=== PATIENT | male | born 1965 | race Caucasian/White ===

== ENCOUNTER 2019-10-25 08:00 | Observation (INO) ==
--- NOTE | 2019-10-25 10:29 | History & Physical Bridge Note ---
Date of Service October 25, 2019 History & Physical Bridge Note I have examined the patient, reviewed the History & Physical and in the interval since the performance of the History & Physical I have noted the following changes of clinical significance: no changes noted I have explained the risk benefit and intent of the procedure to Mr. callaway. He is willing to proceed.
[2019-10-25] MEDS ORDERED: MIDAZOLAM HCL 1 MG/ML 2ML VIAL ONE ×2 (11:22→12:19)
[2019-10-25] MEDS ORDERED: HEPARIN (PORCINE) 1000 UNIT/ML 10 ML (CATH LAB USE ONLY) ONE (12:18)
--- NOTE | 2019-10-25 12:25 | Cardiac Catheterization ---
Date of Service October 25, 2019 Cardiac Cath Report Cardiac Cath Report Procedure: 1. Coronary angiography 2. Left heart catheterization 3. Left ventriculogram History: This is a 54-year-old male patient who stopped smoking approximately 6 months ago. He has had previous cardiac catheterizations in [place] and found to have moderate disease with FFR done on the left circumflex as well as a diagonal branch from the LAD with recommendations of medical management. He presented with ongoing activity related shortness of breath and has been referred for cardiac catheterization. Procedure summary: After informed consent was obtained, the patient was brought to the cardiac cat heterization lab where he is prepped and draped in the usual manner. An attempt was made at a right transradial approach but we were not able to advance the guidewire after accessing the artery and therefore this approach was abandoned. A right transfemoral artery approach was utilized with a retrograde cylinder technique. Preformed 5 Tajik diagnostic catheters utilized for the coronary angiograms. A 5 Tajik pigtail catheter was utilized for the left heart pressures and left ventriculogram. Following the procedure the patient was evaluated by interventional cardiology. ACC data: Start time 10:43 AM End time 11:57 AM Opening aortic pressure 130/81 Closing aortic pressure 148/92 LV pressure 144/21 Sedation 2 mg intravenous Versed IV fluids 74 cc normal saline Contrast 100 cc Optiray Fluoroscopy time 2.6 minutes Radiation 1065 mGy Dap 8581 mGy/m Right dominant system AUC score 6 Coronary angiography: Selective injections of the right coronary artery revealed to be dominant. The right coronary artery is smooth in appearance widely patent and within normal limits. Selective injections of the left coronary artery revealed the left main trunk to be patent. There is a medium to large size ramus branch from the left main trunk. The left circumflex artery consists of a small to medium sized first marginal, a second small marginal and a third large marginal supplying most of the posterior myocardium. After the takeoff of the second marginal branch there is a long area of 70 to 80% stenoses in the left circumflex artery. The LAD extends all the way around the apex of the heart. The LAD gives off 2 small to medium sized marginal branches before the takeoff of the first septal branch. The LAD system appears to be widely patent. Left ventriculogram: The left ventricle was of normal size with normal systolic function. The mitral valve is competent. The aortic root and ascending aorta have normal morphology and diameter. Summary: The patient essentially has single-vessel coronary artery disease with a long segment of a large marginal branch from the circumflex being severely diseased. Recommendations: Recommendations are for the patient to be evaluated by a interventional cardiology for possible stent placement in the left circumflex artery.
[2019-10-25] MEDS ORDERED: CLOPIDOGREL BISULFATE 300 MG TAB ONE (12:27)
--- NOTE | 2019-10-25 12:45 | Post Anesthesia Assessment ---
Date of Service October 25, 2019 Post Sedation Assessment Vital Signs Temp Pulse Resp BP Pulse Ox 10/25/19 08:26 97.9 F 72 20 136/95 98 Recovery Score Activity: Moves 4 extremities Respiration: Deep Breath/Cough Circulation: +/-20% PreAnes Value Consciousness: Fully Awake Oxygen Saturation: O2 needed for >90% Discharge Sedation Level of Care: Fast Track Phase II Post Sedation Plan On clinical assessment, the patient appears to have tolerated the sedation without complications. Patient is recovering as anticipated. Patient will continue to be monitored by nursing and may be discharged when sedation discharge criteria are met per below protocol. Upon Completions of procedure up to 15 minutes continue every 5 minute vital signs and the P.A.R. score; then discharge to a Phase I or Fast Track to Phase II per the following guidelines: * Discharge Patient to appropriate Phase II area if PAR is 8 or greater or return to pre- procedure baseline. The post - procedure orders will be as directed. * If PAR score is less than 8 or not return to pre-procedure baseline then patient will follow Phase I monitoring till PAR is reached for Phase II. The Phase I may be done in procedure room or may call to secure a Phase I area. * If naloxone or flumazenil are used for reversal, hold in Phase I for continued monitoring from when last reversal dose was given for a minimum of 60 minutes or longer pending the nurse and/or physician discretion of patient condition before discharge to Phase II. Please call the Sedation Physician to re-evaluate and complete post-note for discharge to Phase II area. Do NOT discharge from procedure sedation or Phase 1 until post- sedation evaluation note is complete by procedure /sedation MD Sedation Discharge Instructions to be given to the patient at discharge to home.
[2019-10-25] MEDS ORDERED: ONDANSETRON INJ 2 MG/ML 2 ML VIAL IV PRN (12:49)
[2019-10-25] MEDS ORDERED: ACETAMINOPHEN 325 MG TAB PO PRN (12:49)
[2019-10-25] MEDS ORDERED: NITROGLYCERIN SL 0.4 MG/TAB TAB SL PRN (12:49)
--- NOTE | 2019-10-25 12:49 | Cardiac Catheterization ---
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 Cardiac Status Clinical evaluation leading to the procedure CAD Presenation: Stable angina Anginal Classification: CCS III Heart Failure: No Cardiogenic Shock within 24 Hours: No Cardiac Arrest within 24 Hours: No Imaging Studies Past 6 Months: No Stress Studies Past 6 Months: No Diagnostic Physicians Name: Terry Fink MD Status: Elective Closure Device Percutaneous Entry Location: Femoral Closure Device: Angio-Seal Recommendations: PCI without planned CABG PCI Indication: Angina despite med therapy and Stable Angina Lesion Segment Name: Mid to distal circumflex Culprit Artery: Yes Stenosis Prior to Rx (%): 70 Chronic Total Occlusion: No IVUS: No FFR: No Pre-Procedure RAYRAY Flow: 3 Previously Treated Lesion: No Lesion Complexity: Non-High/Non-C Lesion Length (mm): 28 Thrombus Present: No Bifurcation Lesion: No Guidewire Across Lesion: Stenosis Post-Procedure (%): 0 Post-Procedure RAYRAY Flow: 3 Devices(s) Deployed: No Yes Intraprocedure Events Significant Disection: No Perforation: No Cardiac Cath Procedure Full Procedure Date October 25, 2019 Pre-Procedure Diagnosis Pre-Procedure Diagnosis: Angina and CAD AUC Score AUC Score: 7 Post-Procedure Diagnosis Post-Procedure Diagnosis: Severe CAD and Successful PCI Procedure(s) Performed Procedure(s) Performed: Coronary Angiography and Drug Eluting Stent Travel Nurse Terry Fink MD Electrical Electronics Engineers(s) Jb Estimated Blood Loss Estimated Blood Loss: 10 Medication(s) Medication(s): Clopidogrel, Fentanyl, Heparin, Nicardipine, Nitroglycerin and Versed Summary of Findings Indication: Refractory angina Access: 6 Fr right common femoral artery Catheters: EBU 3.75 guide Findings: For full details of patient's coronary angiography please cath report dictated by Dr. Vazquez. Briefly, patient found to have severe single vessel disease involving his mid to distal circumflex. Decision to proceed with PCI. -- PCI -- Antithrombotic therapy: Heparin, clopidogrel Procedure: Left main cannulated with EBU 3.75 guide BMW wire passed across lesion into distal vessel Mid to distal circumflex lesion predilated with 2.0 compliant balloon Dilated lesion stented with 2.25 x 30 mm Prateek drug-eluting stent Stent post-dilated with 2.5 noncompliant balloon IC vasodilators administered for spasm Post procedure RAYRAY 3 flow, stent well expanded with minimal residual stenosis and no apparent cardiac complications. Arterial Closure: Angio-Seal Summary: 1. Successful PCI of mid to distal circumflex with single drug-eluting stent (2.25 x 30 mm Prateek; postdilated with 2.5 NC). Recommendations: To PCU for continued monitoring Loaded with clopidogrel 600 mg in laboratory sampler Continue dual-antiplatelet therapy for at least 6 months Continue statin, and ASCVD risk factor modification Consult cardiac Rehab Hemodynamics Rest Ao:: 144/94/115 Final Ao: 140/92/112 LV: -- Recommendations Recommendations: PCI without planned CABG Specimens Specimens: None Radiation Exposure (mGy) 2982 Contrast (mls) 180 Fluids (cc crystalloids) Fluids (cc crystalloids): 200 Drains Drains: None Anesthesia Moderate Procedural Complication(s) None Disposition PCU I attest to the content of the Intraoperative Record and any orders documented therein. Any exceptions are noted below.
[2019-10-25] MEDS ORDERED: DEXTROSE 50% 50 ML SYRINGE IV PRN (12:54)
[2019-10-25] MEDS ORDERED: GLUCOSE 10 TABS/TUBE PO PRN (12:54)
[2019-10-25] MEDS ORDERED: GLUCOSE 40% GEL 15 GM TUBE PO PRN (12:54)
[2019-10-25] MEDS ORDERED: CARBOHYDRATES FOR HYPOGLYCEMIA PO PRN (12:54)
[2019-10-25] MEDS ORDERED: GLUCAGON FOR INJ 1 MG VIAL SQ PRN (12:54)
[2019-10-25] MEDS ORDERED: SODIUM CHLORIDE 0.9% 1000ML 1,000 ML IV SCH (13:00)
--- NOTE | 2019-10-25 13:38 | Hospitalist Consultation ---
Date of Consultation October 25, 2019 Assessment & Plan (1) CAD (coronary artery disease): (2) S/P coronary artery stent placement: This is a 54yo M with a PMH of CAD, HTN, HLD, PSVT, mood disorder and other medical problems listed below who is s/p ROCAEL to mid-distal circumflex by Dr. Fink. -Feeling well s/p cardiac catheterization. Will be observed in PCU overnight -Loaded with clopidogrel 600 mg in cathead operator. -Continue dual-antiplatelet therapy for at least 6 months, statin and ASCVD risk factor modification -Consult cardiac rehab (3) HTN (hypertension): Normotensive. Continue carvedilol and lisinopril (4) Prediabetes: A1c of 6.2 in June 2019. Repeat ordered -Hold home agents -SSI while in-patient -BSG AC HS (5) Mood disorder: Continue Wellbutrin, Doxepin and Risperdal DVT Ppx: SQ Lovenox Code status: FULL PCP: Pilgram Dispo: Per primary service Patient seen in collaboration with Dr. Steele. Please see addendum. Thank you for this consultation. We will follow the patient with you during their hospital stay. You can reach a member of the [facility] Hospitalist Team 22/06 via pager @ [phone]. Supervising Physician Co-Signing Physician Notes ROS-No Headache, No Visual Changes, No Nausea, No Vomiting, No Fever, No Chills, No Neck Pain or Stiffness, No Chest Pain, No Palpitations, No SOB, No MENCHACA, No Cough, No Sputum, No Wheezing, No Abdominal Pain, No Diarrhea, No Hematemesis, No Hemoptysis, No Unexpected Weight Loss, No Flank pain, No Melena, No Hematochezia, No Frequency, No Urgency, No Burning, No Hematuria, No Rashes, No Diaphoresis. Appetite is Normal, c/o back Pain Physical Exam Gen-AAO x 3, NAD, Afebrile Head-NCAT, EOMI, PERRLA, Anicteric Sclera, No Posterior Pharyngeal Erythema Neck-Supple, No JVD, No Thyromegaly, No Masses, No LAD, No Bruits Lungs-Clear to Auscultation Bilaterally, No Rales, No Rhonchi, No Wheezing, No Crepitus Chest-No S4, +S1, +S2, No S3, No Murmurs, No Rubs, No Gallops, No Ectopy Abdomen-Soft, Bowel Sounds Present, Non Tender, Non Distended, No Hepatomegaly, No Splenomegaly, No Palpable Masses, No Rebound, No Rigidity, No Guarding Musculoskeletal-Full Range of Motion Bilaterally, No CVAT Extremities-No Cyanosis, No Clubbing, No Edema Nuero-Cranial Nerves II-XII grossly intact, Motor WNL, DTRs WNL, Strength WNL, Non Focal Psych-Normal Mood History of Present Illness Reason for Consultation: post PCI medical mgmt Attending Physician: Catrachito Vazquez, DO History of Present Illness This is a 54yo M with a PMH of CAD, HTN, HLD, PSVT, mood disorder and other medical problems listed below who is s/p ROCAEL to mid-distal circumflex by Dr. Fink. Patient has recently seen PCP for ongoing activity related shortness of breath and has been referred for cardiac catheterization today at [facility]. Has history of previous cardiac catheterizations in [place] and was found to have moderate disease with FFR done on the left circumflex as well as a diagonal branch from the LAD with recommendations of medical management. Quit smoking approximately 6 months ago. During diagnostic cardiac catheterization by Dr. Vazquez today, patient was found to have single-vessel coronary artery disease with a long segment of a large marginal branch from the circumflex being severely diseased. Was evaluated by Dr. Fink and underwent successful PCI of mid-distal circumflex artery. Post procedure, patient is feeling well except for lower back pain due to former back injury. Denies any lightheadedness, visual changes, chest pain, palpitations, shortness of breath, nausea, vomiting, abdominal pain, dysuria, diarrhea or constipation. Allergies Allergy/AdvReac Type Severity Reaction Status Date / Time celecoxib Allergy Mild OTHER Verified 10/24/10 14:02 Cephalosporins Allergy Mild OTHER Verified 10/24/10 14:02 hydromorphone Allergy Mild OTHER Verified 10/24/10 14:02 tramadol Allergy Mild OTHER Verified 11/05/10 04:16 Penicillins Allergy Unknown UNKNOWN Verified 11/28/10 09:20 propoxyphene Allergy Unknown 0 Verified 11/05/10 04:16 cephalexin AdvReac Intermediate VOMITING Verified 12/13/10 11:15 naproxen AdvReac Intermediate N/V Verified 12/13/10 11:15 chlorpromazine AdvReac Mild FLUSHED Verified 12/13/10 11:15 hydrocodone AdvReac Mild NAUSEA/CP Verified 11/05/10 06:20 morphine AdvReac Unknown NAUSEA Verified 09/01/14 09:53 Home Medications Home Medications Medication Instructions Recorded Confirmed Type aspirin 81 mg PO QAM 12/06/18 10/25/19 History carvedilol 25 mg PO BIDM 12/06/18 10/25/19 History doxepin 150 mg PO HS 12/06/18 10/25/19 History fenofibrate 160 mg PO QAM 12/06/18 10/25/19 History lisinopril 20 mg PO QAM 12/06/18 10/25/19 History metformin 500 mg PO BIDM 12/06/18 10/25/19 History vortioxetine [Trintellix] 20 mg PO QAM 12/06/18 10/25/19 History albuterol sulfate 2 puff INHALATION QID 10/24/19 10/25/19 History bupropion HCl [Wellbutrin SR] 100 mg PO DAILY 10/24/19 10/25/19 History risperidone 1 mg PO BID 10/24/19 10/25/19 History rosuvastatin 40 mg PO DAILY 10/25/19 10/25/19 History Patient History Medical History (Updated 10/25/19 @ 14:07 by Yovana Aleman PA-C) CAD (coronary artery disease) History of tobacco use HTN (hypertension) Mood disorder Prediabetes PSVT (paroxysmal supraventricular tachycardia) Ureteral stone (Resolved 08/29/14) Surgical History H/O inguinal hernia repair History of cardiac catheterization History of cholecystectomy S/P bilateral hip replacements Family History Other Diabetes Heart disease Social History (Updated 10/25/19 @ 14:02 by Yovana Aleman PA-C) Preferred Language: Yoruba Communication Ability: Effective Watch Mechanic Required: No Beliefs That Will Affect Care: None Current Living Situation: Alone Other Information That Helps Us Care for You: No Feels Safe at Home: Yes Safety Concerns: Feels Safe At This Time Smoking Status: Former smoker Smoking End Date: 04/30/2019 ; Hx Alcohol Use: Yes Alcohol type: beer Hx Substance Use: No Review of Systems Review of Systems: At least ten systems reviewed and negative except as noted in the HPI. Physical Exam Physical Exam: General Appearance: WD/WN, vitals as above, NAD, lying in bed, pleasant, conversing easily Head: normocephalic, atraumatic Eyes: normal inspection, PERRL, conjunctivae normal, anicteric sclerae ENT: external ear and nose normal, oropharynx normal Neck: trachea midline, no thyromegaly normal visual inspection Respiratory: normal respiratory effort, lungs clear to auscultation, no wheeze, rales, rhonchi. Normal insp/exp effort, no accessory muscle use Cardiovascular: regular rate, rhythm, no murmur, normal peripheral pulses. Vessels: no JVD or carotid bruit Chest: normal inspection of chest Abdomen/GI: normal bowel sounds, soft, nontender, no hepatosplenomegaly Extremities/Musculoskelatal: no cyanosis or clubbing, extremities motor streng th 5/5. Right groin with banage in place. Clean, dry, intact Neurologic: PERRL, EOMI, accommodation nl, no face palsy, no dysarthria CN's II-XI intact bilaterally and moves all extremities Psychiatric: A+Ox3, euthymic affect Skin: no rashes, normal color, warm/dry Results & Data Vital Signs (Past 12 Hours) Vital Signs Temp Pulse Resp BP Pulse Ox 10/25/19 13:30 66 20 130/89 96 10/25/19 13:15 66 20 138/90 96 10/25/19 13:00 66 20 145/91 H 96 10/25/19 12:55 66 20 135/96 98 10/25/19 12:50 66 20 153/101 H 98 10/25/19 12:45 70 20 136/95 98 10/25/19 08:26 36.6 C 72 20 136/95 98
[2019-10-25] MEDS: SODIUM CHLORIDE 0.9% 1000ML 1,000 ML IV SCH (14:58)
[2019-10-25] MEDS: OXYCODONE HCL IR 5 MG TAB (IMMEDIATE RELEASE) PO PRN ×2 (15:18→20:24)
[2019-10-25] MEDS: ACETAMINOPHEN SOLN 500 MG/15.62 ML UDP PO SCH ×2 (15:18→20:19)
[2019-10-25] MEDS ORDERED: PNEUMOCOCCAL ADMINISTRATION CHARGE ONE (16:00)
[2019-10-25] MEDS ORDERED: PNEUMOCOCCAL POLYSACCHARIDES 25 MCG/0.5 ML VIAL/SYR IM ONE (16:00)
[2019-10-25] MEDS: ALBUTEROL HFA 8 GM INHALER INH SCH ×2 (17:00→20:25)
[2019-10-25] MEDS: carvediloL 25 MG TAB PO SCH (17:01)
[2019-10-25] MEDS: INSULIN ASPART 100 UNITS/ML 3 ML PEN SC SCH ×2 (17:02→20:28)
[2019-10-25] MEDS: risperiDONE 1 MG TABLET PO SCH (20:26)
[2019-10-25] MEDS ORDERED: DOXEPIN HCL 75 MG CAPSULE PO SCH (21:00)
[2019-10-26] MEDS: ACETAMINOPHEN SOLN 500 MG/15.62 ML UDP PO SCH ×5 (01:03→12:03)
[2019-10-26] MEDS: OXYCODONE HCL IR 5 MG TAB (IMMEDIATE RELEASE) PO PRN ×3 (01:34→10:31)
[2019-10-26] MEDS: SODIUM CHLORIDE 0.9% 1000ML 1,000 ML IV SCH ×2 (01:45→13:32)
[2019-10-26 07:19] LABS: Basophils # (auto) 0.02 K/uL (0-0.2); Basophils % (auto) 0.3 %; Eosinophils # (auto) 0.47 K/uL (0-0.5); Eosinophils % (auto) 7.7 %; Hematocrit (blood only) 33.7 % (42-52); Hemoglobin 11.5 g/dL (14.0-18.0); Immature Granulocytes # (auto) 0.02 K/uL (0.00-0.02); Immature Granulocytes % (auto) 0.3 %; Lymphocytes # (auto) 1.78 K/uL (1.2-3.4); Lymphocytes % (auto) 29.1 %; Mean Corpuscular Hemoglobin 31.7 pg (25-34); Mean Corpuscular Hgb Conc 34.1 g/dL (32-36); Mean Corpuscular Volume 92.8 fL (80-100); Mean Platelet Volume 9.3 fL (7.4-10.4); Monocytes # (auto) 0.55 K/uL (0.11-0.59); Neutrophils # (auto) 3.28 K/uL (1.4-6.5); Neutrophils % (auto) 53.6 %; Platelet Count 194 K/uL (130-400); RDW Standard Deviation 44.1 fL (36.4-46.3); Red Blood Count 3.63 M/uL (4.7-6.1); White Blood Count 6.12 K/uL (4.8-10.8)
[2019-10-26 07:51] LABS: BUN Creatinine Ratio 13.6 (10-20); Calcium 8.6 mg/dl (8.5-10.1); Creatinine Clr Calc Pharmacy 81.1 ml/min; Est GFR (African American) 75.6; Est GFR (Non-African American) 65.2; Potassium 4.1 mmol/L (3.5-5.1)
[2019-10-26] MEDS: INSULIN ASPART 100 UNITS/ML 3 ML PEN SC SCH ×2 (07:52→11:53)
[2019-10-26 07:53] LABS: Estimated Average Glucose 174 mg/dl; Hemoglobin A1C 7.7 % (4.5-5.6)
[2019-10-26] MEDS: risperiDONE 1 MG TABLET PO SCH (07:53)
[2019-10-26] MEDS: carvediloL 25 MG TAB PO SCH (07:53)
[2019-10-26] MEDS: ALBUTEROL HFA 8 GM INHALER INH SCH ×2 (08:00→12:03)
[2019-10-26] MEDS ORDERED: ROSUVASTATIN CALCIUM 20 MG TAB PO SCH (09:00)
[2019-10-26] MEDS ORDERED: ASPIRIN 81 MG ECTAB PO SCH (09:00)
[2019-10-26] MEDS ORDERED: BuPROPion SR 100 MG TABCR PO SCH (09:00)
[2019-10-26] MEDS ORDERED: LISINOPRIL 20 MG TAB PO SCH (09:00)
[2019-10-26] MEDS ORDERED: CLOPIDOGREL BISULFATE 75 MG TAB PO SCH (09:00)
--- NOTE | 2019-10-26 09:47 | Hospitalist Progress Note ---
Date of Service October 26, 2019 Assessment & Plan (1) CAD (coronary artery disease): (2) S/P coronary artery stent placement: 54yo M with a PMH of CAD, HTN, HLD, PSVT, mood disorder and other medical problems listed below who is s/p ROCAEL to mid-distal circumflex by Dr. Fink. Feeling well after cardiac cath and ROCAEL Continue aspirin and clopidogrel for 6 months Ok for discharge to follow up with PCP and Cardiology Continue rosuvastatin Continue metformin for DM Discussed other lifestyle modifications (3) HTN (hypertension): Normotensive. Continue carvedilol and lisinopril (4) Diabetes mellitus: A1c of 6.2 in June 2019. Repeat is 7.7. POC glucose was >150 yesterday., 124 this AM Has been on insulin sliding scale while in the hospital Provided diabetic education Patient reports he has quit alcohol after recent evaluation showed mild hepatomegaly on USS and mild elevation in AST/ALT. Quit smoking 6 months ago Educated on need for exercise, diet and medication adherence Continue metformin on discharge and follow up PCP for continued management (5) Mood disorder: Continue Wellbutrin, Doxepin and Risperdal DVT Ppx: SQ Lovenox Code status: FULL PCP: Pilgram Dispo: Per primary service. Can be discharged today Subjective Patient seen and examined Has no complaints today Reports he has been walking around since after PCI without shortness of breath. Review of Systems Constitutional: no fever and no chills Eyes: no problem reported Respiratory: no cough, no dyspnea, no dyspnea on exertion and no wheezing Cardiovascular: no chest pain, no dyspnea at rest, no dyspnea on exertion and no orthopnea Gastrointestinal: no problem reported Genitourinary: no problem reported Physical Exam Physical Exam: General: Well nourished, well hydrated ,average body habitus, no acute distress and not ill appearing Eyes: PERRL, conjunctivae normal, not pale, anicteric sclerae, EOM intact bilaterally ENMT: External ear and nose normal, oropharynx normal Neck: Normal visual inspection, no tracheal deviation, no swelling noted Respiratory: Normal respiratory effort, no respiratory distress, lungs clear to auscultation, no crackles and no wheezes Cardiovascular: Pulse is RRR. Heart Sounds: normal S1 and normal S2; no murmurs. Vessels: normal peripheral pulses Extremities: no pedal edema Chest (Breasts): Chest: normal inspection of chest Gastrointestinal (Abdomen): Abdomen is not distended, soft, non-tender to palpation, no guarding, no palpable hepatosplenomegaly, normal bowel sounds Musculoskeletal: No cyanosis or clubbing, all extremities motor strength 5/5 Skin: No rash noted on gross inspection, No ulcers noted Neurologic: Alert and oriented x 3, No focal weakness, sensation grossly intact Psychiatric: Alert and oriented x 3, euthymic affect, no depressed affect Results & Data Vital Signs (Past 12 Hours) Vital Signs Temp Pulse Pulse Resp BP Pulse Ox 10/26/19 08:00 74 10/26/19 07:00 36.5 C 77 20 129/79 96 10/26/19 03:58 36.5 C 84 137/85 96 10/25/19 23:34 36.4 C L 81 19 144/78 H 96 Laboratory Results Laboratory Results - last 24 hr 10/25/19 10/25/19 10/25/19 14:50 16:37 20:11 WBC RBC Hgb Hct MCV MCH MCHC RDW Std Deviation RDW Coeff of Rory Plt Count MPV Immature Gran % (Auto) Neut % (Auto) Lymph % (Auto) [place] % (Auto) Eos % (Auto) Baso % (Auto) Immature Gran # (Auto) Neut # (Auto) Lymph # (Auto) [place] # (Auto) Eos # (Auto) Baso # (Auto) Sodium Potassium Chloride Carbon Dioxide Anion Gap BUN Creatinine Est Cr Clr Drug Dosing Est GFR ( Amer) Est GFR (Non-Af Amer) BUN/Creatinine Ratio Glucose POC Glucose 173 H 152 H 193 H Estimat Average Glucose Hemoglobin A1c Calcium 10/26/19 10/26/19 10/26/19 07:06 07:06 07:06 WBC 6.12 RBC 3.63 L Hgb 11.5 L Hct 33.7 L MCV 92.8 MCH 31.7 MCHC 34.1 RDW Std Deviation 44.1 RDW Coeff of Rory 13.0 Plt Count 194 MPV 9.3 Immature Gran % (Auto) 0.3 Neut % (Auto) 53.6 Lymph % (Auto) 29.1 [place] % (Auto) 9.0 Eos % (Auto) 7.7 Baso % (Auto) 0.3 Immature Gran # (Auto) 0.02 Neut # (Auto) 3.28 Lymph # (Auto) 1.78 [place] # (Auto) 0.55 Eos # (Auto) 0.47 Baso # (Auto) 0.02 Sodium 137 Potassium 4.1 Chloride 106 Carbon Dioxide 24 Anion Gap 7.0 BUN 17 Creatinine 1.23 Est Cr Clr Drug Dosing 81.1 Est GFR ( Amer) 75.6 Est GFR (Non-Af Amer) 65.2 BUN/Creatinine Ratio 13.6 Glucose 118 H POC Glucose Estimat Average Glucose 174 Hemoglobin A1c 7.7 H Calcium 8.6 10/26/19 07:14 WBC RBC Hgb Hct MCV MCH MCHC RDW Std Deviation RDW Coeff of Rory Plt Count MPV Immature Gran % (Auto) Neut % (Auto) Lymph % (Auto) [place] % (Auto) Eos % (Auto) Baso % (Auto) Immature Gran # (Auto) Neut # (Auto) Lymph # (Auto) [place] # (Auto) Eos # (Auto) Baso # (Auto) Sodium Potassium Chloride Carbon Dioxide Anion Gap BUN Creatinine Est Cr Clr Drug Dosing Est GFR ( Amer) Est GFR (Non-Af Amer) BUN/Creatinine Ratio Glucose POC Glucose 124 H Estimat Average Glucose Hemoglobin A1c Calcium
[2019-10-26] MEDS ORDERED: ENOXAPARIN INJ 40 MG/0.4 ML SYR SQ SCH (11:00)
--- NOTE | 2019-10-26 13:27 | Cardiology Progress Note ---
Date of Service October 26, 2019 Assessment & Plan (1) CAD (coronary artery disease): (2) S/P coronary artery stent placement: (3) Diabetes mellitus: (4) Mood disorder: (5) HTN (hypertension): The patient is ready for discharge today. I will arrange follow-up with our group in 2 to 3 weeks. Subjective The patient had an uneventful night. He has no new cardiac complaints. He has been walking in the [place] without difficulty. Review of Systems Review of Systems: All systems reviewed & are unremarkable except as noted in HPI & below Nothing additional to add. Physical Exam Physical Exam: General: no acute distress and stated age Head: normocephalic, no masses, lesions, tenderness or abnormalities Eyes: conjunctiva are pink and non-injected, sclera clear Neck: supple, no adenopathy, no bruits, normal jugular venous pulse, no hepatojugular reflux Chest: normal shape and normal respiratory effort Lungs: clear to auscultation and percussion Cardiac Exam: - regular rate & rhythm, no murmurs gallops or rubs - normal S1, normal S2 Pulses: 2(+) throughout Abdomen: abdomen soft, non-tender, no abnormal masses and no hepatosplenomegaly Musculoskeletal: no gait disturbance, no joint inflammation, no deforming arthritis Extremities: no edema and no cyanosis Neuro: grossly normal exam Results & Data Vital Signs (Past 12 Hours) Vital Signs Temp Pulse Pulse Resp BP Pulse Ox 10/26/19 12:57 36.2 C L 80 20 106/71 96 10/26/19 11:17 36.2 C L 80 20 106/71 96 10/26/19 08:00 74 10/26/19 07:00 36.5 C 77 20 129/79 96 10/26/19 03:58 36.5 C 84 137/85 96 Laboratory Results Laboratory Results - last 24 hr 10/25/19 10/25/19 10/25/19 14:50 16:37 20:11 WBC RBC Hgb Hct MCV MCH MCHC RDW Std Deviation RDW Coeff of Rory Plt Count MPV Immature Gran % (Auto) Neut % (Auto) Lymph % (Auto) [place] % (Auto) Eos % (Auto) Baso % (Auto) Immature Gran # (Auto) Neut # (Auto) Lymph # (Auto) [place] # (Auto) Eos # (Auto) Baso # (Auto) Sodium Potassium Chloride Carbon Dioxide Anion Gap BUN Creatinine Est Cr Clr Drug Dosing Est GFR ( Amer) Est GFR (Non-Af Amer) BUN/Creatinine Ratio Glucose POC Glucose 173 H 152 H 193 H Estimat Average Glucose Hemoglobin A1c Calcium 10/26/19 10/26/19 10/26/19 07:06 07:06 07:06 WBC 6.12 RBC 3.63 L Hgb 11.5 L Hct 33.7 L MCV 92.8 MCH 31.7 MCHC 34.1 RDW Std Deviation 44.1 RDW Coeff of Rory 13.0 Plt Count 194 MPV 9.3 Immature Gran % (Auto) 0.3 Neut % (Auto) 53.6 Lymph % (Auto) 29.1 [place] % (Auto) 9.0 Eos % (Auto) 7.7 Baso % (Auto) 0.3 Immature Gran # (Auto) 0.02 Neut # (Auto) 3.28 Lymph # (Auto) 1.78 [place] # (Auto) 0.55 Eos # (Auto) 0.47 Baso # (Auto) 0.02 Sodium 137 Potassium 4.1 Chloride 106 Carbon Dioxide 24 Anion Gap 7.0 BUN 17 Creatinine 1.23 Est Cr Clr Drug Dosing 81.1 Est GFR ( Amer) 75.6 Est GFR (Non-Af Amer) 65.2 BUN/Creatinine Ratio 13.6 Glucose 118 H POC Glucose Estimat Average Glucose 174 Hemoglobin A1c 7.7 H Calcium 8.6 10/26/19 10/26/19 07:14 11:15 WBC RBC Hgb Hct MCV MCH MCHC RDW Std Deviation RDW Coeff of Rory Plt Count MPV Immature Gran % (Auto) Neut % (Auto) Lymph % (Auto) [place] % (Auto) Eos % (Auto) Baso % (Auto) Immature Gran # (Auto) Neut # (Auto) Lymph # (Auto) [place] # (Auto) Eos # (Auto) Baso # (Auto) Sodium Potassium Chloride Carbon Dioxide Anion Gap BUN Creatinine Est Cr Clr Drug Dosing Est GFR ( Amer) Est GFR (Non-Af Amer) BUN/Creatinine Ratio Glucose POC Glucose 124 H 130 H Estimat Average Glucose Hemoglobin A1c Calcium Medications Administered Current Inpatient Medications Acetaminophen (Tylenol) 650 mg PO Q4H PRN PRN Reason: Mild Pain (scale 1-3) Stop: 11/24/19 12:48 Acetaminophen (Tylenol) 500 mg PO Q4H [facility] Stop: 11/24/19 15:59 Last Admin: 10/26/19 12:03 Dose: Not Given Documented by: Albuterol (Ventolin Hfa) 2 puffs INH QID [facility] Stop: 11/24/19 16:59 Last Admin: 10/26/19 12:03 Dose: Not Given Documented by: Aspirin (Ecotrin Ectab) 81 mg PO QAM [facility] Stop: 11/25/19 08:59 Last Admin: 10/26/19 07:53 Dose: 81 mg Documented by: Bupropion HCl (Wellbutrin-Sr) 100 mg PO DAILY [facility] Stop: 11/25/19 08:59 Last Admin: 10/26/19 07:55 Dose: 100 mg Documented by: Carvedilol (Coreg) 25 mg PO BIDM [facility] Stop: 11/24/19 16:59 Last Admin: 10/26/19 07:53 Dose: 25 mg Documented by: Clopidogrel Bisulfate (Plavix) 75 mg PO QAM [facility] Stop: 11/25/19 08:59 Last Admin: 10/26/19 07:53 Dose: 75 mg Documented by: Dextrose (Dextrose 50%) 25 - 50 ml IV UD PRN; Protocol PRN Reason: Hypoglycemia Protocol Stop: 11/24/19 12:53 Doxepin HCl (Sinequan) 150 mg PO HS [facility] Stop: 11/24/19 20:59 Last Admin: 10/25/19 20:26 Dose: 150 mg Documented by: Enoxaparin Sodium (Lovenox) 40 mg SQ Q24H [facility] Stop: 11/25/19 10:59 Last Admin: 10/26/19 11:57 Dose: 40 mg Documented by: Glucagon (Glucagen) 1 mg SQ UD PRN; Protocol PRN Reason: Hypoglycemia Protocol Stop: 11/24/19 12:53 Glucose (Dex4 Glucose) 4 - 8 tabs PO UD PRN; Protocol PRN Reason: Hypoglycemia Protocol Stop: 11/24/19 12:53 Glucose (Glucose 40%) 15 - 30 gm PO UD PRN; Protocol PRN Reason: Hypoglycemia Protocol Stop: 11/24/19 12:53 Sodium Chloride (Nss 1000ml) 1,000 mls @ 100 mls/hr IV .Q10H [facility] Stop: 11/24/19 10:29 Last Admin: 10/26/19 01:45 Dose: 100 mls/hr Documented by: Insulin Aspart (Novolog Flexpen) 0 units SC ACHS [facility] Stop: 11/24/19 16:29 Last Admin: 10/26/19 11:53 Dose: 3 units Documented by: Lisinopril (Zestril) 20 mg PO QAM [facility] Stop: 11/25/19 08:59 Last Admin: 10/26/19 07:53 Dose: 20 mg Documented by: Miscellaneous (Order Awaiting Action) 1 ea N/A QS [facility] Stop: 11/24/19 15:59 Last Admin: 10/26/19 08:00 Dose: Not Given Documented by: Miscellaneous (Order Awaiting Action) 1 ea N/A QS [facility] Stop: 11/24/19 15:59 Last Admin: 10/26/19 07:59 Dose: Not Given Documented by: Miscellaneous (Carbohydrates For Hypoglycemia) 15 - 30 gm PO UD PRN PRN Reason: Hypoglycemia Protocol Stop: 11/24/19 12:53 Nitroglycerin (Nitrostat) 0.4 mg SL PRN PRN PRN Reason: Chest Pain Stop: 11/24/19 12:48 Ondansetron HCl (Zofran) 4 mg IV Q6H PRN PRN Reason: Nausea And Vomiting Stop: 11/24/19 12:48 Oxycodone HCl (Roxicodone Immediate Rel) 5 mg PO Q4H PRN PRN Reason: Pain Stop: 11/08/19 15:02 Last Admin: 10/26/19 10:31 Dose: 5 mg Documented by: Risperidone (Risperdal) 1 mg PO BID [facility] Stop: 11/24/19 20:59 Last Admin: 10/26/19 07:53 Dose: 1 mg Documented by: Rosuvastatin Calcium (Crestor) 40 mg PO DAILY [facility] Stop: 11/25/19 08:59 Last Admin: 10/26/19 07:53 Dose: 40 mg Documented by:
== END 2019-10-26 13:42 | disposition home or self-care (01) ==
LOC: CC 08:00 → 2S 08:00

== ENCOUNTER 2024-06-12 11:56 | Inpatient (IN) ==
--- NOTE | 2024-06-12 11:57 | Emergency Department Note ---
Impression & Plan Chest pain, CAD (coronary artery disease), S/P coronary artery stent placement, Abdominal distension, Abdominal pain ED Provider Note NAME: BIANCA ORANTES AGE: 58 SEX: M : 1965 ARRIVES VIA: Ambulance INFORMANT: Patient, significant other, EMS report/nursing report ED PROVIDER(S): Tab Azar MD CHIEF COMPLAINT: Abdominal distention, chest burning MEDICAL DECISION MAKING: Patient presented due to concern for chest burning as well as abdominal distention and pain. IV was established and blood work was obtained along with an EKG troponin CT of the abdomen pelvis and chest x-ray. Patient is currently chest pain-free. Patient blood work shows a normal white count hemoglobin of 12.9 the patient has been anemic in the past. Platelet count is normal. Kidney function with a creat of 1.52. Slightly higher than normal. Calcium 10.4. Troponin negative. EKG with no signs of obvious acute ischemia with the patient is chest pain-free at the time of the EKG being taken. Glucose noted in the urine. Patient CT of the abdomen pelvis shows moderate fecal retention and no evidence of hydronephrosis with a normal appendix. Given the patient's chest pain and history of CAD patient is high risk. Do believe the patient would benefit from monitoring and further cardiac testing. I did speak with the patient informed of the findings and recommendations and he is comfortable with plan of care as is the patient's significant other at bedside. I did speak with the on-call hospitalist Dr. Carter and the patient was admitted to the medicine service. Discussion w/ other healthcare providers: Dr. Carter medicine service Prior /Outside records reviewed: None Differential diagnosis: Cardiac ischemia, aortic dissection, pulmonary embolism, pneumothorax, pneumonia, pericarditis, myocarditis, GERD, cholecystitis, pancreatitis, musculoskeletal, as well as other pathologies were considered. Diagnostics, as interpreted by me: ECG: Normal sinus rhythm, rate of 74, normal intervals, normal axis no ST elevations, T wave version V2 not in V3. Cardiac monitoring: An order was placed for continuous cardiac monitoring. The monitor shows a rate of 75 with sinus rhythm. Patient was placed on pulse oximetry Medical decision rules: Heart score Imaging studies: I informally interpreted the patient's CT of the abdomen pelvis does not show obvious obstruction with formal report to follow. HPI: Patient presents due to concern for abdominal distention and chest burning. The patient states that he woke up around 4 AM this morning and noticed that his abdomen was distended. He later went for a walk and developed the need to have a bowel movement. This occurred about 30 minutes afterwards and did have associated left-sided chest burning and arm numbness. Patient states that this did feel similar to when he had his prior MIs he does have a history of CAD and stents. Patient did take nitro. Patient also took aspirin and called EMS. Patient's chest burning was 7 out of 10 at the time that it occurred currently 0. Patient denies any falls or trauma. The patient does complain of some lower abdominal discomfort. No prior history of abdominal surgeries. Patient denies any alcohol use. He does chew tobacco. Patient states that he was following with a Dr. Mccracken with cardiology at [place]. Patient does follow at [facility] and is unsure as to his current PCPs as he used to have Dr. Long. Patient denies any leg swelling or calf pain. PAST MEDICAL HISTORY: See Below PAST SURGICAL HISTORY: See Below SOCIAL HISTORY: See Below HOME MEDICATIONS: See Below ALLERGIES: See Below VITALS: See Below PHYSICAL EXAMINATION: GENERAL: NAD, non-toxic. Wearing glasses. EYE EXAM: Normal conjunctiva. PERRL, no anisocoria and EOM's grossly intact w/o pain. OROPHARYNX: Moist mucus membranes, grossly normal dentition. NECK: Trachea midline, no stridor. LUNGS: Clear to auscultation. Normal chest wall mechanics. HEART: NSR, no MRG. ABDOMEN: Abdomen soft, abdominal distention, no obvious fluid wave, lower abdominal discomfort without upper abdominal pain. No masses, no rebound or guarding. BACK: No CVA TTP. SKIN: No rashes and no bruising. UPPER EXTREMITIES: Upper extremities are grossly normal. LOWER EXTREMITIES: Grossly normal, no edema. NEURO EXAM: A&O x3, cranial nerves II-XII grossly intact, normal speech, moves all 4 extremities. Past Med/Surg History Problem List (Updated 06/12/24 @ 16:18 by Tab Azar MD) Abdominal pain (Acute) Abdominal distension (Acute) Acute kidney injury History of CAD (coronary artery disease) Constipation Chest pain (Acute) Diabetes mellitus Prediabetes S/P coronary artery stent placement (Acute) CAD (coronary artery disease) (Acute) Mood disorder HTN (hypertension) Medical History History of tobacco use PSVT (paroxysmal supraventricular tachycardia) Surgical History History of cardiac catheterization S/P bilateral hip replacements H/O inguinal hernia repair History of cholecystectomy Family History Other Diabetes Heart disease Social History Smoking Status: Former smoker Hx Alcohol Use: No Hx Substance Use: No Preferred Language: Syriac Communication Ability: Effective Eyeletter Required: No Beliefs That Will Affect Care: None Current Living Situation: Significant Other Other Information That Helps Us Care for You: No Feels Safe at Home: Yes Assistive Devices: Glasses Allergies Allergies Allergy/AdvReac Type Severity Reaction Status Date / Time celecoxib Allergy Mild OTHER Verified 10/24/10 14:02 Cephalosporins Allergy Mild OTHER Verified 10/24/10 14:02 hydromorphone Allergy Mild OTHER Verified 10/24/10 14:02 tramadol Allergy Mild OTHER Verified 11/05/10 04:16 Penicillins Allergy Unknown UNKNOWN Verified 11/28/10 09:20 propoxyphene Allergy Unknown 0 Verified 11/05/10 04:16 cephalexin AdvReac Intermediate VOMITING Verified 12/13/10 11:15 naproxen AdvReac Intermediate N/V Verified 12/13/10 11:15 chlorpromazine AdvReac Mild FLUSHED Verified 12/13/10 11:15 hydrocodone AdvReac Mild NAUSEA/CP Verified 11/05/10 06:20 morphine AdvReac Unknown NAUSEA Verified 09/01/14 09:53 Home Meds Home Medications Medication Instructions Recorded Confirmed aspirin 81 mg tablet,delayed 81 mg PO QAM 12/06/18 06/12/24 release doxepin 75 mg capsule 150 mg PO HS 12/06/18 06/12/24 fenofibrate 160 mg tablet 160 mg PO QAM 12/06/18 06/12/24 lisinopril 20 mg tablet 20 mg PO QAM 12/06/18 06/12/24 metformin 500 mg tablet 1,000 mg PO QAM 12/06/18 06/12/24 vortioxetine 20 mg tablet 20 mg PO QAM 12/06/18 06/12/24 bupropion HCl 100 mg tablet,12 hr 100 mg PO QAM 10/24/19 06/12/24 sustained-release (Wellbutrin SR) rosuvastatin 40 mg tablet 40 mg PO HS 10/25/19 06/12/24 amlodipine 5 mg tablet 5 mg PO QAM 06/12/24 06/12/24 dulaglutide 1.5 mg/0.5 mL 1.5 mg subcut WK 06/12/24 06/12/24 subcutaneous pen injector (Trulicity) empagliflozin 10 mg tablet 10 mg PO QAM 06/12/24 06/12/24 (Jardiance) isosorbide mononitrate 60 mg 60 mg PO DAILY 06/12/24 06/12/24 tablet,extended release 24 hr metoprolol succinate 100 mg 50 mg PO QAM 06/12/24 06/12/24 tablet,extended release 24 hr nitroglycerin 0.4 mg sublingual 0.4 mg sublingual UD PRN Chest Pain 06/12/24 06/12/24 tablet omeprazole 40 mg capsule,delayed 40 mg PO QAM 06/12/24 06/12/24 release quetiapine 200 mg tablet See Rx Instructions .Route .COMPLEX 06/12/24 06/12/24 quetiapine 400 mg tablet See Rx Instructions .Route .COMPLEX 06/12/24 06/12/24 Previous Rx's Medication Instructions Recorded clopidogrel 75 mg tablet 75 mg PO QA #30 tabs 10/26/19 Results & Data (ED) Vital Signs Vital Signs - 24 hr 06/12/24 12:05 06/12/24 12:07 06/12/24 12:14 Temperature 37.1 C Temperature Source Oral Pulse Rate 77 77 77 Pulse Rate [Apical] Pulse Rhythm Regular Respiratory Rate 22 22 22 Respiratory Effort / Characteristics Non-Labored Spontaneous Respiratory Depth Normal Blood Pressure 145/93 H Blood Pressure [Left Arm] Blood Pressure Mean 110 Blood Pressure Mean [Left Arm] Pulse Oximetry 98 98 98 Oxygen Delivery Method Room Air Room Air Room Air Sepsis Recent Fever Within 48 Hours No Sepsis New/Unexplained Change in Mental Status N/A Sepsis Action Taken by Nursing No Action Required 06/12/24 12:27 06/12/24 13:58 Temperature Temperature Source Pulse Rate 74 Pulse Rate [Apical] 72 Pulse Rhythm Respiratory Rate 14 Respiratory Effort / Characteristics Respiratory Depth Blood Pressure Blood Pressure [Left Arm] 114/81 Blood Pressure Mean Blood Pressure Mean [Left Arm] 92 Pulse Oximetry 99 Oxygen Delivery Method Room Air Sepsis Recent Fever Within 48 Hours Sepsis New/Unexplained Change in Mental Status Sepsis Action Taken by [facility] Medications Current Medication List: was personally reviewed by me Laboratory Data Attestation: I reviewed the patient's lab results. 06/12/24 12:00 06/12/24 12:00 Lab Results 06/12/24 06/12/24 Range/Units 12:00 12:20 WBC 6.31 (4.8-10.8) K/ul RBC 4.28 L (4.70-6.10) M/uL Hgb 12.9 L (14.0-18.0) g/dl Hct 38.8 L (42.0-52.0) % MCV 90.7 (80.0-100.0) fL MCH 30.1 (25.0-34.0) pg MCHC 33.2 (32.0-36.0) g/dL RDW Std Deviation 46.6 H (36.4-46.3) fL RDW Coeff of Rory 13.9 (11.5-14.5) % Plt Count 230 (130-400) K/uL MPV 9.6 (9.4-12.4) fL Immature Gran % (Auto) 0.3 % Neut % (Auto) 59.3 % Lymph % (Auto) 22.3 % [place] % (Auto) 11.4 % Eos % (Auto) 5.9 % Baso % (Auto) 0.8 % Neut # (Auto) 3.74 (1.40-6.50) K/uL Lymph # (Auto) 1.41 (1.20-3.40) K/uL [place] # (Auto) 0.72 H (0.11-0.59) K/uL Eos # (Auto) 0.37 (0.00-0.50) K/uL Baso # (Auto) 0.05 (0.00-0.20) K/uL Immature Gran # (Auto) 0.02 (0.01-0.20) K/uL Sodium 138 (136-145) mmol/L Potassium 4.5 (3.5-5.1) mmol/L Chloride 104 (98-107) mmol/L Carbon Dioxide 26 (21-32) mmol/L Anion Gap 8 (3-11) BUN 22 (6-23) mg/dl Creatinine 1.52 H (0.6-1.4) mg/dl Est Cr Clr Drug Dosing 53.4 ml/min Est GFR ( Amer) 56.9 ml/min Est GFR (Non-Af Amer) 49.1 ml/min BUN/Creatinine Ratio 14.5 (10-20) Glucose 83 (70-99(Fasting)) mg/dl Calcium 10.4 H (8.6-10.3) mg/dl Total Bilirubin 0.5 (0.2-1.0) mg/dl AST 22 (13-39) U/L ALT 19 (7-52) U/L Alkaline Phosphatase 33 L (34-104) U/L Troponin I High Sens < 2.3 (0-20) pg/ml Total Protein 7.9 (6.0-8.3) gm/dl Albumin 4.8 (3.4-5.0) gm/dl Globulin 3.1 (2.5-4.0) gm/dl Albumin/Globulin Ratio 1.5 (0.9-2) Lipase 36 (11-82) U/L Urine Color Yellow Urine Appearance Clear (Clear) Urine pH 6.5 (4.5-7.5) Ur Specific [place] 1.010 (1.000-1.030) Urine Protein Negative (Negative) Urine Glucose (UA) 3+ H (Negative) Urine Ketones Negative (Negative) Urine Blood Negative (Negative) Urine Nitrite Negative (Negative) Urine Bilirubin Negative (Negative) Urine Urobilinogen Negative (Negative) Ur Leukocyte Esterase Negative (Negative) Administered Medications Sodium Chloride (Nss) 1,000 mls @ 125 mls/hr IV .Q8H [facility] Stop: 07/12/24 15:32 Last Admin: 06/12/24 15:46 Dose: 125 mls/hr Documented By: DUSTIN Discontinued Medications Sodium Chloride (Nss) 500 mls @ 999 mls/hr IV .Q31M [facility] Stop: 06/12/24 12:41 Last Infusion: 06/12/24 13:57 Dose: Infused Documented By: Admin: 06/12/24 12:20 Dose: 999 mls/hr Documented By: SAUL Ioversol (Optiray 320 100ml) 94 ml IV ONCE ONE Stop: 06/12/24 13:29 Last Admin: 06/12/24 13:28 Dose: 94 ml Documented By: MEGHANN Lactulose (Lactulose Syrup 20 Gm/30 Ml Udc) 20 gm PO NOW ONE Stop: 06/12/24 14:38 Last Admin: 06/12/24 15:02 Dose: 20 gm Documented By: SAUL Imaging Data Radiologist's Impression: Abdomen/Pelvis CT 06/12/24 12:[address] WITH IV CONTRAST CT DOSE: 1118.82 mGy.cm HISTORY: ab distension, RLQ pain TECHNIQUE: Multiaxial CT images of the abdomen and pelvis were performed following the use of intravenous contrast. A dose lowering technique was utilized adhering to the principles of ALARA. COMPARISON STUDY: Abdomen and pelvis CT 11/17/2014. FINDINGS: The lung bases are clear. No pneumoperitoneum. No pneumatosis. 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 Proximal femoral screws are in place. No acute fractures. Prior cholecystectomy. The main portal vein is patent. The liver, pancreas, spleen, and adrenal glands unremarkable. Mild calcified plaque within the normal caliber abdominal aorta. No retroperitoneal or pelvic lymphadenopathy. No pelvic free fluid. There are few subcentimeter bilateral renal hypodense lesions. These are technically too small to characterize but favor cysts. No hydronephrosis. The bladder is unremarkable. Colonic diverticulosis. No evidence for acute diverticulitis. No bowel wall thickening or obstruction. Normal appendix. Moderate fecal retention. IMPRESSION: 1. No bowel wall thickening or obstruction. 2. Colonic diverticulosis. No evidence for acute diverticulitis. 3. Moderate fecal retention. 4. Normal appendix. 5. No hydronephrosis. 6. Additional findings as described above. ACT 112: Negative or not required by law. Electronically signed by: Aleksey Arenas M.D. 06/12/2024 1:49 PM Discharge Plan Visit Data Chief Complaint: GI Assessment Stated Complaint: AB DISTENTION ED Provider: Tab Azar Discharge Problem: Chest pain, CAD (coronary artery disease), S/P coronary artery stent placement, Abdominal distension, Abdominal pain Patient Disposition: Admitted As Inpatient Discharge Instructions Interventions: ED Discharge Assessment Last Done: 06/12/24 15:16 Discharge Problem: Chest pain Qualifiers: Chest pain type: unspecified Qualified Code(s): R07.9 - Chest pain, unspecified CAD (coronary artery disease) Qualifiers: Coronary Disease-Associated Artery/Lesion type: unspecified vessel or lesion type [place] vs. transplanted heart: [place] heart Associated angina: unspecified whether angina present Qualified Code(s): I25.10 - Atherosclerotic heart disease of [place] coronary artery without angina pectoris Abdominal pain Qualifiers: Abdominal location: lower abdomen, unspecified Qualified Code(s): R10.30 - Lower abdominal pain, unspecified
--- OUTSIDE RECORDS SUMMARY | 2024-06-12 12:01 | External Medical Summary | Summary of Care ---
Author Name Unknown Organization [facility] Address [address] [facility] [place] [address] Phone [phone] Care Team Providers Care Software Support Representative Name Role Phone Lydia Perdomo MD Primary Care Provide r Reason for Visit * Reason Onset Date Comments Advice 05/17/2024 Encounter Details Date Type Department Care Team (Late st Contact Info) Description 05/17/2024 Telephone Family Medicine [address] [phone] Lydia Perdomo MD [address] [place] [address] [place] [phone] Advice Allergies Active Allergy Reactions Criticality Noted Date Comments Acetaminophen 09/13/2008 As a child? Cat Dander 12/30/2022 RAST +++ve for Cat Dander, Dog Dander, Mites on 10/2020 Nsaids 09/13/2008 Celecoxib 03/27/2015 Cephalexin 09/13/2008 Hydromorphone Hcl 12/19/2009 Dog Dander 12/30/2022 RAST +++ve for Cat Dander, Dog Dander, Mites on 10/2020 Ketorolac Tromethamine 09/13/2008 Dust 12/30/2022 RAST +++ve for Cat Dander, Dog Dander, Mites on 10/2020 Penicillins 09/13/2008 Chlorpromazine Hcl 09/13/2008 Tramadol Hcl 09/13/2008 Severe gi distress documented as of this encounter (statuses as of 05/17/2024) Medications Medication Sig Dispensed Refills Start Date End Date Status aspirin enteric coated 81 MG TBECIndications:Matthew ry artery disease involving [place] coronary artery of [place] heart with other form of angina pectoris (HCC) Take 1 Tab by mouth daily. 100 Tab 3 07/17/2016 Active TRINTELLIX 20 MG TABS TAKE ONE TABLET EVERY DAY IN THE MORNING 0 09/15/2017 Active doxepin (SINEQUAN) 75 MG Capsule 2 Capsules at bedtime. 0 11/26/2017 Active buPROPion extended release, SR, (WELLBUTRIN SR) 100 MG TB12 09/26/2019 Active Cyanocobalamin (B-12) 1000 MCG Capsule Take 1 Capsule by mouth in the morning. Active Embrace Talk Glucose Test In Vitro Strip (Glucose Blood)Indications:Type 2 diabetes mellitus with hemoglobin A1c goal of less than 7.0% ([facility]) Use to test blood sugar four times a day. DX e11.9 400 Strip 3 10/28/2021 Active Embrace Lancets Ultra Thin 30GIndications:Type 2 diabetes mellitus with hemoglobin A1c goal of less than 7.0% ([facility]) Use to test blood sugar 4 times a day DXe11.9 400 Each 3 10/28/2021 Active Mirtazapine 15 MG Oral Tablet (Remeron) Take 1 Tablet by mouth at bedtime. Active QUEtiapine Fumarate ER 150 MG Oral Tablet Extended Release 24 Hour Take 1 Tablet by mouth at bedtime. Total of 500 mg a day Active FreeStyle Crow 2 SensorIndications:Type 2 diabetes mellitus with hemoglobin A1c goal of less than 7.0% ([facility]) Use as directed. Use to monitor glucose levels 4 times a day DXe11.9 2 Each 11 01/07/2023 Active Additional Information Patient not taking.Reported on 02/26/2024 Omeprazole 40 MG Oral Capsule Delayed Release (PriLOSEC)Indications: Gastroesophageal reflux disease without esophagitis,Type 2 diabetes mellitus with hemoglobin A1c goal of less than 7.0% (HCC) Take 1 Capsule by mouth daily in the morning. 90 Capsule 3 06/24/2023 Active Lisinopril 20 MG Oral Tablet (Prinivil)Indications: Coronary artery disease involving [place] coronary artery of [place] heart without angina pectoris Take 1 TABLET BY MOUTH in the morning. 90 Tablet 3 08/23/2023 Active amLODIPine Besylate 5 MG Oral Tablet (Norvasc)Indications:P rimary hypertension TAKE 1 TABLET BY MOUTH DAILY 90 Tablet 3 08/23/2023 Active Fexofenadine HCl 60 MG Oral Tablet (Leonarda)Indications:C hronic rhinitis Take 1 TABLET BY MOUTH in the morning. 90 Tablet 3 08/23/2023 Active Clopidogrel Bisulfate 75 MG Oral Tablet (pLAVix)Indications:Co ronary artery disease involving [place] coronary artery of [place] heart without angina pectoris Take 1 TABLET BY MOUTH in the morning. 90 Tablet 3 08/23/2023 Active Rosuvastatin Calcium 40 MG Oral Tablet (Crestor)Indications:H yperlipidemia LDL goal <100 take 1 TABLET by mouth at bedtime 90 Tablet 2 10/30/2023 Active Metoprolol Succinate ER 100 MG Oral Tablet Extended Release 24 Hour (toPROL XL)Indications:PSVT (paroxysmal supraventricular tachycardia) (HCC),Coronary artery disease involving [place] coronary artery of [place] heart without angina pectoris,Primary hypertension Take 1 Tablet by mouth in the morning. 90 Tablet 1 11/16/2023 Active Additional Information Patient taking differently: 50 mgOral Daily(AM), Reported on 02/26/2024 Nitroglycerin 0.4 MG Sublingual Tablet Sublingual (Nitrostat) Place 1 Tablet under the tongue as needed for Pain, Chest. May repeat 3 times. If chest pain continues, call 911. 25 Tablet 11 11/27/2023 Active Trulicity 1.5 MG/0.5ML Subcutaneous Solution Pen-injector (Dulaglutide)Indicatio ns:Type 2 diabetes mellitus with hemoglobin A1c goal of less than 7.0% (HCC) Inject 1.5 mg under the skin once a week. 2 mL 3 02/12/2024 Active Isosorbide Mononitrate ER 60 MG Oral Tablet Extended Release 24 Hour (Imdur) Take 1 Tablet by mouth in the morning. 01/09/2024 Active Prazosin HCl 5 MG Oral Capsule (Minipress) Take 1 Capsule by mouth at bedtime. 02/04/2024 Active metFORMIN HCl 1000 MG Oral Tablet (Glucophage)Indication s:Type 2 diabetes mellitus with hemoglobin A1c goal of less than 7.0% (HCC) Take 1 Tablet by mouth every evening. 90 Tablet 2 02/25/2024 Active Additional Information Patient taking differently:1,000 mg OralDaily(AM), Reported on 02/26/2024 Empagliflozin 10 MG Oral Tablet (Jardiance)Indications :Type 2 diabetes mellitus with hemoglobin A1c goal of less than 7.0% (HCC) Take 1 Tablet by mouth in the morning. 90 Tablet 2 02/25/2024 Active Fenofibrate 160 MG Oral Tablet (Lofibra)Indications:H ypertriglyceridemia Take 1 Tablet by mouth daily. with a meal 90 Tablet 2 02/25/2024 Active Hospital, Clinic, or Other Facility Administered Medication Ordered Dose Route Frequency Start Date End Date Status Dupilumab (Dupixent) prefilled syringe 100 mgIndications: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 100 mg SC [id number] 12/30/2022 Acti ve documented as of this encounter (statuses as of 05/17/2024) Active Problems Problem Noted Date Diagnosed Date Carotid stenosis, left 02/17/2024 History of TIA (transient ischemic attack) 02/16 Gastroesophageal reflux disease without esophagi tis 01/29/2024 Type 2 diabetes mellitus without complication Allergic asthma, moderate persistent, uncomplica spenser 12/30/2022 Last Assessment & Plan: Dupixent Therapy Restrictive lung disease 12/08/2022 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 Overview: latanoprost Type 2 diabetes mellitus wit h hemoglobin A1c goal of less than 7.0% 09/11/2021 COPD, group B, by GOLD 2017 classification 11/14 Elevated IgE level 11/14/2020 Cat allergies 11/14/2020 House dust mite allergy 11/14/2020 Hepatic steatosis 10/20/2019 Schizophrenia 03/27/2018 Overview: [place] PSVT (paroxysmal supraventricular tachycardia) 0 01/21/2018 Hx of nonmelanoma skin cancer 05/20/2017 Overview: basal cell carcinoma (R infraorbital region) Plaque psoriasis 02/18/2017 Coronary artery disease invo [place]ving [place] coronary artery of [place] heart without angina pectoris 07/11/2016 Overview: 60% LDA, 60% left circ Adjustment disorder with anxious mood Diverticulosis of colon Primary hypertension Hyperlipidemia LDL goal <100 documented as of this encounter (statuses as of 05/17/2024) Resolved Problems Problem Noted Date Diagnosed Date Resolved Date Avascular necrosis of bones of both hips 09/11/2021 09/11/2021 Restrictive lung disease 11/14/202008/2023 Type 2 diabetes mellitus with hyperglycemia 11/14/2020 02/10/2022 Prediabetes 08/08/2019 12/13/2020 Overview: Per Prediabetes protocol Syncope 01/21/2018 09/01/2022 Hyperglycemia 01/08/2017 09/23/2021 Calculus of ureter 11/12/2014 5 Avascular necrosis of bone of hip 09/26/2014 05/30/2015 Ureteral calculus 09/26/2014 12/15/2014 Pulmonary embolism and infarction 09/26/2014 07/17/2016 HTN, goal to be determined 1 12/17/2008 Overview: Modified per HTN protocol #16. Peptic ulcer 10/09/2014 HTN, goal to be determined 12/09/2013 Anxiety states 10/05/2015 Overview: ICD-10 update of inactive term Diarrhea 10/09/2014 Migraine 10/08/2017 Abdominal pain, right upper quadrant 10/09/2014 Nausea with vomiting 014 Calculus of kidney 7 HTN, goal below 140/90 07/17 Tobacco abuse 07/12/2019 BMI 27.0-27.9,adult 05/14/20 23 Overview: 196 documented as of this encounter (statuses as of 05/17/2024) Immunizations Name Administration Dates Next Due COVID-19 mRNA, LNP-s, No Pre serve, 2-Dose Series (Moderna) 06/13/2021,04/30/2021 Pneumococcal Conjugate Vacci ne, 20-valent ([id number]) 12/09/2022 Pneumococcal Polysaccharide PPV23 (Pneumovax) 09/12/2014 Seasonal Influenza, PF, 6 M & above, IM , (FluLaval or Fluzone) 11/16/2023,09/01/2022,09/03/2021,10/06,11/11/2018,10/08/2017 Seasonal Influenza, Quadriva lent, No Preserve, IM 08/19/2016 Seasonal Influenza, Split, I IV3, With Preserve, Inj 08/16/2015,09/12/2014 TDAP (age 10 and older)(Boostrix) 09/18/2016 Zoster Vaccine Recombinant (Shingrix) 09/01/2022 ,02/10/2022 documented as of this encounter Social History Tobacco Use Types Packs/Day Years Used Date Smoking Tobacco: Former Cigarettes 1.5 8 0 08/14/2011 - 08/14/2019 Smokeless Tobacco: Current Snuff Alcohol Use Standard Drinks/Week Comments No 0 (1 standard drink = 0.6 oz pure alcohol) Quit drinking when liver enzymes were elevated 09/2019 PHQ-2 Answer Date Recorded PHQ-2 Score 0 10/20/2019 Hunger Vital Sign Answer Date Recorded Worried About Running Out of Food in the Last Ye ar Never true 09/11/2021 Ran Out of Food in the Last Year Never true 09/11/2021 Sex and Gender Information Value Date Recorded Sex Assigned at Not on file Gender Identity Not on file Sexual Orientation Not on file Job Start Date Occupation Industry Not on file Not on file Not on file documented as of this encounter Miscellaneous Notes * Telephone Encounter - Lydia Perdomo MD - 05/17/2024 10:19 AM EDT Spoke to the pt - he stasted that he wont be able to come to the appt today and would like to cancel the appt Appt cancelled documented in this encounter Plan of Treatment Upcoming Encounters Date Type Department Care Team (Late st Contact Info) Description 05/17/2024 2:20 PM EDT Office Visit Family Medicine [address] [place] [phone] Lydia Perdomo MD [address] [place] [address] [place] [phone] 05/30/2024 1:00 PM EDT Office Visit Neurology Frankie Rice [place] [address] [place] [address] [place] [phone] Polina Galvan MD [address] [place] [address] Health Maintenance Due Date Last Done Comments Colonoscopy 2008 Fecal Occult Blood Test 2008 Sigmoidoscopy 2008 Depression Screening 10/20/2020 10/20/2019 COVID-19 Vaccine ( season) 2023 06/13/2021, 04/30/2021 Diabetic Foot Exam 09/01/2023 09/01/2022 Diabetic Eye Exam 02/10/2024 02/09/2023, , 01/30/2021, Additional history exists HbA1c 05/17/2024 11/16/2023, 04/2 11/2022, 02/09/2023, Additional history exists Albumin/Creatinine Ratio 11/16/2024 023, 02/09/2023, 02/10/2022, Additional history exists GFR 01/27/2025 01/28/2024, 12/31, 11/16/2023, Additional history exists O2 ASSESSMENT COMPLETED IN PAST YEAR FOR COPD 02/25/2025 02/26/2024 Cologuard 06/05/2025 06/05/2022, 05/02, 05/29/2022, Additional history exists Colorectal Cancer Screening 06/05/2025 DTaP,Tdap,and Td Vaccines (2 - Td or Tdap) 09/18/2026 09/18/2016 Alpha-1 Antitrypsin Completed 11/08/2020, 9 Zoster Vaccines Completed 09/01/2022, 02/10/2022 Pneumococcal Vaccine: Pediatrics (0 to 5 Years) and At-Risk Patients (6 to 64 Years) Completed 12/09/2022, 09/12/2014 Influenza Vaccine (FLU shot) Completed , 09/01/2022, 09/03/2021, Additional history exists GARDASIL-HPV IMMUNIZATION SERIES Aged Out No longer eligible based on patient's age to complete this topic Hepatitis B Aged Out No longer eligi ble based on patient's age to complete this topic MENINGOCOCCAL (MENACTRA/MENVEO) Aged Out No longer eligible based on patient's age to complete this topic documented as of this encounter Medical Devices Not on filedocumented as of this encounter Care Teams Software Support Representative Relationship Specialty Start Date End Date Lydia Perdomo MD [address] [place] [address] [place] [id number] PCP - General Family Medicine 11/16/23 documented as of this encounter
--- OUTSIDE RECORDS SUMMARY | 2024-06-12 12:01 | External Medical Summary | Summary of Care ---
Author Name Unknown Organization [facility] Address [address] [address] Phone [phone] Care Team Providers Care Visual Specialist Name Role Phone Lydia Perdomo MD Primary Care Provide r Reason for Referral * Precert (Within 10 days (routine)) - Pending Review Specialty Diagnoses / Procedures Referred By Karmen oconnor Referred To Contact Radiology Diagnoses History of TIA (transient ischemic attack) Procedures MRI BRAIN W WO CONTRAST Polina Galvan MD [address] [facility] [place] [address] Referral ID Status Reason Start Date Expiration Date V isits Requested Visits Authorized [id number] Pending Review 02/26/[phone] Reason for Visit * Reason Comments NEW PATIENT Saw at [facility] for ? TIA * Evaluate & Treat - Unlimited Visits (Within 10 days (routine)) - Authorized Specialty Diagnoses / Procedures Referred By Karmen oconnor Referred To Contact Neurology Diagnoses History of TIA (transient ischemic attack) Symptomatic stenosis of left carotid artery without infarction Monica Martinez, [address] [place] [address] Referral ID Status Reason Start Date Expiration Date Visits Requested Visits Authorized [id number] Authorized Specialty Services Required 01/29/[phone] Encounter Details Date Type Department Care Team (Late st Contact Info) Description 02/26/2024 9:20 AM EDT Office Visit Neurology [facility] [address] [place] [address] Polina Galvan MD [address] [facility] [place] [place] [id number] History of TIA (transient ischemic attack)* Allergies Active Allergy Reactions Criticality Noted Date [...] as of this encounter (statuses as of 04/08/2024) Medications Medication Sig Dispensed Refills Start Date End Date Status aspirin enteric coated 81 MG TBECIndications:Matthew ry artery disease involving alturas coronary artery of alturas heart with other form of angina pectoris (HCC) Take 1 Tab by mouth daily. 100 Tab 3 07/17/2016 Active TRINTELLIX 20 MG TABS TAKE ONE TABLET EVERY DAY IN THE MORNING 0 09/15/2017 Active doxepin (SINEQUAN) 75 MG Capsule 2 Capsules at bedtime. 0 11/26/2017 Active buPROPion extended release, SR, (WELLBUTRIN SR) 100 MG TB12 0 09/26/2019 Active Cyanocobalamin (B-12) 1000 MCG Capsule Take 1 Capsule by mouth in the morning. 0 Active Embrace Talk Glucose Test In Vitro Strip (Glucose Blood)Indications:Type 2 diabetes mellitus with hemoglobin A1c goal of less than 7.0% ([facility]) Use to test blood sugar four times a day. DX e11.9 400 Strip 3 10/28/2021 Active Embrace Lancets Ultra Thin 30GIndications:Type 2 diabetes mellitus with hemoglobin A1c goal of less than 7.0% ([facility]) Use to test blood sugar 4 times a day DXe11.9 400 Each 3 10/28/2021 Active Mirtazapine 15 MG Oral Tablet (Remeron) Take 1 Tablet by mouth at bedtime. 0 Active QUEtiapine Fumarate ER 150 MG Oral Tablet Extended Release 24 Hour Take 1 Tablet by mouth at bedtime. Total of 500 mg a day 0 Active FreeStyle Crow 2 SensorIndications:Type 2 diabetes mellitus with hemoglobin A1c goal of less than 7.0% ([facility]) Use as directed. Use to monitor glucose levels 4 times a day DXe11.9 2 Each 11 01/07/2023 Active Additional Information Patient not taking.Reported on 02/26/2024 Omeprazole 40 MG Oral Capsule Delayed Release (PriLOSEC)Indications: Gastroesophageal reflux disease without esophagitis,Type 2 diabetes mellitus with hemoglobin A1c goal of less than 7.0% ([facility]) Take 1 Capsule by mouth daily in the morning. 90 Capsule 3 06/24/2023 Active Lisinopril 20 MG Oral Tablet (Prinivil)Indications: Coronary artery disease involving alturas coronary artery of alturas heart without angina pectoris Take 1 TABLET [...] Oral Tablet (pLAVix)Indications:Co ronary artery disease involving alturas coronary artery of alturas heart without angina pectoris Take 1 TABLET BY MOUTH in the morning. 90 Tablet 3 08/23/2023 Active Rosuvastatin Calcium 40 MG Oral Tablet (Crestor)Indications:H yperlipidemia LDL goal <100 take 1 TABLET by mouth at bedtime 90 Tablet 2 10/30/2023 Active Metoprolol Succinate ER 100 MG Oral Tablet Extended Release 24 Hour (toPROL XL)Indications:PSVT (paroxysmal supraventricular tachycardia) ([facility]),Coronary artery disease involving alturas coronary artery of alturas heart without angina pectoris,Primary hypertension Take 1 [...] 1 Tablet by mouth in the morning. 0 01/09/2024 Active Prazosin HCl 5 MG Oral Capsule (Minipress) Take 1 Capsule by mouth at bedtime. 0 02/04/2024 Active metFORMIN HCl 1000 MG Oral [...] extrinsic asthma without complication 100 mg SC [id number] 12/30/2022 Acti ve documented as of this encounter (statuses as of 04/08/2024) Active Problems Problem Noted Date Diagnosed Date [...] 11/14/2020 Hepatic steatosis 10/20/2019 Schizophrenia 03/27/2018 Overview: [place] PSVT (paroxysmal supraventricular tachycardia) 0 01/21/2018 Hx of nonmelanoma skin cancer 05/20/2017 Overview: basal cell carcinoma (R infraorbital region) Plaque psoriasis 02/18/2017 Coronary artery disease invo lving alturas coronary artery of alturas heart without angina pectoris 07/11/2016 Overview: 60% LDA, 60% left circ Adjustment disorder with anxious mood Diverticulosis of colon Primary hypertension Hyperlipidemia LDL goal <100 documented as of this encounter (statuses as of 04/08/2024) Resolved Problems Problem Noted Date Diagnosed Date [...] 09/26/2014 07/17/2016 HTN, goal to be determined 12/17/2008 Overview: Modified per HTN protocol #16. Peptic ulcer 10/09/2014 HTN, goal to be determined 1 12/09/2013 Anxiety states 10/05/2015 Overview: ICD-10 update of inactive term Diarrhea 10/09/2014 Migraine 10/08/2017 Abdominal pain, right upper quadrant 10/09/2014 Nausea with vomiting 014 Calculus of kidney 7 HTN, goal below 140/90 07/17 Tobacco abuse 07/12/2019 BMI 27.0-27.9,adult 05/14/20 23 Overview: 196 documented as of this encounter (statuses as of 04/08/2024) Immunizations Name Administration Dates Next Due COVID-19 mRNA, LNP-s, No Pre serve, 2-Dose Series (Moderna) 06/13/2021,04/30/2021 Pneumococcal Conjugate Vacci ne, 20-valent ([id number]) 12/09/2022 Pneumococcal Polysaccharide PPV23 (Pneumovax) 09/12/2014 Seasonal [...] 08/14/2011 - 08/14/2019 Smokeless Tobacco: Current Snuff Tobacco Cessation:Ready to Q uit: Not Asked; Counseling Given: Not Answered Alcohol Use Standard Drinks/Week Comments No 0 [...] on file documented as of this encounter Last Filed Vital Signs Vital Sign Reading Time Taken Comments Blood Pressure 93/57 02/26/2024 9:03 AM EDT Pulse 100 02/26/2024 9:03 AM EDT Temperature 37 C (98.6 F) 02/26/2024 9:03 AM EDT Respiratory Rate 18 02/26/2024 9:03 AM EDT Oxygen Saturation 98% 02/26/2024 9:03 AM EDT Inhaled Oxygen Concentration - - Weight 80.3 kg (177 lb 1.6 oz) 02/26/2024 9:03 A M EDT Height 177.8 cm (5' 10") 02/26/2024 9:03 AM EDT Body Mass Index 25.41 02/26/2024 9:03 AM EDT documented in this encounter Progress Notes * Polina Galvan MD - 02/26/2024 10:23 AM EDT CLINIC NOTES Neurology [facility] [place] [address] [facility] [address] Artie Santiago : 1965 NEUROLOGY OUTPATIENT NOTE 02/26/2024 HISTORY: The patient is referred for consultation by Dr. Perdomo and Michelle, who will be receiving a copy of this note. Reason for consultation possible transient ischemic attack. The patient is a 58-year-old right-handed male with hypertension diabetes hyperlipidemia and paroxysmal supraventricular tachycardia. On this background in November of 2023 he was in his usual state of health and noted dysarthria left facial numbness left facial droop and left hand tingling. He may have developed a minor headache and had some blurred vision symptoms lasted several hours and resolved. He had recurrent similar symptoms in December but none since then he is uncertain as to whether not he had a headache which she with each of them. New line he does have a history of migraines but they have been doing generally well and he denies ever having any focal neurologic deficits with hisheadaches. There may have been some minor confusion as well. By report a CTA of the head was unremarkable and a CTA of the neck showed 75% stenosis of the left internal carotid. Patient has been seenby Vascular Surgery who is monitoring. He has no other history of sudden visual loss right-sided weakness numbness or facial droop. He has no known history of stroke he has a strong family history of stroke having had a grandfatherand father have stroke. Remotely he had a DVT The patient was on aspirin and Plavix prior to this event as well as a statin his blood pressure cholesterol and blood sugar have been well controlled. He was otherwise well around this time his weight is been stable he has chronic shortness of breaththere was no chest pain or palpitations. 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 latanoprost BMI 31.0-31.9,adult CAD (coronary artery disease), alturas coronary artery 07/11/2016 60% LDA, 60% left circ Calculus of kidney 08/2014 [facility] Depressive disorder, not elsewhere classified Diarrhea Diverticulosis of colon Essential hypertension with goal blood pressure less than 140/90 Hematuria 11/17/2014 Admitted [facility] with hematuria, INR 11 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/2019 Hyperglycemia 01/07/2017 Glucose 168 Hyperlipidemia LDL goal <100 Migraine Nausea with vomiting Need for hepatitis C screening test 01/07/2017 negative Other anxiety states PE (pulmonary embolism) 08/2014 Peptic ulcer Restrictive lung disease 12/08/2022 Schizophrenia ([facility]) 03/27/2018 [place] Screening for HIV without presence of risk factors 01/07/2017 negative Syncope 01/27/2018 Tobacco abuse Patient Active Problem List Diagnosis Code Adjustment disorder with anxious mood F43.22 Diverticulosis of colon K57.30 Primary hypertension I10 Coronary artery disease involving alturas coronary artery of alturas heart without angina pectoris I25.10 Hyperlipidemia LDL goal <100 E78.5 Plaque psoriasis L40.0 Hx of nonmelanoma skin cancer Z85.828 PSVT (paroxysmal supraventricular tachycardia) I47.10 Schizophrenia ([facility]) F20.9 Hepatic steatosis K76.0 COPD, group B, by GOLD 2017 classification ([facility]) J44.9 Elevated IgE level R76.8 Cat allergies J30.81 House dust mite allergy Z91.09 Type 2 diabetes mellitus with hemoglobin A1c goal of less than 7.0% ([facility]) E11.9 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 Restrictive lung disease J98.4 Allergic asthma, moderate persistent, uncomplicated J45.40 Gastroesophageal reflux disease without esophagitis K21.9 Type 2 diabetes mellitus without complication ([facility]) E11.9 Carotid stenosis, left I65.22 History of TIA (transient ischemic attack) Z86.73 Past Surgical History: Procedure Laterality Date ABD/PELVIS CT W/ IV AND W/ PO CONTRAST 12/17/2009 post surgical changes of cholecystectomy, right renal calculus, [facility] BIMALLEOLAR ANKLE FX W/ FIXATION Right 05/12/2017 repair fracture dislocation CAD IMAGING REFERRAL OP 01/23/2017 reversible inferior wall ischemia, EF 53% CARDIAC CATH SCANNED RESULT 07/11/2016 NL LV size and function, EF 55%, 50-60% proximal diagonal off LAD, left distal circ 60%, RCA normal CARDIAC CATH-CARDIOLOGY ONLY 10/25/2019 70% circ, drug eluting stent COLOGUARD 05/29/2022 negative CORONARY ANGIOGRAPHY W/RIGHT+LEFT CATH 04/13/[address] ABD/PELVIS W WO IV CONTRAST AND W ORAL CONT 09/25/2014 3 mm calculus right proximal ureter, right ureteral stent, avascular necrosis of bilateral femoral heads, cholecystectomy, diverticulosis CT HEAD/BRAIN WO CONTRAST 01/22/2017 no acute abnormality CTA CHEST NON-CORONARY W CONTRAST 09/18/2017 no PE, cholecystectomy ECHO, COMPLETE (2D), TRANS-THORACIC 10/13/2017 normal LV function, EF 55-59%, no wall motion abnormalities, grade I diastolic dysfunction LAPAROSCOPY; CHOLECYSTECTOMY LAPAROSCOPY; REPAIR INITIAL INGUINAL HERNIA bilat MISCELLANEOUS ORDER (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 TOTAL HIP REPLACEMENT & PROSTHESIS Left 05/11/2015 Dr Fraser TOTAL HIP REPLACEMENT & PROSTHESIS Right 07/04/2015 Dr Fraser VASC DUPLEX CAROTID BILAT Bilateral 10/13/2017 <50% ICA stenosis, and antegrade vertebral flow. 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 Employer: [employer] Tobacco Use Smoking status: Former Current packs/day: 0.00 Average packs/day: 1.5 packs/day for 8.0 years (12.0 ttl pk-yrs) Types: Cigarettes Start date: 08/14/2011 Quit date: 08/14/2019 Years since quittin.5 Smokeless tobacco: Current Types: Snuff Vaping Use Vaping Use: Never used Substance and Sexual Activity Alcohol use: No Comment: Quit drinking when liver enzymes were elevated 09/2019 Drug use: Yes Frequency: 3.0 times per week Types: Methamphetamines, Benzodiazepines, Marijuana Comment: tested positive 03/27/18 Sexual activity: Yes Partners: Female Other Topics Concern Service Not Asked Blood Transfusions Not Asked Caffeine Concern Not Asked Occupational Exposure Not Asked Hobby Hazards Not Asked Sleep Concern Not Asked Stress Concern Not Asked Weight Concern Not Asked Special Diet Yes Comment: bland, low salt Back Care Not Asked Exercise Not Asked Bike Helmet Not Asked Seat Belt Yes Self-Exams Not Asked Social History Narrative Not on file Social Determinants of Health Financial Resource Strain: Not on file Food Insecurity: No Food Insecurity (09/11/2021) Hunger Vital Sign Worried About Running Out of Food in the Last Year: Never true Ran Out of Food in the Last Year: Never true Transportation Needs: Not on file Physical Activity: Not on file Stress: Not on file Social Connections: Not on file Intimate Partner Violence: Not on file Housing Stability: Not on file Family History Problem Relation Age of Onset Heart Disorder Father Stroke Father Neurological Disorder Mother headaches Hypertension Sister Musculo-skeletal Disorder Sister back problems Neurological Disorder Sister headache Hypertension Brother Allergies Mother Current Outpatient Medications Medication Sig Dispense Refill aspirin enteric coated 81 MG TBEC Take 1 Tab by mouth daily. 100 Tab 3 TRINTELLIX 20 MG TABS TAKE ONE TABLET EVERY DAY IN THE MORNING 0 doxepin (SINEQUAN) 75 MG Capsule 2 Capsules at bedtime. 0 Cyanocobalamin (B-12) 1000 MCG Capsule Take 1 Capsule by mouth in the morning. Embrace Talk Glucose Test In Vitro Strip (Glucose Blood) Use to test blood sugar four times a day. DX e11.9 400 Strip 3 Embrace Lancets Ultra Thin 30G Use to test blood sugar 4 times a day DXe11.9 400 Each 3 QUEtiapine Fumarate ER 150 MG Oral Tablet Extended Release 24 Hour Take 1 Tablet by mouth at bedtime. Total of 500 mg a day Omeprazole 40 MG Oral Capsule Delayed Release (PriLOSEC) Take 1 Capsule by mouth daily in the morning. 90 Capsule 3 Lisinopril 20 MG Oral Tablet (Prinivil) Take 1 TABLET BY MOUTH in the morning. 90 Tablet 3 amLODIPine Besylate 5 MG Oral Tablet (Norvasc) TAKE 1 TABLET BY MOUTH DAILY 90 Tablet 3 Fexofenadine HCl 60 MG Oral Tablet (Leonarda) Take 1 TABLET BY MOUTH in the morning. 90 Tablet 3 Clopidogrel Bisulfate 75 MG Oral Tablet (pLAVix) Take 1 TABLET BY MOUTH in the morning. 90 Tablet 3 Rosuvastatin Calcium 40 MG Oral Tablet (Crestor) take 1 TABLET by mouth at bedtime 90 Tablet 2 Metoprolol Succinate ER 100 MG Oral Tablet Extended Release 24 Hour (toPROL XL) Take 1 Tablet by mouth in the morning. (Patient taking differently: Take 0.5 Tablets by mouth in the morning.) 90 Tablet 1 Nitroglycerin 0.4 MG Sublingual Tablet Sublingual (Nitrostat) Place 1 Tablet under the tongue as needed for Pain, Chest. May repeat 3 times. If chest pain continues, call 911. 25 Tablet 11 Trulicity 1.5 MG/0.5ML Subcutaneous Solution Pen-injector (Dulaglutide) Inject 1.5 mg under the skin once a week. 2 mL 3 Isosorbide Mononitrate ER 60 MG Oral Tablet Extended Release 24 Hour (Imdur) Take 1 Tablet by mouthin the morning. Prazosin HCl 5 MG Oral Capsule (Minipress) Take 1 Capsule by mouth at bedtime. metFORMIN HCl 1000 MG Oral Tablet (Glucophage) Take 1 Tablet by mouth every evening. (Patient taking differently: Take 1 Tablet by mouth in the morning.) 90 Tablet 2 Empagliflozin 10 MG Oral Tablet (Jardiance) Take 1 Tablet by mouth in the morning. 90 Tablet 2 Fenofibrate 160 MG Oral Tablet (Lofibra) Take 1 Tablet by mouth daily. with a meal 90 Tablet 2 buPROPion extended release, SR, (WELLBUTRIN SR) 100 MG TB12 (Patient not taking: Reported on 02/17/2024) Mirtazapine 15 MG Oral Tablet (Remeron) Take 1 Tablet by mouth at bedtime. (Patient not taking: Reported on 02/17/2024) FreeStyle Crow 2 Sensor Use as directed. Use to monitor glucose levels 4 times a day DXe11.9 (Patient not taking: Reported on 02/26/2024) 2 Each 11 Current Facility-Administered Medications Medication Dose Route Frequency Provider Last Rate Last Admin Dupilumab (Dupixent) prefilled syringe 100 mg 100 mg Subcutaneous Q2 Weeks Alexis Mock MD Review of patient's allergies indicates: Allergen Reactions Acetaminophen As a child? Cat Dander RAST +++ve for Cat Dander, Dog Dander, Mites on 10/2020 Celebrex [Nsaids] Celecoxib Cephalexin Dilaudid [Hydromorphone Hcl] Dog Dander RAST +++ve for Cat Dander, Dog Dander, Mites on 10/2020 Ketorolac Tromethamine Mites [Dust] RAST +++ve for Cat Dander, Dog Dander, Mites on 10/2020 Penicillin [Penicillins] Thorazine [Chlorpromazine Hcl] Ultram [Tramadol Hcl] Severe gi distress Results for orders placed or performed in visit on 11/16/23 CBC Result Value Ref Range WBC 8.22 4.00 - 10.80 K/uL RBC 3.78 4.50 - 5.25 M/uL HGB 10.7 (L) 14.0 - 16.8 g/dL HCT 34.3 (L) 40.0 - 48.4 % MCV 90.7 82.0 - 99.5 fL MCH 28.3 27.0 - 34.0 pg MCHC 31.2 32.0 - 36.0 g/dL RDW 14.7 11.5 - 15.5 % PLT 335 140 - 400 K/uL MPV 8.9 6.6 - 11.1 fL nRBCs 0 <=0 /100 WBCs Results for orders placed or performed in visit on 04/10/23 BASIC METABOLIC PANEL Result Value Ref Range BUN 18 6 - 20 mg/dL Creatinine 1.0 0.6 - 1.2 mg/dL Estimated Glomerular Filtration Rate 87 >=60 mL/min Sodium 141 135 - 146 mmol/L Potassium 4.1 3.5 - 5.1 mmol/L Chloride 106 98 - 107 mmol/L CO2 23 22 - 32 mmol/L Anion Gap 12 7 - 15 mmol/L Glucose 176 (H) 70 - 120 mg/dL Calcium 9.4 8.4 - 10.2 mg/dL Results for orders placed or performed in visit on 05/26/16 LIPID PANEL Result Value Ref Range HOURS FASTING 12 hours Triglycerides 308 (H) <200 mg/dL Cholesterol 266 (H) <200 mg/dL HDL Cholesterol 39 (L) >39 mg/dL Cholesterol-HDL Ratio 6.8 LDL Cholesterol 165 (H) 0 - 129 mg/dL Results for orders placed or performed in visit on 11/16/23 LIPID PANEL WITH DIRECT LDL IF TG IS HIGH Result Value Ref Range Triglycerides 98 <=174 mg/dL Cholesterol 87 <200 mg/dL HDL Cholesterol 35 (L) >39 mg/dL Non-HDL Cholesterol 52 <=159 mg/dL LDL Cholesterol 32 <=129 mg/dL Lab Results Component Value Date/Time HEMOGLOBIN A1C - [facility] 6.3 (H) 11/16/2023 12:14 PM HEMOGLOBIN A1C - [facility] 6.7 (H) 03/20/2023 10:56 AM HEMOGLOBIN A1C - [facility] 7.1 (H) 02/09/2023 08:40 AM HEMOGLOBIN A1C - [facility] 6.2 (H) 07/19/2019 10:56 AM HEMOGLOBIN A1C - [facility] 6.2 (H) 11/11/2018 10:42 AM HEMOGLOBIN A1C - [facility] 5.9 10/08/2017 01:49 PM Lab Results Component Value Date/Time TSH - [facility] 1.98 10/18/2019 09:27 AM TSH - [facility] 1.55 11/11/2018 10:42 AM TSH - [facility] 1.07 10/08/2017 01:49 PM TSH - OUTSIDE LAB 0.889 03/27/2018 12:00 AM RADHA MIYA SCREEN Date Value Ref Range Status 10/28/2019 NEGATIVE Final Results for orders placed or performed in visit on 11/16/23 VITAMIN B12 Result Value Ref Range Vitamin B12 704 232 - 1,245 pg/mL Results for orders placed or performed in visit on 10/21/19 FOLIC ACID Result Value Ref Range Folic Acid 12.9 >4.5 ng/mL No results found for: "[id number]" No results found for: "IQHB04QIP6" No results found for: "[id number]" No results found for: "25OHVITAMIND" Vitamin D Level Interpretation deficient: <20 ng/ml insufficient: 20-30 ng/ml normal: 31-100 ng/ml REVIEW OF SYSTEMS: As above PHYSICAL EXAM: BP 93/57 (BP Site: Right Arm, BP Position: Sitting, BP Cuff Size: Regular) | Pulse 100 | Temp 37 C (98.6 F) (Tympanic) | Resp 18 | Ht 1.778 m (5' 10") | Wt 80.3 kg (177 lb 1.6 oz) | SpO2 98% | BMI 25.41 kg/m | BSA 1.99 m The patient is awake and alert speech and language are normal and affect is appropriate there are no carotid bruits no heart murmurs heart is regular rate and rhythm pupils are equal round reactive to light optic nerves unremarkable normal mcdonald no visual extinction normal motility normal facial symmetry and facial sensation motor 5/5 no drift normal rapid alternating movements symmetric reflexes plus-minus mildly increased on the left downgoing toes [id number] and [id number] are normal sensation intact to light touch temperature and vibration no double simultaneous extinction IMPRESSION: Transient ischemic attack versus stroke versus migraine versus seizure. Patient reportsmetal injury in his face will obtain plain films of the orbit and determine if he can have an MRI the brain with and without contrast. Zio patch placed today EEG ordered If symptoms persist or are recurrent and associated with headache and no evidence of stroke on scancould consider headache prophylaxis. Good control of vascular risk factors is recommended. Ongoing anti-platelet therapy good control ofblood pressure cholesterol and blood sugar. Return in 8 weeks Polina Galvan MD 02/26/2024 10:23 AM documented in this encounter Nursing Notes * Juliet Gonzalez LPN - 02/26/2024 10:37 AM EDT 02/26/24 10:37 AM Date to Remove: 03/11/2024 Time to Remove: 10:15 am Serial Number: [id number] Ordering Provider: Polina Galvan MD CC Results: DO Juliet Zapata LPN Zio patch applied in clinic, as per provider orders. * Marianela Cordova LPN - 02/26/2024 9:01 AM EDT New patient referral from Dr Monica Hammonds for TIA Saw in [facility] ED records to chart documented in this encounter Plan of Treatment Upcoming Encounters Date Type Department Care Team (Late st Contact Info) Description 05/13/2024 4:20 PM EDT Office Visit Neurology [address] [place] [address] [facility] [address] 05/17/2024 2:20 PM EDT Office Visit Family Medicine [address] [place] [id number] Lydia Perdomo MD [address] [place] [address] [place] [id number] Scheduled Orders Name Type Priority Associated Diagnoses Orde r Schedule EXTERNAL EKG 8 TO 15 DAYS Holter Routine History of TIA (transient ischemic attack) Expected: 02/27/2024 (Approximate), Expires: 02/25/2025 EEG ROUTINE Procedures Routine History of TIA (transient ischemic attack) Ordered: 02/26/2024 Health Maintenance Due Date Last Done Comments [...] Not on filedocumented as of this encounter Procedures Procedure Name Priority Date/Time Associated Diagnosis Comments MRI BRAIN W WO CONTRAST Routine 03/21/2024 3:09 PM EDT History of TIA (transient ischemic attack) XR EYE FOREIGN BODY PRE MRI STAT 03/21/2024 2:14 PM EDT History of TIA (transient ischemic attack) documented in this encounter Results * MRI BRAIN W WO CONTRAST (03/21/2024 3:09 PM EDT) Anatomical Region Laterality Modality Neuro, Head Magnetic Resonan ce 03/23/2024 11:0 2 PM EDT Impressions 03/23/2024 10:59 PM EDT IMPRESSION 1. No acute intracranial abnormality detected by MRI. No definite MRI findings to explain the patient's symptoms. 2. Likely chronic lacunar infarcts in bilateral basal ganglia. 3. Mild global cerebral volume loss and scattered nonspecific punctate T2/FLAIR hyperintensities in cerebral white matter, likely representing chronic small vessel disease. Narrative 03/23/2024 10:59 PM EDT EXAM MRI BRAIN W WO CONTRAST - 03/21/2024 3:09 pm HISTORY recurrent left facial droop left facial numbness left arm numbness and confusion. TECHNIQUE Procedure: Multi-planar multi-sequential imaging obtained through the brain before and after administration of IV contrast. FINDINGS The evaluation is limited due to susceptibility artifacts in the region of the right skull base. Likely chronic lacunar infarcts are seen in bilateral basal ganglia. A prominent perivascular space is seen in the left temporal white matter. There is mild global cerebral volume loss. Scattered nonspecific punctate T2/FLAIR hyperintensities are seen in cerebral white matter, likely representing chronic small vessel disease. The visualized scalp and calvarium otherwise appears unremarkable. The superior sagittal sinus demonstrates normal venous flow. The corpus callosum is normal in shape and signal intensity. The posterior fossa is unremarkable. The pituitary and sella are normal. The brainstem and craniocervical junction are unremarkable. Diffusion weighted images reveal no hyperintensities to suggest acute cerebral infarction. The susceptibility weighted sequences reveal no evidence of acute or chronic hemorrhage. The ventricles are normal in size and position without evidence of hydrocephalus. There are no areas of abnormal contrast enhancement. The paranasal sinuses are normal. The visualized portions of the mastoids are unremarkable. The orbits appear normal. Normal flow voids are demonstrated in the carotid arteries and basilar artery. Procedure Note Marcelo Ly MD - 03/23/2024 EXAM MRI BRAIN W WO CONTRAST - 03/21/2024 3:09 pm HISTORY recurrent left facial droop left facial numbness left arm numbness andconfusion. TECHNIQUE Procedure: Multi-planar multi-sequential imaging obtained through thebrain before and after administration of IV contrast. FINDINGS The evaluation is limited due to susceptibility artifacts in the region ofthe right skull base. Likely chronic lacunar infarcts are seen in bilateral basal ganglia. A prominent perivascular space is seen in the left temporal whitematter. There is mild global cerebral volume loss. Scattered nonspecific punctateT2/FLAIR hyperintensities are seen in cerebral white matter, likelyrepresenting chronic small vessel disease. The visualized scalp and calvarium otherwise appears unremarkable. Thesuperior sagittal sinus demonstrates normal venous flow. The corpuscallosum is normal in shape and signal intensity. The posterior fossa isunremarkable. The pituitary and sella are normal. The brainstem andcraniocervical junction are unremarkable. Diffusion weighted images reveal no hyperintensities to suggest acutecerebral infarction. The susceptibility weighted sequences reveal noevidence of acute or chronic hemorrhage. The ventricles are normal in sizeand position without evidence of hydrocephalus. There are no areas of abnormal contrast enhancement. The paranasal sinuses are normal. The visualized portions of the mastoidsare unremarkable. The orbits appear normal. Normal flow voids aredemonstrated in the carotid arteries and basilar artery. IMPRESSION IMPRESSION 1. No acute intracranial abnormality detected by MRI. No definite MRIfindings to explain the patient's symptoms. 2. Likely chronic lacunar infarcts in bilateral basal ganglia. 3. Mild global cerebral volume loss and scattered nonspecific punctateT2/FLAIR hyperintensities in cerebral white matter, likely representingchronic small vessel disease. Polina Galvan MD RAD MRI-MRA * XR EYE FOREIGN BODY PRE MRI (03/21/2024 2:14 PM EDT) Anatomical Region Laterality Modality Head Computed Radiogr aphy 03/21/2024 2:20 PM EDT Narrative 03/21/2024 2:18 PM EDT EXAM: XR EYE FOREIGN BODY PRE MRI HISTORY: query metal in face, premri COMPARISON: None TECHNIQUE: Martínez and lateral views of the orbit were obtained. FINDINGS: There is no radiopaque foreign body within the orbits bilaterally. Linear metallic density overlies the right maxillary sinus floor/maxillary gumline, of uncertain etiology. The sinuses are clear. IMPRESSION: No evidence of intraorbital radiopaque foreign body. Procedure Note Kartik Simons MD - 03/21/2024 EXAM: XR EYE FOREIGN BODY PRE MRI HISTORY: query metal in face, premri COMPARISON: None TECHNIQUE: Martínez and lateral views of the orbit were obtained. FINDINGS: There is no radiopaque foreign body within the orbits bilaterally. Linearmetallic density overlies the right maxillary sinus floor/maxillarygumline, of uncertain etiology. The sinuses are clear. IMPRESSION: No evidence of intraorbital radiopaque foreign body. Polina Galvan MD RADIOLOGY ([facility]) documented in this encounter Visit Diagnoses Diagnosis History of TIA (transient ischemic attack)- Primary Transient ischemic attack (TIA), and cerebral infarction without residual deficits documented in this encounter Care Teams Visual Specialist Relationship Specialty Start Date End Date Lydia Perdomo MD [address] [place] [address] [place] [id number] PCP - General Family Medicine 11/16/23 documented as of this encounter
--- OUTSIDE RECORDS SUMMARY | 2024-06-12 12:01 | External Medical Summary | Summary of Care ---
Author Name Unknown Organization [facility] Address [address] [facility] [place] [address] Phone [phone] Care Team Providers Care Assistant Manager Pt Name Role Phone Lydia Perdomo MD Primary Care Provide r Reason for Visit * Reason Comments eRx-Medication Refill Encounter Details Date Type Department Care Team (Late st Contact Info) Description 05/30/2024 Refill Pharmacy, [address] [place] [id number] Lydia Perdomo MD [address] [place] [address] [place] [id number] Type 2 diabetes mellitus with hemoglobin A1c goal of less than 7.0% ([facility]) Allergies Active Allergy Reactions Criticality Noted Date [...] as of this encounter (statuses as of 05/31/2024) Medications Medication Sig Dispensed Refills Start Date End Date Status aspirin enteric coated 81 MG TBECIndications:Gigi nary artery disease involving [place] coronary artery of [place] heart with other form of angina pectoris (HCC) Take 1 Tab by mouth daily. 100 Tab 3 6 Active TRINTELLIX 20 MG TABS TAKE ONE TABLET EVERY DAY IN THE MORNING 0 7 Active doxepin (SINEQUAN) 75 MG Capsule 2 Capsules at bedtime. 0 7 Active buPROPion extended release, SR, (WELLBUTRIN SR) 100 MG TB12 9 Active Cyanocobalamin (B-12) 1000 MCG Capsule Take 1 Capsule by mouth in the morning. Active Embrace Talk Glucose Test In Vitro Strip (Glucose Blood)Indications:Ty pe 2 diabetes mellitus with hemoglobin A1c goal of less than 7.0% (HCC) Use to test blood sugar four times a day. DX e11.9 400 Strip 3 1 Active Embrace Lancets Ultra Thin 30GIndications:Type 2 diabetes mellitus with hemoglobin A1c goal of less than 7.0% (HCC) Use to test blood sugar 4 times a day DXe11.9 400 Each 3 1 Active FreeStyle Crow 2 SensorIndications:Ty pe 2 diabetes mellitus with hemoglobin A1c goal of less than 7.0% (HCC) Use as directed. Use to monitor glucose levels 4 times a day DXe11.9 2 Each 11 3 Active Omeprazole 40 MG Oral Capsule Delayed Release (PriLOSEC)Indication s:Gastroesophageal reflux disease without esophagitis,Type 2 diabetes mellitus with hemoglobin A1c goal of less than 7.0% (HCC) Take 1 Capsule by mouth daily in the morning. 90 Capsule 3 3 Active Lisinopril 20 MG Oral Tablet (Prinivil)Indication s:Coronary artery disease involving [place] coronary artery of [place] heart without angina pectoris Take 1 TABLET BY MOUTH in the morning. 90 Tablet 3 3 Active amLODIPine Besylate 5 MG Oral Tablet (Norvasc)Indications :Primary hypertension TAKE 1 TABLET BY MOUTH DAILY 90 Tablet 3 3 Active Fexofenadine HCl 60 MG Oral Tablet (Leonarda)Indications :Chronic rhinitis Take 1 TABLET BY MOUTH in the morning. 90 Tablet 3 3 Active Clopidogrel Bisulfate 75 MG Oral Tablet (pLAVix)Indications: Coronary artery disease involving [place] coronary artery of [place] heart without angina pectoris Take 1 TABLET BY MOUTH in the morning. 90 Tablet 3 3 Active Rosuvastatin Calcium 40 MG Oral Tablet (Crestor)Indications :Hyperlipidemia LDL goal <100 take 1 TABLET by mouth at bedtime 90 Tablet 2 3 Active Metoprolol Succinate ER 100 MG Oral Tablet Extended Release 24 Hour (toPROL XL)Indications:PSVT (paroxysmal supraventricular tachycardia) (HCC),Coronary artery disease involving [place] coronary artery of [place] heart without angina pectoris,Primary hypertension Take 1 Tablet by mouth in the morning. 90 Tablet 1 3 Active Additional Information Patient taking differently: 50 mgOral Daily(AM), Reported on 02/26/2024 Nitroglycerin 0.4 MG Sublingual Tablet Sublingual (Nitrostat) Place 1 Tablet under the tongue as needed for Pain, Chest. May repeat 3 times. If chest pain continues, call 911. 25 Tablet 11 3 Active Isosorbide Mononitrate ER 60 MG Oral Tablet Extended Release 24 Hour (Imdur) Take 1 Tablet by mouth in the morning. 4 Active Prazosin HCl 5 MG Oral Capsule (Minipress) Take 1 Capsule by mouth at bedtime. 4 Active metFORMIN HCl 1000 MG Oral Tablet (Glucophage)Indicati ons:Type 2 diabetes mellitus with hemoglobin A1c goal of less than 7.0% (HCC) Take 1 Tablet by mouth every evening. 90 Tablet 2 4 Active Additional Information Patient taking differently:1,000 mg OralDaily(AM), Reported on 02/26/2024 Empagliflozin 10 MG Oral Tablet (Jardiance)Indicatio ns:Type 2 diabetes mellitus with hemoglobin A1c goal of less than 7.0% (HCC) Take 1 Tablet by mouth in the morning. 90 Tablet 2 4 Active Fenofibrate 160 MG Oral Tablet (Lofibra)Indications :Hypertriglyceridemi a Take 1 Tablet by mouth daily. with a meal 90 Tablet 2 4 Active Trulicity 1.5 MG/0.5ML Subcutaneous Solution Pen-injector (Dulaglutide)Indicat ions:Type 2 diabetes mellitus with hemoglobin A1c goal of less than 7.0% (HCC) Inject 1.5 mg under the skin once a week. 6 mL 1 4 Active QUEtiapine Fumarate 200 MG Oral Tablet (SEROquel) Take 1 tablet by mouth at bedtime in addition to the 400mg tablet (600mg total) 4 Active QUEtiapine Fumarate 400 MG Oral Tablet (SEROquel) Take 1 Tablet by mouth at bedtime. 4 Active Trulicity 1.5 MG/0.5ML Subcutaneous Solution Pen-injector (Dulaglutide)Indicat ions:Type 2 diabetes mellitus with hemoglobin A1c goal of less than 7.0% ([facility]) Inject 1.5 mg under the skin once a week. 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 100 mg SC [id number] 12/30/2022 Acti ve documented as of this encounter (statuses as of 05/31/2024) Active Problems Problem Noted Date Diagnosed Date [...] 11/14/2020 Hepatic steatosis 10/20/2019 Schizophrenia 03/27/2018 Overview: [place] PSVT (paroxysmal supraventricular tachycardia) 0 01/21/2018 Hx of nonmelanoma skin cancer 05/20/2017 Overview: basal cell carcinoma (R infraorbital region) Plaque psoriasis 02/18/2017 Coronary artery disease invo lving [place] coronary artery of [place] heart without angina pectoris 07/11/2016 Overview: 60% LDA, 60% left circ Adjustment disorder with anxious mood Diverticulosis of colon Primary hypertension Hyperlipidemia LDL goal <100 documented as of this encounter (statuses as of 05/31/2024) Resolved Problems Problem Noted Date Diagnosed Date [...] as of this encounter (statuses as of 05/31/2024) Immunizations Name Administration Dates Next Due COVID-19 mRNA, LNP-s, No Pre serve, 2-Dose Series (Moderna) 06/13/2021,04/30/2021 Pneumococcal Conjugate Vacci ne, 20-valent ([id number]) 12/09/2022 Pneumococcal Polysaccharide PPV23 (Pneumovax) 09/12/2014 Seasonal [...] encounter Miscellaneous Notes * Telephone Encounter - Nahed Ureña [facility] - 05/31/2024 11:00 AM EDTSigned Prescriptions: Disp Refills Trulicity 1.5 MG/0.5ML Subcutaneous Soluti*6 mL 1 Sig: Inject 1.5 mg under the skin once a week. Authorizing Provider: LYDIA PERDOMO Ordering User: NAHED UREÑA * Telephone Encounter - Hannah Contreras [facility] - 05/30/2024 12:30 PM EDT Pending Prescriptions: Disp Refills Trulicity 1.5 MG/0.5ML Subcutaneous Soluti*2 mL 3 Sig: Inject 1.5 mg under the skin once a week. documented in this encounter Plan of Treatment Upcoming Encounters Date Type Department Care Team (Late st Contact Info) Description 06/24/2024 12:30 PM EDT NeuroDiagnostic Study Neurophysiology [facility] [place] [address] [address] [place], [place] [address] Sp, Neurophys Tech [facility] [address] [place], [place] [address] 06/27/2024 9:00 AM EDT NeuroDiagnostic Study Neurophysiology [facility] [address] [place], [place] [address] Sp, Neurophys Tech [address] [place], [place] [address] 08/29/2024 1:00 PM EDT Office Visit Neurology [facility] [address] [place], [place] [address] Polina Galvan MD [address] [place] [address] Health Maintenance Due Date Last Done Comments Colonoscopy 2008 Fecal Occult Blood Test 2008 Sigmoidoscopy 2008 Depression Screening 10/20/2020 10/20/2019 COVID-19 Vaccine ( season) 2023 06/13/2021, 04/30/2021 Diabetic Foot Exam 09/01/2023 09/01/2022 Diabetic Eye Exam 02/10/2024 02/09/2023, , 01/30/2021, Additional history exists HbA1c 05/17/2024 11/16/2023, 04/2 11/2022, 02/09/2023, Additional history exists Influenza Vaccine (FLU shot) (#1) 2024 11/16/2023, 09/01/2022, 09/03/2021, Additional history exists Albumin/Creatinine Ratio 11/16/2024 023, 02/09/2023, 02/10/2022, Additional history exists GFR 01/27/2025 01/28/2024, 12/31, 11/16/2023, Additional history exists O2 ASSESSMENT COMPLETED IN PAST YEAR FOR COPD 05/30/2025 05/30/2024 Cologuard 06/05/2025 06/05/2022, 05/02, 05/29/2022, Additional history exists Colorectal Cancer Screening 06/05/2025 DTaP,Tdap,and Td Vaccines (2 - Td or Tdap) 09/18/2026 09/18/2016 Alpha-1 Antitrypsin Completed 11/08/2020, 9 Zoster Vaccines Completed 09/01/2022, 02/10/2022 Pneumococcal Vaccine: Pediatrics (0 to 5 Years) and At-Risk Patients (6 to 64 Years) Completed 12/09/2022, 09/12/2014 GARDASIL-HPV IMMUNIZATION SERIES Aged Out No longer eligible based on patient's age to complete this topic Hepatitis B Aged Out No longer eligi ble based on patient's age to complete this topic MENINGOCOCCAL (MENACTRA/MENVEO) Aged Out No longer eligible based on patient's age to complete this topic documented as of this encounter Medical Devices Not on filedocumented as of this encounter Visit Diagnoses Diagnosis Type 2 diabetes mellitus with hemoglobin A1c goal of less than 7.0% (HCC) documented in this encounter Care Teams Assistant Manager Pt Relationship Specialty Start Date End Date Lydia Perdomo MD [address] [place] [address] [place] [id number] PCP - General Family Medicine 11/16/23 documented as of this encounter
--- OUTSIDE RECORDS SUMMARY | 2024-06-12 12:01 | External Medical Summary | Summary of Care ---
Author Name Unknown Organization [facility] Address [address] [facility] [facility] [address] Phone [phone] Care Team Providers Care Corrosion Control Engineer Name Role Phone Lydia Perdomo MD Primary Care Provide r Reason for Visit * Reason Comments Follow Up Encounter Details Date Type Department Care Team (Late st Contact Info) Description 05/30/2024 1:00 PM EDT Office Visit Neurology [facility] [address] [place] [address] Polina Galvan MD [address] [address] Asymptomatic stenosis of left carotid artery*; Facial droop Allergies Active Allergy Reactions Criticality Noted Date [...] as of this encounter (statuses as of 05/30/2024) Medications Medication Sig Dispensed Refills Start Date End Date Status aspirin enteric coated 81 MG TBECIndications:Coron d[place] artery disease involving [place] coronary artery of [place] heart with other form of angina pectoris [...] Talk Glucose Test In Vitro Strip (Glucose Blood)Indications:Typ e 2 diabetes mellitus with hemoglobin A1c goal of less than 7.0% (HCC) Use to test blood sugar four times a day. DX e11.9 400 Strip 3 1 Active Embrace Lancets Ultra Thin 30GIndications:Type 2 diabetes mellitus with hemoglobin A1c goal of less than 7.0% (HCC) Use to test blood sugar 4 times a day DXe11.9 400 Each 3 1 Active FreeStyle Crow 2 SensorIndications:Typ e 2 diabetes mellitus with hemoglobin A1c goal of less than 7.0% (HCC) Use as directed. Use to monitor glucose levels 4 times a day DXe11.9 2 Each 11 3 Active Omeprazole 40 MG Oral Capsule Delayed Release (PriLOSEC)Indications :Gastroesophageal reflux disease without esophagitis,Type 2 diabetes mellitus with hemoglobin A1c goal of less than 7.0% (HCC) Take 1 Capsule by mouth daily in the morning. 90 Capsule 3 3 Active Lisinopril 20 MG Oral Tablet (Prinivil)Indications :Coronary artery disease involving [place] coronary artery of [place] heart without angina pectoris Take 1 TABLET BY MOUTH in the morning. 90 Tablet 3 3 Active amLODIPine Besylate 5 MG Oral Tablet (Norvasc)Indications: Primary hypertension TAKE 1 TABLET BY MOUTH DAILY 90 Tablet 3 3 Active Fexofenadine HCl 60 MG Oral Tablet (Leonarda)Indications: Chronic rhinitis Take 1 TABLET BY MOUTH in the morning. 90 Tablet 3 3 Active Clopidogrel Bisulfate 75 MG Oral Tablet (pLAVix)Indications:C oronary artery disease involving [place] coronary artery of [place] heart without angina pectoris Take 1 TABLET BY MOUTH in the morning. 90 Tablet 3 3 Active Rosuvastatin Calcium 40 MG Oral Tablet (Crestor)Indications: Hyperlipidemia LDL goal <100 take 1 TABLET by mouth at bedtime 90 Tablet 2 3 Active Metoprolol Succinate ER 100 MG Oral Tablet Extended Release 24 Hour (toPROL XL)Indications:PSVT (paroxysmal supraventricular tachycardia) (HCC),Coronary artery disease involving [place] coronary artery of [place] heart without angina pectoris,Primary hypertension Take 1 Tablet by mouth in the morning. 90 Tablet 1 3 Active Additional Information Patient taking differently: 50 mgOral Daily(AM), Reported on 02/26/2024 Nitroglycerin 0.4 MG Sublingual Tablet Sublingual (Nitrostat) Place 1 Tablet under the tongue as needed for Pain, Chest. May repeat 3 times. If chest pain continues, call 911. 25 Tablet 11 3 Active Trulicity 1.5 MG/0.5ML Subcutaneous Solution Pen-injector (Dulaglutide)Indicati ons:Type 2 diabetes mellitus with hemoglobin A1c goal of less than 7.0% (HCC) Inject 1.5 mg under the skin once a week. 2 mL 3 4 Active Isosorbide Mononitrate ER 60 MG Oral Tablet Extended Release 24 Hour (Imdur) Take 1 Tablet by mouth in the morning. 4 Active Prazosin HCl 5 MG Oral Capsule (Minipress) Take 1 Capsule by mouth at bedtime. 4 Active metFORMIN HCl 1000 MG Oral Tablet (Glucophage)Indicatio ns:Type 2 diabetes mellitus with hemoglobin A1c goal of less than 7.0% (HCC) Take 1 Tablet by mouth every evening. 90 Tablet 2 4 Active Additional Information Patient taking differently:1,000 mg OralDaily(AM), Reported on 02/26/2024 Empagliflozin 10 MG Oral Tablet (Jardiance)Indication s:Type 2 diabetes mellitus with hemoglobin A1c goal of less than 7.0% (HCC) Take 1 Tablet by mouth in the morning. 90 Tablet 2 4 Active Fenofibrate 160 MG Oral Tablet (Lofibra)Indications: Hypertriglyceridemia Take 1 Tablet by mouth daily. with a meal 90 Tablet 2 4 Active QUEtiapine Fumarate 200 MG Oral Tablet (SEROquel) Take 1 tablet by mouth at bedtime in addition to the 400mg tablet (600mg total) 4 Active QUEtiapine Fumarate 400 MG Oral Tablet (SEROquel) Take 1 Tablet by mouth at bedtime. 4 Active Mirtazapine 15 MG Oral Tablet (Remeron) Take 1 Tablet by mouth at bedtime. 05/30/20 24 Discontinu ed(Medicat ion List Clean Up) QUEtiapine Fumarate ER 150 MG Oral Tablet Extended Release 24 Hour Take 1 Tablet by mouth at bedtime. Total of 500 mg a day 05/30/20 24 Discontinu ed(Medicat ion List Clean Up) Hospital, Clinic, or Other Facility Administered Medication Ordered Dose Route Frequency Start Date End Date Status Dupilumab (Dupixent) prefilled syringe 100 mgIndications: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 100 mg SC [id number] 12/30/2022 Acti ve documented as of this encounter (statuses as of 05/30/2024) Active Problems Problem Noted Date Diagnosed Date [...] 11/14/2020 Hepatic steatosis 10/20/2019 Schizophrenia 03/27/2018 Overview: [place] PSVT (paroxysmal supraventricular tachycardia) 0 01/21/2018 Hx of nonmelanoma skin cancer 05/20/2017 Overview: basal cell carcinoma (R infraorbital region) Plaque psoriasis 02/18/2017 Coronary artery disease invo lving [place] coronary artery of [place] heart without angina pectoris 07/11/2016 Overview: 60% LDA, 60% left circ Adjustment disorder with anxious mood Diverticulosis of colon Primary hypertension Hyperlipidemia LDL goal <100 documented as of this encounter (statuses as of 05/30/2024) Resolved Problems Problem Noted Date Diagnosed Date [...] as of this encounter (statuses as of 05/30/2024) Immunizations Name Administration Dates Next Due COVID-19 mRNA, LNP-s, No Pre serve, 2-Dose Series (Moderna) 06/13/2021,04/30/2021 Pneumococcal Conjugate Vacci ne, 20-valent (Fglrgoc22) 12/09/2022 Pneumococcal Polysaccharide PPV23 (Pneumovax) 09/12/2014 Seasonal [...] Sign Reading Time Taken Comments Blood Pressure 92/58 05/30/2024 12:53 PM EDT Pulse 70 05/30/2024 12:53 PM EDT Temperature 35.9 C (96.6 F) 05/30/2024 12:53 PM E DT Respiratory Rate 18 05/30/2024 12:53 PM EDT Oxygen Saturation 97% 05/30/2024 12:53 PM EDT Inhaled Oxygen Concentration - - Weight 79.5 kg (175 lb 3.2 oz) 05/30/2024 12:53 PM EDT Height - - Body Mass Index 25.14 02/26/2024 9:03 AM EDT documented in this encounter Progress Notes * Polina Galvan MD - 05/30/2024 1:31 PM EDT Images from the original note were not included. .CLINIC NOTES Neurology [facility] [place] [address] [place] [address] Artie Santiago : 1965 NEUROLOGY OUTPATIENT NOTE 05/30/2024 HISTORY: The patient is referred for consultation by Dr. Perdomo, who will be receiving a copy of this note. Patient comes today recurrent body differential transient ischemic attack migraine seizure. MRI thebrain which I have reviewed images and report shows probable bilateral basal ganglia lacunar which are old PACS Images - Remote and MAC Users Show Images PACS Images Show images for MRI BRAIN W WO CONTRAST Results MRI BRAIN W WO CONTRAST [MRBR-B] (Spec. #[id number]) (Order [id number]) Exam End Date Exam End Time 03/21/2024 3:09 PM MRI BRAIN W WO CONTRAST Order: [id number] Status: Final result Visible to patient: No (inaccessible in MyChart) Next appt: 06/24/2024 at 12:30 PM in *Neuro* (Neurophysiology Tech) Dx: History of TIA (transient ischemic at... 0 Result Notes 1 Follow-up Encounter Details Reading Physician Reading Date Result Priority Marcelo Ly MD [phone] 03/23/2024 Narrative & Impression EXAM MRI BRAIN W WO CONTRAST - [...] cerebral volume loss. Scattered nonspecific punctate T2/FLAIR hyperintensitiesare seen in cerebral white matter, likely representing [...] loss and scattered nonspecific punctate T2/FLAIR hyperintensities incerebral white matter, likely representing chronic small vessel disease. 04/26/2024 3:11 PM - Interface, Rock Climbing Instructor Narrative & Impression REASON FOR STUDY: Stroke/TIA CONCLUSIONS: Duration: 13 days, 21 hours Patient had a min HR of 53 bpm, max HR of 128 bpm, and avg HR of 76 bpm. Predominant underlying rhythm was Sinus Rhythm. Isolated SVEs were rare (<1.0%), SVE Couplets were rare (<1.0%), and SVE Triplets were rare (<1.0%). Isolated VEs were rare (<1.0%), and no VE Couplets or VE Triplets were present. Occasional symptoms reported including 11 trigger events and 7 diary entries correlating with normal sinus rhythm, and sinus tachycardia. ROUTINE EEG REPORT Name: Artie Santiago CLINICAL INFORMATION: A 58 year old male with recurrent left facial and arm numbness. EEG performedfor evaluation of epileptiform activity. MEDICATIONS: REPORT: At the onset of the EEG, the patient is awake. The background activity consist of 7.5-8 Hz,persistent, posteriorly dominant, moderate amplitude, symmetric and rhythmic activity that is reactive to eye opening. Anteriorly, it consist of a mixture of low voltage indeterminate activity and 15-25 Hz, persistent, low amplitude, symmetric and rhythmic activity. Stepwise intermittent photic stimulation (1-21 Hz) does not induce any abnormalities. Drowsiness is characterized by low amplitude mixed frequency activity, roving eye movements, and decreased eye blinking and muscle artifact. IMPRESSION: This is an abnormal awake and drowsy routine EEG due to mild background slowing suggestive of a mild non specific encephaloapthy. There is no evidence of focal slowing or epileptiform activity. George Riso, The patient has had at least 2 additional episodes facial droop and dysarthria lasting an hour not accompanied by headache visual symptoms numbness or tingling Past Medical History: Diagnosis Date Abdominal pain, right upper quadrant Avascular necrosis of bones of both hips (HCC) 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 latanoprost BMI 31.0-31.9,adult CAD (coronary artery disease), [place] coronary artery 07/11/2016 60% LDA, 60% left circ Calculus of kidney 08/2014 [facility] Depressive disorder, not elsewhere classified Diarrhea Diverticulosis of colon Essential hypertension with goal blood pressure less than 140/90 Hematuria 11/17/2014 Admitted [facility] with hematuria, INR 11 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/2019 Hyperglycemia 01/07/2017 Glucose 168 Hyperlipidemia LDL goal <100 Migraine Nausea with vomiting Need for hepatitis C screening test 01/07/2017 negative Other anxiety states PE (pulmonary embolism) 08/2014 Peptic ulcer Restrictive lung disease 12/08/2022 Schizophrenia (HCC) 03/27/2018 [place] Screening for HIV without presence of risk factors 01/07/2017 negative Syncope 01/27/2018 Tobacco abuse Patient Active Problem List Diagnosis Adjustment disorder with anxious mood Diverticulosis of colon Primary hypertension Coronary artery disease involving [place] coronary artery of [place] heart without angina pectoris Hyperlipidemia LDL goal <100 Plaque psoriasis Hx of nonmelanoma skin cancer PSVT (paroxysmal supraventricular tachycardia) (HCC) Schizophrenia (HCC) Hepatic steatosis COPD, group B, by GOLD 2017 classification ([facility]) Elevated IgE level Cat allergies House dust mite allergy Type 2 diabetes mellitus with hemoglobin A1c goal of less than 7.0% (HCC) Bilateral ocular hypertension Restrictive lung disease Allergic asthma, moderate persistent, uncomplicated Gastroesophageal reflux disease without esophagitis Type 2 diabetes mellitus without complication ([facility]) Carotid stenosis, left History of TIA (transient ischemic attack) Past Surgical History: Procedure Laterality Date ABD/PELVIS CT W/ IV AND W/ PO CONTRAST 12/17/2009 post surgical changes of cholecystectomy, right renal calculus, [facility] BIMALLEOLAR ANKLE FX W/ FIXATION Right 05/12/2017 [...] REPAIR INITIAL INGUINAL HERNIA bilat MISCELLANEOUS ORDER ([facility] ONLY) Right 03/24/2017 [place]-Moh's repair eye MRI L SPINE WO CONTRAST 06/26/2016 no disc herniation; mild degenerative disc changes L3-4 and L4-5 NM MYOCARDIAL PERFUSION IMAGING SPECT MULTIPLE STUDIES WITH PHARMACOLOGIC INTERVENTION 01/21/2019 no stress induced ischemia, normal wall motion EF 58% OTHER 2007 cardiac cath OTHER 2006 buldging disc OTHER (INFORMATION) 1988 laceration lt arm 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 TOTAL HIP REPLACEMENT & PROSTHESIS Left 05/11/2015 Dr Fraser TOTAL HIP REPLACEMENT & PROSTHESIS Right 07/04/2015 Dr Fraser VAS DUPLEX CAROTID BILAT Bilateral 10/13/2017 <50% ICA stenosis, and antegrade vertebral flow. 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 (Adult - for ages 18 years and over): Not on file Housing Stability: Not on file Family History Problem Relation Name Age of Onset Heart Disorder Father Stroke [...] MG Capsule 2 Capsules at bedtime. 0 buPROPion extended release, SR, (WELLBUTRIN SR) 100 MG TB12 Cyanocobalamin (B-12) 1000 MCG Capsule Take 1 Capsule by mouth in the morning. Embrace Talk Glucose Test In Vitro Strip (Glucose Blood) Use to test blood sugar four times a day. DX e11.9 400 Strip 3 Embrace Lancets Ultra Thin 30G Use to test blood sugar 4 times a day DXe11.9 400 Each 3 FreeStyle Crow 2 Sensor Use as directed. Use to monitor glucose levels 4 times a day DXe11.9 2 Each 11 Omeprazole 40 MG Oral Capsule Delayed Release [...] daily. with a meal 90 Tablet 2 QUEtiapine Fumarate 200 MG Oral Tablet (SEROquel) Take 1 tablet by mouth at bedtime in addition to the 400mg tablet (600mg total) QUEtiapine Fumarate 400 MG Oral Tablet (SEROquel) Take 1 Tablet by mouth at bedtime. Current Facility-Administered Medications Medication Dose Route Frequency [...] 12.9 >4.5 ng/mL No results found for: "JBUL27AYQ6" No results found for: "MDDT11LFY6" No results found for: "[id number]" No results found for: "25OHVITAMIND" Vitamin D Level Interpretation deficient: <20 ng/ml insufficient: 20-30 ng/ml normal: 31-100 ng/ml REVIEW OF SYSTEMS: As above PHYSICAL EXAM: BP 92/58 (BP Site: Left Arm, BP Position: Sitting, BP Cuff Size: Regular) | Pulse 70| Temp 35.9 C (96.6 F) (Tympanic) | Resp 18 | Wt 79.5 kg (175 lb 3.2 oz) | SpO2 97% | BMI 25.14kg/m | BSA 1.98 m The patient is awake and alert speech and language are normal and his affect is appropriate IMPRESSION: Recurrent left body symptoms most recent episodes included facial droop and dysarthria lasting 1 hour not followed by headache. Differential remains broad includes transient ischemia seizure migraine will perform an ambulatory EEG. Risk factor modifications are in place as is anti-platelet therapy. If the ambulatory is unrevealing and patient continues to have episodes consideration for prophylaxis with migraine. Return in 8 weeks Polina Galvan MD 05/30/2024 1:31 PM documented in this encounter Nursing Notes * Juliet Gonzalez LPN - 05/30/2024 12:51 PM EDT Patient verified identity by spelling of last name and date. Chief Complaint Patient presents with Follow Up documented in this encounter Plan of Treatment Upcoming Encounters Date Type Department Care Team (Late st Contact Info) Description 06/24/2024 12:30 PM EDT NeuroDiagnostic Study Neurophysiology [facility] [address] [facility] [address] [place] [address] Sp, Neurophys Tech [facility] Ziy[address] [facility] [place] [address] 06/27/2024 9:00 AM EDT NeuroDiagnostic Study Neurophysiology [facility] [place] [address] [facility] [address] [place] [id number] Sp, Neurophys Tech [address] [place] [address] 08/29/2024 1:00 PM EDT Office Visit Neurology [facility] [place] [address] [facility] [address] [place] [address] Polina Galvan MD [address] [place] [address] Scheduled Orders Name Type Priority Associated Diagnoses Orde r Schedule EEG AMBULATORY Procedures Routine Facial droop Ordered: 05/30/2024 Health Maintenance Due Date Last Done Comments Colonoscopy 2008 Fecal Occult Blood Test 2008 Sigmoidoscopy 2008 Depression Screening 10/20/2020 10/20/2019 COVID-19 Vaccine ( season) 2023 06/13/2021, 04/30/2021 Diabetic Foot Exam 09/01/2023 09/01/2022 Diabetic Eye Exam 02/10/2024 02/09/2023, , 01/30/2021, Additional history exists HbA1c 05/17/2024 11/16/2023, 04/11/2022, 02/09/2023, Additional history exists Influenza Vaccine (FLU [...] as of this encounter Visit Diagnoses Diagnosis Asymptomatic stenosis of left carotid artery- Primary Facial droop Facial weakness documented in this encounter Care Teams Corrosion Control Engineer Relationship Specialty Start Date End Date Lydia Perdomo MD [address] [place] [address] [place] [phone] PCP - General Family Medicine 11/16/23 documented as of this encounter
--- OUTSIDE RECORDS SUMMARY | 2024-06-12 12:01 | External Medical Summary | Summary of Care ---
Author Name Unknown Organization [facility] Address [address] [facility] [address] Phone [phone] Care Team Providers Care Glaze Maker Name Role Phone Lydia Perdomo MD Primary Care Provide r Reason for Visit * Reason Comments EEG Encounter Details Date Type Department Care Team (Late st Contact Info) Description 04/04/2024 10:30 AM EDT NeuroDiagnostic Study Neurophysiology [facility] [address] [place] [address] Sp, Neurophys Tech [address] [place] [address] Allergies Active Allergy Reactions Criticality Noted Date [...] as of this encounter (statuses as of 04/11/2024) Medications Medication Sig Dispensed Refills Start Date End Date Status aspirin enteric coated 81 MG TBECIndications:Matthew ry artery disease involving [place] coronary artery of sioux heart with other form of angina pectoris [...] hemoglobin A1c goal of less than 7.0% ([facility]) Use to test blood sugar four times a day. DX e11.9 400 Strip 3 10/28/2021 Active Embrace Lancets Ultra Thin 30GIndications:Type 2 diabetes mellitus with hemoglobin A1c goal of less than 7.0% ([facility]) Use to test blood sugar [...] hemoglobin A1c goal of less than 7.0% ([facility]) Use as directed. Use to [...] Oral Tablet (Prinivil)Indications: Coronary artery disease involving [place] coronary artery of sioux heart without angina pectoris Take 1 TABLET [...] Oral Tablet (pLAVix)Indications:Co ronary artery disease involving [place] coronary artery of sioux heart without angina pectoris Take 1 TABLET BY MOUTH in the morning. 90 Tablet 3 08/23/2023 Active Rosuvastatin Calcium 40 MG Oral Tablet (Crestor)Indications:H yperlipidemia LDL goal <100 take 1 TABLET by mouth at bedtime 90 Tablet 2 10/30/2023 Active Metoprolol Succinate ER 100 MG Oral Tablet Extended Release 24 Hour (toPROL XL)Indications:PSVT (paroxysmal supraventricular tachycardia) ([facility]),Coronary artery disease involving [place] coronary artery of sioux heart without angina pectoris,Primary hypertension Take 1 [...] hemoglobin A1c goal of less than 7.0% ([facility]) Inject 1.5 mg under the skin once [...] extrinsic asthma without complication 100 mg SC [id number] 12/30/2022 Acti ve documented as of this encounter (statuses as of 04/11/2024) Active Problems Problem Noted Date Diagnosed Date [...] 11/14/2020 Hepatic steatosis 10/20/2019 Schizophrenia 03/27/2018 Overview: [place] PSVT (paroxysmal supraventricular tachycardia) 0 01/21/2018 Hx of nonmelanoma skin cancer 05/20/2017 Overview: basal cell carcinoma (R infraorbital region) Plaque psoriasis 02/18/2017 Coronary artery disease invo lving [place] coronary artery of [place] heart without angina pectoris 07/11/2016 Overview: 60% LDA, 60% left circ Adjustment disorder with anxious mood Diverticulosis of colon Primary hypertension Hyperlipidemia LDL goal <100 documented as of this encounter (statuses as of 04/11/2024) Resolved Problems Problem Noted Date Diagnosed Date [...] as of this encounter (statuses as of 04/11/2024) Immunizations Name Administration Dates Next Due COVID-19 mRNA, LNP-s, No Pre serve, 2-Dose Series (Moderna) 06/13/2021,04/30/2021 Pneumococcal Conjugate Vacci ne, 20-valent ([id number]) 12/09/2022 Pneumococcal Polysaccharide PPV23 (Pneumovax) 09/12/2014 Seasonal [...] on file documented as of this encounter Progress Notes * George Rios, DO - 04/11/2024 5:53 AM EDT ROUTINE EEG REPORT Name: Artie Santiago Date of study: 04/04/2024, 10:21-10:47 Age: [age] year old Outpatient Referring Physician: Polina Galvan MD TECHNICAL REMARKS: This is a technically satisfactory eighteen channel record employing 21 disc electrodes applied according to a measured international 10-20 electrode placement system. There were no significant technical difficulties. CLINICAL INFORMATION: A 58 year old male with recurrent left facial and arm numbness. EEG performedfor evaluation of epileptiform activity. MEDICATIONS: Current Outpatient Medications Medication Sig Dispense Refill aspirin enteric coated 81 MG TBEC Take 1 Tab by mouth daily. 100 Tab 3 TRINTELLIX 20 MG TABS TAKE ONE TABLET EVERY DAY IN THE MORNING 0 doxepin (SINEQUAN) 75 MG Capsule 2 Capsules at bedtime. 0 buPROPion extended release, SR, (WELLBUTRIN SR) 100 MG TB12 (Patient not taking: Reported on 02/17/2024) Cyanocobalamin (B-12) 1000 MCG Capsule Take 1 Capsule by mouth in the morning. Embrace Talk Glucose Test In Vitro Strip (Glucose Blood) Use to test blood sugar four times a day. DX e11.9 400 Strip 3 Embrace Lancets Ultra Thin 30G Use to test blood sugar 4 times a day DXe11.9 400 Each 3 Mirtazapine 15 MG Oral Tablet (Remeron) Take 1 Tablet by mouth at bedtime. (Patient not taking: Reported on 02/17/2024) QUEtiapine Fumarate ER 150 MG Oral Tablet Extended Release 24 Hour Take 1 Tablet by mouth at bedtime. Total of 500 mg a day FreeStyle Crow 2 Sensor Use as directed. Use to monitor glucose levels 4 times a day DXe11.9 (Patient not taking: Reported on 02/26/2024) 2 Each 11 Omeprazole 40 MG Oral [...] daily. with a meal 90 Tablet 2 Current Facility-Administered Medications Medication Dose Route Frequency Provider Last Rate Last Admin Dupilumab (Dupixent) prefilled syringe 100 mg 100 mg Subcutaneous Q2 Weeks Alexis Mock MD REPORT: At the onset of the EEG, [...] of focal slowing or epileptiform activity. George Rios DO documented in this encounter Plan of Treatment Upcoming Encounters Date Type Department Care Team (Late st Contact Info) Description 05/13/2024 4:20 PM EDT Office Visit Neurology [facility] [place] [address] [facility] [place] [address] Polina Galvan MD 200 [facility] [place] [address] 05/17/2024 2:20 PM EDT Office Visit Family Medicine [address] [place] [phone] Lydia Perdomo MD [address] [place] [address] [place] [address] Health Maintenance Due Date Last Done Comments [...] as of this encounter Visit Diagnoses Diagnosis History of TIA (transient ischemic attack) [Z86.73]- Primary Transient ischemic attack (TIA), and cerebral infarction without residual deficits documented in this encounter Care Teams Glaze Maker Relationship Specialty Start Date End Date Lydia Perdomo MD [address] [place] [address] [place] [address] PCP - General Family Medicine 11/16/23 documented as of this encounter
--- OUTSIDE RECORDS SUMMARY | 2024-06-12 12:01 | External Medical Summary | Summary of Care ---
Author Name Unknown Organization [facility] Address [address] [facility] [place] [address] Phone [phone] Care Team Providers Care Technical Support Consultant Name Role Phone Lydia Perdomo MD Primary Care Provide r Encounter Details Date Type Department Care Team (Late st Contact Info) Description 04/26/2024 Orders Only Neurology [facility] [place] [address] [place] [address] Polina Galvan MD [address] [place] [address] History of TIA (transient ischemic attack) Allergies Active Allergy Reactions Criticality Noted Date [...] as of this encounter (statuses as of 04/27/2024) Medications Medication Sig Dispensed Refills Start Date End Date Status aspirin enteric coated 81 MG TBECIndications:Matthew ry artery disease involving [place] coronary artery of [place] heart with other form of angina pectoris [...] Oral Tablet (Prinivil)Indications: Coronary artery disease involving [place] coronary artery of [place] heart without angina pectoris Take 1 TABLET [...] Oral Tablet (pLAVix)Indications:Co ronary artery disease involving [place] coronary artery of [place] heart without angina pectoris Take 1 TABLET BY MOUTH in the morning. 90 Tablet 3 08/23/2023 Active Rosuvastatin Calcium 40 MG Oral Tablet (Crestor)Indications:H yperlipidemia LDL goal <100 take 1 TABLET by mouth at bedtime 90 Tablet 2 10/30/2023 Active Metoprolol Succinate ER 100 MG Oral Tablet Extended Release 24 Hour (toPROL XL)Indications:PSVT (paroxysmal supraventricular tachycardia) ([facility]),Coronary artery disease involving [place] coronary artery of [place] heart without angina pectoris,Primary hypertension Take 1 [...] extrinsic asthma without complication 100 mg SC [id number] 12/30/2022 Acti ve documented as of this encounter (statuses as of 04/27/2024) Active Problems Problem Noted Date Diagnosed Date [...] 11/14/2020 Hepatic steatosis 10/20/2019 Schizophrenia 03/27/2018 Overview: [place] PSVT (paroxysmal supraventricular tachycardia) 0 01/21/2018 Hx of nonmelanoma skin cancer 05/20/2017 Overview: basal cell carcinoma (R infraorbital region) Plaque psoriasis 02/18/2017 Coronary artery disease invo lving [place] coronary artery of [place] heart without angina pectoris 07/11/2016 Overview: 60% LDA, 60% left circ Adjustment disorder with anxious mood Diverticulosis of colon Primary hypertension Hyperlipidemia LDL goal <100 documented as of this encounter (statuses as of 04/27/2024) Resolved Problems Problem Noted Date Diagnosed Date [...] as of this encounter (statuses as of 04/27/2024) Immunizations Name Administration Dates Next Due COVID-19 mRNA, LNP-s, No Pre serve, 2-Dose Series (Moderna) 06/13/2021,04/30/2021 Pneumococcal Conjugate Vacci ne, 20-valent ([id number]) 12/09/2022 Pneumococcal Polysaccharide PPV23 (Pneumovax) 09/12/2014 Seasonal [...] on file documented as of this encounter Procedure Notes * Sina Reyes DO - 04/04/2024 12:00 AM EDTAssociated Order(s): EXTERNAL EKG 8 TO 15 DAYS REASON FOR STUDY: Stroke/TIA CONCLUSIONS: Duration: 13 [...] with normal sinus rhythm, and sinus tachycardia. documented in this encounter Miscellaneous Notes * Result Encounter Note - Polina Galvan MD - 04/27/2024 1:56 PM EDT ... documented in this encounter Plan of Treatment Upcoming Encounters Date Type Department Care Team (Late st Contact Info) Description 05/13/2024 4:20 PM EDT Office Visit Neurology [facility] [address] [facility] [place] [address] Polina Galvan MD 200 [facility] [place] [address] 05/17/2024 2:20 PM EDT Office Visit Family Medicine [address] [phone] Lydia Perdomo MD [address] [place] [address] [place] [address] Health Maintenance Due Date Last Done Comments [...] Procedure Name Priority Date/Time Associated Diagnosis Comments [place] EXTERNAL ECG RECGREATER THAN 7DLESS THAN 15D REVIEW & INTERPRETATION Routine 04/04/2024 12:00 AM EDT History of TIA (transient ischemic attack) documented in this encounter Results * EXTERNAL EKG 8 TO 15 DAYS (04/04/2024 12:00 AM EDT) 04/04/2024 Narrative Procedure Note Sina Reyes DO - 04/04/2024 12:00 AM EDT REASON FOR STUDY: Stroke/TIA CONCLUSIONS: Duration: 13 days, 21 hours Patient had a min HR of 53 bpm, max HR of 128 bpm, and avg HR of 76 bpm. Predominant underlying rhythm was Sinus Rhythm. Isolated SVEs were rare (<1.0%), SVE Couplets were rare (<1.0%), and SVE Triplets were rare (<1.0%). Isolated VEs were rare (<1.0%), and no VE Couplets or VETriplets were present. Occasional symptoms reported including 11 trigger events and 7 diaryentries correlating with normal sinus rhythm, and sinus tachycardia. Polina Galvan MD [facility] documented in this encounter Visit Diagnoses Diagnosis History of TIA (transient ischemic attack) Transient ischemic attack (TIA), and cerebral infarction without residual deficits documented in this encounter Care Teams Technical Support Consultant Relationship Specialty Start Date End Date Lydia Perdomo MD [address] [place] [address] [place] [address] PCP - General Family Medicine 11/16/23 documented as of this encounter
--- OUTSIDE RECORDS SUMMARY | 2024-06-12 12:01 | External Medical Summary | Summary of Care ---
Author Name Unknown Organization [facility] Address [address] [facility] [place] [address] Phone [phone] Care Team Providers Care Consumer Studies Professor Name Role Phone Lydia Perdomo MD Primary Care Provide r Encounter Details Date Type Department Care Team (Late st Contact Info) Description 04/28/2024 Telephone Family Medicine [address] [phone] Lydia Perdomo MD [address] [place] [address] [place] [address] Allergies Active Allergy Reactions Criticality Noted Date [...] as of this encounter (statuses as of 04/28/2024) Medications Medication Sig Dispensed Refills Start Date End Date Status aspirin enteric coated 81 MG TBECIndications:Matthew ry artery disease involving [place] coronary artery of [place] heart with other form of angina pectoris [...] hemoglobin A1c goal of less than 7.0% ([facility]) Use to test blood sugar four times a day. DX e11.9 400 Strip 3 10/28/2021 Active Embrace Lancets Ultra Thin 30GIndications:Type 2 diabetes mellitus with hemoglobin A1c goal of less than 7.0% ([facility]) Use to test blood sugar [...] hemoglobin A1c goal of less than 7.0% ([facility]) Use as directed. Use to [...] Oral Tablet (Prinivil)Indications: Coronary artery disease involving [place] coronary artery of [place] heart without angina pectoris Take 1 TABLET [...] Oral Tablet (pLAVix)Indications:Co ronary artery disease involving [place] coronary artery of [place] heart without angina pectoris Take 1 TABLET BY MOUTH in the morning. 90 Tablet 3 08/23/2023 Active Rosuvastatin Calcium 40 MG Oral Tablet (Crestor)Indications:H yperlipidemia LDL goal <100 take 1 TABLET by mouth at bedtime 90 Tablet 2 10/30/2023 Active Metoprolol Succinate ER 100 MG Oral Tablet Extended Release 24 Hour (toPROL XL)Indications:PSVT (paroxysmal supraventricular tachycardia) (HCC),Coronary artery disease involving [place] coronary artery of [place] heart without angina pectoris,Primary hypertension Take 1 [...] extrinsic asthma without complication 100 mg SC [id number] 12/30/2022 Acti ve documented as of this encounter (statuses as of 04/28/2024) Active Problems Problem Noted Date Diagnosed Date [...] 11/14/2020 Hepatic steatosis 10/20/2019 Schizophrenia 03/27/2018 Overview: [place] PSVT (paroxysmal supraventricular tachycardia) 0 01/21/2018 Hx of nonmelanoma skin cancer 05/20/2017 Overview: basal cell carcinoma (R infraorbital region) Plaque psoriasis 02/18/2017 Coronary artery disease invo lving [place] coronary artery of [place] heart without angina pectoris 07/11/2016 Overview: 60% LDA, 60% left circ Adjustment disorder with anxious mood Diverticulosis of colon Primary hypertension Hyperlipidemia LDL goal <100 documented as of this encounter (statuses as of 04/28/2024) Resolved Problems Problem Noted Date Diagnosed Date [...] as of this encounter (statuses as of 04/28/2024) Immunizations Name Administration Dates Next Due COVID-19 mRNA, LNP-s, No Pre serve, 2-Dose Series (Moderna) 06/13/2021,04/30/2021 Pneumococcal Conjugate Vacci ne, 20-valent ([id number]) 12/09/2022 Pneumococcal Polysaccharide PPV23 (Pneumovax) 09/12/2014 Seasonal [...] Telephone Encounter - Lydia Perdomo MD - 04/28/2024 11:04 AM EDT monitor worker result is overall good. Will discuss further during clinic visit on 05/17 * Telephone Encounter - Lydia Perdomo MD - 04/28/2024 11:04 AM EDT ----- Message from Polina Galvan MD sent at 04/27/2024 1:56 PM EDT ----- ... documented in this encounter Plan of Treatment Upcoming Encounters Date Type Department Care Team (Late st Contact Info) Description 05/13/2024 4:20 PM EDT Office Visit Neurology [facility] [place] [address] [place] [address] Polina Galvan MD [address] [place] [address] [place] [address] 05/17/2024 2:20 PM EDT Office Visit Family Medicine [address] [place] [phone] Lydia Perdomo MD [address] [place] [address] [place] [address] Health Maintenance Due Date Last Done Comments Colonoscopy 2008 Fecal Occult Blood Test 2008 Sigmoidoscopy 2008 Depression Screening 10/20/2020 10/20/2019 COVID-19 Vaccine ( season) 2023 06/13/2021, 04/30/2021 Diabetic Foot Exam 09/01/2023 09/01/2022 Diabetic Eye Exam 02/10/2024 02/09/2023, , 01/30/2021, Additional history exists HbA1c 05/17/2024 11/16/2023, 04/11/2022, 02/09/2023, Additional history exists Albumin/Creatinine Ratio 11/16/2024 [...] filedocumented as of this encounter Care Teams Consumer Studies Professor Relationship Specialty Start Date End Date Lydia Perdomo MD [address] [place] [address] [place] [address] PCP - General Family Medicine 11/16/23 documented as of this encounter
--- OUTSIDE RECORDS SUMMARY | 2024-06-12 12:02 | External Medical Summary | Summary of Care ---
Author Name Unknown Organization [facility] Address [address] [place] [address] Phone [phone] Care Team Providers Care Wire Tester Name Role Phone Lydia Perdomo MD Primary Care Provide r Reason for Visit * Reason Onset Date Comments Advice 02/24/2024 Encounter Details Date Type Department Care Team (Late st Contact Info) Description 02/24/2024 Telephone Neurology [facility] [address] [place] [address] Services, Scheduling [address] [place] [address] Advice Allergies Active Allergy Reactions Criticality Noted [...] as of this encounter (statuses as of 02/24/2024) Medications Medication Sig Dispensed Refills Start Date End Date Status aspirin enteric coated 81 MG TBECIndications:Coronar y artery disease involving [place] coronary artery of [place] heart with other form of angina pectoris (HCC) Take 1 Tab by mouth daily. 100 Tab 3 07/17/2016 Active TRINTELLIX 20 MG TABS TAKE ONE TABLET EVERY DAY IN THE MORNING 0 09/15/2017 Active doxepin (SINEQUAN) 75 MG Capsule TAKE TWO CAPSULES BY MOUTH DAILY 0 11/26/2017 Active buPROPion extended release, SR, [...] day DXe11.9 2 Each 11 01/07/2023 Active Omeprazole 40 MG Oral Capsule Delayed Release (PriLOSEC)Indications:G astroesophageal reflux disease without esophagitis,Type 2 diabetes mellitus with hemoglobin A1c goal of less than 7.0% (HCC) Take 1 Capsule by mouth daily in the morning. 90 Capsule 3 06/24/2023 Active Lisinopril 20 MG Oral Tablet (Prinivil)Indications:C oronary artery disease involving [place] coronary artery of [place] heart without angina pectoris Take 1 TABLET BY MOUTH in the morning. 90 Tablet 3 08/23/2023 Active amLODIPine Besylate 5 MG Oral Tablet (Norvasc)Indications:Pr imary hypertension TAKE 1 TABLET BY MOUTH DAILY 90 Tablet 3 08/23/2023 Active Fexofenadine HCl 60 MG Oral Tablet (Leonarda)Indications:Ch ronic rhinitis Take 1 TABLET BY MOUTH in the morning. 90 Tablet 3 08/23/2023 Active Clopidogrel Bisulfate 75 MG Oral Tablet (pLAVix)Indications:Cor onary artery disease involving [place] coronary artery of [place] heart without angina pectoris Take 1 TABLET BY MOUTH in the morning. 90 Tablet 3 08/23/2023 Active Rosuvastatin Calcium 40 MG Oral Tablet (Crestor)Indications:Hy perlipidemia LDL goal <100 take 1 TABLET by mouth at bedtime 90 Tablet 2 10/30/2023 Active Fenofibrate 160 MG Oral Tablet (Lofibra)Indications:Hy pertriglyceridemia Take 1 Tablet by mouth daily. with a meal 90 Tablet 1 11/16/2023 Active metFORMIN HCl 1000 MG Oral Tablet (Glucophage)Indications :Type 2 diabetes mellitus with hemoglobin A1c goal of less than 7.0% (HCC) Take 1 Tablet by mouth every evening. 90 Tablet 1 11/16/2023 Active Metoprolol Succinate ER 100 MG Oral Tablet Extended Release 24 Hour (toPROL XL)Indications:PSVT (paroxysmal supraventricular tachycardia) (HCC),Coronary artery disease involving [place] coronary artery of [place] heart without angina pectoris,Primary hypertension Take 1 Tablet by mouth in the morning. 90 Tablet 1 11/16/2023 Active Empagliflozin 10 MG Oral Tablet (Jardiance)Indications: Type 2 diabetes mellitus with hemoglobin A1c goal of less than 7.0% (HCC) Take 1 Tablet by mouth in the morning. 90 Tablet 1 11/16/2023 Active Nitroglycerin 0.4 MG Sublingual Tablet Sublingual (Nitrostat) Place 1 Tablet under the tongue as needed for Pain, Chest. May repeat 3 times. If chest pain continues, call 911. 25 Tablet 11 11/27/2023 Active Trulicity 1.5 MG/0.5ML Subcutaneous Solution Pen-injector (Dulaglutide)Indication s:Type 2 diabetes mellitus with hemoglobin A1c [...] by mouth at bedtime. 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 100 mg SC [id number] 12/30/2022 Acti ve documented as of this encounter (statuses as of 02/24/2024) Active Problems Problem Noted Date Diagnosed Date [...] 11/14/2020 Hepatic steatosis 10/20/2019 Schizophrenia 03/27/2018 Overview: [place] PSVT (paroxysmal supraventricular tachycardia) 0 01/21/2018 Hx of nonmelanoma skin cancer 05/20/2017 Overview: basal cell carcinoma (R infraorbital region) Plaque psoriasis 02/18/2017 Coronary artery disease invo lving [place] coronary artery of [place] heart without angina pectoris 07/11/2016 Overview: 60% LDA, 60% left circ Adjustment disorder with anxious mood Diverticulosis of colon Primary hypertension Hyperlipidemia LDL goal <100 documented as of this encounter (statuses as of 02/24/2024) Resolved Problems Problem Noted Date Diagnosed Date [...] as of this encounter (statuses as of 02/24/2024) Immunizations Name Administration Dates Next Due COVID-19 mRNA, LNP-s, No Pre serve, 2-Dose Series (Moderna) 06/13/2021,04/30/2021 Pneumococcal Conjugate Vacci ne, 20-valent ([id number]) 12/09/2022 Pneumococcal Polysaccharide PPV23 (Pneumovax) 09/12/2014 Seasonal [...] 8 0 08/14/2011 - 08/14/2019 Smokeless Tobacco: Former Snuff Alcohol Use Standard Drinks/Week Comments No [...] encounter Miscellaneous Notes * Telephone Encounter - Angie Hall MED ASSIST - 02/24/2024 11:06 AM EDT Spoke to pt. Gave directions to the best of my ability. Pt is aware to call the 800 number is he islost or going to be late. * Telephone Encounter - Marion Hennessy OSA - 02/24/2024 9:18 AM EDT Who is calling: Artie Santiago Pt is established with: 3.[address] Galvan Reason for call: Pt requesting return call with directions to clinic. [facility] does not have computeror gps. Quality Control Projectionist not familiar with area or clinic. How long issue has been going on: Additional details: Call back number: [phone] Pharmacy (if applicable): documented in this encounter Plan of Treatment Upcoming Encounters Date Type Department Care Team (Late st Contact Info) Description 02/26/2024 9:20 AM EDT Office Visit Neurology [facility] [place] [address] [place], [place] [address] Polina Galvan MD 200 [facility] [place], [place] [address] 05/17/2024 2:20 PM EDT Office Visit Family Medicine [address] [place] [phone] Lydia Perdomo MD [address] [place] [address] [place] [address] Health Maintenance Due Date Last Done Comments [...] ASSESSMENT COMPLETED IN PAST YEAR FOR COPD 02/07/2025 02/08/2024 Cologuard 06/05/2025 06/05/2022, 06/, 05/29/2022, Additional history exists Colorectal Cancer Screening [...] filedocumented as of this encounter Care Teams Wire Tester Relationship Specialty Start Date End Date Lydia Perdomo MD [address] [place] [address] [place] [address] PCP - General Family Medicine 11/16/23 documented as of this encounter
--- OUTSIDE RECORDS SUMMARY | 2024-06-12 12:02 | External Medical Summary | Summary of Care ---
Author Name Unknown Organization [facility] Address [address] [facility] [place] [address] Phone [phone] Care Team Providers Care Graphic Design Manager Name Role Phone Lydia Perdomo MD Primary Care Provide r Reason for Visit * Reason Comments Other Zio placement Encounter Details Date Type Department Care Team (Late st Contact Info) Description 04/04/2024 12:15 PM EDT Nurse Only Neurology [facility] [address] [place] [address] Krystal Nurse Neurology [facility] [address] [place] [address] Other (Zio placement) Allergies Active Allergy Reactions Criticality Noted Date [...] as of this encounter (statuses as of 04/04/2024) Medications Medication Sig Dispensed Refills Start Date End Date Status aspirin enteric coated 81 MG TBECIndications:Matthew ry artery disease involving [place] coronary artery of [place] heart with other form of angina pectoris [...] of less than 7.0% ([facility]) Use to test blood sugar four times a day. DX e11.9 400 Strip 3 10/28/2021 Active Embrace Lancets Ultra Thin 30GIndications:Type 2 diabetes mellitus with hemoglobin A1c goal of less than 7.0% ([facility]) Use to test blood sugar 4 times [...] of less than 7.0% ([facility]) Use as directed. Use to monitor glucose [...] Oral Tablet (Prinivil)Indications: Coronary artery disease involving [place] coronary artery of [place] heart without angina pectoris Take 1 TABLET [...] Oral Tablet (pLAVix)Indications:Co ronary artery disease involving [place] coronary artery of [place] heart without angina pectoris Take 1 TABLET BY MOUTH in the morning. 90 Tablet 3 08/23/2023 Active Rosuvastatin Calcium 40 MG Oral Tablet (Crestor)Indications:H yperlipidemia LDL goal <100 take 1 TABLET by mouth at bedtime 90 Tablet 2 10/30/2023 Active Metoprolol Succinate ER 100 MG Oral Tablet Extended Release 24 Hour (toPROL XL)Indications:PSVT (paroxysmal supraventricular tachycardia) (HCC),Coronary artery disease involving [place] coronary artery of [place] heart without angina pectoris,Primary hypertension Take 1 [...] of less than 7.0% ([facility]) Inject 1.5 mg under the skin [...] extrinsic asthma without complication 100 mg SC [id number] 12/30/2022 Acti ve documented as of this encounter (statuses as of 04/04/2024) Active Problems Problem Noted Date Diagnosed Date [...] 11/14/2020 Hepatic steatosis 10/20/2019 Schizophrenia 03/27/2018 Overview: [place] PSVT (paroxysmal supraventricular tachycardia) 0 01/21/2018 Hx of nonmelanoma skin cancer 05/20/2017 Overview: basal cell carcinoma (R infraorbital region) Plaque psoriasis 02/18/2017 Coronary artery disease invo lving [place] coronary artery of [place] heart without angina pectoris 07/11/2016 Overview: 60% LDA, 60% left circ Adjustment disorder with anxious mood Diverticulosis of colon Primary hypertension Hyperlipidemia LDL goal <100 documented as of this encounter (statuses as of 04/04/2024) Resolved Problems Problem Noted Date Diagnosed Date [...] as of this encounter (statuses as of 04/04/2024) Immunizations Name Administration Dates Next Due COVID-19 mRNA, LNP-s, No Pre serve, 2-Dose Series (Moderna) 06/13/2021,04/30/2021 Pneumococcal Conjugate Vacci ne, 20-valent ([id number]) 12/09/2022 Pneumococcal Polysaccharide PPV23 (Pneumovax) 09/12/2014 Seasonal [...] on file documented as of this encounter Nursing Notes * Naty Heck LPN - 04/04/2024 11:00 AM EDT 04/04/24 11:00 AM Date to Remove: 04/18/2024 Time to Remove: 1100 Serial Number: [id number] Ordering Provider: Polina Galvan MD CC Results: Polina Galvan MD; MD Naty Weston LPN Zio patch applied in clinic, as per provider orders. documented in this encounter Plan of Treatment Upcoming Encounters Date Type Department Care Team (Late st Contact Info) Description 05/13/2024 4:20 PM EDT Office Visit Neurology [facility] [place] [address] [place] [address] Polina Galvan MD [address] [place] [address] 05/17/2024 2:20 PM EDT Office Visit Family Medicine [address] [place] [phone] Lydia Perdomo MD [address] [place] [address] [place] [address] Health Maintenance Due Date Last Done Comments [...] filedocumented as of this encounter Care Teams Graphic Design Manager Relationship Specialty Start Date End Date Lydia Perdomo MD [address] [place] [address] [place] [phone] PCP - General Family Medicine 11/16/23 documented as of this encounter
--- OUTSIDE RECORDS SUMMARY | 2024-06-12 12:02 | External Medical Summary | Summary of Care ---
Author Name Unknown Organization [facility] Address [address] [facility] [address] Phone [phone] Care Team Providers Care Brewing Director Name Role Phone Lydia Perdomo MD Primary Care Provide r Reason for Referral * Precert (Within 10 days (routine)) - Pending Review Specialty Diagnoses / Procedures Referred By Karmen oconnor Referred To Contact Radiology Diagnoses History of TIA (transient ischemic attack) Procedures MRI BRAIN W WO CONTRAST Polina Galvan MD [address] [facility] [place] [address] Referral ID Status Reason Start Date Expiration Date V isits Requested Visits Authorized [id number] Pending Review 02/26/2024 999 999 Reason for Visit * Reason Comments NEW PATIENT Saw at [facility] for ? TIA * Evaluate & Treat - Unlimited Visits (Within 10 days (routine)) - Authorized Specialty Diagnoses / Procedures Referred By Karmen oconnor Referred To Contact Neurology Diagnoses History of TIA (transient ischemic attack) Symptomatic stenosis of left carotid artery without infarction Monica Martinez, [address] [place] [address] Referral ID Status Reason Start Date Expiration Date Visits Requested Visits Authorized [id number] Authorized Specialty Services Required 01/29/2024 999 [id number] Encounter Details Date Type Department Care Team (Late st Contact Info) Description 02/26/2024 9:20 AM EDT Office Visit Neurology [facility] [address] [place] [address] Polina Galvan MD [address] [facility] [place] [address] History of TIA (transient ischemic attack)* Allergies [...] as of this encounter (statuses as of 02/26/2024) Medications Medication Sig Dispensed Refills Start Date End Date Status aspirin enteric coated 81 MG TBECIndications:Matthew ry artery disease involving [place] coronary artery of [place] heart with other form of angina pectoris [...] hemoglobin A1c goal of less than 7.0% ([facility]) Use to test blood sugar four times a day. DX e11.9 400 Strip 3 10/28/2021 Active Embrace Lancets Ultra Thin 30GIndications:Type 2 diabetes mellitus with hemoglobin A1c goal of less than 7.0% ([facility]) Use to test blood sugar [...] hemoglobin A1c goal of less than 7.0% ([facility]) Use as directed. Use to monitor glucose levels 4 times a day DXe11.9 2 Each 11 01/07/2023 Active Additional Information Patient not taking.Reported on 02/26/2024 Omeprazole 40 MG Oral Capsule Delayed Release (PriLOSEC)Indications: Gastroesophageal reflux disease without esophagitis,Type 2 diabetes mellitus with hemoglobin A1c goal of less than 7.0% ([facility]) Take 1 Capsule by mouth daily in the morning. 90 Capsule 3 06/24/2023 Active Lisinopril 20 MG Oral Tablet (Prinivil)Indications: Coronary artery disease involving [place] coronary artery of [place] heart without angina pectoris Take 1 TABLET [...] Oral Tablet (pLAVix)Indications:Co ronary artery disease involving [place] coronary artery of [place] heart without angina pectoris Take 1 TABLET BY MOUTH in the morning. 90 Tablet 3 08/23/2023 Active Rosuvastatin Calcium 40 MG Oral Tablet (Crestor)Indications:H yperlipidemia LDL goal <100 take 1 TABLET by mouth at bedtime 90 Tablet 2 10/30/2023 Active Metoprolol Succinate ER 100 MG Oral Tablet Extended Release 24 Hour (toPROL XL)Indications:PSVT (paroxysmal supraventricular tachycardia) ([facility]),Coronary artery disease involving [place] coronary artery of [place] heart without angina pectoris,Primary hypertension Take 1 [...] extrinsic asthma without complication 100 mg SC [id number] 12/30/2022 Acti ve documented as of this encounter (statuses as of 02/26/2024) Active Problems Problem Noted Date Diagnosed Date [...] 11/14/2020 Hepatic steatosis 10/20/2019 Schizophrenia 03/27/2018 Overview: [place] PSVT (paroxysmal supraventricular tachycardia) 0 01/21/2018 Hx of nonmelanoma skin cancer 05/20/2017 Overview: basal cell carcinoma (R infraorbital region) Plaque psoriasis 02/18/2017 Coronary artery disease invo lving [place] coronary artery of [place] heart without angina pectoris 07/11/2016 Overview: 60% LDA, 60% left circ Adjustment disorder with anxious mood Diverticulosis of colon Primary hypertension Hyperlipidemia LDL goal <100 documented as of this encounter (statuses as of 02/26/2024) Resolved Problems Problem Noted Date Diagnosed Date [...] as of this encounter (statuses as of 02/26/2024) Immunizations Name Administration Dates Next Due COVID-19 mRNA, LNP-s, No Pre serve, 2-Dose Series (Moderna) 06/13/2021,04/30/2021 Pneumococcal Conjugate Vacci ne, 20-valent ([id number]) 12/09/2022 Pneumococcal Polysaccharide PPV23 (Pneumovax) 09/12/2014 Seasonal [...] 02/26/2024 10:23 AM EDT CLINIC NOTES Neurology [facility] [address] [facility] [address] Artie Santiago : 1965 NEUROLOGY OUTPATIENT NOTE [...] latanoprost BMI 31.0-31.9,adult CAD (coronary artery disease), [place] coronary artery 07/11/2016 60% LDA, 60% left circ Calculus of kidney 08/2014 [facility] Depressive disorder, not elsewhere classified Diarrhea Diverticulosis of colon Essential hypertension with goal blood pressure less than 140/90 Hematuria 11/17/2014 Admitted [facility] with hematuria, INR 11 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/2019 Hyperglycemia 01/07/2017 Glucose 168 Hyperlipidemia LDL goal <100 Migraine Nausea with vomiting Need for hepatitis C screening test 01/07/2017 negative Other anxiety states PE (pulmonary embolism) 08/2014 Peptic ulcer Restrictive lung disease 12/08/2022 Schizophrenia ([facility]) 03/27/2018 [place] Screening for HIV without presence of risk factors 01/07/2017 negative Syncope 01/27/2018 Tobacco abuse Patient Active Problem List Diagnosis Code Adjustment disorder with anxious mood F43.22 Diverticulosis of colon K57.30 Primary hypertension I10 Coronary artery disease involving [place] coronary artery of [place] heart without angina pectoris I25.10 Hyperlipidemia LDL goal <100 E78.5 Plaque psoriasis L40.0 Hx of nonmelanoma skin cancer Z85.828 PSVT (paroxysmal supraventricular tachycardia) I47.10 Schizophrenia ([facility]) F20.9 Hepatic steatosis K76.0 COPD, group B, by GOLD 2017 classification ([facility]) J44.9 Elevated IgE level R76.8 Cat allergies J30.81 House dust mite allergy Z91.09 Type 2 diabetes mellitus with hemoglobin A1c goal of less than 7.0% ([facility]) E11.9 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 Restrictive lung disease J98.4 Allergic asthma, moderate persistent, uncomplicated J45.40 Gastroesophageal reflux disease without esophagitis K21.9 Type 2 diabetes mellitus without complication ([facility]) E11.9 Carotid stenosis, left I65.22 History of TIA (transient ischemic attack) Z86.73 Past Surgical History: Procedure Laterality Date ABD/PELVIS CT W/ IV AND W/ PO CONTRAST 12/17/2009 post surgical changes of cholecystectomy, right renal calculus, [facility] BIMALLEOLAR ANKLE FX W/ FIXATION Right [...] REPAIR INITIAL INGUINAL HERNIA bilat MISCELLANEOUS ORDER ([facility] ONLY) Right 03/24/2017 [facility] eye MRI L SPINE WO CONTRAST [...] level: Not on file 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 * Marianela Cordova LPN - 02/26/2024 9:01 AM EDT New patient referral from Dr Monica Hammonds for TIA Saw in [facility] ED records to chart documented in this encounter Plan of Treatment Upcoming Encounters Date Type Department Care Team (Late st Contact Info) Description 03/21/2024 2:30 PM EDT Imaging Radiology [address] [place] [address] 03/28/2024 2:00 PM EDT NeuroDiagnostic Study Neurophysiology [facility] [address] [place] [address] Sp, Neurophys Tech [address] [facility] [place] [address] 05/13/2024 4:20 PM EDT Office Visit Neurology [facility] [address] [facility] [place] [address] Polina Galvan MD [address] [facility] [place] [address] 05/17/2024 2:20 PM EDT Office Visit Family Medicine [address] [place] [phone] Lydia Perdomo MD [address] [place] [address] [place] [address] Scheduled Orders Name Type Priority Associated Diagnoses Orde r Schedule EXTERNAL EKG 8 TO 15 DAYS Holter Routine History of TIA (transient ischemic attack) Expected: 02/27/2024 (Approximate), Expires: 02/25/2025 MRI BRAIN W WO CONTRAST Medical Imaging Routine History of TIA (transient ischemic attack) Ordered: 02/26/2024 EEG ROUTINE Procedures Routine History of TIA (transient ischemic attack) Ordered: 02/26/2024 XR EYE FOREIGN BODY PRE MRI Medical Imaging STAT History of TIA (transient ischemic attack) Ordered: [...] FOR COPD 02/25/2025 02/26/2024 Cologuard 06/05/2025 06/05/2022, 06/, 05/29/2022, Additional history [...] deficits documented in this encounter Care Teams Brewing Director Relationship Specialty Start Date End Date Lydia Perdomo MD [address] [place] [address] [place] [address] PCP - General Family Medicine 11/16/23 documented as of this encounter
--- OUTSIDE RECORDS SUMMARY | 2024-06-12 12:02 | External Medical Summary | Summary of Care ---
Author Name Unknown Organization [facility] Address [address] [place] [address] Phone [phone] Care Team Providers Care Hemotherapist Name Role Phone Lydia Perdomo MD Primary Care Provide r Reason for Visit * Reason Onset Date Comments Other 03/16/2024 Encounter Details Date Type Department Care Team (Late st Contact Info) Description 03/16/2024 Telephone Access Center, [address] *DO NOT REMOVE THIS DEPARTMENT* [place] [phone] Brendon Perez No Resource [address] [place] [address] Other Allergies Active Allergy Reactions Criticality Noted Date [...] as of this encounter (statuses as of 03/23/2024) Medications Medication Sig Dispensed Refills Start Date End Date Status aspirin enteric coated 81 MG TBECIndications:Matthew ry artery disease involving [place] coronary artery of [place] heart with other form of angina pectoris [...] hemoglobin A1c goal of less than 7.0% ([facility]) Use to test blood sugar four times a day. DX e11.9 400 Strip 3 10/28/2021 Active Embrace Lancets Ultra Thin 30GIndications:Type 2 diabetes mellitus with hemoglobin A1c goal of less than 7.0% ([facility]) Use to test blood sugar [...] hemoglobin A1c goal of less than 7.0% ([facility]) Use as directed. Use to [...] Oral Tablet (Prinivil)Indications: Coronary artery disease involving [place] coronary artery of [place] heart without angina pectoris Take 1 TABLET [...] Oral Tablet (pLAVix)Indications:Co ronary artery disease involving [place] coronary artery of [place] heart without angina pectoris Take 1 TABLET BY MOUTH in the morning. 90 Tablet 3 08/23/2023 Active Rosuvastatin Calcium 40 MG Oral Tablet (Crestor)Indications:H yperlipidemia LDL goal <100 take 1 TABLET by mouth at bedtime 90 Tablet 2 10/30/2023 Active Metoprolol Succinate ER 100 MG Oral Tablet Extended Release 24 Hour (toPROL XL)Indications:PSVT (paroxysmal supraventricular tachycardia) ([facility]),Coronary artery disease involving [place] coronary artery of [place] heart without angina pectoris,Primary hypertension Take 1 [...] hemoglobin A1c goal of less than 7.0% ([facility]) Inject 1.5 mg under the [...] extrinsic asthma without complication 100 mg SC [id number] 12/30/2022 Acti ve documented as of this encounter (statuses as of 03/23/2024) Active Problems Problem Noted Date Diagnosed Date [...] 11/14/2020 Hepatic steatosis 10/20/2019 Schizophrenia 03/27/2018 Overview: [place] PSVT (paroxysmal supraventricular tachycardia) 0 01/21/2018 Hx of nonmelanoma skin cancer 05/20/2017 Overview: basal cell carcinoma (R infraorbital region) Plaque psoriasis 02/18/2017 Coronary artery disease invo lving [place] coronary artery of [place] heart without angina pectoris 07/11/2016 Overview: 60% LDA, 60% left circ Adjustment disorder with anxious mood Diverticulosis of colon Primary hypertension Hyperlipidemia LDL goal <100 documented as of this encounter (statuses as of 03/23/2024) Resolved Problems Problem Noted Date Diagnosed Date [...] as of this encounter (statuses as of 03/23/2024) Immunizations Name Administration Dates Next Due COVID-19 mRNA, LNP-s, No Pre serve, 2-Dose Series (Moderna) 06/13/2021,04/30/2021 Pneumococcal Conjugate Vacci ne, 20-valent ([id number]) 12/09/2022 Pneumococcal Polysaccharide PPV23 (Pneumovax) 09/12/2014 Seasonal [...] encounter Miscellaneous Notes * Telephone Encounter - Ntay Heck LPN - 03/23/2024 11:12 AM EDT Patient is scheduled to get the zio placed the same day he is getting EEG * Telephone Encounter - Floyd Galvan MD - 03/21/2024 11:50 AM EDT Reordered * Addendum Note - Floyd Galvan MD - 03/21/2024 11:49 AM EDTAddended by: FLOYD GALVAN on: 03/21/2024 11:49 AM Modules accepted: Orders * Telephone Encounter - Naty Heck LPN - 03/18/2024 4:07 PM EDT Received an email from [employer] stating they received the box back but not the patch. I called and talked to the patient and he stated he mailed the patch back in the box. [facility] asking patient be re-patched. Please advise. * Telephone Encounter - Naty Heck LPN - 03/16/2024 12:06 PM EDT Faxed the last OV notes to number provided. [facility] is not back yet. * Telephone Encounter - Lalita Guidry OSA - 03/16/2024 11:36 AM EDT Requested Information from caller: Who is calling facility name: [facility] Provider patient is established with: Nereida Galvan What is the concern or issue they are having: How long has the issue been going on: Ov notes from last visit and results from event monitor. Any additional details to add: Pts phone number for nurse to call back: If forms need to be faxed- Please provide fax number: [phone] Please make sure you verify pharmacy for anything medication related. Form to be used for established patients only (not new patients) documented in this encounter Plan of Treatment Upcoming Encounters Date Type Department Care Team (Late st Contact Info) Description 03/28/2024 1:55 PM EDT Nurse Only Neurology [facility] [address] [place] [address] Krystal Nurse Neurology [place] [address] [place] [address] 03/28/2024 2:00 PM EDT NeuroDiagnostic Study Neurophysiology [facility] [address] [place] [address] Sp, Neurophys Tech [address] [place] [address] 05/13/2024 4:20 PM EDT Office Visit Neurology [facility] [place] [address] [place] [address] Floyd Galvan MD [address] [place] [address] 05/17/2024 2:20 PM EDT Office Visit [address] [place] [phone] Lydia Perdomo MD [address] [place] [address] [place] [address] Scheduled Orders Name Type Priority Associated Diagnoses Orde r Schedule EXTERNAL EKG 8 TO 15 DAYS Holter Routine History of TIA (transient ischemic attack) Expected: 03/22/2024 (Approximate), Expires: 03/21/2025 Health Maintenance Due Date Last Done Comments [...] deficits documented in this encounter Care Teams Hemotherapist Relationship Specialty Start Date End Date Lydia Perdomo MD [address] [place] [address] [place] [address] PCP - General Family Medicine 11/16/23 documented as of this encounter
--- OUTSIDE RECORDS SUMMARY | 2024-06-12 12:02 | External Medical Summary | Summary of Care ---
Author Name Unknown Organization [facility] Address [address] [place] [address] Phone [phone] Care Team Providers Care Flight Control Tower Operator Name Role Phone Lydia Perdomo MD Primary Care Provide r Reason for Visit * Reason Onset Date Comments Other 03/16/2024 Encounter Details Date Type Department Care Team (Late st Contact Info) Description 03/16/2024 Telephone Access Center, [address] *DO NOT REMOVE THIS DEPARTMENT* [place] [id number] Brendon Perez No Resource [address] [place] [address] Other Allergies Active Allergy Reactions [...] as of this encounter (statuses as of 03/16/2024) Medications Medication Sig Dispensed Refills Start Date End Date Status aspirin enteric coated 81 MG TBECIndications:Matthew ry artery disease involving [place] coronary artery of [place] heart with other form of angina pectoris [...] hemoglobin A1c goal of less than 7.0% ([facility]) Use to test blood sugar four times a day. DX e11.9 400 Strip 3 10/28/2021 Active Embrace Lancets Ultra Thin 30GIndications:Type 2 diabetes mellitus with hemoglobin A1c goal of less than 7.0% ([facility]) Use to test blood sugar 4 [...] hemoglobin A1c goal of less than 7.0% ([facility]) Use as directed. Use to monitor [...] Oral Tablet (Prinivil)Indications: Coronary artery disease involving [place] coronary artery of [place] heart without angina pectoris Take 1 TABLET [...] Oral Tablet (pLAVix)Indications:Co ronary artery disease involving [place] coronary artery of [place] heart without angina pectoris Take 1 TABLET BY MOUTH in the morning. 90 Tablet 3 08/23/2023 Active Rosuvastatin Calcium 40 MG Oral Tablet (Crestor)Indications:H yperlipidemia LDL goal <100 take 1 TABLET by mouth at bedtime 90 Tablet 2 10/30/2023 Active Metoprolol Succinate ER 100 MG Oral Tablet Extended Release 24 Hour (toPROL XL)Indications:PSVT (paroxysmal supraventricular tachycardia) ([facility]),Coronary artery disease involving [place] coronary artery of [place] heart without angina pectoris,Primary hypertension Take 1 [...] hemoglobin A1c goal of less than 7.0% ([facility]) Inject 1.5 mg under the skin [...] extrinsic asthma without complication 100 mg SC [id number] 12/30/2022 Acti ve documented as of this encounter (statuses as of 03/16/2024) Active Problems Problem Noted Date Diagnosed Date [...] 11/14/2020 Hepatic steatosis 10/20/2019 Schizophrenia 03/27/2018 Overview: [facility] PSVT (paroxysmal supraventricular tachycardia) 0 01/21/2018 Hx of nonmelanoma skin cancer 05/20/2017 Overview: basal cell carcinoma (R infraorbital region) Plaque psoriasis 02/18/2017 Coronary artery disease invo lving [place] coronary artery of [place] heart without angina pectoris 07/11/2016 Overview: 60% LDA, 60% left circ Adjustment disorder with anxious mood Diverticulosis of colon Primary hypertension Hyperlipidemia LDL goal <100 documented as of this encounter (statuses as of 03/16/2024) Resolved Problems Problem Noted Date Diagnosed Date [...] as of this encounter (statuses as of 03/16/2024) Immunizations Name Administration Dates Next Due COVID-19 mRNA, LNP-s, No Pre serve, 2-Dose Series (Moderna) 06/13/2021,04/30/2021 Pneumococcal Conjugate Vacci ne, 20-valent ([id number]) 12/09/2022 Pneumococcal Polysaccharide PPV23 (Pneumovax) 09/12/2014 Seasonal [...] encounter Miscellaneous Notes * Telephone Encounter - Naty Heck LPN - 03/16/2024 12:06 PM EDT Faxed the last OV notes to number provided. Zio interpretation is not back yet. * Telephone [...] to be faxed- Please provide fax number: [phone] Please make sure you verify pharmacy for anything medication related. Form to be used for established patients only (not new patients) documented in this encounter Plan of Treatment Upcoming Encounters Date Type Department Care Team (Late st Contact Info) Description 03/21/2024 2:30 PM EDT Imaging Radiology [address] [place] [address] 03/28/2024 2:00 PM EDT NeuroDiagnostic Study Neurophysiology [facility] [place] [address] [facility] [place] [address] Sp, Neurophys Tech [address] [facility] [place] [address] 05/13/2024 4:20 PM EDT Office Visit Neurology [facility] [place] [address] [facility] [place] [address] Polina Galvan MD [address] [facility] [place] [address] 05/17/2024 2:20 PM EDT Office Visit Family Medicine [address] [place] [phone] Lydia Perdomo MD [address] [place] [address] [place] [address] Health Maintenance Due Date Last Done Comments Colonoscopy 2008 Fecal Occult Blood Test 2008 Sigmoidoscopy 2008 Depression Screening 10/20/2020 10/20/2019 COVID-19 Vaccine ( season) 2023 06/13/2021, 04/30/2021 Diabetic Foot Exam 09/01/2023 09/01/2022 Diabetic Eye Exam 02/10/2024 02/09/2023, , 01/30/2021, Additional history exists HbA1c 05/17/2024 11/16/2023, 0411/2022, 02/09/2023, Additional history exists Albumin/Creatinine Ratio 11/16/2024 [...] filedocumented as of this encounter Care Teams Flight Control Tower Operator Relationship Specialty Start Date End Date Lydia Perdomo MD [address] [place] [address] [place] [address] PCP - General Family Medicine 11/16/23 documented as of this encounter
--- OUTSIDE RECORDS SUMMARY | 2024-06-12 12:02 | External Medical Summary | Summary of Care ---
Author Name Unknown Organization [facility] [address] [facility] [address] Phone [phone] Care Team Providers Care Syrup Shed Supervisor Name Role Phone Lydia Perdomo MD Primary Care Provide r Reason for Referral * Precert (Within 10 days (routine)) - Pending Review Specialty Diagnoses / Procedures Referred By Karmen oconnor Referred To Contact Radiology Diagnoses History of TIA (transient ischemic attack) Procedures MRI BRAIN W WO CONTRAST Polina Galvan MD [address] [facility] [place] [address] Referral ID Status Reason Start Date Expiration Date V isits Requested Visits Authorized [id number] Pending Review 02/26/2024 999 999 Reason for Visit * Reason Comments NEW PATIENT Saw at [facility] for ? TIA * Evaluate & Treat - Unlimited Visits (Within 10 days (routine)) - Authorized Specialty Diagnoses / Procedures Referred By Karmen oconnor Referred To Contact Neurology Diagnoses History of TIA (transient ischemic attack) Symptomatic stenosis of left carotid artery without infarction Monica Martinez, [address] [place] [address] Referral ID Status Reason Start Date Expiration Date Visits Requested Visits Authorized [id number] Authorized Specialty Services Required 01/29/2024 999 [id number] Encounter Details Date Type Department Care Team (Late st Contact Info) Description 02/26/2024 9:20 AM EDT Office Visit Neurology [facility] [place] [address] [place] [address] Polina Galvan MD [address] [facility] [place] [address] History of TIA (transient ischemic attack)* Allergies [...] 81 MG TBECIndications:Matthew ry artery disease involving [place] coronary artery of [place] heart with other form of angina pectoris [...] hemoglobin A1c goal of less than 7.0% ([facility]) Use to test blood sugar four times a day. DX e11.9 400 Strip 3 10/28/2021 Active Embrace Lancets Ultra Thin 30GIndications:Type 2 diabetes mellitus with hemoglobin A1c goal of less than 7.0% ([facility]) Use to test blood sugar [...] hemoglobin A1c goal of less than 7.0% ([facility]) Use as directed. Use to monitor glucose levels 4 times a day DXe11.9 2 Each 11 01/07/2023 Active Additional Information Patient not taking.Reported on 02/26/2024 Omeprazole 40 MG Oral Capsule Delayed Release (PriLOSEC)Indications: Gastroesophageal reflux disease without esophagitis,Type 2 diabetes mellitus with hemoglobin A1c goal of less than 7.0% ([facility]) Take 1 Capsule by mouth daily in the morning. 90 Capsule 3 06/24/2023 Active Lisinopril 20 MG Oral Tablet (Prinivil)Indications: Coronary artery disease involving [place] coronary artery of [place] heart without angina pectoris Take 1 TABLET [...] Oral Tablet (pLAVix)Indications:Co ronary artery disease involving [place] coronary artery of [place] heart without angina pectoris Take 1 TABLET BY MOUTH in the morning. 90 Tablet 3 08/23/2023 Active Rosuvastatin Calcium 40 MG Oral Tablet (Crestor)Indications:H yperlipidemia LDL goal <100 take 1 TABLET by mouth at bedtime 90 Tablet 2 10/30/2023 Active Metoprolol Succinate ER 100 MG Oral Tablet Extended Release 24 Hour (toPROL XL)Indications:PSVT (paroxysmal supraventricular tachycardia) ([facility]),Coronary artery disease involving [place] coronary artery of [place] heart without angina pectoris,Primary hypertension Take 1 [...] extrinsic asthma without complication 100 mg SC [id number] 12/30/2022 Acti ve documented as of this [...] 11/14/2020 Hepatic steatosis 10/20/2019 Schizophrenia 03/27/2018 Overview: [facility] PSVT (paroxysmal supraventricular tachycardia) 0 01/21/2018 Hx of nonmelanoma skin cancer 05/20/2017 Overview: basal cell carcinoma (R infraorbital region) Plaque psoriasis 02/18/2017 Coronary artery disease invo lving [place] coronary artery of [place] heart without angina pectoris 07/11/2016 Overview: 60% [...] (Moderna) 06/13/2021,04/30/2021 Pneumococcal Conjugate Vacci ne, 20-valent ([id number]) 12/09/2022 Pneumococcal Polysaccharide PPV23 (Pneumovax) 09/12/2014 Seasonal [...] 02/26/2024 10:23 AM EDT CLINIC NOTES Neurology [facility] [address] [facility] [address] Artie Santiago : 1965 NEUROLOGY OUTPATIENT NOTE [...] latanoprost BMI 31.0-31.9,adult CAD (coronary artery disease), [place] coronary artery 07/11/2016 60% LDA, 60% left circ Calculus of kidney 08/2014 [facility] Depressive disorder, not elsewhere classified Diarrhea Diverticulosis of colon Essential hypertension with goal blood pressure less than 140/90 Hematuria 11/17/2014 Admitted [facility] with hematuria, INR 11 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/2019 Hyperglycemia 01/07/2017 Glucose 168 Hyperlipidemia LDL goal <100 Migraine Nausea with vomiting Need for hepatitis C screening test 01/07/2017 negative Other anxiety states PE (pulmonary embolism) 08/2014 Peptic ulcer Restrictive lung disease 12/08/2022 Schizophrenia ([facility]) 03/27/2018 [place] Screening for HIV without presence of risk factors 01/07/2017 negative Syncope 01/27/2018 Tobacco abuse Patient Active Problem List Diagnosis Code Adjustment disorder with anxious mood F43.22 Diverticulosis of colon K57.30 Primary hypertension I10 Coronary artery disease involving [place] coronary artery of [place] heart without angina pectoris I25.10 Hyperlipidemia LDL goal <100 E78.5 Plaque psoriasis L40.0 Hx of nonmelanoma skin cancer Z85.828 PSVT (paroxysmal supraventricular tachycardia) I47.10 Schizophrenia ([facility]) F20.9 Hepatic steatosis K76.0 COPD, group B, by GOLD 2017 classification ([facility]) J44.9 Elevated IgE level R76.8 Cat allergies J30.81 House dust mite allergy Z91.09 Type 2 diabetes mellitus with hemoglobin A1c goal of less than 7.0% ([facility]) E11.9 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 Restrictive lung disease J98.4 Allergic asthma, moderate persistent, uncomplicated J45.40 Gastroesophageal reflux disease without esophagitis K21.9 Type 2 diabetes mellitus without complication ([facility]) E11.9 Carotid stenosis, left I65.22 History of TIA (transient ischemic attack) Z86.73 Past Surgical History: Procedure Laterality Date ABD/PELVIS CT W/ IV AND W/ PO CONTRAST 12/17/2009 post surgical changes of cholecystectomy, right renal calculus, [facility] BIMALLEOLAR ANKLE FX W/ FIXATION Right 05/12/2017 [...] REPAIR INITIAL INGUINAL HERNIA bilat MISCELLANEOUS ORDER ([facility]) Right 03/24/2017 [facility] eye MRI L SPINE WO CONTRAST [...] level: Not on file Occupational History 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 * Marianela Cordova LPN - 02/26/2024 9:01 AM EDT New patient referral from Dr Monica Hammonds for TIA Saw in [facility] ED records to chart documented in this encounter Plan of Treatment Upcoming Encounters Date Type Department Care Team (Late st Contact Info) Description 03/21/2024 2:30 PM EDT Imaging Radiology [address] [place] [address] 03/28/2024 2:00 PM EDT NeuroDiagnostic Study Neurophysiology [facility] [address] [place] [address] Sp, Neurophys Tech [address] [facility] [place] [address] 05/13/2024 4:20 PM EDT Office Visit Neurology [facility] [address] [facility] [place] [address] Polina Galvan MD [address] [facility] [place] [address] 05/17/2024 2:20 PM EDT Office Visit Family Medicine [address] [place] [phone] Lydia Perdomo MD [address] [place] [address] [place] [address] Scheduled Orders Name Type Priority Associated Diagnoses [...] deficits documented in this encounter Care Teams Syrup Shed Supervisor Relationship Specialty Start Date End Date Lydia Perdomo MD [address] [place] [address] [place] [address] PCP - General Family Medicine 11/16/23 documented as of this encounter
--- OUTSIDE RECORDS SUMMARY | 2024-06-12 12:02 | External Medical Summary | Summary of Care ---
Author Name Unknown Organization [facility] Address [address] [place] [address] Phone [phone] Care Team Providers Care Credit Collections Clerk Name Role Phone Lydia Perdomo MD Primary Care Provide r Reason for Visit * Reason Onset Date Comments Other 03/16/2024 Encounter Details Date Type Department Care Team (Late st Contact Info) Description 03/16/2024 Telephone Access Center, [address] *DO NOT REMOVE THIS DEPARTMENT* [place] [id number] Brendon Perez No Resource [address] [place] [address] Other Allergies Active Allergy Reactions [...] as of this encounter (statuses as of 03/21/2024) Medications Medication Sig Dispensed Refills Start Date End Date Status aspirin enteric coated 81 MG TBECIndications:Matthew ry artery disease involving [place] coronary artery of [place] heart with other form of angina pectoris [...] hemoglobin A1c goal of less than 7.0% ([facility]) Use to test blood sugar four times a day. DX e11.9 400 Strip 3 10/28/2021 Active Embrace Lancets Ultra Thin 30GIndications:Type 2 diabetes mellitus with hemoglobin A1c goal of less than 7.0% ([facility]) Use to test blood sugar 4 [...] hemoglobin A1c goal of less than 7.0% ([facility]) Use as directed. Use to monitor [...] Oral Tablet (Prinivil)Indications: Coronary artery disease involving [place] coronary artery of [place] heart without angina pectoris Take 1 TABLET [...] Oral Tablet (pLAVix)Indications:Co ronary artery disease involving [place] coronary artery of [place] heart without angina pectoris Take 1 TABLET BY MOUTH in the morning. 90 Tablet 3 08/23/2023 Active Rosuvastatin Calcium 40 MG Oral Tablet (Crestor)Indications:H yperlipidemia LDL goal <100 take 1 TABLET by mouth at bedtime 90 Tablet 2 10/30/2023 Active Metoprolol Succinate ER 100 MG Oral Tablet Extended Release 24 Hour (toPROL XL)Indications:PSVT (paroxysmal supraventricular tachycardia) ([facility]),Coronary artery disease involving [place] coronary artery of [place] heart without angina pectoris,Primary hypertension Take 1 [...] hemoglobin A1c goal of less than 7.0% ([facility]) Inject 1.5 mg under the skin [...] extrinsic asthma without complication 100 mg SC [id number] 12/30/2022 Acti ve documented as of this encounter (statuses as of 03/21/2024) Active Problems Problem Noted Date Diagnosed Date [...] 11/14/2020 Hepatic steatosis 10/20/2019 Schizophrenia 03/27/2018 Overview: [facility] PSVT (paroxysmal supraventricular tachycardia) 0 01/21/2018 Hx of nonmelanoma skin cancer 05/20/2017 Overview: basal cell carcinoma (R infraorbital region) Plaque psoriasis 02/18/2017 Coronary artery disease invo lving [place] coronary artery of [place] heart without angina pectoris 07/11/2016 Overview: 60% LDA, 60% left circ Adjustment disorder with anxious mood Diverticulosis of colon Primary hypertension Hyperlipidemia LDL goal <100 documented as of this encounter (statuses as of 03/21/2024) Resolved Problems Problem Noted Date Diagnosed Date [...] as of this encounter (statuses as of 03/21/2024) Immunizations Name Administration Dates Next Due COVID-19 mRNA, LNP-s, No Pre serve, 2-Dose Series (Moderna) 06/13/2021,04/30/2021 Pneumococcal Conjugate Vacci ne, 20-valent ([id number]) 12/09/2022 Pneumococcal Polysaccharide PPV23 (Pneumovax) 09/12/2014 Seasonal [...] encounter Miscellaneous Notes * Telephone Encounter - Floyd Galvan MD - 03/21/2024 11:50 AM EDT Reordered * Addendum Note - Floyd Galvan MD - 03/21/2024 11:49 AM EDTAddended by: FLOYD GALVAN on: 03/21/2024 11:49 AM Modules accepted: Orders * Telephone Encounter - Naty Heck LPN - 03/18/2024 4:07 PM EDT Received an email from [employer] stating they received the box back but not the patch. I called and talked to the patient and he stated he mailed the patch back in the box. Weso asking patient be re-patched. Please advise. * [...] to be faxed- Please provide fax number: [phone] Please make sure you verify pharmacy for anything medication related. Form to be used for established patients only (not new patients) documented in this encounter Plan of Treatment Upcoming Encounters Date Type Department Care Team (Late st Contact Info) Description 03/21/2024 2:30 PM EDT Imaging Radiology [address] [place] [address] 03/28/2024 2:00 PM EDT NeuroDiagnostic Study Neurophysiology [facility] [place] [place] [address] [place] [address] Sp, Neurophys Tech [address] [place] [address] 05/13/2024 4:20 PM EDT Office Visit Neurology [facility] [place] [address] [place] [address] Floyd Galvan MD 200 [facility] [place] [address] 05/17/2024 2:20 PM EDT Office Visit Family Medicine [address] [place] [phone] Lydia Perdomo MD [address] [place] [address] [place] [address] Scheduled Orders Name Type Priority Associated Diagnoses [...] FOR COPD 02/25/2025 02/26/2024 Cologuard 06/05/2025 06/05/2022, 06, 05/29/2022, Additional history exists Colorectal Cancer Screening [...] deficits documented in this encounter Care Teams Credit Collections Clerk Relationship Specialty Start Date End Date Lydia Perdomo MD [address] [place] [address] [place] [address] PCP - General Family Medicine 11/16/23 documented as of this encounter
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
--- OUTSIDE RECORDS SUMMARY | 2024-06-12 12:02 | External Medical Summary | Summary of Care ---
Author Name Unknown Organization [facility] Address [address] [place] [address] Phone [phone] Care Team Providers Care Senior Sales Engineer Name Role Phone Lydia Perdomo MD Primary Care Provide r Reason for Visit * Reason Onset Date Comments Other 03/16/2024 Encounter Details Date Type Department Care Team (Late st Contact Info) Description 03/16/2024 Telephone Access Center, [address] *DO NOT REMOVE THIS DEPARTMENT* [place] [phone] Brendon Perez No Resource [address] [place] [address] Other Allergies Active Allergy Reactions [...] 81 MG TBECIndications:Matthew ry artery disease involving [place] coronary artery of [place] heart with other form of angina pectoris [...] A1c goal of less than 7.0% ([facility]) Use to test blood sugar four times a day. DX e11.9 400 Strip 3 10/28/2021 Active Embrace Lancets Ultra Thin 30GIndications:Type 2 diabetes mellitus with hemoglobin A1c goal of less than 7.0% ([facility]) Use to test blood sugar 4 [...] A1c goal of less than 7.0% ([facility]) Use as directed. Use to monitor [...] Oral Tablet (Prinivil)Indications: Coronary artery disease involving [place] coronary artery of [place] heart without angina pectoris Take 1 TABLET [...] Oral Tablet (pLAVix)Indications:Co ronary artery disease involving [place] coronary artery of [place] heart without angina pectoris Take 1 TABLET BY MOUTH in the morning. 90 Tablet 3 08/23/2023 Active Rosuvastatin Calcium 40 MG Oral Tablet (Crestor)Indications:H yperlipidemia LDL goal <100 take 1 TABLET by mouth at bedtime 90 Tablet 2 10/30/2023 Active Metoprolol Succinate ER 100 MG Oral Tablet Extended Release 24 Hour (toPROL XL)Indications:PSVT (paroxysmal supraventricular tachycardia) ([facility]),Coronary artery disease involving [place] coronary artery of [place] heart without angina pectoris,Primary hypertension Take 1 [...] A1c goal of less than 7.0% ([facility]) Inject 1.5 mg under the skin [...] extrinsic asthma without complication 100 mg SC [id number] 12/30/2022 Acti ve documented as of this [...] 11/14/2020 Hepatic steatosis 10/20/2019 Schizophrenia 03/27/2018 Overview: [place] PSVT (paroxysmal supraventricular tachycardia) 0 01/21/2018 Hx of nonmelanoma skin cancer 05/20/2017 Overview: basal cell carcinoma (R infraorbital region) Plaque psoriasis 02/18/2017 Coronary artery disease invo lving [place] coronary artery of [place] heart without angina pectoris 07/11/2016 Overview: 60% [...] (Moderna) 06/13/2021,04/30/2021 Pneumococcal Conjugate Vacci ne, 20-valent ([id number]) 12/09/2022 Pneumococcal Polysaccharide PPV23 (Pneumovax) 09/12/2014 Seasonal [...] as of this encounter Miscellaneous Notes * Addendum Note - [place] Galvan MD - 03/21/2024 11:49 AM EDTAddended by: FLOYD GALVAN on: 03/21/2024 11:49 AM Modules accepted: Orders * Telephone Encounter - Naty Heck LPN - 03/18/2024 4:07 PM EDT Received an email from [employer] stating they received the box back [...] to be faxed- Please provide fax number: [phone] Please make sure you verify pharmacy for anything medication related. Form to be used for established patients only (not new patients) documented in this encounter Plan of Treatment Upcoming Encounters Date Type Department Care Team (Late st Contact Info) Description 03/21/2024 2:30 PM EDT Imaging Radiology [address] [place] [address] 03/28/2024 2:00 PM EDT NeuroDiagnostic Study Neurophysiology [facility] [place] 200 [facility] [place] [address] Sp, Neurophys Tech 200 [facility] [place] [address] 05/13/2024 4:20 PM EDT Office Visit Neurology [facility] [place] 200 [facility] [place] [address] [place] Galvan MD 200 [facility] [place] [address] 05/17/2024 2:20 PM EDT Office Visit Family Medicine [address] [place] [phone] Lydia Perdomo MD [address] [place] [address] [place] [address] Scheduled Orders Name Type Priority Associated Diagnoses [...] deficits documented in this encounter Care Teams Senior Sales Engineer Relationship Specialty Start Date End Date Lydia Perdomo MD [address] [place] [address] [place] [address] PCP - General Family Medicine 11/16/23 documented as of this encounter
--- OUTSIDE RECORDS SUMMARY | 2024-06-12 12:02 | External Medical Summary | Summary of Care ---
Author Name Unknown Organization [facility] Address [address] [place] [address] Phone [phone] Care Team Providers Care Wood Room Supervisor Name Role Phone Lyida Perdomo MD Primary Care Provide r Reason for Visit * Reason Onset Date Comments Other 03/16/2024 Encounter Details Date Type Department Care Team (Late st Contact Info) Description 03/16/2024 Telephone Access Center, [address] *DO NOT REMOVE THIS DEPARTMENT* [place] [phone] Brendon Perez No Resource [address] [place] [address] Other Allergies Active Allergy Reactions [...] as of this encounter (statuses as of 03/18/2024) Medications Medication Sig Dispensed Refills Start Date End Date Status aspirin enteric coated 81 MG TBECIndications:Matthew ry artery disease involving [place] coronary artery of [place] heart with other form of angina pectoris [...] hemoglobin A1c goal of less than 7.0% ([facility]) Use to test blood sugar four times a day. DX e11.9 400 Strip 3 10/28/2021 Active Embrace Lancets Ultra Thin 30GIndications:Type 2 diabetes mellitus with hemoglobin A1c goal of less than 7.0% ([facility]) Use to test blood sugar [...] hemoglobin A1c goal of less than 7.0% ([facility]) Use as directed. Use to [...] Oral Tablet (Prinivil)Indications: Coronary artery disease involving [place] coronary artery of [place] heart without angina pectoris Take 1 TABLET [...] Oral Tablet (pLAVix)Indications:Co ronary artery disease involving [place] coronary artery of [place] heart without angina pectoris Take 1 TABLET BY MOUTH in the morning. 90 Tablet 3 08/23/2023 Active Rosuvastatin Calcium 40 MG Oral Tablet (Crestor)Indications:H yperlipidemia LDL goal <100 take 1 TABLET by mouth at bedtime 90 Tablet 2 10/30/2023 Active Metoprolol Succinate ER 100 MG Oral Tablet Extended Release 24 Hour (toPROL XL)Indications:PSVT (paroxysmal supraventricular tachycardia) ([facility]),Coronary artery disease involving [place] coronary artery of [place] heart without angina pectoris,Primary hypertension Take 1 [...] hemoglobin A1c goal of less than 7.0% ([facility]) Inject 1.5 mg under the [...] extrinsic asthma without complication 100 mg SC [id number] 12/30/2022 Acti ve documented as of this encounter (statuses as of 03/18/2024) Active Problems Problem Noted Date Diagnosed Date [...] 11/14/2020 Hepatic steatosis 10/20/2019 Schizophrenia 03/27/2018 Overview: [place] PSVT (paroxysmal supraventricular tachycardia) 0 01/21/2018 Hx of nonmelanoma skin cancer 05/20/2017 Overview: basal cell carcinoma (R infraorbital region) Plaque psoriasis 02/18/2017 Coronary artery disease invo lving [place] coronary artery of [place] heart without angina pectoris 07/11/2016 Overview: 60% LDA, 60% left circ Adjustment disorder with anxious mood Diverticulosis of colon Primary hypertension Hyperlipidemia LDL goal <100 documented as of this encounter (statuses as of 03/18/2024) Resolved Problems Problem Noted Date Diagnosed Date [...] as of this encounter (statuses as of 03/18/2024) Immunizations Name Administration Dates Next Due COVID-19 mRNA, LNP-s, No Pre serve, 2-Dose Series (Moderna) 06/13/2021,04/30/2021 Pneumococcal Conjugate Vacci ne, 20-valent ([id number]) 12/09/2022 Pneumococcal Polysaccharide PPV23 (Pneumovax) 09/12/2014 Seasonal [...] 4:07 PM EDT Received an email from [employer] stating they received the box back [...] to be faxed- Please provide fax number: [phone] Please make sure you verify pharmacy for anything medication related. Form to be used for established patients only (not new patients) documented in this encounter Plan of Treatment Upcoming Encounters Date Type Department Care Team (Late st Contact Info) Description 03/21/2024 2:30 PM EDT Imaging Radiology [address] [place] [address] 03/28/2024 2:00 PM EDT NeuroDiagnostic Study Neurophysiology [address] [place] [address] Sp, Neurophys Tech [address] [place] [address] [facility] [place] [address] 05/13/2024 4:20 PM EDT Office Visit Neurology [address] [place] [address] Polina Galvan MD [address] [place] [address] [place] [address] 05/17/2024 2:20 PM EDT Office Visit Family Medicine [address] [place] [phone] Lydia Perdomo MD [address] [place] [address] [place] [address] Health Maintenance Due Date Last Done Comments [...] filedocumented as of this encounter Care Teams Wood Room Supervisor Relationship Specialty Start Date End Date Lyida Perdomo MD [address] [place] [address] [place] [address] PCP - General Family Medicine 11/16/23 documented as of this encounter
--- OUTSIDE RECORDS SUMMARY | 2024-06-12 12:02 | External Medical Summary | Summary of Care ---
Author Name Unknown Organization [facility] Address [address] [facility] [place] [address] Phone [phone] Care Team Providers Care Data Typist Name Role Phone Lydia Perdomo MD Primary Care Provide r Reason for Visit * Reason Comments eRx-Medication Refill Encounter Details Date Type Department Care Team (Late st Contact Info) Description 02/25/2024 Refill Family Medicine [address] [place] [phone] Guy Castanon MD [address] [place] [address] [place] [address] Type 2 diabetes mellitus with hemoglobin A1c goal of less than 7.0% ([facility]); Hypertriglyceridemia Allergies Active Allergy Reactions Criticality Noted Date [...] as of this encounter (statuses as of 02/25/2024) Medications Medication Sig Dispensed Refills Start Date End Date Status aspirin enteric coated 81 MG TBECIndications:Coron diana artery disease involving [place] coronary artery of [place] heart with other form of angina pectoris (HCC) Take 1 Tab by mouth daily. 100 Tab 3 6 Active TRINTELLIX 20 MG TABS TAKE ONE TABLET EVERY DAY IN THE MORNING 0 7 Active doxepin (SINEQUAN) 75 MG Capsule TAKE TWO CAPSULES BY MOUTH DAILY 0 7 Active buPROPion extended release, SR, (WELLBUTRIN SR) 100 MG TB12 0 9 Active Cyanocobalamin (B-12) 1000 MCG Capsule [...] day DXe11.9 400 Each 3 1 Active Mirtazapine 15 MG Oral Tablet (Remeron) Take 1 Tablet by mouth at bedtime. 0 Active QUEtiapine Fumarate ER 150 MG Oral Tablet Extended Release 24 Hour Take 1 Tablet by mouth at bedtime. Total of 500 mg a day 0 Active FreeStyle Crow 2 SensorIndications:Typ e 2 [...] Oral Tablet (Prinivil)Indications :Coronary artery disease involving [place] coronary artery of [place] heart without angina pectoris Take 1 TABLET [...] Oral Tablet (pLAVix)Indications:C oronary artery disease involving [place] coronary artery of [place] heart without angina pectoris Take 1 TABLET BY MOUTH in the morning. 90 Tablet 3 3 Active Rosuvastatin Calcium 40 MG Oral Tablet (Crestor)Indications: Hyperlipidemia LDL goal <100 take 1 TABLET by mouth at bedtime 90 Tablet 2 3 Active Metoprolol Succinate ER 100 MG Oral Tablet Extended Release 24 Hour (toPROL XL)Indications:PSVT (paroxysmal supraventricular tachycardia) ([facility]),Coronary artery disease involving [place] coronary artery of [place] heart without angina pectoris,Primary hypertension Take 1 Tablet by mouth in the morning. 90 Tablet 1 3 Active Nitroglycerin 0.4 MG Sublingual Tablet Sublingual [...] Tablet by mouth in the morning. 0 4 Active Prazosin HCl 5 MG Oral Capsule (Minipress) Take 1 Capsule by mouth at bedtime. 0 4 Active metFORMIN HCl 1000 MG Oral Tablet (Glucophage)Indicatio ns:Type 2 diabetes mellitus with hemoglobin A1c goal of less than 7.0% (HCC) Take 1 Tablet by mouth every evening. 90 Tablet 2 4 Active Empagliflozin 10 MG Oral Tablet (Jardiance)Indication s:Type 2 diabetes mellitus with hemoglobin A1c goal of less than 7.0% (HCC) Take 1 Tablet by mouth in the morning. 90 Tablet 2 4 Active Fenofibrate 160 MG Oral Tablet (Lofibra)Indications: Hypertriglyceridemia Take 1 Tablet by mouth daily. with a meal 90 Tablet 2 4 Active Fenofibrate 160 MG Oral Tablet (Lofibra)Indications: Hypertriglyceridemia Take 1 Tablet by mouth daily. with a meal 90 Tablet 1 3 02/25/20 24 Discontinued metFORMIN HCl 1000 MG Oral Tablet (Glucophage)Indicatio ns:Type 2 diabetes mellitus with hemoglobin A1c goal of less than 7.0% (HCC) Take 1 Tablet by mouth every evening. 90 Tablet 1 3 02/25/20 24 Discontinued Empagliflozin 10 MG Oral Tablet (Jardiance)Indication s:Type 2 diabetes mellitus with hemoglobin A1c goal of less than 7.0% (HCC) Take 1 Tablet by mouth in the morning. 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 100 mg SC [id number] 12/30/2022 Acti ve documented as of this encounter (statuses as of 02/25/2024) Active Problems Problem Noted Date Diagnosed Date [...] 11/14/2020 Hepatic steatosis 10/20/2019 Schizophrenia 03/27/2018 Overview: [place] PSVT (paroxysmal supraventricular tachycardia) 0 01/21/2018 Hx of nonmelanoma skin cancer 05/20/2017 Overview: basal cell carcinoma (R infraorbital region) Plaque psoriasis 02/18/2017 Coronary artery disease invo lving [place] coronary artery of [place] heart without angina pectoris 07/11/2016 Overview: 60% LDA, 60% left circ Adjustment disorder with anxious mood Diverticulosis of colon Primary hypertension Hyperlipidemia LDL goal <100 documented as of this encounter (statuses as of 02/25/2024) Resolved Problems Problem Noted Date Diagnosed Date [...] as of this encounter (statuses as of 02/25/2024) Immunizations Name Administration Dates Next Due COVID-19 mRNA, LNP-s, No Pre serve, 2-Dose Series (Moderna) 06/13/2021,04/30/2021 Pneumococcal Conjugate Vacci ne, 20-valent ([id number]) 12/09/2022 Pneumococcal Polysaccharide PPV23 (Pneumovax) 09/12/2014 Seasonal [...] encounter Miscellaneous Notes * Telephone Encounter - Mami Chambers, [facility] - 02/25/2024 3:49 PM EDTSigned Prescriptions: Disp Refills metFORMIN HCl 1000 MG Oral Tablet (Glucoph*90 Tab*2 Sig: Take 1Tablet by mouth every evening.Authorizing Provider: Jignesh PERDOMO User: MAMI CHAMBERS Empagliflozin 10 MG Oral Tablet (Jardiance)90 Tab*2 Sig: Take 1 Tablet by mouth in the morning.A uthorizing Provider: Jignesh PERDOMO User: MAMI CHAMBERS Fenofibrate 160 MG Oral Tablet(Lofibra) 90 Tab*2 Sig: Take 1 Tablet by mouth daily. with a mealAuthorizing Provider: Jignesh PERDOMO User: MAMI CHAMBERS ----- documented in this encounter Plan of Treatment Upcoming Encounters Date Type Department Care Team (Late st Contact Info) Description 02/26/2024 9:20 AM EDT Office Visit Neurology [facility] [place] 200 [facility] [place] [address] Polina Galvan MD 200 [facility] [place] [address] 05/17/2024 2:20 PM EDT Office Visit Family Medicine [address] [phone] Lydia Perdomo MD [address] [place] [address] [place] [address] Health Maintenance Due Date Last Done Comments [...] FOR COPD 02/07/2025 02/08/2024 Cologuard 06/05/2025 06/05/2022, 05/02, 05/29/2022, Additional history [...] A1c goal of less than 7.0% (HCC) Hypertriglyceridemia Pure hyperglyceridemia documented in this encounter Care Teams Data Typist Relationship Specialty Start Date End Date Lydia Perdomo MD [address] [place] [address] [place] [address] PCP - General Family Medicine 11/16/23 documented as of this encounter
--- OUTSIDE RECORDS SUMMARY | 2024-06-12 12:03 | External Medical Summary | Summary of Care ---
Author Name Unknown Organization [facility] Address [address] [place] [address] Phone [phone] Care Team Providers Care Entry Rep Name Role Phone Lydia Perdomo MD Primary Care Provide r Reason for Visit * Reason Onset Date Comments Vascular Study 02/14/2024 Encounter Details Date Type Department Care Team (Late st Contact Info) Description 02/14/2024 Telephone Vascular Surgery, [facility] [address] [facility] [place] [address] Catrachito Guerrero PA-C [address] [place] [address] Vascular Study Allergies Active Allergy Reactions Criticality Noted Date [...] as of this encounter (statuses as of 02/15/2024) Medications Medication Sig Dispensed Refills Start Date End Date Status aspirin enteric coated 81 MG TBECIndications:Coronar y artery disease involving [place] coronary artery of [place] heart with other form of angina pectoris [...] Oral Tablet (Prinivil)Indications:C oronary artery disease involving [place] coronary artery of [place] heart without angina pectoris Take 1 TABLET [...] Oral Tablet (pLAVix)Indications:Cor onary artery disease involving [place] coronary artery of [place] heart without angina pectoris Take 1 TABLET [...] Release 24 Hour (toPROL XL)Indications:PSVT (paroxysmal supraventricular tachycardia),Coronary artery disease involving [place] coronary artery of [place] heart without angina pectoris,Primary hypertension Take 1 [...] a week. 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 100 mg SC [id number] 12/30/2022 Acti ve documented as of this encounter (statuses as of 02/15/2024) Active Problems Problem Noted Date Diagnosed Date Gastroesophageal reflux disease without esophagi tis 01/29/2024 [...] 11/14/2020 Hepatic steatosis 10/20/2019 Schizophrenia 03/27/2018 Overview: [place] PSVT (paroxysmal supraventricular tachycardia) 0 01/21/2018 Hx of nonmelanoma skin cancer 05/20/2017 Overview: basal cell carcinoma (R infraorbital region) Plaque psoriasis 02/18/2017 Coronary artery disease invo lving [place] coronary artery of [place] heart without angina pectoris 07/11/2016 Overview: 60% LDA, 60% left circ Adjustment disorder with anxious mood Diverticulosis of colon Primary hypertension Hyperlipidemia LDL goal <100 documented as of this encounter (statuses as of 02/15/2024) Resolved Problems Problem Noted Date Diagnosed Date [...] as of this encounter (statuses as of 02/15/2024) Immunizations Name Administration Dates Next Due COVID-19 mRNA, LNP-s, No Pre serve, 2-Dose Series (Moderna) 06/13/2021,04/30/2021 Pneumococcal Conjugate Vacci ne, 20-valent ([id number]) 12/09/2022 Pneumococcal Polysaccharide PPV23 (Pneumovax) 09/12/2014 Seasonal [...] encounter Miscellaneous Notes * Telephone Encounter - Kia Velasquez OSA - 02/15/2024 1:58 PM EDT I can schedule the patient AFTER the clinic appt, but nothing prior to on 02/16 is available. * Telephone Encounter - Catrachito Guerrero PA-C - 02/14/2024 9:55 AM EDT Kia- Pt had recent CTA neck, showing ~ 75% LICA stenosis, heavily calcified Pt scheduled for GWs on 02/16 I realize that this is a late request, but can we get [id number] carotid duplex? Appointment is scheduled for 1:10 PM Thank you KIERRA documented in this encounter Plan of Treatment Upcoming Encounters Date Type Department Care Team (Late st Contact Info) Description 02/17/2024 1:10 PM EDT Office Visit Vascular Surgery, [facility] [address] [facility] [place] [address] Shahzad Gonzalez MD [address] [facility] [place] [address] 02/26/2024 9:20 AM EDT Office Visit Neurology [facility] [place] [address] [place] [address] Polina Galvan MD [address] [facility] [place] [address] 05/17/2024 2:20 PM EDT Office Visit Family Medicine [address] [place] [phone] Lydia Perdomo MD [address] [place] [address] [place] [address] Scheduled Orders Name Type Priority Associated Diagnoses Orde r Schedule VASC DUPLEX CAROTID BILAT Medical Imaging Routine Carotid stenosis, left Ordered: 02/14/2024 Health Maintenance Due Date Last Done Comments [...] as of this encounter Visit Diagnoses Diagnosis Carotid stenosis, left- Primary Occlusion and stenosis of carotid artery without mention of cerebral infarction documented in this encounter Care Teams Entry Rep Relationship Specialty Start Date End Date Lydia Perdomo MD [address] [place] [address] [place] [address] PCP - General Family Medicine 11/16/23 documented as of this encounter
--- OUTSIDE RECORDS SUMMARY | 2024-06-12 12:03 | External Medical Summary | Summary of Care ---
Author Name Unknown Organization [facility] Address [address] [place] [address] Phone [phone] Care Team Providers Care Hose Finisher Name Role Phone Lydia Perdomo MD Primary Care Provide r Reason for Visit * Reason Comments NEW PATIENT * Evaluate & Treat - Unlimited Visits (Within 10 days (routine)) - Authorized Specialty Diagnoses / Procedures Referred By Contact Referred To Contact Vascular Surgery / Cardiovascular Surgery Diagnoses History of TIA (transient ischemic attack) Symptomatic stenosis of left carotid artery without infarction Monica [place], [address] [place] [address] Referral ID Status Reason Start Date Expiration Date Visits Requested Visits Authorized [id number] Authorized Specialty Services Required 01/29/2024 [id number] Encounter Details Date Type Department Care Team (Late st Contact Info) Description 02/17/2024 1:10 PM EDT Office Visit Vascular Surgery, [facility] [address] [facility] [place], [place] [address] Shahzad Gonzalez MD [address] [place] [address] Carotid stenosis, left*; History of TIA (transient ischemic attack) Allergies [...] as of this encounter (statuses as of 02/17/2024) Medications Medication Sig Dispensed Refills Start Date End Date Status aspirin enteric coated 81 MG TBECIndications:Coronar y artery disease involving [facility] ir[place] coronary artery of [place] heart with other form of angina pectoris [...] hemoglobin A1c goal of less than 7.0% ([facility]) Use to test blood sugar four times a day. DX e11.9 400 Strip 3 10/28/2021 Active Embrace Lancets Ultra Thin 30GIndications:Type 2 diabetes mellitus with hemoglobin A1c goal of less than 7.0% ([facility]) Use to test blood sugar 4 [...] hemoglobin A1c goal of less than 7.0% ([facility]) Use as directed. Use to monitor [...] Oral Tablet (Prinivil)Indications:C oronary artery disease involving [facility]ichael ira coronary artery of [facility] ir[place] heart without angina pectoris Take 1 TABLET [...] Oral Tablet (pLAVix)Indications:Cor onary artery disease involving [facility] michael ira coronary artery of [facility]ichael ir[place] heart without angina pectoris Take 1 TABLET [...] XL)Indications:PSVT (paroxysmal supraventricular tachycardia),Coronary artery disease involving [facility] michael ira coronary artery of [place] ir[place] heart without angina pectoris,Primary hypertension Take 1 [...] extrinsic asthma without complication 100 mg SC [id number] 12/30/2022 Acti ve documented as of this encounter (statuses as of 02/17/2024) Active Problems Problem Noted Date Diagnosed Date [...] 11/14/2020 Hepatic steatosis 10/20/2019 Schizophrenia 03/27/2018 Overview: [place] PSVT (paroxysmal supraventricular tachycardia) 0 01/21/2018 Hx of nonmelanoma skin cancer 05/20/2017 Overview: basal cell carcinoma (R infraorbital region) Plaque psoriasis 02/18/2017 Coronary artery disease invo lving [facility] michael ira coronary artery of [facility]ichael ira heart without angina pectoris 07/11/2016 Overview: 60% LDA, 60% left circ Adjustment disorder with anxious mood Diverticulosis of colon Primary hypertension Hyperlipidemia LDL goal <100 documented as of this encounter (statuses as of 02/17/2024) Resolved Problems Problem Noted Date Diagnosed Date [...] as of this encounter (statuses as of 02/17/2024) Immunizations Name Administration Dates Next Due COVID-19 mRNA, LNP-s, No Pre serve, 2-Dose Series (Moderna) 06/13/2021,04/30/2021 Pneumococcal Conjugate Vacci ne, 20-valent ([id number]) 12/09/2022 Pneumococcal Polysaccharide PPV23 (Pneumovax) 09/12/2014 Seasonal [...] 08/14/2011 - 08/14/2019 Smokeless Tobacco: Former Snuff Tobacco Cessation:Counseling Given: No Alcohol Use Standard Drinks/Week Comments No 0 [...] Sign Reading Time Taken Comments Blood Pressure 112/72 02/17/2024 1:37 PM EDT Pulse 96 02/17/2024 1:36 PM EDT Temperature 36.2 C (97.2 F) 02/17/2024 1:36 PM ED T Respiratory Rate - - Oxygen Saturation - - Inhaled Oxygen Concentration - - Weight 81.2 kg (179 lb 1.6 oz) 02/17/2024 1:36 P M EDT Height 177.8 cm (5' 10") 02/17/2024 1:36 PM EDT Body Mass Index 25.7 02/17/2024 1:36 PM EDT documented in this encounter Progress Notes * Catrachito Guerrero PA-C - 02/17/2024 1:10 PM EDT Date of Service: 02/17/2024 1:32 PM Artie Santiago is a 58 year old male. 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 Here with lady friend of 9 years TIA symptoms: slurred speech and drooping of left side of face and weak left arm. CTA @ [facility] revealed 75% stenosis of LICA, less than 20% stenosis of DANYA FAMILY HISTORY: Family history is noncontributory. Current Outpatient Medications Medication Sig Dispense Refill aspirin enteric coated 81 MG TBEC Take 1 Tab by mouth daily. 100 Tab 3 TRINTELLIX 20 MG TABS TAKE ONE TABLET EVERY DAY IN THE MORNING 0 doxepin (SINEQUAN) 75 MG Capsule TAKE TWO CAPSULES BY MOUTH DAILY 0 buPROPion extended release, SR, (WELLBUTRIN SR) [...] Take 1 Tablet by mouth at bedtime. QUEtiapine Fumarate ER 150 MG Oral Tablet [...] by mouth at bedtime 90 Tablet 2 Fenofibrate 160 MG Oral Tablet (Lofibra) Take 1 Tablet by mouth daily. with a meal 90 Tablet 1 metFORMIN HCl 1000 MG Oral Tablet (Glucophage) Take 1 Tablet by mouth every evening. 90 Tablet 1 Metoprolol Succinate ER 100 MG Oral Tablet Extended Release 24 Hour (toPROL XL) Take 1 Tablet by mouth in the morning. 90 Tablet 1 Empagliflozin 10 MG Oral Tablet (Jardiance) Take 1 Tablet by mouth in the morning. 90 Tablet 1 Nitroglycerin 0.4 MG Sublingual Tablet Sublingual (Nitrostat) Place 1 Tablet under the tongue as needed for Pain, Chest. May repeat 3 times. If chest pain continues, call 911. 25 Tablet 11 Trulicity 1.5 MG/0.5ML Subcutaneous Solution Pen-injector (Dulaglutide) Inject 1.5 mg under the skin once a week. 2 mL 3 Current Facility-Administered Medications Medication Dose Route Frequency [...] Hcl] Ultram [Tramadol Hcl] Severe gi distress Patient Active Problem List Diagnosis Code Adjustment disorder with anxious mood F43.22 Diverticulosis of colon K57.30 Primary hypertension I10 Coronary artery disease involving [facility]. michael ira coronary artery of 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 coronary artery 07/11/2016 60% LDA, 60% left circ Calculus of kidney 08/2014 [facility] Depressive disorder, not elsewhere classified Diarrhea Diverticulosis of colon Essential hypertension with goal blood pressure less than 140/90 Hematuria 11/17/2014 Admitted [facility] with hematuria, INR 11 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/2019 Hyperglycemia 01/07/2017 Glucose 168 Hyperlipidemia LDL goal <100 Migraine Nausea with vomiting Need for hepatitis C screening test 01/07/2017 negative Other anxiety states PE (pulmonary embolism) 08/2014 Peptic ulcer Restrictive lung disease 12/08/2022 Schizophrenia ([facility]) 03/27/2018 [place] Screening for HIV without presence of risk factors 01/07/2017 negative Syncope 01/27/2018 Tobacco abuse Past Surgical History: Procedure Laterality Date ABD/PELVIS CT W/ IV AND W/ PO CONTRAST 12/17/2009 post surgical changes of cholecystectomy, right renal calculus, [facility] BIMALLEOLAR ANKLE FX W/ FIXATION [...] ischemia, normal wall motion EF 58% OTHER 2006 cardiac cath OTHER 2006 buldging disc OTHER (INFORMATION) 1988 laceration lt arm 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 TOTAL HIP REPLACEMENT & PROSTHESIS Left 05/11/2015 Dr Fraser TOTAL HIP REPLACEMENT & PROSTHESIS Right 07/04/2015 Dr Fraser VASC DUPLEX CAROTID BILAT Bilateral 10/13/2017 <50% ICA stenosis, and antegrade vertebral flow. 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 Employer: [employer] Tobacco Use Smoking status: Former Current packs/day: 0.00 Average packs/day: 1.5 packs/day for 8.0 years (12.0 ttl pk-yrs) Types: Cigarettes Start date: 08/14/2011 Quit date: 08/14/2019 Years since quittin.5 Smokeless tobacco: Former Types: Snuff Substance and Sexual Activity Alcohol use: No Comment: Quit drinking when liver enzymes were elevated 09/2019 Drug use: Not Currently Types: Methamphetamines, Benzodiazepines Comment: tested positive 03/27/18 Sexual activity: Yes [...] on file Housing Stability: Not on file COMPLETE REVIEW OF SYSTEMS: Cardiovascular: Negative for chest pain, shortness of breath, palpitations, angina or SC Neurological: Positive for TIA (see HPI). Negative for stroke, amaurosis fugax All other systems negative except for those noted above and in the history of present illness (HPI). GENERAL MULTI-SYSTEM PHYSICAL EXAM: VITAL SIGNS: BP 112/72 (BP Site: Right Arm, BP Position: Sitting, BP Cuff Size: Regular) | Pulse 96 | Temp 36.2 C (97.2 F) (Tympanic) | Ht 1.778 m (5' 10") | Wt 81.2 kg (179 lb 1.6 oz) | BMI 25.70 kg/m | BSA 2 m GENERAL MULTI-SYSTEM PHYSICAL EXAM:ADDITIONAL VS: pulse regular. GENERAL: Normal grooming habits, no acute distress, and appears stated age. NECK: No masses and Normal Thyroid. RESPIRATORY: respiratory effort normal and breath sounds normal. CARDIOVASCULAR: no heart murmurs, no edema, and no varicosities. GASTROINTESTINAL: no tenderness, protuberant, and abdominal aorta not palpable. LYMPHATIC: cervical lymph nodes normal and inguinial lymph nodes normal. SKIN: no ulcers, no rash, no induration, capillary refill normal, and no dependent rubor. PSYCHIATRIC: orientation to time, place and person normal and recent and remote memory normal. EYES: conjunctivae normal, eye lids normal, pupils normal, and irises normal. NEUROLOGIC: Cranial nerves intact, Motor function intact, and Sensory exam intact PULSE SCALE: Carotid Right:----Bruit: No Left:----Bruit: No Radial Right: 3 Left: 3 Femoral Right: 2 Left: 2 Popliteal Right: 0 Left: 0 Dorsalis Pedis Right: 2 Left: 2 Posterior Tibial Right: 2 Left: 2 PULSE SCALE: 4=Aneurysmal; 3=Normal; 2=Diminished; 1=Barely Palpable; 0=Absent DIAGNOSTIC STUDIES: 01/28/24 CTA Neck: ~75% LICA stenosis (heavily calcified, flow limiting), >20% DANYA stenosis 10/16/17 Carotid Duplex: DANYA 64/32, LICA 79/34 The above vascular lab and CT scan images were directly visualized and independently interpreted byme on 02/17/2024 with results as above. LABS: Lab Results Component Value Date/Time CREATININE - [facility] 0.8 11/16/2023 12:14 PM CREATININE - [facility] 1.0 04/10/2023 08:22 AM CREATININE - [facility] 1.1 03/20/2023 10:56 AM CREATININE - [facility] 1.2 10/18/2019 09:27 AM CREATININE - [facility] 1.2 10/06/2019 01:48 PM CREATININE - [facility] 1.1 07/12/2019 01:45 PM CREATININE ISTAT 1.5 (H) 12/02/2019 01:33 PM CREATININE, RANDOM URINE - [facility] 78 11/16/2023 12:14 PM CREATININE, RANDOM URINE - [facility] 17 02/09/2023 08:40 AM CREATININE, RANDOM URINE - [facility] 59 02/10/2022 08:22 AM CREATININE, RANDOM URINE - [facility] 121 02/14/2019 09:43 AM CREATININE-OUTSIDE LAB 1.39 (A) 01/28/2024 12:00 AM CREATININE-OUTSIDE LAB 1.39 (A) 01/11/2024 12:00 AM CREATININE-OUTSIDE LAB 1.17 04/06/2023 12:00 AM CREATININE-OUTSIDE LAB 1.03 11/11/2022 06:31 AM Lab Results Component Value Date/Time LDL (DIRECT MEASURE)-OUTSIDE LAB 91 09/04/2021 12:00 AM LDL CHOLESTEROL (CALCULATED) - [facility] 32 11/16/2023 12:14 PM LDL CHOLESTEROL (CALCULATED) - [facility] UNINTERPRETABLE RESULT 07/12/2019 01:45 PM LDL CHOLESTEROL (DIRECT MEASURE) - [facility] 81 02/10/2022 08:22 AM LDL CHOLESTEROL (DIRECT MEASURE) - [facility] 56 10/06/2019 01:48 PM Lab Results Component Value Date/Time HEMOGLOBIN A1C - [facility] 6.3 (H) 11/16/2023 12:14 PM HEMOGLOBIN A1C - [facility] 6.2 (H) 07/19/2019 10:56 AM The above clinical labs were reviewed by me on 02/17/2024. IMPRESSIONS: Recent TIAs right hemispheric, CTA Neck revealing ~75% stenosis of LICA, less than 20% stenosis of DANYA Former smoker RLD/COPD Schizophrenia in family (not personal hx) PUD Pulm Emboli HLD HTN Hepatitis A CAD (s/p stent placements, ROCAEL LAD 04/13/23) CKD IIIa DM B/L AVN both hips (s/p B/L THAs) PLAN: Medical management of asymptomatic left carotid 75% stenosis Will need referral to a neurologist to try to figure out why he has right hemispheric symptoms without right carotid stenosis. The patient was counseled regarding the pathophysiology and natural history of carotid disease, as well as the symptoms of CVA/TIA/amaurosis fugax. Continue ASA 81 mg & Plavix 75 mg, both daily, for platelet inhibition, atherosclerosis, CAD, stent patency Continue Crestor 40 mg for dyslipidemia/hyperlipidemia & pleiotropic benefits of statins The patient was seen and examined with Shahzad Gonzalez MD. Catrachito Guerrero PA-C Section of Vascular [place] [address] [phone] I have reviewed the advanced practitioner's documentation on the date of service referenced in note, and I agree with, and take responsibility for the plan of care. 75% left carotid stenosis but without right carotid stenosis Right hemispheric symptoms with left arm weakness, left facial droop and slurring of speech prompting admission to [place] Left carotid stenosis is asymptomatic Right carotid has no stenosis Needs neurology referral, patient knows to contact his PCP Shahzad Gonzalez MD Section of Vascular [place] [address] [phone] documented in this encounter Nursing Notes * Bibi Brandon citrus picker - 02/17/2024 1:42 PM EDT Reviewed the option of transferring scripts to [facility] pharmacy with patient and / or family. MARCIO Silverman documented in this encounter Plan of Treatment Upcoming Encounters Date Type Department Care Team (Late st Contact Info) Description 02/26/2024 9:20 AM EDT Office Visit Neurology [facility] [place] [facility] [place] [address] Polina Galvan MD 200 [facility] [place] [address] 05/17/2024 2:20 PM EDT Office Visit Family Medicine [address] [place] [phone] Lydia Perdomo MD [address] [place] [address] [place] [id number] Scheduled Orders Name Type Priority Associated Diagnoses Orde r Schedule VASC DUPLEX CAROTID BILAT Medical Imaging Routine Carotid stenosis, left History of TIA (transient ischemic attack) Ordered: 02/17/2024 Health Maintenance Due Date Last Done Comments [...] carotid artery without mention of cerebral infarction History of TIA (transient ischemic attack) Transient ischemic attack (TIA), and cerebral infarction without residual deficits documented in this encounter Care Teams Hose Finisher Relationship Specialty Start Date End Date Lydia Perdomo MD [address] [place] [address] [place] [id number] PCP - General Family Medicine 11/16/23 documented as of this encounter
--- OUTSIDE RECORDS SUMMARY | 2024-06-12 12:03 | External Medical Summary | Summary of Care ---
Author Name Unknown Organization [facility] Address [address] [facility] [place] [address] Phone [phone] Care Team Providers Care Terrazzo Worker Helper Name Role Phone Lydia Perdomo MD Primary Care Provide r Reason for Referral * Evaluate & Treat - Unlimited Visits (Within 10 days (routine)) - Authorized Specialty Diagnoses / Procedures Referred By Karmen oconnor Referred To Contact Podiatry Diagnoses Ingrown right big toenail Nodule of skin of left foot Carlitos Chandra CRNP [address] [place] [address] [place] [address] Referral ID Status Reason Start Date Expiration Date Visits Requested Visits Authorized [id number] Authorized Specialty Services Required 02/08/[phone] Question Answer Referral Priority Within 10 days (routine) Where should this appointment be scheduled? Julia Which condition are you referring this patient for? In-grown nails Comments Callous on bottom of foot Reason for Visit * Reason Comments Acute Encounter Details Date Type Department Care Team (Late st Contact Info) Description 02/08/2024 3:20 PM EDT Office Visit Family Medicine [address] [place] [phone] Carlitos Chandra CRNP [address] [place] [address] [place] [address] Ingrown right big toenail*; Nodule of skin of left foot Allergies Active Allergy Reactions Criticality Noted Date [...] as of this encounter (statuses as of 02/08/2024) Medications Medication Sig Dispensed Refills Start Date End Date Status aspirin enteric coated 81 MG TBECIndications:Coronar y artery disease involving [place] coronary artery of [place] heart with other form of angina pectoris [...] hemoglobin A1c goal of less than 7.0% ([facility]) Use to test blood sugar four times a day. DX e11.9 400 Strip 3 10/28/2021 Active Embrace Lancets Ultra Thin 30GIndications:Type 2 diabetes mellitus with hemoglobin A1c goal of less than 7.0% ([facility]) Use to test blood sugar 4 [...] Oral Tablet (Prinivil)Indications:C oronary artery disease involving [place] coronary artery of [place] heart without angina pectoris Take 1 TABLET [...] Oral Tablet (pLAVix)Indications:Cor onary artery disease involving [place] coronary artery of [place] heart without angina pectoris Take 1 TABLET BY MOUTH in the morning. 90 Tablet 3 08/23/2023 Active Trulicity 1.5 MG/0.5ML Subcutaneous Solution Pen-injector (Dulaglutide)Indication s:Type 2 diabetes mellitus with hemoglobin A1c goal of less than 7.0% (HCC) Inject 1.5 mg under the skin once a week. 2 mL 3 10/16/2023 Active Rosuvastatin Calcium 40 MG Oral Tablet [...] XL)Indications:PSVT (paroxysmal supraventricular tachycardia),Coronary artery disease involving [place] coronary artery of [place] heart without angina pectoris,Primary hypertension Take 1 [...] call 911. 25 Tablet 11 11/27/2023 Active Hospital, Clinic, or Other Facility Administered Medication Ordered Dose Route Frequency Start Date End Date Status Dupilumab (Dupixent) prefilled syringe 100 mgIndications: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 100 mg SC [id number] 12/30/2022 Acti ve documented as of this encounter (statuses as of 02/08/2024) Active Problems Problem Noted Date Diagnosed Date [...] 11/14/2020 Hepatic steatosis 10/20/2019 Schizophrenia 03/27/2018 Overview: [place] PSVT (paroxysmal supraventricular tachycardia) 0 01/21/2018 Hx of nonmelanoma skin cancer 05/20/2017 Overview: basal cell carcinoma (R infraorbital region) Plaque psoriasis 02/18/2017 Coronary artery disease invo lving [place] coronary artery of [place] heart without angina pectoris 07/11/2016 Overview: 60% LDA, 60% left circ Adjustment disorder with anxious mood Diverticulosis of colon Primary hypertension Hyperlipidemia LDL goal <100 documented as of this encounter (statuses as of 02/08/2024) Resolved Problems Problem Noted Date Diagnosed Date [...] as of this encounter (statuses as of 02/08/2024) Immunizations Name Administration Dates Next Due COVID-19 mRNA, LNP-s, No Pre serve, 2-Dose Series (Moderna) 06/13/2021,04/30/2021 Pneumococcal Conjugate Vacci ne, 20-valent ([id number]) 12/09/2022 Pneumococcal Polysaccharide PPV23 (Pneumovax) 09/12/2014 Seasonal [...] Smokeless Tobacco: Former Snuff Tobacco Cessation:Counseling Given: Not Answered Alcohol Use Standard Drinks/Week [...] Sign Reading Time Taken Comments Blood Pressure 112/66 02/08/2024 3:17 PM EDT Pulse 90 02/08/2024 3:17 PM EDT Temperature 36.2 C (97.2 F) 02/08/2024 3:17 PM ED T Respiratory Rate 16 02/08/2024 3:17 PM EDT Oxygen Saturation 98% 02/08/2024 3:17 PM EDT Inhaled Oxygen Concentration - - Weight 82.3 kg (181 lb 8 oz) 02/08/2024 3:17 PM EDT Height 179 cm (5' 10.47") 02/08/2024 3:17 PM EDT Body Mass Index 25.7 02/08/2024 3:17 PM EDT documented in this encounter Nursing Notes * Becka Valdez LPN - 02/08/2024 3:14 PM EDT Painful sore on bottom of left foot. Started out a month ago small, has gotten bigger. Painful. documented in this encounter Plan of Treatment Upcoming Encounters Date Type Department Care Team (Late st Contact Info) Description 02/17/2024 1:10 PM EDT Office Visit Vascular Surgery, [facility] [address] [facility] [place] [address] Shahzad Gonzalez MD [address] [place] [address] 02/26/2024 9:20 AM EDT Office Visit Neurology [facility] [address] [facility] [address] Polina Galvan MD [address] [facility] [address] 05/17/2024 2:20 PM EDT Office Visit Family Medicine [address] [phone] Lydia Perdomo MD [address] [place] [address] [place] [address] Scheduled Referrals Name Type Priority Associated Diagnoses Orde r Schedule PODIATRY REFERRAL OP Referral Within 10 days (routine) Ingrown right big toenail Nodule of skin of left foot Ordered: 02/08/2024 Health Maintenance Due Date Last Done Comments [...] as of this encounter Visit Diagnoses Diagnosis Ingrown right big toenail- Primary Ingrowing nail Nodule of skin of left foot documented in this encounter Care Teams Terrazzo Worker Helper Relationship Specialty Start Date End Date Lydia Perdomo MD [address] [place] [address] [place] [phone] PCP - General Family Medicine 11/16/23 documented as of this encounter
--- OUTSIDE RECORDS SUMMARY | 2024-06-12 12:03 | External Medical Summary | Summary of Care ---
Author Name Unknown Organization [facility] Address [address] [place] [address] Phone [phone] Care Team Providers Care Software Tools Build Engineer Name Role Phone Lydia Perdomo MD Primary Care Provide r Reason for Visit * Reason Onset Date Comments TRIAGE 02/05/2024 Encounter Details Date Type Department Care Team (Late st Contact Info) Description 02/05/2024 Telephone Vascular Surg [facility] [address] [place] [address] Shahzad Gonzalez MD [address] [place] [address] TRIAGE Allergies Active Allergy Reactions Criticality Noted Date [...] as of this encounter (statuses as of 02/05/2024) Medications Medication Sig Dispensed Refills Start Date End Date Status aspirin enteric coated 81 MG TBECIndications:Coronar y artery disease involving [place] coronary artery of [place] heart with other form of angina pectoris [...] Oral Tablet (Prinivil)Indications:C oronary artery disease involving [place] coronary artery of [place] heart without angina pectoris Take 1 TABLET [...] Oral Tablet (pLAVix)Indications:Cor onary artery disease involving [place] coronary artery of [place] heart without angina pectoris Take 1 TABLET [...] XL)Indications:PSVT (paroxysmal supraventricular tachycardia),Coronary artery disease involving [place] coronary artery of [place] heart without angina pectoris,Primary hypertension Take 1 [...] Frequency Start Date End Date Status Dupilumab ([place]) prefilled syringe 100 mgIndications: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 100 mg SC [id number] 12/30/2022 Acti ve documented as of this encounter (statuses as of 02/05/2024) Active Problems Problem Noted Date Diagnosed Date [...] 11/14/2020 Hepatic steatosis 10/20/2019 Schizophrenia 03/27/2018 Overview: [place] PSVT (paroxysmal supraventricular tachycardia) 0 01/21/2018 Hx of nonmelanoma skin cancer 05/20/2017 Overview: basal cell carcinoma (R infraorbital region) Plaque psoriasis 02/18/2017 Coronary artery disease invo lving [place] coronary artery of [place] heart without angina pectoris 07/11/2016 Overview: 60% LDA, 60% left circ Adjustment disorder with anxious mood Diverticulosis of colon Primary hypertension Hyperlipidemia LDL goal <100 documented as of this encounter (statuses as of 02/05/2024) Resolved Problems Problem Noted Date Diagnosed Date [...] as of this encounter (statuses as of 02/05/2024) Immunizations Name Administration Dates Next Due COVID-19 mRNA, LNP-s, No Pre serve, 2-Dose Series (Moderna) 06/13/2021,04/30/2021 Pneumococcal Conjugate Vacci ne, 20-valent ([id number]) 12/09/2022 Pneumococcal Polysaccharide PPV23 (Pneumovax) 09/12/2014 Seasonal [...] encounter Miscellaneous Notes * Telephone Encounter - Julian Daniels OSA - 02/05/2024 9:33 AM EST Images requested Sending through [employer] * Telephone Encounter - Porter Kirk CRNP - 02/05/2024 9:25 AM EST Associated Diagnoses History of TIA (transient ischemic attack) [Z86.73] Symptomatic stenosis of left carotid artery without infarction [I65.22] Secretaries, Please STAT request CTA images from 01/28/24 from [facility] * Telephone Encounter - Kia Velasquez OSA - 02/05/2024 9:23 AM EST 02/16 valerie cuellar pt documented in this encounter Plan of Treatment Upcoming Encounters Date Type Department Care Team (Late st Contact Info) Description 02/08/2024 3:20 PM EDT Office Visit Family Medicine [address] [place] [phone] Carlitos Chandra CRNP [address] [place] [address] [place] [address] 02/17/2024 1:10 PM EDT Office Visit Vascular Surgery, [facility] [address] [place] [address] Shahzad Gonzalez MD [address] [place] [address] 02/26/2024 9:20 AM EDT Office Visit Neurology [facility] [address] [facility] [place] [address] Polina Galvan MD [address] [place] [address] 05/17/2024 2:20 PM EDT Office Visit Family Medicine [address] [place] [phone] Lydia Perdomo MD [address] [place] [address] [place] [address] Health Maintenance Due Date Last Done Comments Colonoscopy 2008 Fecal Occult Blood Test 2008 Sigmoidoscopy 2008 Depression Screening 10/20/2020 10/20/2019 COVID-19 Vaccine ( season) 2023 06/13/2021, 04/30/2021 Diabetic Foot Exam 09/01/2023 09/01/2022 Diabetic Eye Exam 02/10/2024 02/09/2023, , 01/30/2021, Additional history exists HbA1c 05/17/2024 11/16/2023, 042 11/2022, 02/09/2023, Additional history exists Albumin/Creatinine Ratio 11/16/2024 023, 02/09/2023, 02/10/2022, Additional history exists GFR 01/27/2025 01/28/2024, 12/31, 11/16/2023, Additional history exists O2 ASSESSMENT COMPLETED IN PAST YEAR FOR COPD 01/28/2025 01/29/2024 Cologuard 06/05/2025 06/05/2022, 05/02, 05/29/2022, Additional history [...] as of this encounter Care Teams Software Tools Build Engineer Relationship Specialty Start Date End Date Lydia Perdomo MD [address] [place] [address] [place] [phone] PCP - General Family Medicine 11/16/23 documented as of this encounter
--- OUTSIDE RECORDS SUMMARY | 2024-06-12 12:03 | External Medical Summary | Summary of Care ---
Author Name Unknown Organization [facility] Address [address] [place] [address] Phone [phone] Care Team Providers Care Clinical Data Associate Name Role Phone Lydia Perdomo MD Primary Care Provide r Reason for Visit * Reason Onset Date Comments TRIAGE 02/05/2024 Encounter Details Date Type Department Care Team (Late st Contact Info) Description 02/05/2024 Telephone Vascular Surg [facility] [address] [place] [address] Shahzad Gonzalez MD [address] [place] [address] TRIAGE Allergies Active Allergy Reactions [...] 81 MG TBECIndications:Coronar y artery disease involving [place] coronary artery of [place] heart with other form of angina pectoris [...] A1c goal of less than 7.0% ([facility]) Use to test blood sugar 4 times [...] A1c goal of less than 7.0% ([facility]) Use as directed. Use to monitor glucose [...] Oral Tablet (Prinivil)Indications:C oronary artery disease involving [place] coronary artery of [place] heart without angina pectoris Take 1 TABLET BY MOUTH in the morning. 90 Tablet 3 08/23/2023 Active amLODIPine Besylate 5 MG Oral Tablet (Norvasc)Indications:Pr imary hypertension TAKE 1 TABLET BY MOUTH DAILY 90 Tablet 3 08/23/2023 Active Fexofenadine HCl 60 MG Oral Tablet (Loenarda)Indications:Ch ronic rhinitis Take 1 TABLET BY MOUTH in the morning. 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 100 mg SC [id number] 12/30/2022 Acti ve documented as of this [...] 11/14/2020 Hepatic steatosis 10/20/2019 Schizophrenia 03/27/2018 Overview: [place] PSVT (paroxysmal supraventricular tachycardia) 0 01/21/2018 Hx of nonmelanoma skin cancer 05/20/2017 Overview: basal cell carcinoma (R infraorbital region) Plaque psoriasis 02/18/2017 Coronary artery disease invo lving [place] coronary artery of [place] heart without angina pectoris 07/11/2016 Overview: 60% [...] (Moderna) 06/13/2021,04/30/2021 Pneumococcal Conjugate Vacci ne, 20-valent ([id number]) 12/09/2022 Pneumococcal Polysaccharide PPV23 (Pneumovax) 09/12/2014 Seasonal [...] 9:33 AM EST Images requested Sending through [email or web address] * Telephone Encounter - Porter Kirk CRNP - 02/05/2024 9:25 AM EST Associated Diagnoses History of TIA (transient ischemic attack) [Z86.73] Symptomatic stenosis of left carotid artery without infarction [I65.22] Secretaries, Please STAT request CTA images from 01/28/24 from [facility] * Telephone Encounter - Kia Velasquez OSA - 02/05/2024 9:23 AM EST 02/16 valerie cuellar pt documented in this encounter Plan of Treatment Upcoming Encounters Date Type Department Care Team (Late st Contact Info) Description 02/08/2024 3:20 PM EDT Office Visit Family Medicine [address] [place] [phone] Carlitos Chandra CRNP [address] [place] [address] [place] [address] 02/17/2024 1:10 PM EDT Office Visit Vascular Surgery, [facility] [address] [place] [address] Shahzad Gonzalez MD [address] [place] [address] 02/26/2024 9:20 AM EDT Office Visit Neurology [facility] [address] [facility] [place] [address] Polina Galvan MD [address] [place] [address] 05/17/2024 2:20 PM EDT Office Visit Family Medicine [address] [place] [phone] Lydia Perdomo MD [address] [place] [address] [place] [address] Health Maintenance Due Date Last Done Comments [...] filedocumented as of this encounter Care Teams Clinical Data Associate Relationship Specialty Start Date End Date Lydia Perdomo MD [address] [place] [address] [place] [address] PCP - General Family Medicine 11/16/23 documented as of this encounter
--- OUTSIDE RECORDS SUMMARY | 2024-06-12 12:03 | External Medical Summary | Summary of Care ---
Author Name Unknown Organization [facility] Address [address] [place] [address] Phone [phone] Care Team Providers Care Hotel Front Desk Clerk Name Role Phone Lydia Perdomo MD Primary Care Provide r Reason for Visit * Reason Onset Date Comments TRIAGE 02/05/2024 Encounter Details Date Type Department Care Team (Late st Contact Info) Description 02/05/2024 Telephone Vascular Surg [facility] [address] [place] [address] Shahzad Gonzalez MD [address] [place] [address] TRIAGE Allergies Active Allergy Reactions [...] 81 MG TBECIndications:Coronar y artery disease involving [place] coronary artery of [place] heart with other form of angina [...] Oral Tablet (Prinivil)Indications:C oronary artery disease involving [place] coronary artery of [place] heart without angina pectoris Take 1 [...] Oral Tablet (pLAVix)Indications:Cor onary artery disease involving [place] coronary artery of [place] heart without angina pectoris Take 1 [...] XL)Indications:PSVT (paroxysmal supraventricular tachycardia),Coronary artery disease involving [place] coronary artery of [place] heart without angina pectoris,Primary hypertension Take [...] Frequency Start Date End Date Status Dupilumab (Vungle) prefilled syringe 100 mgIndications: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 100 mg SC [id number] 12/30/2022 Acti ve documented as of this [...] 11/14/2020 Hepatic steatosis 10/20/2019 Schizophrenia 03/27/2018 Overview: [place] PSVT (paroxysmal supraventricular tachycardia) 0 01/21/2018 Hx of nonmelanoma skin cancer 05/20/2017 Overview: basal cell carcinoma (R infraorbital region) Plaque psoriasis 02/18/2017 Coronary artery disease invo lving [place] coronary artery of [place] heart without angina pectoris 07/11/2016 Overview: [...] (Moderna) 06/13/2021,04/30/2021 Pneumococcal Conjugate Vacci ne, 20-valent ([id number]) 12/09/2022 Pneumococcal Polysaccharide PPV23 (Pneumovax) 09/12/2014 Seasonal [...] Encounter - Julian Daniels OSA - 02/05/2024 10:15 AM EST Nominated images to PACS * Telephone Encounter - Julian Daniels OSA - 02/05/2024 9:33 AM EST Images requested Sending through [employer] [facility] * Telephone Encounter - Porter Kirk CRNP - 02/05/2024 9:25 AM EST Associated Diagnoses History of TIA (transient ischemic attack) [Z86.73] Symptomatic stenosis of left carotid artery without infarction [I65.22] Secretaries, Please STAT request CTA images from 01/28/24 from [facility] * Telephone Encounter - Kia Velasquez OSA - 02/05/2024 9:23 AM EST 02/16 valerie cuellar pt documented in this encounter Plan of Treatment Upcoming Encounters Date Type Department Care Team (Late st Contact Info) Description 02/08/2024 3:20 PM EDT Office Visit Family Medicine [address] [place] [phone] Carlitos Chandra CRNP [address] [place] [address] [place] [address] 02/17/2024 1:10 PM EDT Office Visit Vascular Surgery, [facility] [address] [place] [address] Shahzad Gonzalez MD [address] [place] [facility] [place] [address] 02/26/2024 9:20 AM EDT Office Visit Neurology [facility] [place] [address] Polina Galvan MD [address] [place] [address] 05/17/2024 2:20 PM EDT Office Visit Family Medicine [address] [place] [phone] Lydia Perdomo MD [address] [place] [address] [place] [address] Health Maintenance Due Date Last Done Comments [...] filedocumented as of this encounter Care Teams Hotel Front Desk Clerk Relationship Specialty Start Date End Date Lydia Perdomo MD [address] [place] [address] [place] [phone] PCP - General Family Medicine 11/16/23 documented as of this encounter
--- OUTSIDE RECORDS SUMMARY | 2024-06-12 12:03 | External Medical Summary | Summary of Care ---
Author Name Unknown Organization [facility] Address [address] [place] [address] Phone [phone] Care Team Providers Care Implementation Coordinator Name Role Phone Lydia Perdomo MD Primary Care Provide r Encounter Details Date Type Department Care Team (Latest Contact Info) Description 01/28/2024 9:40 AM EST - 01/28/2024 11:59 PM EST Hospital Encounter Radiology Film File [address] [place] [address] Discharge Disposition: Home - Self Care Allergies Active Allergy Reactions Criticality Noted Date [...] as of this encounter (statuses as of 02/09/2024) Medications Medication Sig Dispensed Refills Start Date End Date Status aspirin enteric coated 81 MG TBECIndications:Coronar y artery disease involving [place] coronary artery of [place] heart with other form of angina pectoris [...] Oral Tablet (Prinivil)Indications:C oronary artery disease involving [place] coronary artery of [place] heart without angina pectoris Take 1 TABLET [...] Oral Tablet (pLAVix)Indications:Cor onary artery disease involving [place] coronary artery of [place] heart without angina pectoris Take 1 TABLET [...] XL)Indications:PSVT (paroxysmal supraventricular tachycardia),Coronary artery disease involving [place] coronary artery of [place] heart without angina pectoris,Primary hypertension Take 1 [...] extrinsic asthma without complication 100 mg SC [id number] 12/30/2022 Acti ve documented as of this encounter (statuses as of 02/09/2024) Active Problems Problem Noted Date Diagnosed Date [...] 11/14/2020 Hepatic steatosis 10/20/2019 Schizophrenia 03/27/2018 Overview: [place] PSVT (paroxysmal supraventricular tachycardia) 0 01/21/2018 Hx of nonmelanoma skin cancer 05/20/2017 Overview: basal cell carcinoma (R infraorbital region) Plaque psoriasis 02/18/2017 Coronary artery disease invo lving [place] coronary artery of [place] heart without angina pectoris 07/11/2016 Overview: 60% LDA, 60% left circ Adjustment disorder with anxious mood Diverticulosis of colon Primary hypertension Hyperlipidemia LDL goal <100 documented as of this encounter (statuses as of 02/09/2024) Resolved Problems Problem Noted Date Diagnosed Date [...] as of this encounter (statuses as of 02/09/2024) Immunizations Name Administration Dates Next Due COVID-19 mRNA, LNP-s, No Pre serve, 2-Dose Series (Moderna) 06/13/2021,04/30/2021 Pneumococcal Conjugate Vacci ne, 20-valent ([id number]) 12/09/2022 Pneumococcal Polysaccharide PPV23 (Pneumovax) 09/12/2014 Seasonal [...] on file documented as of this encounter Plan of Treatment Upcoming Encounters Date Type Department Care Team (Late st Contact Info) Description 02/17/2024 1:10 PM EDT Office Visit Vascular Surgery, [facility] [address] [place] [address] Shahzad Gonzalez MD [address] [place] [address] 02/26/2024 9:20 AM EDT Office Visit Neurology [facility] 200 [facility] [place] [address] Polina Galvan MD [address] [facility] [place] [address] 05/17/2024 2:20 PM EDT Office Visit Family Medicine [address] [phone] Lydia Perdomo MD [address] [place] [address] [place] [address] Health Maintenance Due Date Last Done Comments [...] FOR COPD 02/07/2025 02/08/2024 Cologuard 06/05/2025 06/05/2022, /, 05/29/2022, Additional history exists Colorectal Cancer Screening [...] Procedure Name Priority Date/Time Associated Diagnosis Comments RADIOLOGY EXAM - CT (IMAGES ONLY, NO REPORT) Routine 01/28/2024 9:40 AM EST documented in this encounter Results * RADIOLOGY EXAM - CT (IMAGES ONLY, NO REPORT) (01/28/2024 9:40 AM EST) 01/28/2024 9:38 AM EST Narrative Scheduling, Silent - 02/08/2024 3:36 PM EDT This is an imaging study not interpreted or resulted by a [facility] or [facility] contracted radiologist. Shahzad Gonzalez MD RAD CT documented in this encounter Care Teams Implementation Coordinator Relationship Specialty Start Date End Date Lydia Perdomo MD [address] [place] [address] [place] [address] PCP - General Family Medicine 11/16/23 documented as of this encounter
--- OUTSIDE RECORDS SUMMARY | 2024-06-12 12:03 | External Medical Summary | Summary of Care ---
Author Name Unknown Organization [facility] Address [address] [place] [address] Phone [phone] Care Team Providers Care Environmental Field Office Manager Name Role Phone Lydia Perdomo MD Primary Care Provide r Encounter Details Date Type Department Care Team (Late st Contact Info) Description 01/28/2024 Orders Only Vascular Surg [facility] [place] [address] [place] [address] Shahzad Gonzalez MD [address] [place] [address] Allergies Active Allergy Reactions Criticality Noted Date [...] 81 MG TBECIndications:Coronar y artery disease involving [place] coronary artery of [place] heart with other form of angina pectoris [...] goal of less than 7.0% ([facility]) Use to test blood sugar four times a day. DX e11.9 400 Strip 3 10/28/2021 Active Embrace Lancets Ultra Thin 30GIndications:Type 2 diabetes mellitus with hemoglobin A1c goal of less than 7.0% ([facility]) Use to test blood sugar 4 times [...] goal of less than 7.0% ([facility]) Use as directed. Use to monitor glucose levels 4 times a day DXe11.9 2 Each 11 01/07/2023 Active Omeprazole 40 MG Oral Capsule Delayed Release (PriLOSEC)Indications:G astroesophageal reflux disease without esophagitis,Type 2 diabetes mellitus with hemoglobin A1c goal of less than 7.0% ([facility]) Take 1 Capsule by mouth daily in the morning. 90 Capsule 3 06/24/2023 Active Lisinopril 20 MG Oral Tablet (Prinivil)Indications:C oronary artery disease involving [place] coronary artery of [place] heart without angina pectoris Take 1 TABLET [...] Oral Tablet (pLAVix)Indications:Cor onary artery disease involving [place] coronary artery of [place] heart without angina pectoris Take 1 TABLET [...] XL)Indications:PSVT (paroxysmal supraventricular tachycardia),Coronary artery disease involving [place] coronary artery of [place] heart without angina pectoris,Primary hypertension Take 1 [...] extrinsic asthma without complication 100 mg SC [id number] 12/30/2022 Acti ve documented as of this [...] 11/14/2020 Hepatic steatosis 10/20/2019 Schizophrenia 03/27/2018 Overview: [place] PSVT (paroxysmal supraventricular tachycardia) 0 01/21/2018 Hx of nonmelanoma skin cancer 05/20/2017 Overview: basal cell carcinoma (R infraorbital region) Plaque psoriasis 02/18/2017 Coronary artery disease invo lving [place] coronary artery of [place] heart without angina pectoris 07/11/2016 Overview: 60% [...] (Moderna) 06/13/2021,04/30/2021 Pneumococcal Conjugate Vacci ne, 20-valent ([id number]) 12/09/2022 Pneumococcal Polysaccharide PPV23 (Pneumovax) 09/12/2014 Seasonal [...] 1:10 PM EDT Office [facility] [address] [place] [address] Shahzad Gonzalez MD [address] [facility] [place] [address] 02/26/2024 9:20 AM EDT Office Visit Neurology [facility] [address] [facility] [place] [address] Polina Galvan MD [address] [facility] [place] [address] 05/17/2024 2:20 PM EDT Office Visit Family Medicine [address] [phone] Lydia Perdomo MD [address] [place] [address] [place] [address] Health Maintenance Due Date Last Done Comments [...] interpreted or resulted by a [facility] or [facility] contracted radiologist. Shahzad Gonzalez MD RAD CT documented in this encounter Care Teams Environmental Field Office Manager Relationship Specialty Start Date End Date Lydia Perdomo MD [address] [place] [address] [place] [id number] PCP - General Family Medicine 11/16/23 documented as of this encounter
--- OUTSIDE RECORDS SUMMARY | 2024-06-12 12:03 | External Medical Summary | Summary of Care ---
Author Name Unknown Organization [facility] Address [address] [facility] [place] [address] Phone [phone] Care Team Providers Care Specialty Foods Cook Name Role Phone Lydia Perdomo MD Primary Care Provide r Reason for Visit * Reason Comments eRx-Medication Refill Encounter Details Date Type Department Care Team (Late st Contact Info) Description 02/12/2024 Refill Pharmacy, [address] [place] [phone] Guy Castanon MD [address] [place] [address] [place] [phone] Type 2 diabetes mellitus with hemoglobin A1c goal of less than 7.0% ([facility]) Allergies Active Allergy Reactions Criticality Noted [...] as of this encounter (statuses as of 02/12/2024) Medications Medication Sig Dispensed Refills Start Date End Date Status aspirin enteric coated 81 MG TBECIndications:Coron [place] artery disease involving [place] coronary artery of [place] heart with other form of angina pectoris [...] Oral Tablet (Prinivil)Indications :Coronary artery disease involving [place] coronary artery of [place] heart without angina pectoris Take 1 TABLET [...] Oral Tablet (pLAVix)Indications:C oronary artery disease involving [place] coronary artery of [place] heart without angina pectoris Take 1 TABLET BY MOUTH in the morning. 90 Tablet 3 3 Active Rosuvastatin Calcium 40 MG Oral Tablet (Crestor)Indications: Hyperlipidemia LDL goal <100 take 1 TABLET by mouth at bedtime 90 Tablet 2 3 Active Fenofibrate 160 MG Oral Tablet (Lofibra)Indications: Hypertriglyceridemia Take 1 Tablet by mouth daily. with a meal 90 Tablet 1 3 Active metFORMIN HCl 1000 MG Oral Tablet (Glucophage)Indicatio ns:Type 2 diabetes mellitus with hemoglobin A1c goal of less than 7.0% (HCC) Take 1 Tablet by mouth every evening. 90 Tablet 1 3 Active Metoprolol Succinate ER 100 MG Oral Tablet Extended Release 24 Hour (toPROL XL)Indications:PSVT (paroxysmal supraventricular tachycardia),Coronary artery disease involving [place] coronary artery of [place] heart without angina pectoris,Primary hypertension Take 1 Tablet by mouth in the morning. 90 Tablet 1 3 Active Empagliflozin 10 MG Oral Tablet (Jardiance)Indication [...] a week. 2 mL 3 4 Active Trulicity 1.5 MG/0.5ML Subcutaneous Solution Pen-injector (Dulaglutide)Indicati ons:Type 2 diabetes mellitus with hemoglobin A1c goal of less than 7.0% (HCC) Inject 1.5 mg under the skin once a week. 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 100 mg SC [id number] 12/30/2022 Acti ve documented as of this encounter (statuses as of 02/12/2024) Active Problems Problem Noted Date Diagnosed Date [...] 11/14/2020 Hepatic steatosis 10/20/2019 Schizophrenia 03/27/2018 Overview: [place] PSVT (paroxysmal supraventricular tachycardia) 0 01/21/2018 Hx of nonmelanoma skin cancer 05/20/2017 Overview: basal cell carcinoma (R infraorbital region) Plaque psoriasis 02/18/2017 Coronary artery disease invo lving [place] coronary artery of [place] heart without angina pectoris 07/11/2016 Overview: 60% LDA, 60% left circ Adjustment disorder with anxious mood Diverticulosis of colon Primary hypertension Hyperlipidemia LDL goal <100 documented as of this encounter (statuses as of 02/12/2024) Resolved Problems Problem Noted Date Diagnosed Date [...] as of this encounter (statuses as of 02/12/2024) Immunizations Name Administration Dates Next Due COVID-19 mRNA, LNP-s, No Pre serve, 2-Dose Series (Moderna) 06/13/2021,04/30/2021 Pneumococcal Conjugate Vacci ne, 20-valent ([id number]) 12/09/2022 Pneumococcal Polysaccharide PPV23 (Pneumovax) 09/12/2014 Seasonal [...] encounter Miscellaneous Notes * Telephone Encounter - Marlena Conroy RPh - 02/12/2024 3:58 PM EDT Signed Prescriptions: Disp Refills Trulicity 1.5 MG/0.5ML Subcutaneous Soluti*2 mL 3 Sig: Inject 1.5 mg under the skin once a week.Authorizing Provider: Jignesh PERDOMO User: MARLENA CONROY documented in this encounter Plan of Treatment Upcoming Encounters Date Type Department Care Team (Late st Contact Info) Description 02/17/2024 1:10 PM EDT Office Visit Vascular Surgery, [facility] 132 [facility] [place] [address] Shahzad Gonzalez [facility] [address] 02/26/2024 9:20 AM EDT Office Visit [facility] [address] Polina Galvan MD 200 [facility] [place] [place] [address] 05/17/2024 2:20 PM EDT Office Visit Family Medicine [address] [place] [phone] Lydia Perdomo MD [address] [place] [address] [place] [address] Health Maintenance Due Date Last Done Comments [...] FOR COPD 02/07/2025 02/08/2024 Cologuard 06/05/2025 06/05/2022, 06, 05/29/2022, Additional history [...] (HCC) documented in this encounter Care Teams Specialty Foods Cook Relationship Specialty Start Date End Date Lydia Perdomo MD [address] [place] [address] [place] [phone] PCP - General Family Medicine 11/16/23 documented as of this encounter
--- OUTSIDE RECORDS SUMMARY | 2024-06-12 12:03 | External Medical Summary | Summary of Care ---
Author Name Unknown Organization [facility] Address [address] [place] [address] Phone [phone] Care Team Providers Care Grant Specialist Name Role Phone Lydia Perdomo MD Primary Care Provide r Reason for Visit * Reason Onset Date Comments Vascular Study 02/14/2024 Encounter Details Date Type Department Care Team (Late st Contact Info) Description 02/14/2024 Telephone Vascular Surgery, [facility] 132 [facility] [place] [address] Catrachito Guerrero PA-C [address] [place] [address] Vascular Study Allergies Active Allergy [...] as of this encounter (statuses as of 02/14/2024) Medications Medication Sig Dispensed Refills Start Date End Date Status aspirin enteric coated 81 MG TBECIndications:Coronar y artery disease involving [place] coronary artery of [place] heart with other form of angina pectoris [...] Oral Tablet (Prinivil)Indications:C oronary artery disease involving [place] coronary artery of [place] heart without angina pectoris Take 1 TABLET [...] Oral Tablet (pLAVix)Indications:Cor onary artery disease involving [place] coronary artery of [place] heart without angina pectoris Take 1 TABLET [...] XL)Indications:PSVT (paroxysmal supraventricular tachycardia),Coronary artery disease involving [place] coronary artery of [place] heart without angina pectoris,Primary hypertension Take 1 [...] Frequency Start Date End Date Status Dupilumab (DupixForward Health Group) prefilled syringe 100 mgIndications: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 100 mg SC [id number] 12/30/2022 Acti ve documented as of this encounter (statuses as of 02/14/2024) Active Problems Problem Noted Date Diagnosed Date [...] 11/14/2020 Hepatic steatosis 10/20/2019 Schizophrenia 03/27/2018 Overview: [place] PSVT (paroxysmal supraventricular tachycardia) 0 01/21/2018 Hx of nonmelanoma skin cancer 05/20/2017 Overview: basal cell carcinoma (R infraorbital region) Plaque psoriasis 02/18/2017 Coronary artery disease invo lving [place] coronary artery of [place] heart without angina pectoris 07/11/2016 Overview: 60% LDA, 60% left circ Adjustment disorder with anxious mood Diverticulosis of colon Primary hypertension Hyperlipidemia LDL goal <100 documented as of this encounter (statuses as of 02/14/2024) Resolved Problems Problem Noted Date Diagnosed Date [...] as of this encounter (statuses as of 02/14/2024) Immunizations Name Administration Dates Next Due COVID-19 mRNA, LNP-s, No Pre serve, 2-Dose Series (Moderna) 06/13/2021,04/30/2021 Pneumococcal Conjugate Vacci ne, 20-valent ([id number]) 12/09/2022 Pneumococcal Polysaccharide PPV23 (Pneumovax) 09/12/2014 Seasonal [...] encounter Miscellaneous Notes * Telephone Encounter - Catrachito Guerrero PA-C - 02/14/2024 9:55 AM EDT Kia- Pt had recent CTA neck, showing ~ 75% LICA stenosis, heavily calcified Pt scheduled for GWs on 02/16 I realize that this is a late request, but can we get adq-nb-ohbrvd carotid duplex? Appointment is scheduled for 1:10 PM Thank you KIERRA documented in this encounter Plan of Treatment Upcoming Encounters Date Type Department Care Team (Late st Contact Info) Description 02/17/2024 1:10 PM EDT Office Visit Vascular Surgery, [facility] [address] [facility] [place] [address] Shahzad Gonzalez MD [address] [place] [address] 02/26/2024 9:20 AM EDT Office Visit Neurology [facility] 200 [facility] [place] [address] Polina Galvan MD 200 [facility] [place] [address] 05/17/2024 2:20 PM EDT Office Visit Family Medicine [address] [place] [phone] Lydia Perdomo MD [address] [place] [address] [place] [phone] Scheduled Orders Name Type Priority Associated Diagnoses [...] infarction documented in this encounter Care Teams Grant Specialist Relationship Specialty Start Date End Date Lydia Perdomo MD [address] [place] [address] [place] [phone] PCP - General Family Medicine 11/16/23 documented as of this encounter
--- OUTSIDE RECORDS SUMMARY | 2024-06-12 12:03 | External Medical Summary | Summary of Care ---
Author Name Unknown Organization [facility] Address [address] [place] [address] Phone [phone] Care Team Providers Care Riveting Machine Operator Automatic Name Role Phone Lydia Perdomo MD Primary Care Provide r Reason for Visit * Reason Onset Date Comments Vascular Study 02/14/2024 Encounter Details Date Type Department Care Team (Late st Contact Info) Description 02/14/2024 Telephone Vascular Surgery, [facility] 132 [facility] [place] [address] Catrachito Guerrero PA-C [address] [place] [address] Vascular Study Allergies Active Allergy [...] as of this encounter (statuses as of 02/16/2024) Medications Medication Sig Dispensed Refills Start Date End Date Status aspirin enteric coated 81 MG TBECIndications:Coronar y artery disease involving [place] coronary artery of [place] heart with other form of angina pectoris [...] Oral Tablet (Prinivil)Indications:C oronary artery disease involving [place] coronary artery of [place] heart without angina pectoris Take 1 TABLET [...] Oral Tablet (pLAVix)Indications:Cor onary artery disease involving [place] coronary artery of [place] heart without angina pectoris Take 1 TABLET [...] XL)Indications:PSVT (paroxysmal supraventricular tachycardia),Coronary artery disease involving [place] coronary artery of [place] heart without angina pectoris,Primary hypertension Take 1 [...] Frequency Start Date End Date Status Dupilumab (DupixAlgae International Group) prefilled syringe 100 mgIndications: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 100 mg SC [id number] 12/30/2022 Acti ve documented as of this encounter (statuses as of 02/16/2024) Active Problems Problem Noted Date Diagnosed Date [...] psoriasis 02/18/2017 Coronary artery disease invo lving [place] coronary artery of [place] heart without angina pectoris 07/11/2016 Overview: 60% LDA, 60% left circ Adjustment disorder with anxious mood Diverticulosis of colon Primary hypertension Hyperlipidemia LDL goal <100 documented as of this encounter (statuses as of 02/16/2024) Resolved Problems Problem Noted Date Diagnosed Date [...] as of this encounter (statuses as of 02/16/2024) Immunizations Name Administration Dates Next Due COVID-19 mRNA, LNP-s, No Pre serve, 2-Dose Series (Moderna) 06/13/2021,04/30/2021 Pneumococcal Conjugate Vacci ne, 20-valent ([id number]) 12/09/2022 Pneumococcal Polysaccharide PPV23 (Pneumovax) 09/12/2014 Seasonal [...] Telephone Encounter - Catrachito Guerrero PA-C - 02/16/2024 7:58 AM EDT JE- Yes, please schedule duplex, after appointment. Thank you * Telephone Encounter - Kia Velasquez OSA [...] a late request, but can we get gbq-pj-fksniv carotid duplex? Appointment is scheduled for 1:10 PM Thank you KIERRA documented in this encounter Plan of Treatment Upcoming Encounters Date Type Department Care Team (Late st Contact Info) Description 02/17/2024 1:10 PM EDT Office Visit Vascular Surgery, [facility] [address] [facility] [place] [address] Shahzad Gonzalez MD [address] [facility] [place] [phone] 02/26/2024 9:20 AM EDT [facility] [place] [facility] [place] 200 [facility] [place] [address] Polina Galvan MD [address] [place] [address] 05/17/2024 2:20 PM EDT Office Visit Family Medicine [address] [place] [phone] Lydia Perdomo MD [address] [place] [address] [place] [phone] Scheduled Orders Name Type Priority Associated Diagnoses [...] infarction documented in this encounter Care Teams Riveting Machine Operator Automatic Relationship Specialty Start Date End Date Lydia Perdomo MD [address] [place] [address] [place] [phone] PCP - General Family Medicine 11/16/23 documented as of this encounter
--- OUTSIDE RECORDS SUMMARY | 2024-06-12 12:04 | External Medical Summary | Summary of Care ---
Author Name Unknown Organization [facility] Address [address] [facility] [place] [address] Phone [phone] Care Team Providers Care Communication And Outreach Manager Name Role Phone Lydia Perdomo MD Primary Care Provide r Encounter Details Date Type Department Care Team (Late st Contact Info) Description 01/11/2024 Result Scan Unspecified Department <No scans attached> Allergies Active Allergy Reactions Criticality Noted Date [...] as of this encounter (statuses as of 01/12/2024) Medications Medication Sig Dispensed Refills Start Date End Date Status aspirin enteric coated 81 MG TBECIndications:Coronar y artery disease involving [place] coronary artery of [place] heart with other form of angina pectoris [...] Oral Tablet (Prinivil)Indications:C oronary artery disease involving [place] coronary artery of [place] heart without angina pectoris Take 1 TABLET [...] Oral Tablet (pLAVix)Indications:Cor onary artery disease involving [place] coronary artery of [place] heart without angina pectoris Take 1 TABLET [...] XL)Indications:PSVT (paroxysmal supraventricular tachycardia),Coronary artery disease involving [place] coronary artery of [place] heart without angina pectoris,Primary hypertension Take 1 [...] extrinsic asthma without complication 100 mg SC [id number] 12/30/2022 Acti ve documented as of this encounter (statuses as of 01/12/2024) Active Problems Problem Noted Date Diagnosed Date Allergic asthma, moderate persistent, uncomplica spenser 12/30/2022 Last Assessment & Plan: Dupixent Therapy Restrictive lung disease 12/08/2022 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 Overview: latanoprost Type 2 diabetes mellitus wit h hemoglobin A1c goal of less than 7.0% 09/11/2021 COPD, group B, by GOLD 2017 classification 11/14 Elevated IgE level 11/14/2020 Cat allergies 11/14/2020 House dust mite allergy 11/14/2020 Hepatic steatosis 10/20/2019 Schizophrenia 03/27/2018 Overview: [place] PSVT (paroxysmal supraventricular tachycardia) 0 01/21/2018 Hx of nonmelanoma skin cancer 05/20/2017 Overview: basal cell carcinoma (R infraorbital region) Plaque psoriasis 02/18/2017 Coronary artery disease invo lving [place] coronary artery of [place] heart without angina pectoris 07/11/2016 Overview: 60% LDA, 60% left circ Adjustment disorder with anxious mood Diverticulosis of colon Primary hypertension Hyperlipidemia LDL goal <100 documented as of this encounter (statuses as of 01/12/2024) Resolved Problems Problem Noted Date Diagnosed Date [...] as of this encounter (statuses as of 01/12/2024) Immunizations Name Administration Dates Next Due COVID-19 mRNA, LNP-s, No Pre serve, 2-Dose Series (Moderna) 06/13/2021,04/30/2021 Pneumococcal Conjugate Vacci ne, 20-valent ([id number]) 12/09/2022 Pneumococcal Polysaccharide PPV23 (Pneumovax) 09/12/2014 Seasonal [...] Date Smoking Tobacco: Former Cigarettes 1.5 8 Q uit: 08/14/2019 Smokeless Tobacco: Former Snuff Alcohol Use [...] Care Team (Late st Contact Info) Description 01/19/2024 5:00 PM EST Office Visit [address] [place] [phone] Carlitos Chandra CRNP [address] [place] [address] [place] [address] 05/17/2024 2:20 PM EDT Office Visit [address] [place] [phone] Lydia Perdomo MD [address] [place] [address] [place] [address] Health Maintenance Due Date Last Done Comments Colonoscopy 2008 Fecal Occult Blood Test 2008 Sigmoidoscopy 2008 Depression Screening 10/20/2020 10/20/2019 COVID-19 Vaccine ( season) 2023 06/13/2021, 04/30/2021 Diabetic Foot Exam 09/01/2023 09/01/2022 Hepatitis B (1 of 3 - Risk 3-dose series) 2023 Diabetic Eye Exam 02/10/2024 02/09/2023, , 01/30/2021, Additional history exists O2 ASSESSMENT COMPLETED IN PAST YEAR FOR COPD 05/14/2024 05/14/2023 HbA1c 05/17/2024 11/16/2023, 042 11/2022, 02/09/2023, Additional history exists Albumin/Creatinine Ratio 11/16/2024 023, 02/09/2023, 02/10/2022, Additional history exists GFR 01/11/2025 01/11/2024, 10/30, 04/10/2023, Additional history exists Cologuard 06/05/2025 06/05/2022, 05/02, 05/29/2022, Additional history [...] Procedure Name Priority Date/Time Associated Diagnosis Comments OUTSIDE LAB RESULTS 01/11/2024 RADIOLOGY SCANNED RESULT 01/11/2024 RADIOLOGY SCANNED RESULT 01/11/2024 RADIOLOGY SCANNED RESULT 01/11/2024 documented in this encounter Results * RADIOLOGY SCANNED RESULT (01/11/2024) 01/11/2024 No Physician Data Unknown DIAGNOSTIC RAD IOLOGY SERVICES * RADIOLOGY SCANNED RESULT (01/11/2024) 01/11/2024 No Physician Data Unknown DIAGNOSTIC RAD IOLOGY SERVICES * RADIOLOGY SCANNED RESULT (01/11/2024) 01/11/2024 No Physician Data Unknown DIAGNOSTIC RAD IOLOGY SERVICES * OUTSIDE LAB RESULTS (01/11/2024) 01/11/2024 No Physician Data Unknown LABORATORY documented in this encounter Care Teams Communication And Outreach Manager Relationship Specialty Start Date End Date Lydia Perdomo MD [address] [place] [address] [place] [phone] PCP - General Family Medicine 11/16/23 documented as of this encounter
--- OUTSIDE RECORDS SUMMARY | 2024-06-12 12:04 | External Medical Summary | Summary of Care ---
Author Name Unknown Organization [facility] Address [address] [facility] [place] [address] Phone [phone] Care Team Providers Care Licensed Massage Practitioner Name Role Phone Lydia Perdomo MD Primary Care Provide r Encounter Details Date Type Department Care Team (Late st Contact Info) Description 02/01/2024 Orders Only Family Medicine [address] [place] [phone] Lydia Perdomo MD [address] [place] [address] [place] [phone] Allergies Active Allergy Reactions Criticality Noted [...] as of this encounter (statuses as of 02/01/2024) Medications Medication Sig Dispensed Refills Start Date End Date Status aspirin enteric coated 81 MG TBECIndications:Coronar y artery disease involving [place] coronary artery of [place] heart with other form of angina pectoris [...] hemoglobin A1c goal of less than 7.0% ([facility]) Use to test blood sugar four times a day. DX e11.9 400 Strip 3 10/28/2021 Active Embrace Lancets Ultra Thin 30GIndications:Type 2 diabetes mellitus with hemoglobin A1c goal of less than 7.0% ([facility]) Use to test blood sugar 4 times [...] hemoglobin A1c goal of less than 7.0% ([facility]) Use as directed. Use to monitor glucose levels 4 times a day DXe11.9 2 Each 11 01/07/2023 Active Omeprazole 40 MG Oral Capsule Delayed Release (PriLOSEC)Indications:G astroesophageal reflux disease without esophagitis,Type 2 diabetes mellitus with hemoglobin A1c goal of less than 7.0% ([facility]) Take 1 Capsule by mouth daily in the morning. 90 Capsule 3 06/24/2023 Active Lisinopril 20 MG Oral Tablet (Prinivil)Indications:C oronary artery disease involving [place] coronary artery of [place] heart without angina pectoris Take 1 TABLET [...] Oral Tablet (pLAVix)Indications:Cor onary artery disease involving [place] coronary artery of [place] heart without angina pectoris Take 1 TABLET [...] XL)Indications:PSVT (paroxysmal supraventricular tachycardia),Coronary artery disease involving [place] coronary artery of [place] heart without angina pectoris,Primary hypertension Take 1 [...] extrinsic asthma without complication 100 mg SC [id number] 12/30/2022 Acti ve documented as of this encounter (statuses as of 02/01/2024) Active Problems Problem Noted Date Diagnosed Date [...] 11/14/2020 Hepatic steatosis 10/20/2019 Schizophrenia 03/27/2018 Overview: [place] PSVT (paroxysmal supraventricular tachycardia) 0 01/21/2018 Hx of nonmelanoma skin cancer 05/20/2017 Overview: basal cell carcinoma (R infraorbital region) Plaque psoriasis 02/18/2017 Coronary artery disease invo lving [place] coronary artery of [place] heart without angina pectoris 07/11/2016 Overview: 60% LDA, 60% left circ Adjustment disorder with anxious mood Diverticulosis of colon Primary hypertension Hyperlipidemia LDL goal <100 documented as of this encounter (statuses as of 02/01/2024) Resolved Problems Problem Noted Date Diagnosed Date [...] as of this encounter (statuses as of 02/01/2024) Immunizations Name Administration Dates Next Due COVID-19 mRNA, LNP-s, No Pre serve, 2-Dose Series (Moderna) 06/13/2021,04/30/2021 Pneumococcal Conjugate Vacci ne, 20-valent ([id number]) 12/09/2022 Pneumococcal Polysaccharide PPV23 (Pneumovax) 09/12/2014 Seasonal [...] 1:10 PM EDT Office Visit Vascular Surgery, [facility] [address] [facility] [place] [address] Shahzad Gonzalez MD [address] [place] [facility] [place] [address] 02/26/2024 9:20 AM EDT Office Visit Neurology [facility] [address] [facility] [place] [address] Polina Galvan MD [address] [facility] [place] [address] 05/17/2024 2:20 PM EDT Office Visit Family Medicine [address] [phone] Lydia Perdomo MD [address] [place] [address] [place] [address] Health Maintenance Due Date Last Done Comments [...] Procedure Name Priority Date/Time Associated Diagnosis Comments XR CHEST 1 VIEW Routine 01/28/2024 documented in this encounter Results * XR CHEST 1 VIEW (01/28/2024) Anatomical Region Laterality Modality Chest Other 01/28/2024 Daxa Figueroa MD RADIOLOGY (RAD GEN ERAL) documented in this encounter Care Teams Licensed Massage Practitioner Relationship Specialty Start Date End Date Lydia Perdomo MD [address] [place] [address] [place] [id number] PCP - General Family Medicine 11/16/23 documented as of this encounter
--- OUTSIDE RECORDS SUMMARY | 2024-06-12 12:04 | External Medical Summary | Summary of Care ---
Author Name Unknown Organization [facility] Address [address] [facility] [place] [address] Phone [phone] Care Team Providers Care [employer] Operations Specialist Name Role Phone Lydia Perdomo MD Primary Care Provide r Encounter Details Date Type Department Care Team (Late st Contact Info) Description 01/12/2024 Orders Only Family Medicine [address] [place] [phone] Lydia Perdomo MD [address] [place] [address] [place] [phone] Allergies Active Allergy Reactions [...] 81 MG TBECIndications:Coronar y artery disease involving [place] coronary artery of [place] heart with other form of angina pectoris [...] Oral Tablet (Prinivil)Indications:C oronary artery disease involving [place] coronary artery of [place] heart without angina pectoris Take 1 TABLET [...] Oral Tablet (pLAVix)Indications:Cor onary artery disease involving [place] coronary artery of [place] heart without angina pectoris Take 1 TABLET [...] XL)Indications:PSVT (paroxysmal supraventricular tachycardia),Coronary artery disease involving [place] coronary artery of [place] heart without angina pectoris,Primary hypertension Take 1 [...] extrinsic asthma without complication 100 mg SC [id number] 12/30/2022 Acti ve documented as of this [...] 11/14/2020 Hepatic steatosis 10/20/2019 Schizophrenia 03/27/2018 Overview: [place] PSVT (paroxysmal supraventricular tachycardia) 0 01/21/2018 Hx of nonmelanoma skin cancer 05/20/2017 Overview: basal cell carcinoma (R infraorbital region) Plaque psoriasis 02/18/2017 Coronary artery disease invo lving [place] coronary artery of [place] heart without angina pectoris 07/11/2016 Overview: 60% [...] (Moderna) 06/13/2021,04/30/2021 Pneumococcal Conjugate Vacci ne, 20-valent ([id number]) 12/09/2022 Pneumococcal Polysaccharide PPV23 (Pneumovax) 09/12/2014 Seasonal [...] 2:20 PM EDT Office Visit Family Medicine [address] [place] [phone] Lydia Perdomo MD [address] [place] [address] [place] [address] Health Maintenance Due Date Last Done Comments [...] FOR COPD 05/14/2024 05/14/2023 HbA1c 05/17/2024 11/16/2023, 04/2 11/2022, 02/09/2023, Additional history exists Albumin/Creatinine Ratio 11/16/2024 023, 02/09/2023, 02/10/2022, Additional history exists GFR 11/16/2024 11/16/2023, 03/30, 04/06/2023, Additional history exists Cologuard 06/05/2025 06/05/2022, 05/02, [...] Procedure Name Priority Date/Time Associated Diagnosis Comments CHEMISTRY-OUTSIDE Routine 01/11/2024 documented in this encounter Results * (ABNORMAL) CHEMISTRY-OUTSIDE (01/11/2024) Not all results display below - see scan for full detail OUTSIDE LAB (SEE SCANNED REPORT) Comment:SCAN INCLUDES: PH TY [facility] ED LABS - [facility] CREATININE-OUTSID E LAB OUTSIDE LAB (SEE SCANNED REPORT) EGFR-OUTSIDE LAB OUT SIDE LAB (SEE SCANNED REPORT) POTASSIUM-OUTSIDE LAB OUTSIDE LAB (SEE SCANNED REPORT) GLUCOSE-OUTSIDE LAB OUTSIDE LAB (SEE SCANNED REPORT) HOURS FASTING OUTSID E LAB (SEE SCANNED REPORT) TRIGLYCERIDES-OUT SIDE LAB OUTSIDE LAB (SEE SCANNED REPORT) CHOLESTEROL-OUTSI DE LAB OUTSIDE LAB (SEE SCANNED REPORT) HDL-OUTSIDE LAB OUTS LEI LAB (SEE SCANNED REPORT) CHOL/HDL RATIO-OUTSIDE LAB OUTSIDE LA B (SEE SCANNED REPORT) LDL (CALCULATED)-OUTS LEI LAB OUTSIDE LAB (SEE SCANNED REPORT) LDL (DIRECT MEASURE)-OUTSIDE LAB OUTSIDE LAB (SEE SCANNED REPORT) HEMOGLOBIN, [id number] LAB OUTSIDE LAB (SEE SCANNED REPORT) PHOSPHORUS-OUTSID E LAB OUTSIDE LAB (SEE SCANNED REPORT) PTH-OUTSIDE LAB OUTS LEI LAB (SEE SCANNED REPORT) MICROALBUMIN RATIO-OUTSIDE LAB OUTSIDE LA B (SEE SCANNED REPORT) PROTEIN, UA-OUTSIDE LAB OUTSIDE LAB (SEE SCANNED REPORT) HEMOGLOBIN-OUTSID E LAB 12.4(A) 13.5 - 18.0 GM/DL OUTSIDE LAB (SEE SCANNED REPORT) 01/11/2024 Joel Murray MD LABORATORY OUTSIDE LAB (SEE SCANNED REPORT) documented in this encounter Care Teams A[employer] Operations Specialist Relationship Specialty Start Date End Date Lydia Perdomo MD [address] [place] [address] [place] [phone] PCP - General Family Medicine 11/16/23 documented as of this encounter
--- OUTSIDE RECORDS SUMMARY | 2024-06-12 12:04 | External Medical Summary | Summary of Care ---
Author Name Unknown Organization [facility] Address [address] [facility] [place] [address] Phone [phone] Care Team Providers Care Director Of Cath Lab Name Role Phone Lydia Perdomo MD Primary Care Provide r Encounter Details Date Type Department Care Team (Late st Contact Info) Description 01/29/2024 Orders Only Family Medicine [address] [place] [phone] Lydia Perdomo MD [address] [place] [address] [place] [phone] Allergies Active Allergy Reactions [...] as of this encounter (statuses as of 01/29/2024) Medications Medication Sig Dispensed Refills Start Date End Date Status aspirin enteric coated 81 MG TBECIndications:Coronar y artery disease involving [place] coronary artery of [place] heart with other form of angina pectoris [...] goal of less than 7.0% ([facility]) Use to test blood sugar four times a day. DX e11.9 400 Strip 3 10/28/2021 Active Embrace Lancets Ultra Thin 30GIndications:Type 2 diabetes mellitus with hemoglobin A1c goal of less than 7.0% ([facility]) Use to test blood sugar 4 times [...] goal of less than 7.0% ([facility]) Use as directed. Use to monitor glucose levels 4 times a day DXe11.9 2 Each 11 01/07/2023 Active Omeprazole 40 MG Oral Capsule Delayed Release (PriLOSEC)Indications:G astroesophageal reflux disease without esophagitis,Type 2 diabetes mellitus with hemoglobin A1c goal of less than 7.0% ([facility]) Take 1 Capsule by mouth daily in the morning. 90 Capsule 3 06/24/2023 Active Lisinopril 20 MG Oral Tablet (Prinivil)Indications:C oronary artery disease involving [place] coronary artery of [place] heart without angina pectoris Take 1 TABLET [...] Oral Tablet (pLAVix)Indications:Cor onary artery disease involving [place] coronary artery of [place] heart without angina pectoris Take 1 TABLET [...] XL)Indications:PSVT (paroxysmal supraventricular tachycardia),Coronary artery disease involving [place] coronary artery of [place] heart without angina pectoris,Primary hypertension Take 1 [...] extrinsic asthma without complication 100 mg SC [id number] 12/30/2022 Acti ve documented as of this encounter (statuses as of 01/29/2024) Active Problems Problem Noted Date Diagnosed Date [...] 11/14/2020 Hepatic steatosis 10/20/2019 Schizophrenia 03/27/2018 Overview: [place] PSVT (paroxysmal supraventricular tachycardia) 0 01/21/2018 Hx of nonmelanoma skin cancer 05/20/2017 Overview: basal cell carcinoma (R infraorbital region) Plaque psoriasis 02/18/2017 Coronary artery disease invo lving [place] coronary artery of [place] heart without angina pectoris 07/11/2016 Overview: 60% LDA, 60% left circ Adjustment disorder with anxious mood Diverticulosis of colon Primary hypertension Hyperlipidemia LDL goal <100 documented as of this encounter (statuses as of 01/29/2024) Resolved Problems Problem Noted Date Diagnosed Date [...] as of this encounter (statuses as of 01/29/2024) Immunizations Name Administration Dates Next Due COVID-19 mRNA, LNP-s, No Pre serve, 2-Dose Series (Moderna) 06/13/2021,04/30/2021 Pneumococcal Conjugate Vacci ne, 20-valent ([id number]) 12/09/2022 Pneumococcal Polysaccharide PPV23 (Pneumovax) 09/12/2014 Seasonal [...] 1:10 PM EDT Office Visit Vascular Surgery, [facility] [address] [facility] [place] [address] Shahzad Gonzalez MD [address] [facility] [place] [address] 02/26/2024 9:20 AM EDT Office Visit Neurology [facility] [address] [facility] [place] [address] Polina Galvan MD [address] [facility] [place] [address] 05/17/2024 2:20 PM EDT Office Visit Family Medicine [address] [phone] Lydia Perdomo MD [address] [place] [address] [place] [address] Health Maintenance Due Date Last Done Comments Colonoscopy 2008 Fecal Occult Blood Test 2008 Sigmoidoscopy 2008 Depression Screening 10/20/2020 10/20/2019 COVID-19 Vaccine ( season) 2023 06/13/2021, 04/30/2021 Diabetic Foot Exam 09/01/2023 09/01/2022 Diabetic Eye Exam 02/10/2024 02/09/2023, , 01/30/2021, Additional history exists HbA1c 05/17/2024 11/16/2023, 04/2 11/2022, 02/09/2023, Additional history exists Albumin/Creatinine Ratio 11/16/2024 023, 02/09/2023, 02/10/2022, Additional history exists GFR 01/11/2025 01/28/2024, 12/31, 11/16/2023, Additional history exists O2 [...] Name Priority Date/Time Associated Diagnosis Comments OUTSIDE LAB-CORONAVIRUS (COVID-19) Routine 01/28/2024 documented in this encounter Results * OUTSIDE LAB-CORONAVIRUS (COVID-19) (01/28/2024) [id number] DE LAB NOT DETECTED NOT DETECTED OUTSIDE LAB (SEE SCANNED REPORT) 01/28/2024 Daxa Figueroa MD LABORATORY OUTSIDE LAB (SEE SCANNED REPORT) documented in this encounter Care Teams Director Of Cath Lab Relationship Specialty Start Date End Date Lydia Perdomo MD [address] [place] [address] [place] [phone] PCP - General Family Medicine 11/16/23 documented as of this encounter
--- OUTSIDE RECORDS SUMMARY | 2024-06-12 12:04 | External Medical Summary | Summary of Care ---
Author Name Unknown Organization [facility] Address [address] [facility] [place] [address] Phone [phone] Care Team Providers Care Teller Vault Name Role Phone Lydia Perdomo MD Primary Care Provide r Reason for Visit * Reason Onset Date Comments Appointment 12/31/2022 Pulmonary appt Encounter Details Date Type Department Care Team (Late st Contact Info) Description 12/31/2022 Telephone Pulmonary Medicine, [address] [place] [address] Alexis Mock MD [facility] [address] [facility] [place] [phone] Appointment (Pulmonary appt) Allergies Active Allergy Reactions Criticality Noted Date [...] as of this encounter (statuses as of 12/25/2023) Medications Medication Sig Dispensed Refills Start Date End Date Status aspirin enteric coated 81 MG TBECIndications:Co ronary artery disease involving [place] coronary artery of [place] heart with other form of angina pectoris ([facility]) Take 1 Tab by mouth daily. 100 [...] Talk Glucose Test In Vitro Strip (Glucose Blood)Indications: Type 2 diabetes mellitus with hemoglobin A1c goal of less than 7.0% ([facility]) Use to test blood sugar four times a day. DX e11.9 400 Strip 3 1 Active Embrace Lancets Ultra Thin 30GIndications:Typ e 2 diabetes mellitus with hemoglobin A1c goal of less than 7.0% ([facility]) Use to test blood sugar 4 times a day DXe11.9 400 Each 3 1 Active Mirtazapine 15 MG Oral Tablet (Remeron) Take 1 Tablet by mouth at bedtime. 0 Active QUEtiapine Fumarate ER 150 MG Oral Tablet Extended Release 24 Hour Take 1 Tablet by mouth at bedtime. Total of 500 mg a day 0 Active fenofibrate (LOFIBRA) 160 MG TabletIndications: Hypertriglyceridem ia Take 1 Tablet by mouth daily. with a meal 90 Tab 1 0 11/16/20 23 Discontinued(Ref ill) Spiriva HandiHaler 18 MCG Inhalation Capsule (tiotropium bromide)Indication s:COPD, group B, by GOLD 2017 classification ([facility]) Inhale 1 Capsule by mouth daily. For inhaler only, do not swallow. 30 Cap 11 1 11/16/20 23 Discontinued(Med ication List Clean Up) Metoprolol Succinate ER 100 MG Oral Tablet Extended Release 24 Hour (toPROL XL) Take 1 Tablet by mouth in the morning. 0 1 11/16/20 23 Discontinued(Ref ill) Rosuvastatin Calcium 40 MG Oral Tablet (Crestor)Indicatio ns:Hyperlipidemia LDL goal <100 take one pill by mouth at bedtime 90 Tablet 1 2 02/28/20 23 Discontinued Lisinopril 20 MG Oral Tablet (Prinivil)Indicati ons:Coronary artery disease involving [place] coronary artery of [place] heart without angina pectoris Take 1 TABLET BY MOUTH in the morning. 90 Tablet 1 2 01/31/20 23 Discontinued Fexofenadine HCl 60 MG Oral Tablet (Leonarda)Indicatio ns:Chronic rhinitis Take 1 TABLET BY MOUTH in the morning. 90 Tablet 1 2 01/31/20 23 Discontinued Omeprazole 40 MG Oral Capsule Delayed Release (PriLOSEC)Indicati ons:Gastroesophage al reflux disease without esophagitis,Type 2 diabetes mellitus with hemoglobin A1c goal of less than 7.0% ([facility]) Take by mouth 1 Capsule in the morning. 90 Capsule 3 2 06/24/20 23 Discontinued Albuterol Sulfate HFA 108 (90 Base) MCG/ACT Inhalation Aerosol SolutionIndication s:COPD, group B, by GOLD 2017 classification ([facility]) Inhale by mouth 2 Puffs every 4 hours as needed for Cough, Shortness of Breath or Wheezing. 54 g 1 2 11/16/20 23 Discontinued(Med ication List Clean Up) Umeclidinium-Vilan terol 62.5-25 MCG/INH Inhalation Aerosol Powder Breath Activated (ANORO ellipta) Inhale by mouth 1 Puff in the morning. 60 Blister Dosing Unit 5 2 11/16/20 23 Discontinued(Med ication List Clean Up) metFORMIN HCl 1000 MG Oral Tablet (Glucophage) Take by mouth 1 Tablet 2 times a day with morning and evening meals . 180 Tablet 1 2 02/10/20 23 Discontinued(Ref ill) Clopidogrel Bisulfate 75 MG Oral Tablet (pLAVix)Indication s:Coronary artery disease involving [place] coronary artery of [place] heart without angina pectoris Take 1 TABLET BY MOUTH in the morning. 90 Tablet 1 3 08/23/20 23 Discontinued Fluticasone Furoate 100 MCG/ACT Inhalation Aerosol Powder Breath Activated (ARNUITY ellipta) Inhale 1 Puff by mouth in the morning. 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 100 mg SC [id number] 12/30/2022 Active Albuterol Sulfate (Proventil) (2.5 MG/3ML) 0.083% inhalation solution 2.5 mgIndications:Rest rictive lung disease 2.5 mg NEBULIZER PRN 12/08/2022 11/16/2023 Discontinued Albuterol Sulfate (Proventil) (5 MG/ML) 0.5% *conc* inhalation solution 2.5 mgIndications:Rest rictive lung disease 2.5 mg NEBULIZER PRN 12/08/2022 11/16/2023 Discontinued documented as of this encounter (statuses as of 12/25/2023) Active Problems Problem Noted Date Diagnosed Date [...] 11/14/2020 Hepatic steatosis 10/20/2019 Schizophrenia 03/27/2018 Overview: [place] PSVT (paroxysmal supraventricular tachycardia) 0 01/21/2018 Hx of nonmelanoma skin cancer 05/20/2017 Overview: basal cell carcinoma (R infraorbital region) Plaque psoriasis 02/18/2017 Coronary artery disease invo lving [place] coronary artery of [place] heart without angina pectoris 07/11/2016 Overview: 60% LDA, 60% left circ Adjustment disorder with anxious mood Diverticulosis of colon Primary hypertension Hyperlipidemia LDL goal <100 documented as of this encounter (statuses as of 12/25/2023) Resolved Problems Problem Noted Date Diagnosed Date [...] as of this encounter (statuses as of 12/25/2023) Immunizations Name Administration Dates Next Due COVID-19 mRNA, LNP-s, No Pre serve, 2-Dose Series (Moderna) 06/13/2021,04/30/2021 Pneumococcal Conjugate Vacci ne, 20-valent ([id number]) 12/09/2022 Pneumococcal Polysaccharide PPV23 (Pneumovax) 09/12/2014 Seasonal [...] encounter Miscellaneous Notes * Telephone Encounter - Marta Whitlock OSA - 12/25/2023 5:11 PM EST No reply from pt. Letter sent. * Telephone Encounter - Savi Dill OSA - 12/31/2022 9:59 AM EST lmom for pulmonary return in 4 weeks documented in this encounter Plan of Treatment Upcoming Encounters Date Type Department Care Team (Late st Contact Info) Description 05/17/2024 2:20 PM EDT Office Visit Family Medicine [address] [place] [phone] Lydia Perdomo MD [address] [place] [address] [place] [phone] Health Maintenance Due Date Last Done Comments [...] filedocumented as of this encounter Care Teams Teller Vault Relationship Specialty Start Date End Date Lydia Perdomo MD [address] [place] [address] [place] [phone] PCP - General Family Medicine 11/16/23 documented as of this encounter
--- OUTSIDE RECORDS SUMMARY | 2024-06-12 12:04 | External Medical Summary | Summary of Care ---
Author Name Unknown Organization [facility] Address [address] [facility] [place] [address] Phone [phone] Care Team Providers Care Concrete Curer Name Role Phone Lydia Perdomo MD Primary Care Provide r Encounter Details Date Type Department Care Team (Late st Contact Info) Description 01/12/2024 Orders Only Family Medicine [address] [place] [phone] Lydia Perdomo MD [address] [place] [address] [place] [address] Allergies Active Allergy Reactions [...] 81 MG TBECIndications:Coronar y artery disease involving [place] coronary artery of [place] heart with other form of angina pectoris [...] hemoglobin A1c goal of less than 7.0% ([facility]) Use to test blood sugar four times a day. DX e11.9 400 Strip 3 10/28/2021 Active Embrace Lancets Ultra Thin 30GIndications:Type 2 diabetes mellitus with hemoglobin A1c goal of less than 7.0% ([facility]) Use to test blood sugar 4 times [...] hemoglobin A1c goal of less than 7.0% ([facility]) Use as directed. Use to monitor glucose levels 4 times a day DXe11.9 2 Each 11 01/07/2023 Active Omeprazole 40 MG Oral Capsule Delayed Release (PriLOSEC)Indications:G astroesophageal reflux disease without esophagitis,Type 2 diabetes mellitus with hemoglobin A1c goal of less than 7.0% ([facility]) Take 1 Capsule by mouth daily in the morning. 90 Capsule 3 06/24/2023 Active Lisinopril 20 MG Oral Tablet (Prinivil)Indications:C oronary artery disease involving [place] coronary artery of [place] heart without angina pectoris Take 1 TABLET [...] Oral Tablet (pLAVix)Indications:Cor onary artery disease involving [place] coronary artery of [place] heart without angina pectoris Take 1 TABLET [...] XL)Indications:PSVT (paroxysmal supraventricular tachycardia),Coronary artery disease involving [place] coronary artery of [place] heart without angina pectoris,Primary hypertension Take 1 [...] extrinsic asthma without complication 100 mg SC [id number] 12/30/2022 Acti ve documented as of this [...] 11/14/2020 Hepatic steatosis 10/20/2019 Schizophrenia 03/27/2018 Overview: [place] PSVT (paroxysmal supraventricular tachycardia) 0 01/21/2018 Hx of nonmelanoma skin cancer 05/20/2017 Overview: basal cell carcinoma (R infraorbital region) Plaque psoriasis 02/18/2017 Coronary artery disease invo lving [place] coronary artery of [place] heart without angina pectoris 07/11/2016 Overview: 60% [...] (Moderna) 06/13/2021,04/30/2021 Pneumococcal Conjugate Vacci ne, 20-valent ([id number]) 12/09/2022 Pneumococcal Polysaccharide PPV23 (Pneumovax) 09/12/2014 Seasonal [...] Description 01/19/2024 5:00 PM EST Office Visit [address] [place] [phone] Carlitos Chandra CRNP [address] [place] [address] [place] [phone] 05/17/2024 2:20 PM EDT Office Visit [address] [place] [phone] Lydia Perdomo MD [address] [place] [address] [place] [phone] Health Maintenance Due Date Last Done Comments [...] Diagnosis Comments XR CHEST 1 VIEW Routine 01/11/2024 documented in this encounter Results * XR CHEST 1 VIEW (01/11/2024) Anatomical Region Laterality Modality Chest Other 01/11/2024 History Per Patient RADIOLOGY (RAD GENER AL) documented in this encounter Care Teams Concrete Curer Relationship Specialty Start Date End Date Lydia Perdomo MD [address] [place] [address] [place] [phone] PCP - General Family Medicine 11/16/23 documented as of this encounter
--- OUTSIDE RECORDS SUMMARY | 2024-06-12 12:04 | External Medical Summary | Summary of Care ---
Author Name Unknown Organization [facility] Address [address] [facility] [place] [address] Phone [phone] Care Team Providers Care Service Order Dispatcher Name Role Phone Lydia Perdomo MD Primary Care Provide r Reason for Referral * Evaluate & Treat - Unlimited Visits (Within 10 days (routine)) - Authorized Specialty Diagnoses / Procedures Referred By Contac t Referred To Contact Neurology Diagnoses History of TIA (transient ischemic attack) Symptomatic stenosis of left carotid artery without infarction Monica Martinez DO [address] [place] [address] [place] [id number] Referral ID Status Reason Start Date Expiration Date Visits Requested Visits Authorized [id number] Authorized Specialty Services Required 01/29/2024 999 999 Question Answer Referral Priority Within 10 days (routine) Where should this appointment be scheduled? [facility] Is this referral being placed for insurance purposes ONLY No, patient needs appointment [facility] REFERRAL QUESTIONS Stroke * Evaluate & Treat - Unlimited Visits (Within 10 days (routine)) - Authorized Specialty Diagnoses / Procedures Referred By Contact Referred To Contact Vascular Surgery / Cardiovascular Surgery Diagnoses History of TIA (transient ischemic attack) Symptomatic stenosis of left carotid artery without infarction Monica Martinez DO [address] [place] [address] [place] [phone] Referral ID Status Reason Start Date Expiration Date Visits Requested Visits Authorized [id number] Authorized Specialty Services Required 01/29/2024 999 999 Question Answer Referral Priority Within 10 days (routine) Where should this appointment be scheduled? [facility] What condition is the patient being seen for? Carotid stenosis / Bruit / TIA / CVA Reason for Visit * Reason Onset Date Comments Hospital Follow-Up Hospital Follow-Up 01/29/2024 Encounter Details Date Type Department Care Team (Late st Contact Info) Description 01/29/2024 11:50 AM EST Office Visit Family Medicine [address] [place] [phone] Monica Martinez DO [address] [place] [address] [place] [phone] Hospital discharge follow-up*; History of TIA (transient ischemic attack); Symptomatic stenosis of left carotid artery without infarction; Primary hypertension; Gastroesophageal reflux disease without esophagitis; Type 2 diabetes mellitus without complication, unspecified whether 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 (HCC); Coronary artery disease involving [place] coronary artery of [place] heart without angina pectoris Allergies Active Allergy Reactions Criticality Noted Date [...] 81 MG TBECIndications:Coronar y artery disease involving [place] coronary artery of [place] heart with other form of angina pectoris [...] Oral Tablet (Prinivil)Indications:C oronary artery disease involving [place] coronary artery of [place] heart without angina pectoris Take 1 TABLET [...] Oral Tablet (pLAVix)Indications:Cor onary artery disease involving [place] coronary artery of [place] heart without angina pectoris Take 1 TABLET [...] XL)Indications:PSVT (paroxysmal supraventricular tachycardia),Coronary artery disease involving [place] coronary artery of [place] heart without angina pectoris,Primary hypertension Take 1 [...] Frequency Start Date End Date Status Dupilumab ([employer]) prefilled syringe 100 mgIndications: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 100 mg SC [id number] 12/30/2022 Acti ve documented as of this encounter (statuses as of 01/29/2024) Active Problems Problem Noted Date Diagnosed Date Gastroesophageal reflux disease without esophagi tis 01/29/2024 Type 2 diabetes mellitus without complication 03 /11/2023 Allergic asthma, moderate persistent, uncomplica spenser 12/30/2022 Last Assessment & Plan: Dupixent Therapy Restrictive lung disease 12/08/2022 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 Overview: latanoprost Type 2 diabetes mellitus wit h hemoglobin A1c goal of less than 7.0% 09/11/2021 COPD, group B, by GOLD 2017 classification 11/14 Elevated IgE level 11/14/2020 Cat allergies 11/14/2020 House dust mite allergy 11/14/2020 Hepatic steatosis 10/20/2019 Schizophrenia 03/27/2018 Overview: [place] PSVT (paroxysmal supraventricular tachycardia) 0 01/21/2018 Hx of nonmelanoma skin cancer 05/20/2017 Overview: basal cell carcinoma (R infraorbital region) Plaque psoriasis 02/18/2017 Coronary artery disease invo lving [place] coronary artery of [place] heart without angina pectoris 07/11/2016 Overview: 60% [...] (Moderna) 06/13/2021,04/30/2021 Pneumococcal Conjugate Vacci ne, 20-valent ([id number]) 12/09/2022 Pneumococcal Polysaccharide PPV23 (Pneumovax) 09/12/2014 Seasonal [...] Sign Reading Time Taken Comments Blood Pressure 138/66 01/29/2024 11:40 AM EST Pulse 78 01/29/2024 11:40 AM EST Temperature 35.8 C (96.5 F) 01/29/2024 11:[address] Respiratory Rate - - Oxygen Saturation 98% 01/29/2024 11:40 AM EST Inhaled Oxygen Concentration - - Weight 82.3 kg (181 lb 6.4 oz) 01/29/2024 11:40 AM EST Height - - Body Mass Index 25.68 12/30/2022 10:50 AM EST documented in this encounter Progress Notes * Monica Martinez, - 01/29/2024 11:45 AM EST SUBJECTIVE: Artie Santiago is a 58 year old male. Chief Complaint Patient presents with Hospital Follow-Up Hospital Follow-Up Recent Admission: Patient was recently admitted to [facility]. The date of discharge was 01/12/24. Dischargereport received and reviewed. Admitted with TIA symptoms. Unable to have an MRI due to having medical in his cheek but serial CT scans did not show any sign of infarct. Yesterday he again presented to the ER again with similar symptoms. Symptoms resolved spontaneously. Workup in the hospital showed 75% narrowing of the left ICA. HPI: Artie Santiago presents today for HD/ER follow up. He denies any symptoms currently but yesterday he was slurred speech along with some chest pain/left arm numbness. He does follow with cardiology (Dr. Grover) - will see her back in February. He had two stents placed last year in 04/21 - reviewed his card and it does not reveal where they were placed. He has had chest pain/SOB for more than 8 years - the etiology never determined despite multiple tests/stent placement. He does have mental health problems but does not feel that anxiety is causing his symptoms. Diabetes is well controlled. Patient Active Problem List Diagnosis Code Adjustment disorder with anxious mood F43.22 Diverticulosis of colon K57.30 Primary hypertension I10 Coronary artery disease involving [place] coronary artery of [place] heart without angina pectoris I25.10 Hyperlipidemia LDL goal <100 E78.5 Plaque psoriasis L40.0 Hx of nonmelanoma skin cancer Z85.828 PSVT (paroxysmal supraventricular tachycardia) I47.10 Schizophrenia ([facility]) F20.9 Hepatic steatosis K76.0 COPD, group B, by GOLD 2017 classification ([facility]) J44.9 Elevated IgE level R76.8 Cat allergies J30.81 House dust mite allergy Z91.09 Type 2 diabetes mellitus with hemoglobin A1c goal of less than 7.0% ([facility]) E11.9 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 Restrictive lung disease J98.4 Allergic asthma, moderate persistent, uncomplicated J45.40 Current Outpatient Medications Medication Sig Dispense Refill [...] 1 Capsule by mouth in the morning. Oriel Sea [employer] Talk Glucose Test In Vitro Strip (Glucose [...] MOUTH in the morning. 90 Tablet 3 Trulicity 1.5 MG/0.5ML Subcutaneous Solution Pen-injector (Dulaglutide) Inject 1.5 mg under the skin once a week. 2 mL 3 Rosuvastatin Calcium 40 MG Oral Tablet [...] pain continues, call 911. 25 Tablet 11 Current Facility-Administered Medications Medication Dose Route Frequency Provider Last Rate Last Admin Dupilumab (Dupixent) prefilled syringe 100 mg 100 mg Subcutaneous Q2 Weeks Alexis Mock MD Current and discharge medications have been reconciled. Review of patient's allergies indicates: Allergen Reactions [...] Hcl] Ultram [Tramadol Hcl] Severe gi distress OBJECTIVE: BP 138/66 | Pulse 78 | Temp 35.8 C (96.5 F) | Wt 82.3 kg (181 lb 6.4 oz) | SpO2 98% | BMI 25.68kg/m | BSA 2.02 m Review Of Systems: Skin: negative Eyes: negative Ears/Nose/Throat: negative Respiratory: longstanding intermittent shortness of breath Cardiovascular: longstanding intermittent chest pain Gastrointestinal: negative Genitourinary: negative Musculoskeletal: negative Neurologic: see HPI Psychiatric: see HPI Hematologic/Lymphatic/Immunologic: negative Endocrine: negative PHYSICAL EXAM: General: alert, healthy, no distress, well nourished, and well developed Neck: supple, no adenopathy, thyroid normal size, non-tender, without nodularity Heart: regular rate & rhythm and no murmur Lungs: chest symmetric with normal AP diameter, no chest deformities noted, normal respiratory rateand rhythm, lungs clear to auscultation Abdomen: abdomen soft and non-tender Extremities: no joint deformities, effusion, or inflammation, no edema Neuro Exam: alert & oriented x 3 with fluent speech, no focal motor/sensory deficits, gait normal Skin: skin color, texture, turgor are normal, no rashes or significant lesions ASSESSMENT/PLAN: Hospital discharge follow-up (Primary) - DISCH MED RECON CUR MED LIS History of TIA (transient ischemic attack) - VASCULAR SURGERY REFERRAL OP - NEUROLOGY REFERRAL OP Symptomatic stenosis of left carotid artery without infarction - 75% on the left ICA. He has a discwith his imaging; advised to hand carry this to his vascular appointment for review. - VASCULAR SURGERY REFERRAL OP - NEUROLOGY REFERRAL OP Primary hypertension - well controlled. Gastroesophageal reflux disease without esophagitis Type 2 diabetes mellitus without complication, unspecified whether chcf insulin use (HCC) Coronary artery disease involving [place] coronary artery of [place] heart without angina pectoris - s/p stent placement less than 1 year ago. Keep scheduled follow up with cardiology. Follow Up: Return for as scheduled. | For: as scheduled | Check-out note: Vascular surgery as soon as possible at [facility]. I spent a total of 40-54 minutes (exact time 42 mins) minutes on the date of service in preparation, delivery, and documentation of the care provided to Artie Santiago excluding any time spent in performance of separately billed services. Monica Martinez DO documented in this encounter Plan of Treatment Upcoming Encounters Date Type Department Care Team (Late st Contact Info) Description 02/17/2024 1:10 PM EDT Office Visit Vascular Surgery, [address] [place] [address] Shahzad Gonzalez [facility] [address] [facility] [address] 02/26/2024 9:20 AM EDT Office Visit Neurology [employer] [address] [facility] [place] [address] Polina Galvan MD [address] [place] [address] 05/17/2024 2:20 PM EDT Office Visit Family Medicine [address] [phone] Lydia Perdomo MD [address] [place] [address] [place] [address] Scheduled Referrals Name Type Priority Associated Diagnoses Orde r Schedule VASCULAR SURGERY REFERRAL OP Referral Within 10 days (routine) History of TIA (transient ischemic attack) Symptomatic stenosis of left carotid artery without infarction Ordered: 01/29/2024 NEUROLOGY REFERRAL OP Referral Within 10 days (routine) History of TIA (transient ischemic attack) Symptomatic stenosis of left carotid artery without infarction Ordered: 01/29/2024 Health Maintenance Due Date Last Done Comments [...] 01/11/2025 01/11/2024, 10/30, 04/10/2023, Additional history exists O2 ASSESSMENT COMPLETED IN PAST YEAR FOR COPD 01/28/2025 01/29/2024 Cologuard 06/05/2025 06/05/2022, 06, 05/29/2022, Additional history [...] as of this encounter Visit Diagnoses Diagnosis Hospital discharge follow-up- Primary Other follow-up examination History of TIA (transient ischemic attack) Transient ischemic attack (TIA), and cerebral infarction without residual deficits Symptomatic stenosis of left carotid artery without infarction Primary hypertension Unspecified essential hypertension Gastroesophageal reflux disease without esophagitis Esophageal reflux Type 2 diabetes mellitus without complication, unspecified whether 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
--- OUTSIDE RECORDS SUMMARY | 2024-06-12 12:04 | External Medical Summary | Summary of Care ---
Author Name Unknown Organization [facility] Address [address] [facility] [place] [address] Phone [phone] Care Team Providers Care Patient Safety Attendant Name Role Phone Lydia Perdomo MD Primary Care Provide r Encounter Details Date Type Department Care Team (Late st Contact Info) Description 01/12/2024 Orders Only Family Medicine [address] [place] [phone] Lydia Perdomo MD [address] [place] [address] [place] [address] Allergies Active Allergy Reactions [...] 81 MG TBECIndications:Coronar y artery disease involving [place] coronary artery of [place] heart with other form of angina pectoris [...] Oral Tablet (Prinivil)Indications:C oronary artery disease involving [place] coronary artery of [place] heart without angina pectoris Take 1 TABLET [...] Oral Tablet (pLAVix)Indications:Cor onary artery disease involving [place] coronary artery of [place] heart without angina pectoris Take 1 TABLET [...] XL)Indications:PSVT (paroxysmal supraventricular tachycardia),Coronary artery disease involving [place] coronary artery of [place] heart without angina pectoris,Primary hypertension Take 1 [...] extrinsic asthma without complication 100 mg SC [id number] 12/30/2022 Acti ve documented as of this [...] 11/14/2020 Hepatic steatosis 10/20/2019 Schizophrenia 03/27/2018 Overview: [place] PSVT (paroxysmal supraventricular tachycardia) 0 01/21/2018 Hx of nonmelanoma skin cancer 05/20/2017 Overview: basal cell carcinoma (R infraorbital region) Plaque psoriasis 02/18/2017 Coronary artery disease invo lving [place] coronary artery of [place] heart without angina pectoris 07/11/2016 Overview: 60% [...] (Moderna) 06/13/2021,04/30/2021 Pneumococcal Conjugate Vacci ne, 20-valent ([id number]) 12/09/2022 Pneumococcal Polysaccharide PPV23 (Pneumovax) 09/12/2014 Seasonal [...] Description 01/19/2024 5:00 PM EST Office Visit [address] [place] [phone] Carlitos Cahndra CRNP [address] [place] [address] [place] [address] 05/17/2024 2:20 PM EDT Office Visit [address] [place] [phone] Lydia Perodmo MD [address] [place] [address] [place] [address] Health Maintenance Due Date Last Done Comments [...] detail OUTSIDE LAB (SEE SCANNED REPORT) Comment:SCAN INCLUDES; PH TY YECENIA ED LABS - UA, COAG, CMP, TROPONIN I HS CREATININE-OUTSID E LAB 1.39(A) 0.70 - 1.30 MG/DL OUTSIDE LAB (SEE SCANNED REPORT) EGFR-OUTSIDE LAB 58(A) >=60 ML/MIN/1. 73M2 OUTSIDE LAB (SEE SCANNED REPORT) POTASSIUM-OUTSIDE LAB 4.2 3.5 - 5.1 MMOL/L OUTSIDE LAB (SEE SCANNED REPORT) GLUCOSE-OUTSIDE LAB 90 70 - 110 MG/DL OUTSIDE LAB (SEE SCANNED REPORT) HOURS FASTING [...] LAB OUTSIDE LAB (SEE SCANNED REPORT) HEMOGLOBIN, [id number] LAB OUTSIDE LAB (SEE SCANNED REPORT) PHOSPHORUS-OUTSID E LAB OUTSIDE LAB (SEE SCANNED REPORT) PTH-OUTSIDE LAB OUTS LEI LAB (SEE SCANNED REPORT) MICROALBUMIN RATIO-OUTSIDE LAB OUTSIDE LA B (SEE SCANNED REPORT) PROTEIN, UA-OUTSIDE LAB NEGATIVE OUTSIDE LAB (SEE SCANNED REPORT) HEMOGLOBIN-OUTSID E LAB OUTSIDE LAB (SEE SCANNED REPORT) 01/11/2024 History Per Patient LABORATORY OUTSIDE LAB (SEE SCANNED REPORT) documented in this encounter Care Teams Patient Safety Attendant Relationship Specialty Start Date End Date Lydia Perdomo MD [address] [place] [address] [place] [phone] PCP - General Family Medicine 11/16/23 documented as of this encounter
--- OUTSIDE RECORDS SUMMARY | 2024-06-12 12:04 | External Medical Summary | Summary of Care ---
Author Name Unknown Organization [facility] Address [address] [facility] [place] [address] Phone [phone] Care Team Providers Care Broadcast Maintenance Engineer Name Role Phone Lydia Perdomo MD Primary Care Provide r Encounter Details Date Type Department Care Team (Late st Contact Info) Description 01/28/2024 Result Scan Unspecified Department <No scans attached> [...] 81 MG TBECIndications:Coronar y artery disease involving [place] coronary artery of [...] Oral Tablet (Prinivil)Indications:C oronary artery disease involving [place] coronary artery of [...] Oral Tablet (pLAVix)Indications:Cor onary artery disease involving [place] coronary artery of [...] XL)Indications:PSVT (paroxysmal supraventricular tachycardia),Coronary artery disease involving [place] coronary artery of [...] Frequency Start Date End Date Status Dupilumab ([employer] prefilled syringe 100 mgIndications: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 100 mg SC [id number] 12/30/2022 Acti ve documented as of this [...] 11/14/2020 Hepatic steatosis 10/20/2019 Schizophrenia 03/27/2018 Overview: [place] PSVT (paroxysmal supraventricular tachycardia) 0 01/21/2018 Hx [...] (Moderna) 06/13/2021,04/30/2021 Pneumococcal Conjugate Vacci ne, 20-valent ([id number]) 12/09/2022 Pneumococcal Polysaccharide PPV23 (Pneumovax) 09/12/2014 Seasonal [...] 1:10 PM EDT Office Visit Vascular Surgery, Health system [address] [facility] [place] [address] Shahzad Gonzalez MD [facility] [address] [facility] [address] 02/26/2024 9:20 AM EDT Office Visit Neurology [facility] [address] [facility] [place] [address] Polina Galvan MD [address] [facility] [place] [address] 05/17/2024 2:20 PM EDT Office Visit Family Medicine [address] [place] [phone] Lydia Perdomo MD [address] [place], [place] [address] [address] Health Maintenance Due Date Last Done Comments [...] Date/Time Associated Diagnosis Comments OUTSIDE LAB RESULTS 01/28/2024 documented in this encounter Results * OUTSIDE LAB RESULTS (01/28/2024) 01/28/2024 No Physician Data Unknown LABORATORY documented in this encounter Care Teams Broadcast Maintenance Engineer Relationship Specialty Start Date End Date Lydia Perdomo MD [address] [place] [address] [place] [phone] PCP - General Family Medicine 11/16/23 documented as of this encounter
--- OUTSIDE RECORDS SUMMARY | 2024-06-12 12:04 | External Medical Summary | Summary of Care ---
Author Name Unknown Organization [facility] Address [address] [facility] [place] [address] Phone [phone] Care Team Providers Care Wallpaper Printer Name Role Phone Lydia Perdomo MD Primary Care Provide r Encounter Details Date Type Department Care Team (Late st Contact Info) Description 01/29/2024 Orders Only Family Medicine [address] [place] [phone] Lydia Perdomo MD [address] [place] [address] [place] [id number] Allergies Active Allergy Reactions [...] 81 MG TBECIndications:Coronar y artery disease involving ramona coronary artery of ramona heart with other form of angina pectoris [...] Oral Tablet (Prinivil)Indications:C oronary artery disease involving ramona coronary artery of ramona heart without angina pectoris Take 1 TABLET [...] Oral Tablet (pLAVix)Indications:Cor onary artery disease involving ramona coronary artery of ramona heart without angina pectoris Take 1 TABLET [...] XL)Indications:PSVT (paroxysmal supraventricular tachycardia),Coronary artery disease involving ramona coronary artery of ramona heart without angina pectoris,Primary hypertension Take 1 [...] extrinsic asthma without complication 100 mg SC [id number] 12/30/2022 Acti ve documented as of this [...] 11/14/2020 Hepatic steatosis 10/20/2019 Schizophrenia 03/27/2018 Overview: Taylor PSVT (paroxysmal supraventricular tachycardia) 0 01/21/2018 Hx of nonmelanoma skin cancer 05/20/2017 Overview: basal cell carcinoma (R infraorbital region) Plaque psoriasis 02/18/2017 Coronary artery disease invo lving ramona coronary artery of ramona heart without angina pectoris 07/11/2016 Overview: 60% [...] (Moderna) 06/13/2021,04/30/2021 Pneumococcal Conjugate Vacci ne, 20-valent ([id number]) 12/09/2022 Pneumococcal Polysaccharide PPV23 (Pneumovax) 09/12/2014 Seasonal [...] 1:10 PM EDT Office Visit Vascular Surgery, [facility] [address] [facility] [place] [address] Shahzad Gonzalez MD [address] [place] [address] 02/26/2024 9:20 AM EDT Office Visit Neurology [facility] [address] [facility] [place] [address] Polina Galvan MD [address] [facility] [place] [address] 05/17/2024 2:20 PM EDT Office Visit Family Medicine [address] [phone] Lydia Perdomo MD [address] [place] [address] [place] [id number] Pending Results Name Type Priority Associated Diagnoses Date /Time CHEMISTRY-OUTSIDE Lab Routine 024 Health Maintenance Due Date Last Done Comments [...] filedocumented as of this encounter Care Teams Wallpaper Printer Relationship Specialty Start Date End Date Lydia Perdomo MD [address] [place] [address] [place] [id number] PCP - General Family Medicine 11/16/23 documented as of this encounter
[2024-06-12] MEDS: SODIUM CHLORIDE 0.9% 500 ML IV STA (12:20)
[2024-06-12 12:36] LABS: Appearance Urine Clear (Clear); Bilirubin Urine Negative (Negative); Blood Urine Negative (Negative); Color Urine Yellow; Glucose Urine UA 3+ (Negative); Ketones Urine Negative (Negative); Leukocyte Esterase Urine Negative (Negative); Nitrite Urine Negative (Negative); Protein Urine Negative (Negative); Urobilinogen Urine Negative (Negative); pH Urine 6.5 (4.5-7.5)
[2024-06-12 13:01] LABS: Basophils # (auto) 0.05 K/uL (0.00-0.20); Basophils % (auto) 0.8 %; Eosinophils # (auto) 0.37 K/uL (0.00-0.50); Eosinophils % (auto) 5.9 %; Hematocrit (blood only) 38.8 % (42.0-52.0); Hemoglobin 12.9 g/dl (14.0-18.0); Immature Granulocytes # (auto) 0.02 K/uL (0.01-0.20); Immature Granulocytes % (auto) 0.3 %; Lymphocytes # (auto) 1.41 K/uL (1.20-3.40); Lymphocytes % (auto) 22.3 %; Mean Corpuscular Hemoglobin 30.1 pg (25.0-34.0); Mean Corpuscular Hgb Conc 33.2 g/dL (32.0-36.0); Mean Corpuscular Volume 90.7 fL (80.0-100.0); Mean Platelet Volume 9.6 fL (9.4-12.4); Monocytes # (auto) 0.72 K/uL (0.11-0.59); Monocytes % (auto) 11.4 %; Neutrophils # (auto) 3.74 K/uL (1.40-6.50); Neutrophils % (auto) 59.3 %; Platelet Count 230 K/uL (130-400); RDW Coefficient of Variation 13.9 % (11.5-14.5); RDW Standard Deviation 46.6 fL (36.4-46.3); Red Blood Count 4.28 M/uL (4.70-6.10); White Blood Count 6.31 K/ul (4.8-10.8)
[2024-06-12 13:16] LABS: Alanine Aminotransferase 19 U/L (7-52); Albumin Globulin Ratio 1.5 (0.9-2); Albumin Level 4.8 gm/dl (3.4-5.0); Alkaline Phosphatase 33 U/L (34-104); Anion Gap 8 (3-11); Aspartate Aminotransferase 22 U/L (13-39); BUN Creatinine Ratio 14.5 (10-20); Bilirubin,Total 0.5 mg/dl (0.2-1.0); Blood Urea Nitrogen 22 mg/dl (6-23); Calcium 10.4 mg/dl (8.6-10.3); Carbon Dioxide 26 mmol/L (21-32); Chloride 104 mmol/L (98-107); Creatinine Clr Calc Pharmacy 53.4 ml/min; Est GFR (African American) 56.9 ml/min; Est GFR (Non-African American) 49.1 ml/min; Globulin 3.1 gm/dl (2.5-4.0); Glucose 83 mg/dl (70-99(Fasting)); Lipase 36 U/L (11-82); Potassium 4.5 mmol/L (3.5-5.1); Sodium 138 mmol/L (136-145); Total Protein 7.9 gm/dl (6.0-8.3)
[2024-06-12 13:22] LABS: Troponin I High Sensitivity < 2.3 pg/ml (0-20)
[2024-06-12] MEDS: OPTIRAY 320 100ml IV ONE (13:28)
--- NOTE | 2024-06-12 13:51 | CT Scan Report ---
ABDOMEN AND PELVIS CT WITH IV CONTRAST CT DOSE: 1118.82 mGy.cm HISTORY: ab distension, RLQ pain TECHNIQUE: Multiaxial CT images of the abdomen and pelvis were performed following the use of intrave nous contrast. A dose lowering technique was utilized adhering to the principles of ALARA. COMPARISON STUDY: Abdomen and pelvis CT 11/17/2014. FINDINGS: The lung bases are clear. No pneumoperitoneum. No pneumatosis. 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 Proximal femoral screws are in place. No acute fractures. Prior cholecyste ctomy. The main portal vein is patent. The liver, pancreas, spleen, and adrenal glands unremarkable. Mild calcified plaque within the normal caliber abdominal aorta. No retroperitoneal or pelvic lymphad enopathy. No pelvic free fluid. There are few subcentimeter bilateral renal hypodense lesions. These are technically too small to characterize but favor cysts. No hydronephrosis. The bladder is unremark able. Colonic diverticulosis. No evidence for acute diverticulitis. No bowel wall thickening or obstr uction. Normal appendix. Moderate fecal retention. IMPRESSION: 1. No bowel wall thickening or obstruction. 2. Colonic diverticulosis. No evidence for acute diverticulitis. 3. Moderate fecal retention. 4. Normal appendix. 5. No hydronephrosis. 6. Additional findings as described above. ACT 112: Negative or not required by law. Electronically signed by: Aleksey Arenas M.D. 06/12/2024 1:49 PM
[2024-06-12] MEDS: LACTULOSE SYRUP 20 GM/30 ML UDC PO ONE (15:02)
--- NOTE | 2024-06-12 15:22 | CT Scan Report ---
HEAD CT NONCONTRAST CT DOSE: 547.75 mGy.cm HISTORY: left arm numbness, history of L carotid stenosis TECHNIQUE: Multiaxial CT images of the head were performed without the use of intravenous contrast. A utomated exposure control was utilized for this study. A dose lowering technique was utilized adheri ng to the principles of ALARA. Comparison: Head CT 12/16/2018. Findings: The paranasal sinuses and mastoid air cells are clear. The calvarium and skull base are int act. The ventricles and sulci are within normal limits. There is no mass, hematoma, midline shift, or acute infarct. Residual contrast within the brain from the same day abdomen and pelvis CT. Impression: No acute intracranial abnormality. ACT 112: Negative or not required by law. Electronically signed by: Aleksey Arenas M.D. 06/12/2024 3:19 PM
[2024-06-12] MEDS ORDERED: ACETAMINOPHEN 325 MG TAB PO PRN (15:33)
--- NOTE | 2024-06-12 15:35 | History & Physical Report ---
Date of Service June 12, 2024 Assessment & Plan (1) Chest pain: (2) Constipation: (3) History of CAD (coronary artery disease): (4) Acute kidney injury: Plan: 58-year-old male with history of CAD, status post stent placement, paroxysmal SVT, diabetes type 2, hypertension, dyslipidemia, TIA, left carotid stenosis, COPD/asthma, GERD, mood disorder presenting with abdominal distention and left- sided chest pain which started this morning. Left-sided chest pain, with left arm numbness Rule out unstable angina versus acute coronary syndrome History of CAD, stent placement Chest pain resolved with 2 doses of nitro tablets Currently chest pain-free Initial troponin negative, repeat pending EKG no signs of acute ischemia or infarct Echocardiogram pending Patient takes aspirin 81 mg, Plavix 70 mg, metoprolol XL 100 mg, lisinopril 20 mg, rosuvastatin Patient received total of 7 doses of ASA 81mg before arrival at the ER Hold off on aspirin and Plavix for at least 1 day Continue metoprolol XL, rosuvastatin Hold Lisinopril for MARIA LUISA N.p.o. postmidnight, cardiology service consulted Check CT head in light of left upper arm numbness, patient has a history of TIA, left carotid stenosis If negative, will order a brain MRI as well Constipation, Abdominal distention CT abdomen pelvis: No acute process, but positive for moderate fecal retention Lactulose 20 g 1 dose ordered Left chest wall/breast edema Nontender on palpation Patient does not think this is the source of his left-sided chest burning discomfort this morning No history of trauma CT chest without contrast ordered Acute kidney injury Hold lisinopril, gentle IV fluids Monitor BMP Mild hypercalcemia Calcium level 10.4 IV NSS ordered Repeat level in the morning History of paroxysmal SVT Currently in sinus rhythm Monitor telemetry unit Diabetes type 2 Usually on Trulicity, Jardiance, metformin-hold for now Insulin sliding scale, pharmacy glycemic control service consulted Hypertension Blood pressure stable Lisinopril held in light of MARIA LUISA Continue metoprolol, amlodipine, isosorbide mononitrate History of TIA, let carotid stenosis Follows with [facility] neurology clinic CT head ordered in light of left arm numbness Will need brain MRI if negative Takes aspirin, Plavix, rosuvastatin History of GERD, hepatic steatosis Continue omeprazole History of mood disorder, schizophrenia Continue psych meds Full code DVT prophylaxis SCDs for now Disposition Admit to [facility] Lives at home with family plan of care discussed with patient and his at the bedside in detail and at length all questions answered they are understanding, agreeable, comfortable with the plan of care Admission and Anticipated Discharge Date Admission Date: June 12, 2024 History of Present Illness Chief Complaint: Left-sided chest pain which occurred this morning Primary Care Provider: NO PCP 58-year-old male with history of CAD, status post stent placement, paroxysmal SVT, diabetes type 2, hypertension, dyslipidemia, TIA, left carotid stenosis, COPD/asthma, GERD, mood disorder presenting with abdominal distention and left- sided chest pain which started this morning. At around 4 AM this morning, the patient woke up with abdominal distention but no associated pain, nausea/vomiting, fevers or chills. Last bowel movement was yesterday. Patient took a walk, and subsequently had a bowel movement- nonbloody, formed stools. After reviewing notes, while sitting up reading, the patient experienced left- sided chest pain described as burning sensation radiating to the left side of his neck and upper left arm. There was also numbness on the upper left arm. Patient got very concerned as symptoms are very reminiscent of his previous heart attack. He took 3 baby aspirins and 2 nitro tablets which relieved the chest pain. En route to the ER, the patient was given another 4 baby aspirin as per patient. Upon arrival at the ER, vital signs stable overall. Troponin negative EKG no signs of acute ischemia or infarct CT abdomen pelvis no acute process, positive moderate fecal retention On exam, patient seen resting in bed, sitting up, not in distress, comfortable. Denies active chest pain, shortness of breath, palpitations, dizziness. Still reporting abdominal distention, but no pain, no nausea. Allergies Allergy/AdvReac Type Severity Reaction Status Date / Time celecoxib Allergy Mild OTHER Verified 10/24/10 14:02 Cephalosporins Allergy Mild OTHER Verified 10/24/10 14:02 hydromorphone Allergy Mild OTHER Verified 10/24/10 14:02 tramadol Allergy Mild OTHER Verified 11/05/10 04:16 Penicillins Allergy Unknown UNKNOWN Verified 11/28/10 09:20 propoxyphene Allergy Unknown 0 Verified 11/05/10 04:16 cephalexin AdvReac Intermediate VOMITING Verified 12/13/10 11:15 naproxen AdvReac Intermediate N/V Verified 12/13/10 11:15 chlorpromazine AdvReac Mild FLUSHED Verified 12/13/10 11:15 hydrocodone AdvReac Mild NAUSEA/CP Verified 11/05/10 06:20 morphine AdvReac Unknown NAUSEA Verified 09/01/14 09:53 Home Medications Medication Instructions Recorded Confirmed Type aspirin 81 mg tablet,delayed 81 mg PO QAM 12/06/18 06/12/24 History release doxepin 75 mg capsule 150 mg PO HS 12/06/18 06/12/24 History fenofibrate 160 mg tablet 160 mg PO QAM 12/06/18 06/12/24 History lisinopril 20 mg tablet 20 mg PO QAM 12/06/18 06/12/24 History metformin 500 mg tablet 1,000 mg PO QAM 12/06/18 06/12/24 History vortioxetine 20 mg tablet 20 mg PO QAM 12/06/18 06/12/24 History bupropion HCl 100 mg tablet,12 hr 100 mg PO QAM 10/24/19 06/12/24 History sustained-release (Wellbutrin SR) rosuvastatin 40 mg tablet 40 mg PO HS 10/25/19 06/12/24 History clopidogrel 75 mg tablet 75 mg PO QAM #30 tabs 10/26/19 06/12/24 Rx amlodipine 5 mg tablet 5 mg PO QAM 06/12/24 06/12/24 History dulaglutide 1.5 mg/0.5 mL 1.5 mg subcut WK 06/12/24 06/12/24 History subcutaneous pen injector (Trulicity) empagliflozin 10 mg tablet 10 mg PO QAM 06/12/24 06/12/24 History (Jardiance) isosorbide mononitrate 60 mg 60 mg PO DAILY 06/12/24 06/12/24 History tablet,extended release 24 hr metoprolol succinate 100 mg 50 mg PO QAM 06/12/24 06/12/24 History tablet,extended release 24 hr nitroglycerin 0.4 mg sublingual 0.4 mg sublingual UD PRN Chest Pain 06/12/24 06/12/24 History tablet omeprazole 40 mg capsule,delayed 40 mg PO QAM 06/12/24 06/12/24 History release quetiapine 200 mg tablet See Rx Instructions .Route .COMPLEX 06/12/24 06/12/24 History quetiapine 400 mg tablet See Rx Instructions .Route .COMPLEX 06/12/24 06/12/24 History Past Med/Surg History Problem List (Updated 06/12/24 @ 15:39 by Fabio Carter MD) Acute kidney injury History of CAD (coronary artery disease) Constipation Chest pain Diabetes mellitus Prediabetes S/P coronary artery stent placement CAD (coronary artery disease) Mood disorder HTN (hypertension) Medical History (Updated 06/12/24 @ 15:39 by Fabio Carter MD) History of tobacco use PSVT (paroxysmal supraventricular tachycardia) Surgical History History of cardiac catheterization S/P bilateral hip replacements H/O inguinal hernia repair History of cholecystectomy Family History Other Diabetes Heart disease Social History (Updated 10/25/19 @ 14:02 by Yovana Aleman PA-C) Smoking Status: Former smoker Hx Alcohol Use: Yes Alcohol type: beer Hx Substance Use: No Preferred Language: [place] Communication Ability: Effective Personal Service Workers Required: No Beliefs That Will Affect Care: None Current Living Situation: Alone Feels Safe at Home: Yes Assistive Devices: Glasses Review of Systems Review of Systems: all noted and negative except for above Physical Exam Physical Exam: General- oriented x 3, not in distress, speaks in sentences with no effort or accessory muscle use Head- atraumatic Eyes- PERRL, EOMI, anicteric ENT- oropharynx clear Neck- supple, no JVD, no adenopathy, no thyromegaly; carotids +2/2, no bruits appreciated Lungs- clear to auscultation bilaterally, no rales/wheezes Chest wall-mild edema on the left chest wall/upper breast region, nontender, firm, mild erythema, but no warmth or tenderness Heart- normal rate, regular rhythm; no murmur, no gallop, no rub appreciated Abdomen- normal bowel sounds, Mildly distended but soft, nontender, no masses or hepatosplenomegaly Extremities- no pretibial edema, no calf tenderness; peripheral pulses intact Neuro- alert, oriented x 3; CN 2-12 grossly intact; motor 5/5 bilaterally;sensation 100% on all extremities; no other gross focal neurologic deficits Skin- warm & dry Results & Data Results & Data Vital Signs (Past 12 Hours) Vital Signs Temp Pulse Pulse Resp BP BP Pulse Ox 06/12/24 15:02 66 20 120/76 98 06/12/24 13:58 72 14 114/81 99 06/12/24 12:27 74 06/12/24 12:14 77 22 98 06/12/24 12:07 37.1 C 77 22 145/93 H 98 06/12/24 12:05 77 22 98 O2 Del Method 06/12/24 15:02 Room Air 06/12/24 13:58 Room Air 06/12/24 12:27 06/12/24 12:14 Room Air 06/12/24 12:07 Room Air 06/12/24 12:05 Room Air all noted and reviewed including below Code Status & VTE Plan VTE Prophylaxis Plan VTE Prophylaxis will be ordered: Yes
[2024-06-12] MEDS: SODIUM CHLORIDE 0.9% 1,000 ML IV SCH (15:46)
--- NOTE | 2024-06-12 16:13 | CT Scan Report ---
CT chest diagnostic wo con CT DOSE: 497.03 mGy.cm HISTORY: left chest wall edema TECHNIQUE: Multiaxial CT images of the chest were performed without contrast. A dose lowering techni que was utilized adhering to the principles of ALARA. COMPARISON: Outside hospital chest CT 12/02/2019. Chest CTA 09/12/2014. FINDINGS: No acute fractures within the chest. The central airways are patent. No pneumothorax. No pl eural effusions. Focal irregular/linear density within the right upper lobe which appears to represen t scarring. Otherwise, no focal lung consolidations to suggest a pneumonia. No evidence for pulmonary edema. The left lung is clear. The visualized liver, spleen, and adrenal glands unremarkable. Normal thyroid gland. Normal esophagus. No mediastinal or hilar lymphadenopathy. The left coronary artery s tent noted. The heart is normal in size. Mild calcified plaque within the normal caliber thoracic aor ta. IMPRESSION: 1. No acute process within the chest. 2. There is a focal irregular/linear density within the right upper lobe which favors scarring. 3. Otherwise, no focal lung consolidations to suggest a pneumonia. ACT 112: Negative or not required by law. Electronically signed by: Aleksey Arenas M.D. 06/12/2024 4:11 PM
[2024-06-12] MEDS ORDERED: GLUCOSE 10 TAB/TUBE PO PRN (17:56)
[2024-06-12] MEDS ORDERED: DEXTROSE 50% 50 ML SYRINGE IV PRN (17:56)
[2024-06-12] MEDS ORDERED: GLUCOSE 40% GEL 15 GM TUBE PO PRN (17:56)
[2024-06-12] MEDS ORDERED: CARBOHYDRATES FOR HYPOGLYCEMIA PO PRN (17:56)
[2024-06-12] MEDS ORDERED: GLUCAGON FOR INJ 1 MG VIAL SQ PRN (17:56)
[2024-06-12] MEDS: INSULIN ASPART PER UNIT CHARGE SC SCH ×2 (18:20→20:47)
[2024-06-12] MEDS: ROSUVASTATIN CALCIUM 20 MG TAB PO SCH (20:10)
[2024-06-12] MEDS ORDERED: MAGNESIUM HYDROXIDE SUSP 30 ML UDC PO PRN (20:50)
[2024-06-12] MEDS: QUEtiapine FUMARATE 200 MG TAB PO SCH ×2 (20:51)
[2024-06-12] MEDS: DOXEPIN HCL 75 MG CAPSULE PO SCH (20:52)
[2024-06-12] MEDS: bisacodyL 10 MG SUPP PR STA (20:53)
[2024-06-12] MEDS: MAGNESIUM HYDROXIDE SUSP 30 ML UDC PO ONE (20:56)
[2024-06-12] MEDS ORDERED: INSULIN ASPART PER UNIT CHARGE SC SCH (21:00)
[2024-06-12] MEDS ORDERED: Nursing to Pharmacy Communication SCH (21:00)
[2024-06-13 06:39] LABS: Basophils # (auto) 0.05 K/uL (0.00-0.20); Basophils % (auto) 0.9 %; Eosinophils # (auto) 0.44 K/uL (0.00-0.50); Eosinophils % (auto) 7.6 %; Hematocrit (blood only) 35.2 % (42.0-52.0); Hemoglobin 11.6 g/dl (14.0-18.0); Immature Granulocytes # (auto) 0.02 K/uL (0.01-0.20); Immature Granulocytes % (auto) 0.3 %; Lymphocytes # (auto) 1.78 K/uL (1.20-3.40); Lymphocytes % (auto) 30.8 %; Mean Corpuscular Hemoglobin 29.9 pg (25.0-34.0); Mean Corpuscular Volume 90.7 fL (80.0-100.0); Mean Platelet Volume 9.4 fL (9.4-12.4); Monocytes # (auto) 0.69 K/uL (0.11-0.59); Neutrophils # (auto) 2.79 K/uL (1.40-6.50); Neutrophils % (auto) 48.4 %; Platelet Count 206 K/uL (130-400); RDW Coefficient of Variation 13.8 % (11.5-14.5); RDW Standard Deviation 45.9 fL (36.4-46.3); Red Blood Count 3.88 M/uL (4.70-6.10); White Blood Count 5.77 K/ul (4.8-10.8)
[2024-06-13 06:51] LABS: BUN Creatinine Ratio 11.5 (10-20); Calcium 8.6 mg/dl (8.6-10.3); Creatinine Clr Calc Pharmacy 58.4 ml/min; Est GFR (African American) 63.4 ml/min; Est GFR (Non-African American) 54.7 ml/min; Potassium 3.8 mmol/L (3.5-5.1)
[2024-06-13] MEDS: lisinopril 20 MG TAB PO SCH (07:28)
[2024-06-13] MEDS: amLODIPine BESYLATE 5 MG TAB PO SCH (07:28)
[2024-06-13] MEDS: ISOSORBIDE MONO EXTENDED REL 60 MG TABCR PO SCH (07:28)
[2024-06-13] MEDS: buPROPion SR 100 MG TABCR PO SCH (07:28)
[2024-06-13] MEDS: FENOFIBRATE NANOCRYSTALLIZED 145 MG TABLET PO SCH (07:28)
[2024-06-13] MEDS: PANTOprazole 40 MG TAB PO SCH (07:29)
[2024-06-13] MEDS: POLYETHYLENE (MIRALAX) 17 GM PACK PO SCH (07:29)
[2024-06-13] MEDS: METOPROLOL SUCC 50MG EXT REL TAB PO SCH (07:29)
--- NOTE | 2024-06-13 10:54 | Cardiology Consultation ---
Date of Consultation June 13, 2024 Assessment & Plan (1) Chest pain: Patient presented with symptoms of chest pain possible abdominal pressure, pressure of left chest wall, and transient left upper arm tingling. Underwent CT of the chest, abdomen, and pelvis without acute findings. CT of the brain without acute intracranial abnormality. EKG x 2 reassuring. High-sensitivity troponin x 4 within normal limits. Patient has known coronary artery disease with drug-eluting stent to the circumflex in 2018, and 2 drug-eluting stents placed in the LAD in 2022. He is on chronic dual antiplatelet therapy with aspirin and clopidogrel. And is also on amlodipine, isosorbide mononitrate, metoprolol succinate, lisinopril, rosuvastatin. Discussed options with regards to proceeding with stress echocardiogram to evaluate for ischemia and to see if presenting symptoms would be reproduced with aerobic exertion, observation on medical therapy, or repeat cardiac catheterization all discussed with patient.Report of previous cardiac catheterization reviewed in his epic record with noted residual ostial diagonal lesion which was treated medically in 2022 with recommendation the report to consider PCI if patient had breakthrough angina despite maximal medical therapy. Patient states that he feels reassured having had negative cardiac enzymes and elects to proceed with discharge on medications. Will increase Imdur from 60 mg daily to 120 mg daily. Recommend follow up with primary drapery supervisor within a month post hospital. Resume ASA and clopidogrel. History of Present Illness Attending Physician: Enrique Velez, History of Present Illness Mr Santiago is a 58-year-old male seen in cardiology consultation per the request of Dr. Carter for the evaluation of chest discomfort.Patient notes that yesterday he was reading and while at rest, he had sudden onset of a pressure sensation in the midportion of his chest that radiated into his neck and noted transient left arm numbness.He did take nitroglycerin at home and felt like that may have helped his symptoms, but he had not taken it until about 2 hours after the event and per his description it sounds like most of his symptoms were already resolved by that time. Patient currently feels well. Denies any complaints. Inoted below, patient underwent previous cardiac catheterization at this institution in 2018 and another cardiac catheterization within the [facility] in 2022. He states he follows with cardiology in [place]. Past Medical History: Recent outpatient neurology evaluation for TIA versus seizure episode , MRI of the brain performed 03/21/2024 within the [facility] revealed chronic lacunar infarcts in the bilateral basal ganglia In September, patient underwent cardiac catheterization and received a drug- eluting stent to the mid to distal circumflex coronary artery without obstructive disease elsewhere In Mar, 2023 presented with dyspnea on exertion and was found to have an abnormal stress test prompting repeat cardiac catheterization performed at [facility]: Copy of the report from [facility] tab in Epic record: Single-vessel obstructive coronary artery disease of the LAD. IFR of the LAD is 0.88, 0.87, 0.85. IFR-guided PCI with ROCAEL of the mid LAD. Patent stent in the mid LCx. Hemodynamically insignificant IFR of the LCx. Coronary Findings Diagnostic Dominance: Right Left Main: The vessel exhibits minimal luminal irregularities. Left Anterior Descending: Mid LAD lesion is 70% stenosed. Culprit lesion. RAYRAY flow is 3. The lesion is calcified and eccentric. The lesion is moderately calcified. iFR was measured. IFR of the LAD is 0.85, 0.87, 0.88 which is hemodynamically significant. First Diagonal Branch: The vessel is moderate in size. Major diagonal branch is a large sized vessel and has ostial and proximal long 70 to 80% stenosis. This vessel takes off of the LAD in the proximal segment. 1st Diag lesion is 80% stenosed. Left Circumflex: Previously placed Prox Cx to Mid Cx stent (unknown type) is widely patent. Mid Cx lesion is 50% stenosed. Not the culprit lesion. iFR of the left circumflex coronary artery is 0.93, 0.94, 0.95 which is hemodynamically insignificant. Right Coronary Artery: The vessel exhibits minimal luminal irregularities. Large sized vessel, dominant, gives of the RPDA and PLV branches. Intervention Mid LAD lesion: Stent: Drug-eluting stent was successfully placed. The stent used was a STENT [id number] PHILLIP [id number]. Stent was deployed by way of balloon expansion. Maximum pressure: 20 tawanda. Inflation time: 20 sec. Stent: Drug-eluting stent was successfully placed. The stent used was a STENT [id number] PHILLIP [id number]. Stent was deployed by way of balloon expansion. Maximum pressure: 15 tawanda. Inflation time: 20 sec. Post-Intervention Lesion Assessment: The intervention was successful. Post-intervention RAYRAY flow is 3. Lesion had 25 mm of its length treated. There were no complications. There is a 0% residual stenosis post intervention. Allergies Allergy/AdvReac Type Severity Reaction Status Date / Time celecoxib Allergy Mild OTHER Verified 10/24/10 14:02 Cephalosporins Allergy Mild OTHER Verified 10/24/10 14:02 hydromorphone Allergy Mild OTHER Verified 10/24/10 14:02 tramadol Allergy Mild OTHER Verified 11/05/10 04:16 Penicillins Allergy Unknown UNKNOWN Verified 11/28/10 09:20 propoxyphene Allergy Unknown 0 Verified 11/05/10 04:16 cephalexin AdvReac Intermediate VOMITING Verified 12/13/10 11:15 naproxen AdvReac Intermediate N/V Verified 12/13/10 11:15 chlorpromazine AdvReac Mild FLUSHED Verified 12/13/10 11:15 hydrocodone AdvReac Mild NAUSEA/CP Verified 11/05/10 06:20 morphine AdvReac Unknown NAUSEA Verified 09/01/14 09:53 Home Medications Medication Instructions Recorded Confirmed Type aspirin 81 mg tablet,delayed 81 mg PO QAM 12/06/18 06/12/24 History release doxepin 75 mg capsule 150 mg PO HS 12/06/18 06/12/24 History fenofibrate 160 mg tablet 160 mg PO QAM 12/06/18 06/12/24 History lisinopril 20 mg tablet 20 mg PO QAM 12/06/18 06/12/24 History metformin 500 mg tablet 1,000 mg PO QAM 12/06/18 06/12/24 History vortioxetine 20 mg tablet 20 mg PO QAM 12/06/18 06/12/24 History bupropion HCl 100 mg tablet,12 hr 100 mg PO QAM 10/24/19 06/12/24 History sustained-release (Wellbutrin SR) rosuvastatin 40 mg tablet 40 mg PO HS 10/25/19 06/12/24 History clopidogrel 75 mg tablet 75 mg PO QAM #30 tabs 10/26/19 06/12/24 Rx amlodipine 5 mg tablet 5 mg PO QAM 06/12/24 06/12/24 History dulaglutide 1.5 mg/0.5 mL 1.5 mg subcut WK 06/12/24 06/12/24 History subcutaneous pen injector (Trulicity) empagliflozin 10 mg tablet 10 mg PO QAM 06/12/24 06/12/24 History (Jardiance) isosorbide mononitrate 60 mg 60 mg PO DAILY 06/12/24 06/12/24 History tablet,extended release 24 hr metoprolol succinate 100 mg 50 mg PO QAM 06/12/24 06/12/24 History tablet,extended release 24 hr nitroglycerin 0.4 mg sublingual 0.4 mg sublingual UD PRN Chest Pain 06/12/24 06/12/24 History tablet omeprazole 40 mg capsule,delayed 40 mg PO QAM 06/12/24 06/12/24 History release quetiapine 200 mg tablet See Rx Instructions .Route .COMPLEX 06/12/24 06/12/24 History quetiapine 400 mg tablet See Rx Instructions .Route .COMPLEX 06/12/24 06/12/24 History Patient History Medical History History of tobacco use PSVT (paroxysmal supraventricular tachycardia) Surgical History History of cardiac catheterization S/P bilateral hip replacements H/O inguinal hernia repair History of cholecystectomy Family History Other Diabetes Heart disease Social History Smoking Status: Former smoker Hx Alcohol Use: No Hx Substance Use: No Preferred Language: Lao Communication Ability: Effective Machine Former Required: No Beliefs That Will Affect Care: None Current Living Situation: Significant Other Other Information That Helps Us Care for You: No Feels Safe at Home: Yes Assistive Devices: Glasses Review of Systems Review of Systems: All systems reviewed & are unremarkable except as noted in HPI & below Physical Exam Physical Exam: General: no acute distress and stated age Eyes: conjunctiva are pink and non-injected, sclera clear Neck: normal jugular venous pulse, no hepatojugular reflux Chest: normal shape and normal respiratory effort Lungs: clear to auscultation and percussion Cardiac Exam: - regular heart sounds, no murmurs, rubs, or gallops, no jugular venous distention Abdomen: abdomen soft, non-tender, no abnormal masses and no hepatosplenomegaly Musculoskeletal: no gait disturbance, no weakness Extremities: no edema and no cyanosis Neuro:awake, conversant, follows commands, no focal motor deficits Psych: appropriate affect and insight. Results & Data Vital Signs (Past 12 Hours) Vital Signs Temp Pulse Pulse Resp BP Pulse Ox O2 Del Method 06/13/24 07:54 68 06/13/24 07:37 36.7 C 72 20 115/76 96 Room Air 06/13/24 07:03 Room Air 06/13/24 02:53 36.5 C 66 16 95/53 L 98 Room Air Laboratory Results Cardiac Enzymes 06/12/24 06/12/24 06/12/24 Range/Units 12:00 14:53 18:39 AST 22 (13-39) U/L Troponin I High Sens < 2.3 < 2.3 2.7 (0-20) pg/ml CBC 06/12/24 06/13/24 Range/Units 12:00 06:00 WBC 6.31 5.77 (4.8-10.8) K/ul RBC 4.28 L 3.88 L (4.70-6.10) M/uL Hgb 12.9 L 11.6 L (14.0-18.0) g/dl Hct 38.8 L 35.2 L (42.0-52.0) % Plt Count 230 206 (130-400) K/uL Neut # (Auto) 3.74 2.79 (1.40-6.50) K/uL Lymph # (Auto) 1.41 1.78 (1.20-3.40) K/uL Monona # (Auto) 0.72 H 0.69 H (0.11-0.59) K/uL Eos # (Auto) 0.37 0.44 (0.00-0.50) K/uL Baso # (Auto) 0.05 0.05 (0.00-0.20) K/uL Comprehensive Metabolic Panel 06/12/24 06/13/24 Range/Units 12:00 06:00 Sodium 138 140 (136-145) mmol/L Potassium 4.5 3.8 (3.5-5.1) mmol/L Chloride 104 110 H (98-107) mmol/L Carbon Dioxide 26 25 (21-32) mmol/L BUN 22 16 (6-23) mg/dl Creatinine 1.52 H 1.39 (0.6-1.4) mg/dl Glucose 83 77 (70-99(Fasting)) mg/dl Calcium 10.4 H 8.6 (8.6-10.3) mg/dl AST 22 (13-39) U/L ALT 19 (7-52) U/L Alkaline Phosphatase 33 L (34-104) U/L Total Protein 7.9 (6.0-8.3) gm/dl Albumin 4.8 (3.4-5.0) gm/dl Intake and Output 06/12/24 06/13/24 06/13/24 22:59 06:59 14:59 Intake Total 240 / 1740 1000 / 1740 956.25 / 956.25 Balance 240 / 1740 1000 / 1740 956.25 / 956.25 Intake: IV 1000 / 1500 956.25 / 956.25 Sodium Chloride 0.9% 1,000 ml @ 1000 / 1000 956.25 / 956.25 125 mls/hr IV .Q8H [facility] Rx#: [id number] Oral 240 / 240 Other: Other Intake Source npo Weight 82 kg 82 kg Weight Measurement Method Standing Scale Standing Scale Diagnostic Findings EKG performed 06/12/2024 reveals normal sinus rhythm at 74 bpm, normal EKG Repeat tracing performed today 06/13/2024 5:26 AM and interpret independently: Sinus rhythm at 71 bpm, normal EKG. Unchanged compared to previous. (1) Chest pain Chest pain type: unspecified Qualified Code(s): R07.9 - Chest pain, unspecified
--- NOTE | 2024-06-13 12:34 | Electrocardiogram Report ---
Test Reason : Blood Pressure : / mmHG Vent. Rate : 074 BPM Atrial Rate : 074 BPM P-R Int : 172 ms QRS Dur : 094 ms QT Int : 368 ms P-R-T Axes : 053 025 058 degrees QTc Int : 408 ms Normal sinus rhythm Normal ECG When compared with ECG of 25-OCT-2019 14:51, No significant change was found Confirmed by Benito Mercado ([id number]) on 06/13/2024 12:34:41 PM Referred By: REFERRED SELF Confirmed By:Benito Mercado
--- NOTE | 2024-06-13 12:50 | Electrocardiogram Report ---
Test Reason : Blood Pressure : / mmHG Vent. Rate : 071 BPM Atrial Rate : 071 BPM P-R Int : 196 ms QRS Dur : 106 ms QT Int : 414 ms P-R-T Axes : 058 027 044 degrees QTc Int : 449 ms Normal sinus rhythm Normal ECG When compared with ECG of 12-JUN-2024 12:04, (unconfirmed) No significant change was found Confirmed by Benito Mercado ([id number]) on 06/13/2024 12:50:07 PM Referred By: REFERRED SELF Confirmed By:Benito Mercado
--- NOTE | 2024-06-13 12:52 | Discharge Summary ---
Discharge Summary Date of Service June 13, 2024 Principal Dx & Hospital Course #1 = Principal Diagnosis (1) Stable angina: (2) History of CAD (coronary artery disease): (3) Acute kidney injury: (4) Diabetes mellitus: (5) HTN (hypertension): Plan Patient was cared for in the hospital. He is in a monitored unit. There is no significant arrhythmias. His troponins were trended and remained negative times all sets. He had no further chest pain. His renal dysfunction improved with some hydration. He was evaluated by cardiology on the day of discharge. They recommended increasing his Imdur and having outpatient follow-up with his primary beam sealer. Time of discharge patient did eat and his lunch. Again no recurrent symptoms. Understood need for follow-up and will be discharged to home. Notes For Next Care Provider Follow-up with outpatient cardiology Medication Changes From Visit Increase Imdur Admission HPI Per Admitting Provider 58-year-old male with history of CAD, status post stent placement, paroxysmal SVT, diabetes type 2, hypertension, dyslipidemia, TIA, left carotid stenosis, COPD/asthma, GERD, mood disorder presenting with abdominal distention and left- sided chest pain which started this morning. At around 4 AM this morning, the patient woke up with abdominal distention but no associated pain, nausea/vomiting, fevers or chills. Last bowel movement was yesterday. Patient took a walk, and subsequently had a bowel movement- nonbloody, formed stools. After reviewing notes, while sitting up reading, the patient experienced left- sided chest pain described as burning sensation radiating to the left side of his neck and upper left arm. There was also numbness on the upper left arm. Patient got very concerned as symptoms are very reminiscent of his previous heart attack. He took 3 baby aspirins and 2 nitro tablets which relieved the chest pain. En route to the ER, the patient was given another 4 baby aspirin as per patient. Upon arrival at the ER, vital signs stable overall. Troponin negative EKG no signs of acute ischemia or infarct CT abdomen pelvis no acute process, positive moderate fecal retention On exam, patient seen resting in bed, sitting up, not in distress, comfortable. Denies active chest pain, shortness of breath, palpitations, dizziness. Still reporting abdominal distention, but no pain, no nausea. Admission Exam Per Admitting Provider See H&P Discharge Exam Constitutional: Alert HEENT: Mucous membranes moist. Lungs: Clear to auscultation, decreased, no wheezes rales or rhonchi CV: S1-S2, regular Abdomen: Soft, nontender, nondistended Extremities: No significant edema Neuro: No focal deficits Psych: Cooperative, normal mood Updated Medication List Medication Instructions Recorded Confirmed Type aspirin 81 mg tablet,delayed 81 mg PO QAM 12/06/18 06/12/24 History release doxepin 75 mg capsule 150 mg PO HS 12/06/18 06/12/24 History fenofibrate 160 mg tablet 160 mg PO QAM 12/06/18 06/12/24 History lisinopril 20 mg tablet 20 mg PO QAM 12/06/18 06/12/24 History metformin 500 mg tablet 1,000 mg PO QAM 12/06/18 06/12/24 History vortioxetine 20 mg tablet 20 mg PO QAM 12/06/18 06/12/24 History bupropion HCl 100 mg tablet,12 hr 100 mg PO QAM 10/24/19 06/12/24 History sustained-release (Wellbutrin SR) rosuvastatin 40 mg tablet 40 mg PO HS 10/25/19 06/12/24 History clopidogrel 75 mg tablet 75 mg PO QAM #30 tabs 10/26/19 06/12/24 Rx amlodipine 5 mg tablet 5 mg PO QAM 06/12/24 06/12/24 History dulaglutide 1.5 mg/0.5 mL 1.5 mg subcut WK 06/12/24 06/12/24 History subcutaneous pen injector (Trulicity) empagliflozin 10 mg tablet 10 mg PO QAM 06/12/24 06/12/24 History (Jardiance) isosorbide mononitrate 60 mg 60 mg PO DAILY 06/12/24 06/12/24 History tablet,extended release 24 hr metoprolol succinate 100 mg 50 mg PO QAM 06/12/24 06/12/24 History tablet,extended release 24 hr nitroglycerin 0.4 mg sublingual 0.4 mg sublingual UD PRN Chest Pain 06/12/24 06/12/24 History tablet omeprazole 40 mg capsule,delayed 40 mg PO QAM 06/12/24 06/12/24 History release quetiapine 200 mg tablet See Rx Instructions .Route .COMPLEX 06/12/24 06/12/24 History quetiapine 400 mg tablet See Rx Instructions .Route .COMPLEX 06/12/24 06/12/24 History isosorbide mononitrate 120 mg 120 mg PO QAM #30 tabs 06/13/24 Rx tablet,extended release 24 hr Hospital Stay Data Consultations 06/12/24 14:23 ED Decision to Admit Stat 06/12/24 15:33 Consult Cardiology Routine Diagnostic Imagining Performed 06/12/24 12:12 CT abd pelvis IV con only Stat 06/12/24 15:02 CT head/brain wo con Stat 06/12/24 15:12 CT chest diagnostic wo con Routine Reviewed imaging, laboratory and diagnostic studies. Pertinent findings as below. Troponins negative times all sets Creatinine 1.39 Pending Results Patient Have Any Pending Studies at Discharge: No Discharge Instructions Given to Patient (Per Discharging Provider) Follow-up with your outpatient beam sealer Total Time Total Time Spent Total Time Spent (In Minutes): 25
[2024-06-13] MEDS: ISOSORBIDE MONO EXTENDED REL 60 MG TABCR PO ONE (12:54)
[2024-06-13] MEDS: ASPIRIN 81 MG ECTAB PO SCH (12:54)
[2024-06-13] MEDS: CLOPIDOGREL BISULFATE 75 MG TAB PO SCH (12:54)
[2024-06-14] MEDS ORDERED: ISOSORBIDE MONO EXTENDED REL 60 MG TABCR PO SCH (09:00)
== END 2024-06-13 13:14 | disposition home or self-care (01) | DRG 303 ==
LOC: ED 11:56 → 2N 14:37 → SUATTDRO 14:37 → 2N 15:16

== ENCOUNTER 2025-10-05 19:12 | Observation (INO) ==
--- NOTE | 2025-10-05 19:30 | Emergency Department Note ---
Impression & Plan Near syncope, Hand pain ED Provider Note CHIEF COMPLAINT: Presyncope HISTORY OF PRESENTING ILLNESS: The patient is a pleasant, 60-year-old male who arrives to the emergency department for evaluation of presyncope. Patient states he was at home, when he felt a hot sensation to the left side of his neck with chest pain. He states felt as if he was going to pass out, however he did not. He does report he has a history of a left carotid artery blockage. He is also stating he has right arm weakness, and swelling. He denies chest pain, shortness of breath, headache, current dizziness, or lightheadedness. His vital signs are currently stable, he is afebrile. REVIEW OF SYSTEMS: See HPI for pertinent positives and pertinent negatives. ALLERGIES: See below MEDICATIONS: See below PAST MEDICAL HISTORY: See below PHYSICAL EXAM: VITALS: Vitals are noted on the nurse's note and reviewed by myself. Vital signs stable. GENERAL: 60-year-old male, in no acute distress, nondiaphoretic, well-developed well-nourished. SKIN: The skin was without rashes, erythema, edema, or bruising. HEAD: Normocephalic atraumatic. EARS: External auditory canals clear, tympanic membranes pearly lopez without erythema or effusion bilaterally. No hemotympanum. EYES: Pupils equal round and reactive to light and accommodation. Conjunctivae without injection, sclerae without icterus. Extraocular movements intact. No nystagmus. NOSE: Patent, turbinates without inflammation or discharge. No sinus tenderness. MOUTH: Mucous membranes moist. No tonsillar hypertrophy. Pharynx without erythema or exudate. Uvula midline. Airway patent. Tongue does not deviate. NECK: Supple without nuchal rigidity. No lymphadenopathy. Cervical spine is nontender. No JVD. HEART: Regular rate and rhythm without murmurs gallops or rubs. LUNGS: Clear to auscultation bilaterally without wheezes, rales or rhonchi. No retractions or accessory muscle use. ABDOMEN: Positive bowel sounds x 4. Soft, nontender, without masses or organomegaly. Carmona sign negative. No guarding or rebound tenderness. MUSCULOSKELETAL: Pain in the distal right upper extremity, with slight edema noted at the wrist. Radial pulse intact. Manager Marketing Communication strength 4/5. NEURO: Patient was alert and oriented to person place and time. No focal neurological deficits. DIFFERENTIAL DIAGNOSIS: Vasovagal event, dehydration, infection, hypoglycemia, electrolyte abnormalities, cardiac sources, intracerebral event, pulmonary embolism, seizure, toxicologic, neurologic, as well as other pathologies. ED COURSE AND MEDICAL DECISION MAKING: MEDICATIONS GIVEN: 4 mg IV morphine MONITOR: Continuous monitor car operator: Order was placed for continuous monitor car operator. Patient was placed on the monitor car operator and continuous pulse ox. Patient was noted to be in normal sinus rhythm at an initial rate of 88 bpm per my interpretation. EKG: EKG was interpreted by myself as normal sinus rhythm at a rate of 89 bpm, no ST elevation depression, or ectopy. Previous for comparison from May 2024 shows no significant change. INTERPRETATION OF LABS: I interpreted the labs with full lab results as below in the lab section of this note. Pertinent lab results discussed in the MDM section below. INTERPRETATION OF IMAGING: Imaging studies were interpreted by myself and read by radiology as per the imaging section of this note. MDM SUMMARY: The patient is a pleasant, 60-year-old male who arrives to the emergency department for evaluation of the above-stated complaint. Saline lock was established, lab work was obtained. CBC shows no leukocytosis, with a stable anemia. CMP is unremarkable. Troponin 3.6, repeat 2.3. Chest x-ray per my interpretation shows no acute cardiopulmonary process. Due to patient's episode of presyncope, with reported dizziness, and chest pain, CTA imaging of the chest was obtained. CTA imaging shows no acute findings, unremarkable. Ultrasound imaging of the right upper extremity was obtained to rule out DVT, which was negative. Patient is requesting pain medication for the right upper extremity. Patient was provided IV morphine, without relief of symptoms. Upon speaking with the patient regarding the workup, he states he is still in significant pain. Due to the episode of presyncope, with chest pain, and dizziness, I do believe the patient should be admitted to the hospital, for further evaluation, as well as pain control for the hand. [facility] Dr. Shine, agreed to evaluate and except the patient for admission. Please refer to his documentation for further patient workup and care. DIAGNOSIS: Presyncope, hand pain The chart was completed utilizing [employer] voice recognition software. Grammatical errors, random word insertions, pronoun errors, and incomplete sentences are an occasional consequence of this system due to software limitations, ambient noise, and hardware issues. Any formal questions or concerns about the content, text, or information contained within the body of this dictation should be directly addressed to the provider for clarification. Past Med/Surg History Problem List (Updated 10/12/25 @ 02:00 by BAHMAN Abdullahi) Hand pain (Acute) Near syncope (Acute) Stable angina Abdominal pain (Acute) Abdominal distension (Acute) Acute kidney injury History of CAD (coronary artery disease) Constipation Chest pain (Acute) Diabetes mellitus Prediabetes S/P coronary artery stent placement (Acute) CAD (coronary artery disease) (Acute) Mood disorder HTN (hypertension) Medical History History of tobacco use PSVT (paroxysmal supraventricular tachycardia) Surgical History History of cardiac catheterization S/P bilateral hip replacements H/O inguinal hernia repair History of cholecystectomy Family History Other Diabetes Heart disease Social History Smoking Status: Former smoker Tobacco Type: Smokeless Tobacco (Dip or Chew) Do You Dip or Chew Tobacco: Yes; Hx Alcohol Use: No Hx Substance Use: Yes Preferred Language: Upper Sorbian Communication Ability: Effective Car Greaser Required: No Beliefs That Will Affect Care: None Current Living Situation: Alone Feels Safe at Home: Yes Assistive Devices: Glasses Allergies Allergies Allergy/AdvReac Type Severity Reaction Status Date / Time celecoxib Allergy Mild OTHER Verified 10/24/10 14:02 Cephalosporins Allergy Mild OTHER Verified 10/24/10 14:02 hydromorphone Allergy Mild OTHER Verified 10/24/10 14:02 tramadol Allergy Mild OTHER Verified 11/05/10 04:16 Penicillins Allergy Unknown UNKNOWN Verified 11/28/10 09:20 propoxyphene Allergy Unknown 0 Verified 11/05/10 04:16 cephalexin AdvReac Intermediate VOMITING Verified 12/13/10 11:15 naproxen AdvReac Intermediate N/V Verified 12/13/10 11:15 chlorpromazine AdvReac Mild FLUSHED Verified 12/13/10 11:15 hydrocodone AdvReac Mild NAUSEA/CP Verified 11/05/10 06:20 morphine AdvReac Unknown NAUSEA Verified 09/01/14 09:53 Home Meds Home Medications Medication Instructions Recorded Confirmed amlodipine 5 mg tablet 5 mg PO DAILY 10/06/25 10/06/25 aspirin 81 mg tablet,delayed 81 mg PO DAILY 10/06/25 10/06/25 release clopidogrel 75 mg tablet 75 mg PO DAILY 10/06/25 10/06/25 doxepin 75 mg capsule 150 mg PO HS 10/06/25 10/06/25 dulaglutide 1.5 mg/0.5 mL 1.5 mg subcut WK 10/06/25 10/06/25 subcutaneous pen injector (Trulicity) empagliflozin 10 mg tablet 10 mg PO DAILY 10/06/25 10/06/25 (Jardiance) fenofibrate 160 mg tablet 160 mg PO DAILY 10/06/25 10/06/25 fexofenadine 60 mg tablet 60 mg PO DAILY 10/06/25 10/06/25 isosorbide mononitrate 60 mg 60 mg PO DAILY 10/06/25 10/06/25 tablet,extended release 24 hr latanoprost 0.005 % eye drops 1 drp OPB HS 10/06/25 10/06/25 lisinopril 20 mg tablet 20 mg PO DAILY 10/06/25 10/06/25 metformin 500 mg tablet,extended 1,000 mg PO DAILY 10/06/25 10/06/25 release 24 hr metoprolol succinate 100 mg 50 mg PO DAILY 10/06/25 10/06/25 tablet,extended release 24 hr prazosin 5 mg capsule 5 mg PO HS 10/06/25 10/06/25 quetiapine 200 mg tablet 200 mg PO HS 10/06/25 10/06/25 quetiapine 400 mg tablet 400 mg PO HS 10/06/25 10/06/25 rosuvastatin 40 mg tablet 40 mg PO HS 10/06/25 10/06/25 sennosides 8.6 mg-docusate sodium 1 tab PO BID 10/06/25 10/06/25 50 mg tablet (Senexon-S) vortioxetine 20 mg tablet 20 mg PO DAILY 10/06/25 10/06/25 (Trintellix) Previous Rx's Medication Instructions Recorded pantoprazole 40 mg tablet,delayed 40 mg PO DAILY #30 tabs 10/07/25 release prednisone 20 mg tablet 20 mg PO DAILY 7 days #7 tabs 10/07/25 Results & Data (ED) Laboratory Data 10/06/25 05:34 10/06/25 05:34 Lab Results 10/05/25 10/05/25 Range/Units 19:24 22:52 WBC 7.82 (4.8-10.8) K/ul RBC 3.97 L (4.70-6.10) M/uL Hgb 11.6 L (14.0-18.0) g/dl Hct 35.2 L (42.0-52.0) % MCV 88.7 (80.0-100.0) fL MCH 29.2 (25.0-34.0) pg MCHC 33.0 (32.0-36.0) g/dL RDW Std Deviation 45.4 (36.4-46.3) fL RDW Coeff of Rory 13.8 (11.5-14.5) % Plt Count 266 (130-400) K/uL MPV 9.1 L (9.4-12.4) fL Immature Gran % (Auto) 0.3 % Neut % (Auto) 58.8 % Lymph % (Auto) 22.4 % Leslie % (Auto) 11.9 % Eos % (Auto) 6.0 % Baso % (Auto) 0.6 % Neut # (Auto) 4.60 (1.40-6.50) K/uL Lymph # (Auto) 1.75 (1.20-3.40) K/uL Leslie # (Auto) 0.93 H (0.11-0.59) K/uL Eos # (Auto) 0.47 (0.00-0.50) K/uL Baso # (Auto) 0.05 (0.00-0.20) K/uL Immature Gran # (Auto) 0.02 (0.01-0.20) K/uL Sodium 139 (136-145) mmol/L Potassium 3.9 (3.5-5.1) mmol/L Chloride 108 H (98-107) mmol/L Carbon Dioxide 24 (21-32) mmol/L Anion Gap 7 (3-11) BUN 18 (6-23) mg/dl Creatinine 1.15 (0.6-1.4) mg/dl Est Cr Clr Drug Dosing Not Reportable eGFR 71.96 BUN/Creatinine Ratio 15.7 (10-20) Glucose 88 (70-99(Fasting)) mg/dl Calcium 9.3 (8.6-10.3) mg/dl Magnesium 2.0 (1.7-2.4) mg/dl Total Bilirubin 0.3 (0.2-1.0) mg/dl AST 20 (13-39) U/L ALT 13 (7-52) U/L Alkaline Phosphatase 44 (34-104) U/L Troponin I High Sens 3.6 2.3 (0-20) pg/ml Total Protein 7.3 (6.0-8.3) gm/dl Albumin 3.9 (3.4-5.0) gm/dl Globulin 3.4 (2.5-4.0) gm/dl Albumin/Globulin Ratio 1.1 (0.9-2) Administered Medications Discontinued Medications Acetaminophen (Acetaminophen 325 Mg Tab) 650 mg PO Q4H PRN PRN Reason: Pain or Fever Stop: 11/05/25 03:55 Last Admin: 10/07/25 09:50 Dose: 650 mg Documented By: Admin: 10/07/25 05:42 Dose: 650 mg Documented By: Admin: 10/06/25 20:00 Dose: 650 mg Documented By: Admin: 10/06/25 09:17 Dose: 650 mg Documented By: Admin: 10/06/25 04:47 Dose: 650 mg Documented By: justo Amlodipine Besylate (Amlodipine Besylate 5 Mg Tab) 5 mg PO DAILY [facility] Stop: 11/05/25 08:59 Last Admin: 10/07/25 09:50 Dose: 5 mg Documented By: Admin: 10/06/25 09:06 Dose: 5 mg Documented By: OBI Aspirin (Aspirin 81 Mg Ectab) 81 mg PO DAILY [facility] Stop: 11/05/25 08:59 Last Admin: 10/07/25 09:50 Dose: 81 mg Documented By: Admin: 10/06/25 09:05 Dose: 81 mg Documented By: OBI Clopidogrel Bisulfate (Clopidogrel Bisulfate 75 Mg Tab) 75 mg PO DAILY [facility] Stop: 11/05/25 08:59 Last Admin: 10/07/25 09:50 Dose: 75 mg Documented By: Admin: 10/06/25 09:06 Dose: 75 mg Documented By: OBI Doxepin HCl (Doxepin Hcl 75 Mg Capsule) 150 mg PO HS HANG Stop: 11/05/25 20:59 Last Admin: 10/06/25 20:03 Dose: 150 mg Documented By: NILSA Fexofenadine HCl (Fexofenadine 60 Mg Tab) 60 mg PO DAILY [facility] Stop: 11/05/25 08:59 Last Admin: 10/07/25 09:50 Dose: 60 mg Documented By: Admin: 10/06/25 09:06 Dose: 60 mg Documented By: OBI Hydromorphone HCl (Hydromorphone Inj 0.5 Mg/0.5 Ml Syr) 0.5 mg IV NOW STA Stop: 10/06/25 00:52 Last Admin: 10/06/25 01:10 Dose: 0.5 mg Documented By: MIGUEL Hydromorphone HCl (Hydromorphone Inj 0.5 Mg/0.5 Ml Syr) 0.5 mg IV Q6H PRN PRN Reason: Breakthrough Pain Stop: 10/20/25 03:55 Last Admin: 10/06/25 17:22 Dose: 0.5 mg Documented By: Admin: 10/06/25 06:47 Dose: 0.5 mg Documented By: justo Sodium Chloride (Nss) 1,000 mls @ 80 mls/hr IV .[id number] HANG Stop: 10/06/25 16:25 Last Infusion: 10/06/25 17:03 Dose: Infused Documented By: Admin: 10/06/25 04:53 Dose: 80 mls/hr Documented By: justo Ceftriaxone Sodium (Rocephin) 2,000 mg in 50 mls @ 100 mls/hr IV Q24H HANG Stop: 10/13/25 03:55 Last Infusion: 10/07/25 05:43 Dose: Infused Documented By: Admin: 10/07/25 05:00 Dose: 100 mls/hr Documented By: Infusion: 10/06/25 05:30 Dose: Infused Documented By: justo Admin: 10/06/25 05:00 Dose: 100 mls/hr Documented By: justo Insulin Aspart (Insulin Aspart Per Unit Charge) 0 units SC Q6 HANG Stop: 11/05/25 05:59 Last Admin: 10/06/25 12:50 Dose: Not Given Documented By: Admin: 10/06/25 05:17 Dose: Not Given Documented By: justo Co-signed By: NILSA Insulin Aspart (Insulin Aspart Per Unit Charge) 0 units SC ACHS HANG Stop: 11/05/25 16:44 Last Admin: 10/07/25 09:50 Dose: Not Given Documented By: Admin: 10/06/25 20:08 Dose: Not Given Documented By: Admin: 10/06/25 18:10 Dose: 3 units Documented By: OBI Co-signed By: shawn Ioversol (Optiray 320 125ml) 120 ml IV ONCE ONE Stop: 10/05/25 20:44 Last Admin: 10/05/25 20:43 Dose: 120 ml Documented By: MARV Isosorbide Mononitrate (Isosorbide Leslie Extended Rel 60 Mg Tabcr) 60 mg PO DAILY HANG Stop: 11/05/25 08:59 Last Admin: 10/07/25 09:50 Dose: 60 mg Documented By: Admin: 10/06/25 09:06 Dose: 60 mg Documented By: OBI Ketorolac Tromethamine (Ketorolac Tromethamine 15 Mg/Ml Vial) 15 mg IV NOW ONE Stop: 10/06/25 00:03 Last Admin: 10/06/25 00:24 Dose: 15 mg Documented By: MIGUEL Latanoprost (Latanoprost 0.005% Op Soln 2.5 Ml Btl) 1 drops OPB HS HANG Stop: 11/05/25 20:59 Last Admin: 10/06/25 20:07 Dose: Not Given Documented By: NILSA Lisinopril (Lisinopril 20 Mg Tab) 20 mg PO DAILY HANG Stop: 11/05/25 08:59 Last Admin: 10/07/25 09:50 Dose: 20 mg Documented By: Admin: 10/06/25 09:06 Dose: 20 mg Documented By: OBI Metoprolol Succinate (Metoprolol Succ 50mg Ext Rel Tab) 50 mg PO DAILY HANG Stop: 11/05/25 08:59 Last Admin: 10/07/25 09:50 Dose: 50 mg Documented By: Admin: 10/06/25 09:06 Dose: 50 mg Documented By: OBI Miscellaneous (Fenofibrate 160 Mg - Order Awaiting Action) 1 each N/A QS HANG Stop: 11/05/25 07:59 Last Admin: 10/07/25 09:50 Dose: Not Given Documented By: Admin: 10/07/25 00:06 Dose: Not Given Documented By: Admin: 10/06/25 17:03 Dose: Not Given Documented By: Admin: 10/06/25 12:51 Dose: Not Given Documented By: OBI Morphine Sulfate (Morphine Sulfate 4 Mg/Ml 1 Ml Carp\Vial) 4 mg IV NOW STA Stop: 10/05/25 22:39 Last Admin: 10/05/25 22:45 Dose: 4 mg Documented By: MIGUEL Oxycodone HCl (Oxycodone Hcl Ir 5 Mg Tab (Immediate Release)) 5 mg PO Q6H PRN PRN Reason: Mod-Sev Pain (Scale 4-10) Stop: 10/20/25 03:55 Last Admin: 10/07/25 05:08 Dose: 5 mg Documented By: Admin: 10/06/25 20:01 Dose: 5 mg Documented By: Admin: 10/06/25 12:53 Dose: 5 mg Documented By: Admin: 10/06/25 06:28 Dose: 5 mg Documented By: justo Prazosin HCl (Prazosin Hcl 1 Mg Cap) 5 mg PO [facility] Stop: 11/05/25 20:59 Last Admin: 10/06/25 20:07 Dose: 5 mg Documented By: NILSA Prednisone (Prednisone 20 Mg Tab) 20 mg PO DAILY HANG Stop: 11/05/25 08:59 Last Admin: 10/07/25 09:50 Dose: 20 mg Documented By: Admin: 10/06/25 10:13 Dose: 20 mg Documented By: OBI Quetiapine Fumarate (Quetiapine Fumarate 200 Mg Tab) 600 mg PO HS HANG Stop: 11/05/25 20:59 Last Admin: 10/06/25 20:04 Dose: 600 mg Documented By: NILSA Rosuvastatin Calcium (Rosuvastatin Calcium 20 Mg Tab) 40 mg PO [facility] Stop: 11/05/25 20:59 Last Admin: 10/06/25 20:09 Dose: 40 mg Documented By: NILSA Senna/Docusate Sodium (Docusate Sodium/Senna 50/8.6mg Tab) 1 tab PO BID HANG Stop: 11/05/25 08:59 Last Admin: 10/07/25 09:50 Dose: Not Given Documented By: Admin: 10/06/25 20:00 Dose: 1 tab Documented By: Admin: 10/06/25 09:07 Dose: Not Given Documented By: OBI Vortioxetine (Vortioxetine Hydrobromide 20 Mg Tab) 20 mg PO DAILY [facility]ANG Stop: 11/05/25 08:59 Last Admin: 10/07/25 09:50 Dose: 20 mg Documented By: Admin: 10/06/25 09:06 Dose: 20 mg Documented By: OBI Discharge Plan Visit Data Chief Complaint: Syncope (Near Syncope) Stated Complaint: Near Syncope, R Arm Numbness, R Arm Swelling ED Provider: Minoo Juarez ED Midlevel Provider: Naty Yu Discharge Problem: Near syncope, Hand pain Patient Disposition: Admitted As Inpatient Condition: Fair Discharge Instructions Interventions: ED Discharge Assessment Last Done: 10/06/25 03:46
[2025-10-05 19:37] LABS: Hematocrit (blood only) 35.2 % (42.0-52.0); Hemoglobin 11.6 g/dl (14.0-18.0); Immature Granulocytes # (auto) 0.02 K/uL (0.01-0.20); Immature Granulocytes % (auto) 0.3 %; Mean Corpuscular Hemoglobin 29.2 pg (25.0-34.0); Mean Corpuscular Volume 88.7 fL (80.0-100.0); Platelet Count 266 K/uL (130-400); RDW Standard Deviation 45.4 fL (36.4-46.3); Red Blood Count 3.97 M/uL (4.70-6.10); White Blood Count 7.82 K/ul (4.8-10.8)
[2025-10-05 19:54] LABS: Alanine Aminotransferase 13 U/L (7-52); Albumin Globulin Ratio 1.1 (0.9-2); Albumin Level 3.9 gm/dl (3.4-5.0); Alkaline Phosphatase 44 U/L (34-104); Anion Gap 7 (3-11); Bilirubin,Total 0.3 mg/dl (0.2-1.0); Blood Urea Nitrogen 18 mg/dl (6-23); Calcium 9.3 mg/dl (8.6-10.3); Carbon Dioxide 24 mmol/L (21-32); Chloride 108 mmol/L (98-107); Globulin 3.4 gm/dl (2.5-4.0); Glucose 88 mg/dl (70-99(Fasting)); Magnesium 2.0 mg/dl (1.7-2.4); Potassium 3.9 mmol/L (3.5-5.1); Sodium 139 mmol/L (136-145); Total Protein 7.3 gm/dl (6.0-8.3)
--- NOTE | 2025-10-05 20:40 | XRay Report ---
Chest radiograph, one view History: Chest pain Comparison: None Findings: Single AP view of the chest performed. No focal consolidation or pleural effusion. No pneumothorax. The cardiomediastinal silhouette is within normal limits. Normal pulmonary vascularity. No evidence for lymphadenopathy. No visualized bony or soft tissue abnormality. Impression: Normal chest radiograph Electronically signed by Terry Rosales 10-05-2025 8:40 PM
[2025-10-05] MEDS: OPTIRAY 320 125ml IV ONE (20:43)
--- NOTE | 2025-10-05 21:41 | CT Scan Report ---
Exam(s): CTA CHEST IV Amt: 120 ML [id number] EXAM: CT Angiography Chest With Intravenous Contrast CLINICAL HISTORY: Reason for exam: PE. TECHNIQUE: Axial computed tomographic angiography images of the chest with intravenous contrast. CTDI is 22.52 mGy and DLP is 800.51 mGy-cm. Automated exposure control was utilized for the study. A dose lowering technique was utilized adhering to the principles of ALARA. MIP reconstructed images were created and reviewed. COMPARISON: CT 06/12/2024 FINDINGS: Pulmonary arteries: Unremarkable. No pulmonary embolism. Aorta: No acute findings. Normal caliber. No dissection. Lungs: Unchanged scarring in the right upper lobe. No pulmonary infarct. Pleural space: No pleural effusion. No pneumothorax. Heart: Heart size is normal. Severe coronary artery calcifications.. Bones/joints: No acute fracture. Soft tissues: Unremarkable. Lymph nodes: Unremarkable. IMPRESSION: No acute findings in the visualized arteries of the chest. Electronically signed by: Tripp Chapa MD 10/05/25 21:40 PM
--- NOTE | 2025-10-05 22:32 | Ultrasound Report ---
Exam(s): US VENOUS RIGHT UPPER EXTREMITY EXAM: US Duplex Right Upper Extremity Veins CLINICAL HISTORY: Reason for exam: edema, pain. TECHNIQUE: Real-time duplex ultrasound scan of the right upper extremity veins integrating B-mode two-dimensional vascular structure, Doppler spectral analysis, color flow Doppler imaging and compression. COMPARISON: No relevant prior studies available. FINDINGS: Deep veins: No DVT in the internal jugular, subclavian, axillary, or brachial veins. Superficial veins: No thrombus in the visualized basilic and cephalic veins. Soft tissues: No acute findings. IMPRESSION: No acute findings in the right upper extremity veins. Electronically signed by: Tripp Chapa MD 10/05/25 22:31 PM
[2025-10-05] MEDS: MoRPHine SULFATE 4 MG/ML 1 ML CARP\\VIAL IV STA (22:45)
[2025-10-06] MEDS: KETOROLAC TROMETHAMINE 15 MG/ML VIAL IV ONE (00:24)
[2025-10-06] MEDS: HYDROmorphone INJ 0.5 MG/0.5 ML SYR IV STA (01:10)
--- NOTE | 2025-10-06 01:31 | History & Physical Report ---
Date of Service October 06, 2025 Assessment & Plan (1) Near syncope: Plan: 60-year-old male with past med history significant for type 2 diabetes, hyperlipidemia, COPD, allergic asthma, paroxysmal SVT, hypertension, CAD, left carotid stenosis, heart failure, GERD, plaque psoriasis, degenerative disc disease, bilateral ocular hypertension, history of TIA comes in because of near syncope. Patient said around 5 PM he felt like passing out and also had some pain in the left side of his neck. His symptoms lasted for 2 hours. Please is also having right forearm pain going on for last 1 week but got worse lately. Currently his main complaint is right hand and forearm pain. Denies any chest pain. Denies shortness of breath. No headache. No runny nose or sore throat. No cough. No fevers. No abdominal pain. Normal bowel and bladder movements. Hemodynamics are okay. Near syncope 2 sets of troponin negative CTA chest unremarkable Will monitor in telemetry Will follow echo Cardiac consult in a.m. Right forearm pain Sates going on for last 1 week but worse lately No DVT on the Doppler Has good pulses on bedside Doppler Will follow CAT scans Empiric Rocephin for possible cellulitis as forearm s slightly warm and slightly swollen Will monitor History of COPD History of asthma Restrictive lung disease Follows with pulmonary Continue home inhalers History of CAD s/p stent On aspirin Plavix and statin and beta-alesha History of paroxysmal SVT On metoprolol succinate Diabetes Hold home p.o. medications Sliding scale Will follow HbA1c levels Schizophrenia Continue home medications Hyperlipidemia On statin GERD Can change omeprazole to Protonix as patient is on Plavix Hypertension On Imdur, lisinopril, metoprolol succinate, prazosin and amlodipine Will monitor DVT prophylaxis SCDs for now Disposition Observation med/telemetry Full code. History of Present Illness Chief Complaint: Near syncope and right forearm pain Primary Care Provider: NO PCP 60-year-old male with past med history significant for type 2 diabetes, hyperlipidemia, COPD, allergic asthma, paroxysmal SVT, hypertension, CAD, left carotid stenosis, heart failure, GERD, plaque psoriasis, degenerative disc disease, bilateral ocular hypertension, history of TIA comes in because of near syncope. Patient said around 5 PM he felt like passing out and also had some pain in the left side of his neck. His symptoms lasted for 2 hours. Please is also having right forearm pain going on for last 1 week but got worse lately. Currently his main complaint is right hand and forearm pain. Denies any chest pain. Denies shortness of breath. No headache. No runny nose or sore throat. No cough. No fevers. No abdominal pain. Normal bowel and bladder movements. Hemodynamics are okay. Past medical history. As mentioned above. Past surgical history. Repair of her ankle fracture. Cardiac cath. Laparoscopic cholecystectomy. Laparoscopic bilateral inguinal hernia repair. Bilateral total hip replacement. Social history. Quit smoking 2018. Smoked 1.5 pack a day for 8 years. No alcohol use. History of methamphetamines, benzodiazepines and marijuana use. Family history. Father had heart disorder. Stroke. Brother has hypertension. Sister has hypertension. Allergies Allergy/AdvReac Type Severity Reaction Status Date / Time celecoxib Allergy Mild OTHER Verified 10/24/10 14:02 Cephalosporins Allergy Mild OTHER Verified 10/24/10 14:02 hydromorphone Allergy Mild OTHER Verified 10/24/10 14:02 tramadol Allergy Mild OTHER Verified 11/05/10 04:16 Penicillins Allergy Unknown UNKNOWN Verified 11/28/10 09:20 propoxyphene Allergy Unknown 0 Verified 11/05/10 04:16 cephalexin AdvReac Intermediate VOMITING Verified 12/13/10 11:15 naproxen AdvReac Intermediate N/V Verified 12/13/10 11:15 chlorpromazine AdvReac Mild FLUSHED Verified 12/13/10 11:15 hydrocodone AdvReac Mild NAUSEA/CP Verified 11/05/10 06:20 morphine AdvReac Unknown NAUSEA Verified 09/01/14 09:53 Home Medications Medication Instructions Recorded Confirmed Type amlodipine 5 mg tablet 5 mg PO DAILY 10/06/25 10/06/25 History aspirin 81 mg tablet,delayed 81 mg PO DAILY 10/06/25 10/06/25 History release clopidogrel 75 mg tablet 75 mg PO DAILY 10/06/25 10/06/25 History doxepin 75 mg capsule 150 mg PO HS 10/06/25 10/06/25 History dulaglutide 1.5 mg/0.5 mL 1.5 mg subcut WK 10/06/25 10/06/25 History subcutaneous pen injector (Trulicity) empagliflozin 10 mg tablet 10 mg PO DAILY 10/06/25 10/06/25 History (Jardiance) fenofibrate 160 mg tablet 160 mg PO DAILY 10/06/25 10/06/25 History fexofenadine 60 mg tablet 60 mg PO DAILY 10/06/25 10/06/25 History isosorbide mononitrate 60 mg 60 mg PO DAILY 10/06/25 10/06/25 History tablet,extended release 24 hr latanoprost 0.005 % eye drops 1 drp OPB HS 10/06/25 10/06/25 History lisinopril 20 mg tablet 20 mg PO DAILY 10/06/25 10/06/25 History metformin 500 mg tablet,extended 1,000 mg PO DAILY 10/06/25 10/06/25 History release 24 hr metoprolol succinate 100 mg 50 mg PO DAILY 10/06/25 10/06/25 History tablet,extended release 24 hr omeprazole 40 mg capsule,delayed 40 mg PO DAILY 10/06/25 10/06/25 History release prazosin 5 mg capsule 5 mg PO HS 10/06/25 10/06/25 History quetiapine 200 mg tablet 200 mg PO HS 10/06/25 10/06/25 History quetiapine 400 mg tablet 400 mg PO HS 10/06/25 10/06/25 History rosuvastatin 40 mg tablet 40 mg PO HS 10/06/25 10/06/25 History sennosides 8.6 mg-docusate sodium 1 tab PO BID 10/06/25 10/06/25 History 50 mg tablet (Senexon-S) vortioxetine 20 mg tablet 20 mg PO DAILY 10/06/25 10/06/25 History (Trintellix) Past Med/Surg History Problem List (Updated 10/06/25 @ 01:25 by Logan Shine MD) Near syncope Stable angina Abdominal pain (Acute) Abdominal distension (Acute) Acute kidney injury History of CAD (coronary artery disease) Constipation Chest pain (Acute) Diabetes mellitus Prediabetes S/P coronary artery stent placement (Acute) CAD (coronary artery disease) (Acute) Mood disorder HTN (hypertension) Medical History History of tobacco use PSVT (paroxysmal supraventricular tachycardia) Surgical History History of cardiac catheterization S/P bilateral hip replacements H/O inguinal hernia repair History of cholecystectomy Family History Other Diabetes Heart disease Social History Smoking Status: Former smoker Tobacco Type: Smokeless Tobacco (Dip or Chew) Do You Dip or Chew Tobacco: Yes; Hx Alcohol Use: No Hx Substance Use: Yes Preferred Language: Ivorian Communication Ability: Effective Etiology Teacher Required: No Beliefs That Will Affect Care: None Current Living Situation: Alone Feels Safe at Home: Yes Assistive Devices: Glasses Review of Systems Review of Systems: All systems reviewed & are unremarkable except as noted in HPI & below Physical Exam Physical Exam: General- Not in distress Head- atraumatic Eyes- PERRL. ENT- oropharynx clear Neck- supple, no JVD. Lungs- clear to auscultation no wheezing or crackles Heart- regular rhythm; no murmur, no gallop. Abdomen- normal bowel sounds, soft, nontender, no distension Extremities- no pretibial edema, right forearm mild swelling and warm on palpation Neuro- alert, oriented PERRL, no facial palsy; no dysarthria; moves extremities Results & Data Results & Data Vital Signs (Past 12 Hours) Vital Signs Temp Pulse Pulse Resp BP BP Pulse Ox 10/05/25 23:00 72 17 143/89 H 95 10/05/25 21:02 78 12 135/92 96 10/05/25 19:26 93 H 10/05/25 19:25 88 18 98 10/05/25 19:02 88 15 98 10/05/25 19:02 36.7 C 88 15 98 10/05/25 19:02 36.7 C 88 15 142/92 H 97 O2 Del Method 10/05/25 23:00 Room Air 10/05/25 21:02 Room Air 10/05/25 19:26 10/05/25 19:25 Room Air 10/05/25 19:02 Room Air 10/05/25 19:02 Room Air 10/05/25 19:02 Room Air Diagnostic Findings Laboratory Results WBC 7.82 K/ul (4.8-10.8) 10/05/25 19:24 RBC 3.97 M/uL (4.70-6.10) L 10/05/25 19:24 Hgb 11.6 g/dl (14.0-18.0) L 10/05/25 19: Hct 35.2 % (42.0-52.0) L 10/05/25: MCV 88.7 fL (80.0-100.0) 10/05/25 19:24 MCH 29.2 pg (25.0-34.0) 10/05/25 19: MCHC 33.0 g/dL (32.0-36.0) 10/05/25: RDW Std Deviation 45.4 fL (36.4-46.3) 10/05/25: RDW Coeff of Rory 13.8 % (11.5-14.5) 10/05/25: Plt Count 266 K/uL (130-400) 10/05/25: MPV 9.1 fL (9.4-12.4) L 10/05/25: Immature Gran % (Auto) 0.3 % 10/05/25: Neut % (Auto) 58.8 % 10/05/25:24 Lymph % (Auto) 22.4 % 10/05/25:24 [place] % (Auto) 11.9 % 10/05/25:24 Eos % (Auto) 6.0 % 10/05/25: Baso % (Auto) 0.6 % 10/05/25: Neut # (Auto) 4.60 K/uL (1.40-6.50) 10/05/25: Lymph # (Auto) 1.75 K/uL (1.20-3.40) 10/05/25:24 [place] # (Auto) 0.93 K/uL (0.11-0.59) H 10/05/25:24 Eos # (Auto) 0.47 K/uL (0.00-0.50) 10/05/25: Baso # (Auto) 0.05 K/uL (0.00-0.20) 10/05/25: Immature Gran # (Auto) 0.02 K/uL (0.01-0.20) 10/05/25 19:24 Sodium 139 mmol/L (136-145) 10/05/25 19:24 Potassium 3.9 mmol/L (3.5-5.1) 10/05/25 19:24 Chloride 108 mmol/L (98-107) H 10/05/25 19:24 Carbon Dioxide 24 mmol/L (21-32) 10/05/25 19:24 Anion Gap 7 (3-11) 10/05/25 19:24 BUN 18 mg/dl (6-23) 10/05/25 19:24 Creatinine 1.15 mg/dl (0.6-1.4) 10/05/25 19:24 Est Cr Clr Drug Dosing Not Reportable 10/05/25 19:24 eGFR 71.96 10/05/25 19:24 BUN/Creatinine Ratio 15.7 (10-20) 10/05/25 19:24 Glucose 88 mg/dl (70-99(Fasting)) 10/05/25 19:24 Calcium 9.3 mg/dl (8.6-10.3) 10/05/25 19:24 Magnesium 2.0 mg/dl (1.7-2.4) 10/05/25 19:24 Total Bilirubin 0.3 mg/dl (0.2-1.0) 10/05/25 19:24 AST 20 U/L (13-39) 10/05/25 19:24 ALT 13 U/L (7-52) 10/05/25 19:24 Alkaline Phosphatase 44 U/L (34-104) 10/05/25 19:24 Troponin I High Sens 2.3 pg/ml (0-20) 10/05/25 22:52 Total Protein 7.3 gm/dl (6.0-8.3) 10/05/25 19:24 Albumin 3.9 gm/dl (3.4-5.0) 10/05/25 19:24 Globulin 3.4 gm/dl (2.5-4.0) 10/05/25 19:24 Albumin/Globulin Ratio 1.1 (0.9-2) 10/05/25 19:24 Impressions Chest X-Ray 10/05/25 19:30 Chest radiograph, one view History: Chest pain Comparison: None Findings: Single AP view of the chest performed. No focal consolidation or pleural effusion. No pneumothorax. The cardiomediastinal silhouette is within normal limits. Normal pulmonary vascularity. No evidence for lymphadenopathy. No visualized bony or soft tissue abnormality. Impression: Normal chest radiograph Electronically signed by Terry Rosales 10-05-2025 8:40 PM Chest CTA 10/05/25 20:30 Exam(s): CTA CHEST IV Amt: 120 ML [id number] EXAM: CT Angiography Chest With Intravenous Contrast CLINICAL HISTORY: Reason for exam: PE. TECHNIQUE: Axial computed tomographic angiography images of the chest with intravenous contrast. CTDI is 22.52 mGy and DLP is 800.51 mGy-cm. Automated exposure control was utilized for the study. A dose lowering technique was utilized adhering to the principles of ALARA. MIP reconstructed images were created and reviewed. COMPARISON: CT 06/12/2024 FINDINGS: Pulmonary arteries: Unremarkable. No pulmonary embolism. Aorta: No acute findings. Normal caliber. No dissection. Lungs: Unchanged scarring in the right upper lobe. No pulmonary infarct. Pleural space: No pleural effusion. No pneumothorax. Heart: Heart size is normal. Severe coronary artery calcifications.. Bones/joints: No acute fracture. Soft tissues: Unremarkable. Lymph nodes: Unremarkable. IMPRESSION: No acute findings in the visualized arteries of the chest. Electronically signed by: Tripp Chapa MD 10/05/25 21:40 PM Venous Doppler Study 10/05/25 20:30 Exam(s): US VENOUS RIGHT UPPER EXTREMITY EXAM: US Duplex Right Upper Extremity Veins CLINICAL HISTORY: Reason for exam: edema, pain. TECHNIQUE: Real-time duplex ultrasound scan of the right upper extremity veins integrating B-mode two-dimensional vascular structure, Doppler spectral analysis, color flow Doppler imaging and compression. COMPARISON: No relevant prior studies available. FINDINGS: Deep veins: No DVT in the internal jugular, subclavian, axillary, or brachial veins. Superficial veins: No thrombus in the visualized basilic and cephalic veins. Soft tissues: No acute findings. IMPRESSION: No acute findings in the right upper extremity veins. Electronically signed by: Tripp Chapa MD 10/05/25 22:31 PM Code Status & VTE Plan VTE Prophylaxis Plan VTE Prophylaxis will be ordered: Yes
--- NOTE | 2025-10-06 02:40 | CT Scan Report ---
EXAM: CT hand RT wo con CLINICAL HISTORY: severe right hand pain TECHNIQUE: Contiguous axial CT images of the right hand were obtained without intravenous contrast. Coronal and sagittal reconstructions were likewise performed to increase the sensitivity for detecting clinically relevant pathology. The CT scan was performed according to ALARA (as low as reasonably achievable). COMPARISON: None. FINDINGS: Diffuse edema is noted involving the subcutaneous muscular plane of the right hand. No acute fracture or dislocation is identified. No destructive osseous lesion is present. No cortical destruction to suggest osteomyelitis. No abscess formation. There are no soft tissue masses. IMPRESSION: Diffuse edema is noted involving the subcutaneous muscular plane of the right hand. No obvious osseous abnormality is seen. Electronically signed by Guy Puckett 10-06-2025 02:39 AM
--- NOTE | 2025-10-06 02:42 | CT Scan Report ---
EXAM: CT forearm RT wo con CLINICAL HISTORY: severe pain in right forearm and hand TECHNIQUE: Contiguous axial CT images of the right forearm were obtained without intravenous contrast. Coronal and sagittal reconstructions were likewise performed and indicated to increase the sensitivity for detecting clinically relevant pathology. The CT scan was performed according to ALARA (as low as reasonably achievable) principles. COMPARISON: None. FINDINGS: No acute fracture or dislocation is identified. No destructive osseous lesion is seen. No cortical destruction to suggest osteomyelitis is noted. No abscess formation is present. There are no soft tissue masses. Mild subcutaneous edema is noted adjacent to the wrist joint and distal forearm. IMPRESSION: Diffuse subcutaneous edema is noted adjacent to the wrist joint and distal forearm. No obvious osseous abnormalities are seen. Electronically signed by Guy Puckett 10-06-2025 02:42 AM
[2025-10-06] MEDS ORDERED: POLYETHYLENE (MIRALAX) 17 GM PACK PO PRN (03:56)
[2025-10-06] MEDS ORDERED: GLUCOSE 10 TAB/TUBE PO PRN (03:56)
[2025-10-06] MEDS ORDERED: CARBOHYDRATES FOR HYPOGLYCEMIA PO PRN (03:56)
[2025-10-06] MEDS ORDERED: GLUCAGON FOR INJ 1 MG VIAL SQ PRN (03:56)
[2025-10-06] MEDS ORDERED: DEXTROSE 50% 50 ML SYRINGE IV PRN (03:56)
[2025-10-06] MEDS ORDERED: GLUCOSE 40% GEL 15 GM TUBE PO PRN (03:56)
[2025-10-06] MEDS ORDERED: NITROGLYCERIN SL 0.4 MG/TAB TAB SL PRN (03:56)
[2025-10-06] MEDS: ACETAMINOPHEN 325 MG TAB PO PRN (04:47)
[2025-10-06] MEDS: SODIUM CHLORIDE 0.9% 1,000 ML IV SCH (04:53)
[2025-10-06] MEDS: cefTRIAXone SODIUM 2,000 MG/50 ML BAG IV SCH (05:00)
[2025-10-06] MEDS: INSULIN ASPART PER UNIT CHARGE SC SCH ×2 (05:17→18:10)
[2025-10-06 05:49] LABS: Hematocrit (blood only) 33.5 % (42.0-52.0); Hemoglobin 11.3 g/dl (14.0-18.0); Immature Granulocytes # (auto) 0.03 K/uL (0.01-0.20); Immature Granulocytes % (auto) 0.4 %; Mean Corpuscular Hemoglobin 29.9 pg (25.0-34.0); Mean Corpuscular Volume 88.6 fL (80.0-100.0); Platelet Count 239 K/uL (130-400); RDW Standard Deviation 44.9 fL (36.4-46.3); Red Blood Count 3.78 M/uL (4.70-6.10); White Blood Count 7.20 K/ul (4.8-10.8)
[2025-10-06 06:06] LABS: Calcium 9.3 mg/dl (8.6-10.3); Chloride 108.0 mmol/L (98-107); Creatinine Clr Calc Pharmacy 79.1 ml/min; Potassium 3.6 mmol/L (3.5-5.1)
[2025-10-06 06:15] LABS: Anion Gap 11.0 (3-11); Blood Urea Nitrogen 16.0 mg/dl (6-23); Carbon Dioxide 20.0 mmol/L (21-32); Glucose 79.0 mg/dl (70-99(Fasting)); Sodium 139.0 mmol/L (136-145)
[2025-10-06 06:23] LABS: Magnesium 1.9 mg/dl (1.7-2.4)
[2025-10-06] MEDS: HYDROmorphone INJ 0.5 MG/0.5 ML SYR IV PRN (06:47)
[2025-10-06 07:10] LABS: Hemoglobin A1C 5.8 % (4.5-5.6)
--- NOTE | 2025-10-06 08:56 | XCELERA ---
[id number]
[2025-10-06] MEDS: ASPIRIN 81 MG ECTAB PO SCH (09:05)
[2025-10-06] MEDS: CLOPIDOGREL BISULFATE 75 MG TAB PO SCH (09:06)
[2025-10-06] MEDS: ISOSORBIDE MONO EXTENDED REL 60 MG TABCR PO SCH (09:06)
[2025-10-06] MEDS: FEXOFENADINE 60 MG TAB PO SCH (09:06)
[2025-10-06] MEDS: VORTIOXETINE HYDROBROMIDE 20 MG TAB PO SCH (09:06)
[2025-10-06] MEDS: METOPROLOL SUCC 50MG EXT REL TAB PO SCH (09:06)
[2025-10-06] MEDS: DOCUSATE SODIUM/SENNA 50/8.6MG TAB PO SCH (09:07)
--- NOTE | 2025-10-06 09:09 | Cardiology Consultation ---
Date of Consultation October 06, 2025 Assessment & Plan (1) Near syncope: (2) History of CAD (coronary artery disease): (3) S/P coronary artery stent placement: (4) HTN (hypertension): (5) Hand pain: Plan Assessment: 60 year old male with history of CAD with multiple stents, HTN, HLD, and DM that presented to the ER with complaints of near syncope s/t left neck pain and right forearm/hand pain. History of cervical disc disease. EKG NSR with no acute ST-T wave changes. Troponin negative x3. Cardiology consulted due to patient's history for further evaluation/recommendations Plan: 1. Near syncope -Patient with complaints of near syncope in the setting of left neck pain and right forearm/hand pain. -EKG with no acute changes. Troponin negative x3. No chest pain, pressure or palpitations -Review of telemetry shows sinus rhythm with no ectopy or arrhythmia -Echocardiogram shows moderate concentric LVH likely due to longstanding hypertension. Normal LVEF 60-65%. No significant valvular disease, no pericardial effusion. Intact interatrial septum with no evidence of shunt. -history of bilateral carotid artery stenosis. Most recent study dated 01/2025 shows less than 50% stenosis bilaterally. May be underestimated due to heavily calcified plaque -patient to continue on ASA 81mg, Plavix 75mg and Crestor 40mg Daily. 2. CAD 3. History of coronary artery stents -patient offers no complaints of chest pain or anginal equivalent -EKG with no acute changes. -Troponin negative x3 -Echocardiogram shows preserved LvEF, no new wall motion abnormalities and no significant valvular disease --Continue on current OP cardiac regimen which includes ASA 81mg, Plavix 75mg, Amlodipine 50mg, Imdur 60mg, Lisinopril 20mg, toprol xl 50mg, and Crestor 40mg daily 4. HTN -Above target in the setting of significant arm pain, ongoing management per primary team -Continue Toprol xl, Lisinopril, Amlodipine and Imdur 5. Hand pain -Etiology unclear -Venous duplex of RUE negative for DVT -additional imaging including hand CT and Forearm CT per primary team -Orthopedics on consult -further management per ortho and primary team. Case has been discussed with Dr. Joe. Further recommendations regarding plan of care as per his assessment. BAHMAN Tejeda [facility] Cardiology [facility] Supervising Physician Co-Signing Physician Notes Patient was seen and personally examined. Chart, medications, telemetry reviewed. Full assessment and plan as outlined by advanced provider as above and personally endorsed. Current complaints noncardiac. Patient declines stress testing for additional restratification Recommendations otherwise as above History of Present Illness Reason for Consultation: near syncope with left neck pain Requesting Physician: Julia kimist Attending Physician: Milan Garcia MD History of Present Illness HPI: Patient is a 60 year old male with PMHx as outlined below that presents to the ER with complains of near syncope. Patient reports at 5pm on the night of admission he "felt like passing out" and endorsed left sided neck pain that lasted approx 2 hours. Complains of right forearm pain for the past week. 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 He reports that he was helping with a building project last week and since then has had intermittent left neck pain as well as "horrible right hand and forearm pain". He reports that yesterday the pain was intense and he felt like he could pass out. Denies any chest pain, pressure or palpitations. No shortness of breath, no PND, No syncope and no edema. Cardiac Problem list: 1. CAD-- Distal circumflex and mid LAD stents. He still has a medium size diagonal branch with 80% stenosis jailed within the LAD stent and being treated medically. 2. HTN 3. Mixed hyperlipidemia 4. DM type II 5. COPD 6. Carotid artery stenosis Last cardiac catheterization (right and left) 04/14/[address] Zion Reddy [facility] Follows with Dr. [facility], last visit 12/25/2024. Next visit is scheduled for 10/13/25 High sensitivity troponin negative x3 EKG NSR rate 89bpm QTC 442ms Allergies Allergy/AdvReac Type Severity Reaction Status Date / Time celecoxib Allergy Mild OTHER Verified 10/24/10 14:02 Cephalosporins Allergy Mild OTHER Verified 10/24/10 14:02 hydromorphone Allergy Mild OTHER Verified 10/24/10 14:02 tramadol Allergy Mild OTHER Verified 11/05/10 04:16 Penicillins Allergy Unknown UNKNOWN Verified 11/28/10 09:20 propoxyphene Allergy Unknown 0 Verified 11/05/10 04:16 cephalexin AdvReac Intermediate VOMITING Verified 12/13/10 11:15 naproxen AdvReac Intermediate N/V Verified 12/13/10 11:15 chlorpromazine AdvReac Mild FLUSHED Verified 12/13/10 11:15 hydrocodone AdvReac Mild NAUSEA/CP Verified 11/05/10 06:20 morphine AdvReac Unknown NAUSEA Verified 09/01/14 09:53 Home Medications Medication Instructions Recorded Confirmed Type amlodipine 5 mg tablet 5 mg PO DAILY 10/06/25 10/06/25 History aspirin 81 mg tablet,delayed 81 mg PO DAILY 10/06/25 10/06/25 History release clopidogrel 75 mg tablet 75 mg PO DAILY 10/06/25 10/06/25 History doxepin 75 mg capsule 150 mg PO HS 10/06/25 10/06/25 History dulaglutide 1.5 mg/0.5 mL 1.5 mg subcut WK 10/06/25 10/06/25 History subcutaneous pen injector (Trulicity) empagliflozin 10 mg tablet 10 mg PO DAILY 10/06/25 10/06/25 History (Jardiance) fenofibrate 160 mg tablet 160 mg PO DAILY 10/06/25 10/06/25 History fexofenadine 60 mg tablet 60 mg PO DAILY 10/06/25 10/06/25 History isosorbide mononitrate 60 mg 60 mg PO DAILY 10/06/25 10/06/25 History tablet,extended release 24 hr latanoprost 0.005 % eye drops 1 drp OPB HS 10/06/25 10/06/25 History lisinopril 20 mg tablet 20 mg PO DAILY 10/06/25 10/06/25 History metformin 500 mg tablet,extended 1,000 mg PO DAILY 10/06/25 10/06/25 History release 24 hr metoprolol succinate 100 mg 50 mg PO DAILY 10/06/25 10/06/25 History tablet,extended release 24 hr omeprazole 40 mg capsule,delayed 40 mg PO DAILY 10/06/25 10/06/25 History release prazosin 5 mg capsule 5 mg PO HS 10/06/25 10/06/25 History quetiapine 200 mg tablet 200 mg PO HS 10/06/25 10/06/25 History quetiapine 400 mg tablet 400 mg PO HS 10/06/25 10/06/25 History rosuvastatin 40 mg tablet 40 mg PO HS 10/06/25 10/06/25 History sennosides 8.6 mg-docusate sodium 1 tab PO BID 10/06/25 10/06/25 History 50 mg tablet (Senexon-S) vortioxetine 20 mg tablet 20 mg PO DAILY 10/06/25 10/06/25 History (Trintellix) Patient History Medical History History of tobacco use PSVT (paroxysmal supraventricular tachycardia) Surgical History History of cardiac catheterization S/P bilateral hip replacements H/O inguinal hernia repair History of cholecystectomy Family History Other Diabetes Heart disease Social History Smoking Status: Former smoker Tobacco Type: Smokeless Tobacco (Dip or Chew) Do You Dip or Chew Tobacco: Yes; Hx Alcohol Use: No Hx Substance Use: Yes Preferred Language: Azeri Communication Ability: Effective Sample Grader Required: No Beliefs That Will Affect Care: None Current Living Situation: Alone Feels Safe at Home: Yes Assistive Devices: Glasses Review of Systems Review of Systems: All systems reviewed & are unremarkable except as noted in HPI & below Physical Exam Constitutional: well developed and well nourished; no acute distress and not ill appearing Neck: normal visual inspection and trachea midline Respiratory: normal respiratory effort, lungs clear to auscultation no cough Auscultation: no crackles, no rales, no rhonchi and no wheezes Cardiovascular: RRR, no murmur, no edema Heart Sounds: normal S1 and normal S2; no murmur Vessels: dorsalis pedis pulses present; no JVD Skin: no rashes, warm and dry Psychiatric: Orientation: alert and oriented x 3 Affect: + anxious affect Results & Data Vital Signs (Past 12 Hours) Vital Signs Temp Pulse Pulse Resp BP BP Pulse Ox 10/06/25 07:40 72 10/06/25 07:25 36.5 C 88 20 158/99 H 99 10/06/25 05:00 10/06/25 03:59 76 24 173/106 H 100 10/06/25 03:47 74 10/06/25 03:00 73 16 150/93 H 96 10/06/25 01:00 73 15 152/98 H 97 10/06/25 00:09 74 10/05/25 23:00 72 17 143/89 H 95 10/05/25 21:02 78 12 135/92 96 Pulse Ox O2 Del Method O2 Del Method 10/06/25 07:40 10/06/25 07:25 Room Air 10/06/25 05:00 95 Room Air 10/06/25 03:59 Room Air 10/06/25 03:47 10/06/25 03:00 Room Air 10/06/25 01:00 Room Air 10/06/25 00:09 10/05/25 23:00 Room Air 10/05/25 21:02 Room Air Laboratory Results Cardiac Enzymes 10/05/25 10/05/25 10/06/25 Range/Units 19:24 22:52 05:34 AST 20 (13-39) U/L Troponin I High Sens 3.6 2.3 2.6 (0-20) pg/ml CBC 10/05/25 10/06/25 Range/Units 19:24 05:34 WBC 7.82 7.20 (4.8-10.8) K/ul RBC 3.97 L 3.78 L (4.70-6.10) M/uL Hgb 11.6 L 11.3 L (14.0-18.0) g/dl Hct 35.2 L 33.5 L (42.0-52.0) % Plt Count 266 239 (130-400) K/uL Neut # (Auto) 4.60 3.80 (1.40-6.50) K/uL Lymph # (Auto) 1.75 2.07 (1.20-3.40) K/uL [place] # (Auto) 0.93 H 0.83 H (0.11-0.59) K/uL Eos # (Auto) 0.47 0.43 (0.00-0.50) K/uL Baso # (Auto) 0.05 0.04 (0.00-0.20) K/uL Comprehensive Metabolic Panel 10/05/25 10/06/25 Range/Units 19:24 05:34 Sodium 139 139 (136-145) mmol/L Potassium 3.9 3.6 (3.5-5.1) mmol/L Chloride 108 H 108 H (98-107) mmol/L Carbon Dioxide 24 20 L (21-32) mmol/L BUN 18 16 (6-23) mg/dl Creatinine 1.15 0.98 (0.6-1.4) mg/dl Glucose 88 79 (70-99(Fasting)) mg/dl Calcium 9.3 9.3 (8.6-10.3) mg/dl AST 20 (13-39) U/L ALT 13 (7-52) U/L Alkaline Phosphatase 44 (34-104) U/L Total Protein 7.3 (6.0-8.3) gm/dl Albumin 3.9 (3.4-5.0) gm/dl Intake and Output 10/05/25 10/06/25 10/06/25 22:59 06:59 14:59 Intake Total 50 / 50 Balance 50 / 50 Intake: IV 50 / 50 cefTRIAXone SODIUM 2,000 mg In 50 / 50 50 ml @ 100 mls/hr IV Q24H [facility] Rx#:[id number] Other: Weight 95 kg 79 kg Weight Measurement Method Built in Bedscale Standing Scale Diagnostic Findings Echocardiogram today: LV normal in size Moderate concentric LVH LVEF 60-65% No significant valvular disease No pericardial effusion Interatrial septum is intact with no evidence for an ASD Carotid duplex 02/06/25 obtained from [facility] Impression: Right carotid artery duplex examination indicates evidence of less than 50% stenosis of the internal carotid artery. Degree of stenosis may be greater than reported due to heavily calcified plaque. Left carotid artery duplex examination indicates evidence of less than 50% stenosis of the internal carotid artery. Degree of stenosis may be greater than reported due to heavily calcified plaque. Left and right heart cath [facility] with Dr. Reddy 04/13/2023 Conclusions Single-vessel obstructive coronary artery disease of the LAD. IFR of the LAD is 0.88, 0.87, 0.85. IFR-guided PCI with ROCAEL of the mid LAD. Patent stent in the mid LCx. Hemodynamically insignificant IFR of the LCx. Coronary Findings Diagnostic Dominance: Right Left Main: The vessel exhibits minimal luminal irregularities. Left Anterior Descending: Mid LAD lesion is 70% stenosed. Culprit lesion. RAYRAY flow is 3. The lesion is calcified and eccentric. The lesion is moderately calcified. iFR was measured. IFR of the LAD is 0.85, 0.87, 0.88 which is hemodynamically significant. First Diagonal Branch: The vessel is moderate in size. Major diagonal branch is a large sized vessel and has ostial and proximal long 70 to 80% stenosis. This vessel takes off of the LAD in the proximal segment. 1st Diag lesion is 80% stenosed. Left Circumflex: Previously placed Prox Cx to Mid Cx stent (unknown type) is widely patent. Mid Cx lesion is 50% stenosed. Not the culprit lesion. iFR of the left circumflex coronary artery is 0.93, 0.94, 0.95 which is hemodynamically insignificant. Right Coronary Artery: The vessel exhibits minimal luminal irregularities. Large sized vessel, dominant, gives of the RPDA and PLV branches. Intervention Mid LAD lesion: Stent: Drug-eluting stent was successfully placed. The stent used was a STENT [id number] PHILLIP [id number]. Stent was deployed by way of balloon expansion. Maximum pressure: 20 tawanda. Inflation time: 20 sec. Stent: Drug-eluting stent was successfully placed. The stent used was a STENT [id number] PHILLIP [id number]. Stent was deployed by way of balloon expansion. Maximum pressure: 15 tawanda. Inflation time: 20 sec. Post-Intervention Lesion Assessment: The intervention was successful. Post-intervention RAYRAY flow is 3. Lesion had 25 mm of its length treated. There were no complications. There is a 0% residual stenosis post intervention. Recommendations Maximal medical therapy. Risk factor modification. Cardiac rehabilitation. Dual antiplatelet therapy. Consider PCI of proximal and ostial major diagonal branch after 1 month if patient still has lifestyle modifying angina despite maximal medical therapy. PG Care Time/CCT Total # of Minutes Spent Total Time Spent with Patient: Total time spent is greater than 50% in coordination of care (as documented) at patient's floor/unit and/or counseling patient: Coding Level of Care Code 20356 IN/OBS CONSULT LVL 5,80M Medical Decision Making High Complexity Diagnoses Near syncope R55 History of CAD (coronary artery disease) Z86.79 S/P coronary artery stent placement Z95.5 HTN (hypertension) I10 Hand pain M79.643
--- NOTE | 2025-10-06 10:06 | Hospitalist Progress Note ---
Date of Service October 06, 2025 Assessment & Plan (1) Near syncope: Plan: 60-year-old male with past med history significant for type 2 diabetes, hyperlipidemia, COPD, allergic asthma, paroxysmal SVT, hypertension, CAD, left carotid stenosis, heart failure, GERD, plaque psoriasis, degenerative disc disease, bilateral ocular hypertension, history of TIA comes in because of near syncope. Patient said around 5 PM he felt like passing out and also had some pain in the left side of his neck. His symptoms lasted for 2 hours. Please is also having right forearm pain going on for last 1 week but got worse lately. . Denies any chest pain. Denies shortness of breath. No headache. No runny nose or sore throat. No cough. No fevers. No abdominal pain. Normal bowel and bladder movements. Hemodynamics are okay. Right forearm pain Likely carpal tunnel syndrome Patient reports pain in his hand, wrist along with tingling sensation. Pain worse at night Venous duplexno DVT Pulses intact Hand and forearm CT shows diffuse edema in the subcutaneous muscular plane Will start steroid with prednisone 20 mg once a day Will likely benefit from a wrist splint. Will consult orthopedics for any other further recommendation. Continue antibiotics for the time being If he continues to have pain; will need rheumatology/orthopedic referral as outpatient Near syncope 2 sets of troponin negative CTA chest unremarkable Echocardiogram shows EF of 60 to 65%; moderate concentric LVH. Zio patch as outpatient History of COPD History of asthma Restrictive lung disease Follows with pulmonary Continue home inhalers History of CAD s/p stent On aspirin Plavix and statin and beta-alesha History of paroxysmal SVT On metoprolol succinate-continue Diabetes Hold home p.o. medications Sliding scale Schizophrenia Continue home medications Hyperlipidemia On statin-continue GERD Can change omeprazole to Protonix as patient is on Plavix Hypertension On Imdur, lisinopril, metoprolol succinate, prazosin and amlodipine Will monitor DVT prophylaxis SCDs for now Disposition Observation med/telemetry Full code. Please note the above document was generated using voice recognition software. It may contain grammatical, syntax or spelling errors. Any formal questions or concerns about the content, text or information contained within the body of this dictation should be directly addressed to the provider for clarification Admission and Anticipated Discharge Date Admission Date: October 06, 2025 Subjective This patient seen and examined at bedside. He he reports pain in his right hand along with tingling sensation going up the wrist. Pain is particularly worse at night. Denies any chest pain or discomfort at this time Review of Systems Review of Systems: All systems reviewed & are unremarkable except as noted in Subjective Physical Exam Physical Exam: General- Not in distress Head- atraumatic Eyes- PERRL. ENT- oropharynx clear Neck- supple, no JVD. Lungs- clear to auscultation no wheezing or crackles Heart- regular rhythm; no murmur, no gallop. Abdomen- normal bowel sounds, soft, nontender, no distension Extremities- Swelling noted on right hand and wrist; Neuro- alert, oriented PERRL, no facial palsy; no dysarthria; moves extremities Results & Data Results & Data Vital Signs (Past 12 Hours) Vital Signs Temp Pulse Pulse Resp BP BP Pulse Ox 10/06/25 07:40 72 10/06/25 07:25 36.5 C 88 20 158/99 H 99 10/06/25 05:00 10/06/25 03:59 76 24 173/106 H 100 10/06/25 03:47 74 10/06/25 03:00 73 16 150/93 H 96 10/06/25 01:00 73 15 152/98 H 97 10/06/25 00:09 74 10/05/25 23:00 72 17 143/89 H 95 Pulse Ox O2 Del Method O2 Del Method 10/06/25 07:40 10/06/25 07:25 Room Air 10/06/25 05:00 95 Room Air 10/06/25 03:59 Room Air 10/06/25 03:47 10/06/25 03:00 Room Air 10/06/25 01:00 Room Air 10/06/25 00:09 10/05/25 23:00 Room Air
[2025-10-06] MEDS: predniSONE 20 MG TAB PO SCH (10:13)
--- NOTE | 2025-10-06 12:39 | Electrocardiogram Report ---
Test Reason : Blood Pressure : */* mmHG Vent. Rate : 89 BPM Atrial Rate : 89 BPM P-R Int : 172 ms QRS Dur : 98 ms QT Int : 364 ms P-R-T Axes : 43 7 49 degrees QTcB Int : 442 ms Normal sinus rhythm Normal ECG When compared with ECG of 13-Jun-2024 05:26, No significant change was found Confirmed by Benito Mercado ([id number]) on 10/06/2025 12:39:02 PM Referred By: REFERRED SELF Confirmed By: Benito Mercado
--- NOTE | 2025-10-06 12:45 | Electrocardiogram Report ---
Test Reason : Blood Pressure : */* mmHG Vent. Rate : 70 BPM Atrial Rate : 70 BPM P-R Int : 188 ms QRS Dur : 98 ms QT Int : 396 ms P-R-T Axes : 50 16 41 degrees QTcB Int : 427 ms Normal sinus rhythm Normal ECG When compared with ECG of 05-Oct-2025 19:18, (unconfirmed) No significant change was found Confirmed by Benito Mercado ([id number]) on 10/06/2025 12:44:41 PM Referred By: REFERRED SELF Confirmed By: Benito Mercado
--- NOTE | 2025-10-06 14:29 | Orthopedic Consultation ---
Date of Service October 06, 2025 Assessment & Plan (1) Hand pain: * Case/imaging reviewed and discussed with Dr Leach * No imaging or exam evidence to indicate infection or flexor/extensor tenosynovitis. Symptoms also not consistent with active carpal tunnel syndrome, no tingling or numbness and pain extends beyond median nerve distribution * Recommend symptomatic management including cock up wrist splint, NSAIDs, ice * Weight bearing status: activity as tolerated * Daily treatment: Physical Therapy/ Occupational Therapy per protocol * Pain control * Disposition: TBD * Remainder care per primary team * Will follow peripherally History of Present Illness Reason for Consultation: . Right hand pain Requesting Physician: . Attending Physician: Milan Garcia MD .Patient is a 60y/o male with right hand pain. PMH including type 2 diabetes, hyperlipidemia, COPD, allergic asthma, paroxysmal SVT, hypertension, CAD, left carotid stenosis, heart failure, GERD, plaque psoriasis, degenerative disc disease, bilateral ocular hypertension, history of TIA. Presents to hospital with left-sided facial and neck tingling, concern for TIA, also questionable syncopal event. Also notes several day history of right hand and forearm pain. Patient was admitted to hospital for workup of reported syncope. Regarding r ight hand, current workup including CT right hand and forearm demonstrating mild diffuse soft tissue edema of the stool wrist/hand, no abscess, no fracture. Orthopedics consulted for management recommendations. At time of exam patient sitting comfortably bed, no acute distress. Reports pain that starts in the right dorsal fingers that extends through the forearm towards his elbow, occasionally into the upper arm. Denies recent injury, trauma. States that he did help family build a chimney flue a few weeks ago but otherwise no significant events to the arm. Denies any recent fever or chills. Denies neck pain, tingling or numbness throughout the right arm. Reports significant improvement after initiating steroid taper. Allergies Allergy/AdvReac Type Severity Reaction Status Date / Time celecoxib Allergy Mild OTHER Verified 10/24/10 14:02 Cephalosporins Allergy Mild OTHER Verified 10/24/10 14:02 hydromorphone Allergy Mild OTHER Verified 10/24/10 14:02 tramadol Allergy Mild OTHER Verified 11/05/10 04:16 Penicillins Allergy Unknown UNKNOWN Verified 11/28/10 09:20 propoxyphene Allergy Unknown 0 Verified 11/05/10 04:16 cephalexin AdvReac Intermediate VOMITING Verified 12/13/10 11:15 naproxen AdvReac Intermediate N/V Verified 12/13/10 11:15 chlorpromazine AdvReac Mild FLUSHED Verified 12/13/10 11:15 hydrocodone AdvReac Mild NAUSEA/CP Verified 11/05/10 06:20 morphine AdvReac Unknown NAUSEA Verified 09/01/14 09:53 Home Medications Medication Instructions Recorded Confirmed Type amlodipine 5 mg tablet 5 mg PO DAILY 10/06/25 10/06/25 History aspirin 81 mg tablet,delayed 81 mg PO DAILY 10/06/25 10/06/25 History release clopidogrel 75 mg tablet 75 mg PO DAILY 10/06/25 10/06/25 History doxepin 75 mg capsule 150 mg PO HS 10/06/25 10/06/25 History dulaglutide 1.5 mg/0.5 mL 1.5 mg subcut WK 10/06/25 10/06/25 History subcutaneous pen injector (Trulicity) empagliflozin 10 mg tablet 10 mg PO DAILY 10/06/25 10/06/25 History (Jardiance) fenofibrate 160 mg tablet 160 mg PO DAILY 10/06/25 10/06/25 History fexofenadine 60 mg tablet 60 mg PO DAILY 10/06/25 10/06/25 History isosorbide mononitrate 60 mg 60 mg PO DAILY 10/06/25 10/06/25 History tablet,extended release 24 hr latanoprost 0.005 % eye drops 1 drp OPB HS 10/06/25 10/06/25 History lisinopril 20 mg tablet 20 mg PO DAILY 10/06/25 10/06/25 History metformin 500 mg tablet,extended 1,000 mg PO DAILY 10/06/25 10/06/25 History release 24 hr metoprolol succinate 100 mg 50 mg PO DAILY 10/06/25 10/06/25 History tablet,extended release 24 hr omeprazole 40 mg capsule,delayed 40 mg PO DAILY 10/06/25 10/06/25 History release prazosin 5 mg capsule 5 mg PO HS 10/06/25 10/06/25 History quetiapine 200 mg tablet 200 mg PO HS 10/06/25 10/06/25 History quetiapine 400 mg tablet 400 mg PO HS 10/06/25 10/06/25 History rosuvastatin 40 mg tablet 40 mg PO HS 10/06/25 10/06/25 History sennosides 8.6 mg-docusate sodium 1 tab PO BID 10/06/25 10/06/25 History 50 mg tablet (Senexon-S) vortioxetine 20 mg tablet 20 mg PO DAILY 10/06/25 10/06/25 History (Trintellix) pantoprazole 40 mg tablet,delayed 40 mg PO DAILY #30 tabs 10/07/25 Rx release prednisone 20 mg tablet 20 mg PO DAILY 7 days #7 tabs 10/07/25 Rx Past Med/Surg History Problem List Hand pain Near syncope Stable angina Abdominal pain (Acute) Abdominal distension (Acute) Acute kidney injury History of CAD (coronary artery disease) Constipation Chest pain (Acute) Diabetes mellitus Prediabetes S/P coronary artery stent placement (Acute) CAD (coronary artery disease) (Acute) Mood disorder HTN (hypertension) Medical History History of tobacco use PSVT (paroxysmal supraventricular tachycardia) Surgical History History of cardiac catheterization S/P bilateral hip replacements H/O inguinal hernia repair History of cholecystectomy Family History Other Diabetes Heart disease Social History Smoking Status: Former smoker Tobacco Type: Smokeless Tobacco (Dip or Chew) Do You Dip or Chew Tobacco: Yes; Hx Alcohol Use: No Hx Substance Use: Yes Preferred Language: Telugu Communication Ability: Effective Registered Medical Assistant Required: No Beliefs That Will Affect Care: None Current Living Situation: Alone Feels Safe at Home: Yes Assistive Devices: Glasses Review of Systems All systems reviewed & are unremarkable except as noted in HPI & below. Physical Exam . * General: Alert and oriented, no acute distress * Constitutional: well-developed, well-nourished. * Respiratory: Normal respiratory effort, no distress * Gastrointestinal: No tenderness to palpation, no rigidity or guarding. * Skin: No rash or lesion. * Neurologic: Grossly normal * Musculoskeletal: Right hand and forearm with no obvious deformity, overlying skin changes. No swelling appreciated throughout the forearm or hand. Mild diffuse tenderness of the dorsal fingers and hand, otherwise no specific tenderness throughout the forearm, elbow, upper arm. AROM finger flexion slightly limited secondary to pain. Otherwise finger extension, wrist flexion/extension, elbow flexion extension, shoulder flexion and abduction intact. Sensation intact radial/median/ulnar nerve distribution. Negative Tinel sign. Brisk capillary refill. Results & Data Results & Data Laboratory Results . Diagnostic Findings . PG Care Time/CCT Total # of Minutes Spent Total Time Spent with Patient: Total time spent is greater than 50% in coordination of care (as documented) at patient's floor/unit and/or counseling patient: Supervising Physician Co-Signing Physician Notes Medical records, imaging, and the case was reviewed with the trusted physician behavioral assistant. I agree with his note and assessments entirely. Treat symptomatically as an inflammatory condition for now. No overt signs of infectious process. No concern for peripheral nerve entrapment such as carpal tunnel with this presentation. No acute orthopedic intervention required. [place] [address] IN/OBS CONSULT LVL 2,35M Patient Type New Medical Decision Making Straight Forward Diagnoses Hand pain M79.643
[2025-10-06] MEDS ORDERED: Nursing to Pharmacy Communication SCH ×2 (16:45→23:30)
[2025-10-06] MEDS: DOXEPIN HCL 75 MG CAPSULE PO SCH (20:03)
[2025-10-06] MEDS: LATANOPROST 0.005% OP SOLN 2.5 ML BTL OPB SCH (20:07)
[2025-10-06] MEDS: PRAZOSIN HCL 1 MG CAP PO SCH (20:07)
[2025-10-06] MEDS: ROSUVASTATIN CALCIUM 20 MG TAB PO SCH (20:09)
[2025-10-06 20:27] LABS: Appearance Urine Clear (Clear); Glucose Urine UA 2+ (Negative)
[2025-10-06 22:55] VITALS: TEMP 97.9
[2025-10-07] MEDS ORDERED: Nursing to Pharmacy Communication SCH (02:00)
[2025-10-07 07:38] VITALS: BP 128/72; RESP 16; O2SAT 98
[2025-10-07 07:41] VITALS: PULSE 87
--- NOTE | 2025-10-07 09:57 | Discharge Summary ---
Date of Service October 07, 2025 Admission HPI Per Admitting Provider 60-year-old male with past med history significant for type 2 diabetes, hyperlipidemia, COPD, allergic asthma, paroxysmal SVT, hypertension, CAD, left carotid stenosis, heart failure, GERD, plaque psoriasis, degenerative disc disease, bilateral ocular hypertension, history of TIA comes in because of near syncope. Patient said around 5 PM he felt like passing out and also had some pain in the left side of his neck. His symptoms lasted for 2 hours. Please is also having right forearm pain going on for last 1 week but got worse lately. Currently his main complaint is right hand and forearm pain. Denies any chest pain. Denies shortness of breath. No headache. No runny nose or sore throat. No cough. No fevers. No abdominal pain. Normal bowel and bladder movements. Hemodynamics are okay. Past medical history. As mentioned above. Past surgical history. Repair of her ankle fracture. Cardiac cath. Laparoscopic cholecystectomy. Laparoscopic bilateral inguinal hernia repair. Bilateral total hip replacement. Social history. Quit smoking 2018. Smoked 1.5 pack a day for 8 years. No alcohol use. History of methamphetamines, benzodiazepines and marijuana use. Family history. Father had heart disorder. Stroke. Brother has hypertension. Sister has hypertension. Admission Exam Per Admitting Provider General- Not in distress Head- atraumatic Eyes- PERRL. ENT- oropharynx clear Neck- supple, no JVD. Lungs- clear to auscultation no wheezing or crackles Heart- regular rhythm; no murmur, no gallop. Abdomen- normal bowel sounds, soft, nontender, no distension Extremities- no pretibial edema, right forearm mild swelling and warm on palpation Neuro- alert, oriented PERRL, no facial palsy; no dysarthria; moves extremities Principal Diagnosis Right wrist/forearm pain Near syncope Discharge Exam General- Not in distress Head- atraumatic Eyes- PERRL. ENT- oropharynx clear Neck- supple, no JVD. Lungs- clear to auscultation no wheezing or crackles Heart- regular rhythm; no murmur, no gallop. Abdomen- normal bowel sounds, soft, nontender, no distension Extremities- Swelling noted on right hand and wrist; Neuro- alert, oriented PERRL, no facial palsy; no dysarthria; moves extremities Discharge Data Allergies Allergy/AdvReac Type Severity Reaction Status Date / Time celecoxib Allergy Mild OTHER Verified 10/24/10 14:02 Cephalosporins Allergy Mild OTHER Verified 10/24/10 14:02 hydromorphone Allergy Mild OTHER Verified 10/24/10 14:02 tramadol Allergy Mild OTHER Verified 11/05/10 04:16 Penicillins Allergy Unknown UNKNOWN Verified 11/28/10 09:20 propoxyphene Allergy Unknown 0 Verified 11/05/10 04:16 cephalexin AdvReac Intermediate VOMITING Verified 12/13/10 11:15 naproxen AdvReac Intermediate N/V Verified 12/13/10 11:15 chlorpromazine AdvReac Mild FLUSHED Verified 12/13/10 11:15 hydrocodone AdvReac Mild NAUSEA/CP Verified 11/05/10 06:20 morphine AdvReac Unknown NAUSEA Verified 09/01/14 09:53 Consultations 10/05/25 22:38 ED Decision to Admit Stat 10/06/25 07:52 Consult Orthopedic Surgery Routine 10/06/25 08:00 Consult Cardiology Routine Ordered Studies 10/05/25 20:30 CT angio chest PE protocol Stat US venous doppler UE RT Stat 10/06/25 01:09 CT arm [CT forearm RT wo con] Urgent CT hand RT wo con Urgent Hospital Course (1) Near syncope: 60-year-old male with past med history significant for type 2 diabetes, hyperlipidemia, COPD, allergic asthma, paroxysmal SVT, hypertension, CAD, left carotid stenosis, heart failure, GERD, plaque psoriasis, degenerative disc disease, bilateral ocular hypertension, history of TIA comes in because of near syncope. Patient said around 5 PM he felt like passing out and also had some pain in the left side of his neck. His symptoms lasted for 2 hours. Please is also having right forearm pain going on for last 1 week but got worse lately. . Denies any chest pain. Denies shortness of breath. No headache. No runny nose or sore throat. No cough. No fevers. No abdominal pain. Normal bowel and bladder movements. Hemodynamics are okay. Right forearm pain Patient reports pain in his hand, wrist along with tingling sensation. Pain worse at night Venous duplexno DVT Pulses intact Hand and forearm CT shows diffuse edema in the subcutaneous muscular plane During the hospitalization, patient was started on prednisone 20 mg. Orthopedic was consulted for comanagement; they recommended symptomatic management including cock up wrist splint, NSAIDs and ice. Patient reported improvement in the swelling/pain with a trial of prednisone. Patient was discharged home with a follow-up set up with his primary care doctor. Discussion was done with the patient regarding possible referral to rheumatology as outpatient if his hand pain/swelling continues to persist. Patient verbalized understanding Near syncope 2 sets of troponin negative CTA chest unremarkable Echocardiogram shows EF of 60 to 65%; moderate concentric LVH. Zio patch as outpatient Evaluated by cardiology during the hospitalization; no medication changes were done Please note the above document was generated using voice recognition software. It may contain grammatical, syntax or spelling errors. Any formal questions or concerns about the content, text or information contained within the body of this dictation should be directly addressed to the provider for clarification Total Time Total Time Spent Total Time Spent (In Minutes): 45 Total Time Includes: Examination of the Patient, Discharge Planning, Medication Reconciliation, Communication With Other Providers and Other Discharge Plan Discharge Items Patient Disposition: Home - Self-Care Reason For Visit: NEAR SYNCOPE Discharge Diagnosis: Right forearm pain Likely carpal tunnel syndrome Activity: Resume your previous activity Non-emergency contact: Primary Care Provider Call non-emergency contact if: you have any medication questions and your symptoms worsen Follow-up/Referrals: Monica Jeff MD [Primary Care Provider] - (Date & Time 10/13/2025 9:00 AM Provider: Monica Tesfaye MD [facility] ) Diet: Regular Addtl Attending Provider Instructions: You were admitted to the hospital due to pain in your right hand/arm. Orthopedic evaluated you; they recommend trying wrist splint and ice. You have been prescribed steroid(prednisone) to be taken for 7 more days to help with inflammation. Please follow-up with your primary care doctor and monitor progression of the hand/arm swelling. You will need rheumatology referral if you continues to have issues with with the hand. Omeprazole has been stopped and you have been switched over to pantoprazole as omeprazole can interact with clopidogrel. Pending Studies at Discharge: No Stand-Alone Forms: My [employer], Smoking Cessation Medications and DC Order Prescriptions: New prednisone 20 mg Tablet 20 mg PO DAILY 7 Days Qty: 7 0RF pantoprazole 40 mg tablet,delayed release (DR/EC) 40 mg PO DAILY Qty: 30 0RF Continued latanoprost 0.005 % drops 1 drp OPB HS fexofenadine 60 mg tablet 60 mg PO DAILY lisinopril 20 mg tablet 20 mg PO DAILY sennosides-docusate sodium [Senexon-S] 8.6-50 mg tablet 1 tab PO BID metoprolol succinate 100 mg tablet extended release 24 hr 50 mg PO DAILY doxepin 75 mg capsule 150 mg PO HS quetiapine 200 mg tablet 200 mg PO HS Rx Instructions: total 600mg po hs clopidogrel 75 mg tablet 75 mg PO DAILY amlodipine 5 mg tablet 5 mg PO DAILY aspirin [Aspir-81] 81 mg Tablet,Delayed Release (Dr/Ec) 81 mg PO DAILY prazosin 5 mg capsule 5 mg PO HS isosorbide mononitrate 60 mg Tablet Extended Release 24 Hr 60 mg PO DAILY metformin 500 mg tablet extended release 24 hr 1,000 mg PO DAILY rosuvastatin 40 mg tablet 40 mg PO HS fenofibrate 160 mg tablet 160 mg PO DAILY Trintellix 20 mg tablet 20 mg PO DAILY Jardiance 10 mg tablet 10 mg PO DAILY Trulicity 1.5 mg/0.5 mL pen injector 1.5 mg SUBCUT WK quetiapine 400 mg tablet 400 mg PO HS Rx Instructions: total 600mg po hs Discontinued omeprazole 40 mg capsule,delayed release(DR/EC) 40 mg PO DAILY Discharge Orders: Discharge Order (Routine); Ordered 10/07/25 Ordered By: Milan Garcia Admission Data Admit Date/Time: 10/06/25 01:09 Attending Provider: Milan Garcia Admit Provider: Logan Shine Primary Care Provider: Monica Jeff Other Providers: Logan Shine; Uri Joe; Karri Leach
--- NOTE | 2025-10-10 09:55 | Electrocardiogram Report ---
Test Reason : Blood Pressure : */* mmHG Vent. Rate : 77 BPM Atrial Rate : 77 BPM P-R Int : 170 ms QRS Dur : 100 ms QT Int : 400 ms P-R-T Axes : 57 26 47 degrees QTcB Int : 452 ms Normal sinus rhythm Normal ECG When compared with ECG of 06-Oct-2025 05:53, Nonspecific T wave abnormality now evident in Anterior leads Confirmed by Vishnu Corbin ([id number]) on 10/10/2025 9:54:39 AM Referred By: REFERRED SELF Confirmed By: Vishnu Corbin
== END 2025-10-07 11:51 | disposition home or self-care (01) ==
LOC: ED 19:12 → 2W 19:12